=== PATIENT | male | born 1935 | race Caucasian/White ===

== ENCOUNTER 2017-09-14 10:52 | Day surgery (SDC) | payer MEDICARE, OTHER ==
[~2017-09-14] VITALS: Ht 182.9 cm; Wt 93.7 kg
[~2017-09-14 10:52] MED LIST: ADULT LOW DOSE81 MG PO; AMLODIPINE BESYL5 MG PO; FLAX OIL1000 MG PO; GLUCOSAMINE1000 MG PO; HYDROCHLOROTH12.5 MG PO; IBUPROFEN200 M1 PO; LISINOPRIL20 MG PO; LORATADINE10 M2 PO; MULTIVITAMINS1 EAC7 PO; SPIRONOLACTONE25 MG PO; TERAZOSIN HCL5 MG PO; ULTRAM50 MG PO
--- NOTE | 2017-09-14 12:21 | NUR ---
09/14/17 1221 Cassie Issa 1215-PATIENT ARRIVED TO PACU ON RA. O2 SAT 100% PATIENT AWAKE DENIES PAIN OR NAUSEA. LAYING ON STOMACH BANDAID CDI. 1218-PATIENT REPOSITIONED SELF TO RIGHT SIDE.
[2017-09-28] MEDS ORDERED: ACETAMINOPHEN650 M1 PO (12:35)
[2017-09-28] MEDS ORDERED: STOOL SOFTENER240 MG PO (12:36)
[2017-11-02] MEDS ORDERED: NEURONTIN100 MG PO (12:57)
[2018-01-13] MEDS ORDERED: DEMADEX20 MG PO (13:43)
== END 2017-09-14 13:00 | disposition home or self-care (01) ==
LOC: OPS 10:52 → DS 10:52 → OPS 12:00
PROVIDERS: Specialist
PROC: 07DR3ZX Extraction of Iliac Bone Marrow, Percutaneous Approach, Diagnostic (ICD-10-PCS; principal; 2017-09-14 12:00)
DX: C91.10 Chronic lymphocytic leukemia of B-cell type not having achieved remission (principal); N18.9 Chronic kidney disease, unspecified; G47.33 Obstructive sleep apnea (adult) (pediatric); I34.1 Nonrheumatic mitral (valve) prolapse; M19.90 Unspecified osteoarthritis, unspecified site; G25.81 Restless legs syndrome; Z79.899 Other long term (current) drug therapy
CPT/HCPCS: 85025; 99152; J2250; J3010; J7120

== ENCOUNTER 2018-01-22 15:03 | Emergency (ER) | payer MEDICARE ==
[~2018-01-22] VITALS: Ht 182.9 cm; Wt 95.2 kg
[~2018-01-22 15:03] MED LIST changes: +ACETAMINOPHEN650 M1 PO; +DEMADEX20 MG PO; +NEURONTIN100 MG PO; +STOOL SOFTENER240 MG PO
[2018-01-22] MEDS ORDERED: ACYCLOVIR800 MG PO (16:51)
== END 2018-01-22 17:06 | disposition home or self-care (01) ==
LOC: ED 15:03
DX: B02.9 Zoster without complications (principal); Z79.899 Other long term (current) drug therapy; Z79.891 Long term (current) use of opiate analgesic; Z79.82 Long term (current) use of aspirin; I12.9 Hypertensive chronic kidney disease with stage 1 through stage 4 chronic kidney disease, or unspecified chronic kidney disease; N18.4 Chronic kidney disease, stage 4 (severe)
CPT/HCPCS: 70450; 80053; 81001; 85025; 96374; 99284; J3010; J7120

== ENCOUNTER 2018-01-30 09:08 | Inpatient (IN) | payer MEDICARE ==
[~2018-01-30] VITALS: Ht 182.9 cm; Wt 93.2 kg
[~2018-01-30 09:08] MED LIST changes: +ACYCLOVIR800 MG PO
[2018-01-30] MEDS ORDERED: IRON325 M1 (09:27)
[2018-01-30] MEDS ORDERED: IRON325 M1 PO (09:27)
--- NOTE | 2018-01-30 14:24 | NUR ---
VITAL DONE PT IS JUST ARRIVING
--- NOTE | 2018-01-30 15:00 | NUR ---
RECIEVED REPORT FROM MARITA WILKINS. PT IS ALERT AND AWAKE AT THIS TIME, SLIGHTLY CONFUSED AND LOOKS TO SPOUSE TO ANSWER QUESTIONS. PT DOES ANSWER QUESTIONS APROPRIATELY. PT REPORTS NO PAIN, NO NAUSEA, NO VOMITING. NO BM SINCE TUESDAY, WHICH IS FAIRLY NORMAL FOR HIM. REPORTS PT HAS BEEN DEPRESSED. PT HAS SHINGLES, NO OPEN LESIONS AND NO NEW BLISTERS IN 4 DAYS. HAS BEEN ON ACYCLOVIR FOR MORE THAN A WEEK. CONTACT PRECAUTIONS ORDERED. PT VOIDED WELL, URINE SENT TO LAB, AWAITING RESULTS.
--- NOTE | 2018-01-30 15:52 | NUR ---
NURSE CYNTHIA WAS GETTING ORTHO VITALS ON PT. WE GOT PT UP TO BR AND THIS STEAM SHOVEL OPERATING ENGINEER SENT IN A URIAN SAMPLE.
--- NOTE | 2018-01-30 19:05 | NUR ---
IN ROOM FOR REPORT, HELPED PT MOVE TO HIS CHAIR. HE DENIES FURTHER NEEDS AT THIS TIME.
--- NOTE | 2018-01-30 21:09 | NUR ---
PATIENT CALLED WANTING TO GO TO BED FROM CHAIR. LINDSEY FLOAT SARAH AND I HELPED TAKE ORTHOSTATIC V/S PER MARITA MONTILLA'S REQUEST. PUT WATER ON CPAP. PATIENT IS IN BED. CALL LIGHT WITHIN REACH.
--- NOTE | 2018-01-30 21:11 | EKG ---
[facility] [address] [facility] [place] [address] Signed Sinus bradycardia Left axis deviation Abnormal ECG No previous ECGs available Confirmed by MOUNA MONTANO MD ([id number]) on 01/30/2018 9:10:58 PM Electronically Signed By: MOUNA MONTANO MD 01/30/182110 PATIENT NAME: JINNY MIRANDA Electrocardiogram DATE OF : 33 PHYSICIAN: MOUNA MONTANO MD REPORT #: [id number] REPORT IS CONFIDENTIAL AND NOT TO BE RELEASED WITHOUT AUTHORIZATION
--- NOTE | 2018-01-30 22:14 | NUR ---
IN ROOM TO ADMINISTER TYLENOL FOR PAIN 05/08. PT STATES IT DIDN'T HELP EARLIER. HE SAYS SHE TAKE 2 650MG TYLENOL EVERY 12 HR AND TRAMADOL AT BED TIME AND MORNING. HE IS REQUESTING THAT OR SOMETHING ELSE FOR PAIN. WILL GIVE THE DR A CALL.
--- NOTE | 2018-01-30 22:33 | NUR ---
SPOKE WITH DR MONTANO, NEW ORDERS RECEIVED FOR TRAMADOL.
--- NOTE | 2018-01-31 00:14 | NUR ---
PT IS RESTING WITH EYES CLOSED, RESPIRATIONS ARE EVEN AND NONLABORED.
--- NOTE | 2018-01-31 01:10 | NUR ---
ENTERED PT'S ROOM TO FIX IV, PT DENIES NEEDS AT THIS TIME. CALL LIGHT IS WITHIN REACH.
--- NOTE | 2018-01-31 03:09 | NUR ---
PT IS RESTING WITH EYES CLOSED, RESPIRATIONS ARE EVEN AND NONLABORED WITH CPAP ON. CALL LIGHT IS WITHIN REACH.
--- NOTE | 2018-01-31 05:15 | NUR ---
PT STATES HE HAD DIFFICULTY SLEEPING THROUGH THE NIGHT D/T PAIN. AT THIS TIME HE REPORTS PAIN AT 9/10. TYLENOL WAS GIVEN. ADVISED PT WE WILL HAVE TO TALK TO THE DR ABOUT CHANGES TO PAIN MEDS. PT DENIES FURTHER NEEDS AT THIS TIME.
--- NOTE | 2018-01-31 09:42 | NUR ---
PT SITTING UP AT EDGE OF BED. REPORTED THAT THE PAIN TO HIS SIDE AND BACK AT SHINGLES SITES IS 2/10, STATED THAT THIS IS THE BEST HE HAS FELT IN A LONG TIME. PT'S AT SIDE. PERSONAL SUPPLIES AND CALL LIGHT IN REACH.
--- NOTE | 2018-01-31 10:49 | NUR ---
GAVE PT BISACODYL SUPPOSITORY. PT HAS PERSONAL SUPPLIES AND CALL LIGHT IN REACH. DENIED NEEDS.
--- NOTE | 2018-01-31 12:10 | NUR ---
PT ATTEMPTED TO HAVE A BM, JUST VERY SMALL AMOUNT OF LOOSE STOOL, MOSTLY REMAINS OF SUPPOSITORY. PT BACK TO BED, SITTING UP ON EDGE OF BED. DENIED PAIN AT THIS TIME. PT'S AT BEDSIDE. PT DENIES NEEDS.
[2018-01-31] MEDS ORDERED: LIDODERM1 EACH TOP (12:40)
[2018-01-31] MEDS ORDERED: NORVASC5 MG PO (12:42)
[2018-01-31] MEDS ORDERED: TYLENOL EXTRA500 MG PO (13:33)
[2018-01-31] MEDS ORDERED: DULCOLAX5 MG PO (13:38)
[2018-01-31] MEDS ORDERED: ZOFRAN8 MG PO (13:40)
[2018-01-31] MEDS ORDERED: VELCADE3.5 MG SUB-Q (13:40)
[2018-01-31] MEDS ORDERED: DECADRON4 MG PO (13:41)
[2018-01-31] MEDS ORDERED: TERAZOSIN HCL5 MG PO (14:32)
--- NOTE | 2018-01-31 14:54 | NUR ---
MED REC COMPLETE
== END 2018-01-31 15:45 | disposition home or self-care (01) | DRG 683 ==
LOC: ED 09:08 → MS 13:48
PROVIDERS: ADMIT Internal Medicine
DX: N17.9 Acute kidney failure, unspecified (principal); Q61.3 Polycystic kidney, unspecified; C90.00 Multiple myeloma not having achieved remission; N18.3 Chronic kidney disease, stage 3 (moderate); E86.0 Dehydration; D69.59 Other secondary thrombocytopenia; I95.1 Orthostatic hypotension; D63.0 Anemia in neoplastic disease; I10 Essential (primary) hypertension; G89.4 Chronic pain syndrome; T50.1X5A Adverse effect of loop [high-ceiling] diuretics, initial encounter; B02.9 Zoster without complications; Z66 Do not resuscitate; Z79.82 Long term (current) use of aspirin; Z79.891 Long term (current) use of opiate analgesic; Z79.52 Long term (current) use of systemic steroids; Z79.899 Other long term (current) drug therapy
CPT/HCPCS: 71045; 80053; 80069; 81001; 82570; 84300; 84484; 84540; 85025; 85610; 86900; 86901; 93005; 93010; J7030; J7120

== ENCOUNTER 2018-05-15 08:50 | Observation (INO) | payer MEDICARE ==
[~2018-05-15] VITALS: Ht 182.9 cm; Wt 91.2 kg
--- OUTSIDE RECORDS SUMMARY | ~2018-05-15 | XMS | Encounter Summary ---
Demographics + + + | Address | [address] | | | [place] [address] | + + + | Home Phone | | + + + | Preferred Language | Unknown | + + + | Marital Status | | + + + | Worship Affiliation | Unknown | + + + | Race | Unknown | + + + | Ethnic Group | Unknown | + + + Author + + + | Author | [email or web address] | + + + | Organization | [email or web address] | + + + | Address | Unknown | + + + | Phone | Unavailable | + + + Support + + + + + | Name | Relationship | Address | Phone | + + + + + | Halima Alexander | ECON | [address] | | | | | [place] | | | | | [address] | | + + + + + Care Team Providers + +------+ + | Care Fender Mechanic Name | Role | Phone | + +------+ + | Garima Martin | PCP | | + +------+ + Encounter Details +--------+---------+ + + + | Date | Type | Department | Care Team | Description | +--------+---------+ + + + | 04/24/ | Office | [facility] | Eduardo Felder MD | CKD (chronic kidney | | 2018 | Visit | [place] [address] | [address] | disease) stage 3, | | | | [address] [place], [place] | GFR 30-59 ml/min | | | | [address] [place] | [phone] | (Primary Dx); | | | | [address] | | Bilateral leg edema; | | | | | | Electrolyte | | | | | | imbalance risk; | | | | | | Essential | | | | | | hypertension, | | | | | | benign; | | | | | | Hyperuricemia | +--------+---------+ + + + Social History + +-------+ [...] on file | | + + + as of this encounter Last Filed Vital Signs + + + + | Vital Sign | Reading | Time Taken | + + + + | Blood Pressure | 94/50 | 04/24/2018 11:58 AM PDT | + + + + | Pulse | 76 | 04/24/2018 11:58 AM PDT | + + + + | Temperature | 37.1 C (98.8 F) | 04/24/2018 11:58 AM PDT | + + + + | Respiratory Rate | - | - | + + + + | Oxygen Saturation | 99% | 04/24/2018 11:58 AM PDT | + + + + | Inhaled Oxygen | - | - | | Concentration | | | + + + + | Weight | 91.3 kg (201 lb 3.2 | 04/24/2018 11:58 AM PDT | | | oz) | | + + + + | Height | 182.9 cm (6') | 04/24/2018 11:58 AM PDT | + + + + | Body Mass Index | 27.29 | 04/24/2018 11:58 AM PDT | + + + + in this encounter Instructions Patient Instructions - Eduardo Felder MD - 04/24/2018 11:50 AM PDTDiscussions/Recommendatio ns: I discussed today with Mr. Glen Wise the meaning of his severe CKD and the interaction of that with his hypertension. I stressed the importance of keeping his BP controlled and avoiding getting dehydrated i f we are to have a chance at helping preserve his renal function. He showed good understand ing. I gave him instructions on how to chart his blood pressure in the appropriate manner at home. He is to call us if they fall outside of the optimal provided range. He will bring his sphygmomanometer for validation once a year. He will strictly abide by a low salt, low potassium, low purine diet and will avoid all kinds of NSAIDs for analgesia. Also: I will not change any of his vasoactive meds today. I asked him to keep Torsemide 20 mg handy to use for wt gain (3 or more lbs gain in 3 or less days) He will report back to me his home daily weights & BP readings if they fall outside of t he optimal provided range. At that time, I will decide whether any change to his vasoactive regimen is warranted. I asked him to F/U with the Urology team for his LUTS & high post-void residual. He will continue to F/U with your office & the Oncology team regularly. He will have a RFP, CBC, uric acid, iPTH, urinalysis, Urine total nicrejc-it-dbdrvduiqp ratio before he comes back in 4 months.in this encounter Progress Notes Eduardo Felder MD - 04/24/2018 11:50 AM PDTFormatting of this note may be different from e original. Patient Active Problem List Diagnosis CKD (chronic kidney disease), stage IV (HCC) Essential hypertension, benign Bilateral leg edema Hyperkalemia Anemia in neoplastic disease 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) Hyperuricemia Electrolyte imbalance risk HAVEN (acute kidney injury) ([facility]) Dear Garima: I saw your patient Mr. Glen Wise in the office on an urgent basis in hospital today. As you are familiar with his case, I will not state his past history in detail. Briefly, he is a 82 y.o. male patient with past history as delineated above; he is here to F/U on his early 01/2018 HAVEN + his CKD & its associated complications. He tells me he had stage III CKD since before 2006. In early 01/2018 he was hospitalized with HAVEN from volume depletion (low oral intake + use of a diuretic). The patient has history of hypertension since the ; his BP control has been okay. he denies any history of prolonged exposure to NSAIDs or recent exposure to known nephrotox ins. he denies any recurrent nephrolithiasis or pyelonephritis. he tells me that he's had no history of urinary retention, gross hematuria or dysuria. he has no incontinence symptoms. No symptoms of UTI. No history of frequency, nocturia, weak urinary stream, hesitancy, inter mittence, incomplete emptying or urgency; he has 2 times nightly nocturia. No history of p assing kidney stones. he has no foamy urine either. his baseline Creatinine is TBD. There is no family history of renal genetic diseases such as PKD. he says that he feels 'good ' today. he denies any blurred vision tinnitus, headache, feve r, chills, or cough. No nausea, vomiting, abdominal pain, diarrhea, melena, or hematochezia . He has postural dizziness at times; he F/U's on that with your office. No chest pain, pa lpitation, loss of consciousness, orthopnea, paroxysmal nocturnal dyspnea; he has had progre ssive RAND since late 2017 + worse leg edema; however, the edema has been improving with the use of the Loop bhavin. The following portions of the patient's history were reviewed and updated as appropriate: a llergies, current medications, past medical history, past social history, past surgical hist ory, family history and problem list. I also reviewed with him the records from his most re cent hospitalization, including the discharge summary. * U/S from 01/13/18: evidence of significant renal anatomic abnormalities: polycystic kidne y disease + high post void residual of 172 mL. As in History of Present Illness & in Assessment. All the pertinent systems were reviewed a nd were otherwise negative. Current Outpatient Prescriptions Medication Sig Dispense Refill acetaminophen (TYLENOL) 650 MG CR tablet Take 650 mg by mouth daily. aspirin 81 MG tablet Take 81 mg by mouth daily. bortezomib (VELCADE) 3.5 MG injection Inject 3.5 mg/m2 into the vein. Twice a week dexamethasone (DECADRON) 4 MG tablet Take 4 mg by mouth. Twice a week docusate calcium (SURFAK) 240 MG capsule Take 240 mg by mouth 2 (two) times daily. ferrous sulfate, 65 FE, 324 (65 Fe) MG EC tablet Take 65 mg of iron by mouth daily with breakfast. Flaxseed, Linseed, (FLAXSEED OIL) 1200 MG CAPS Take 1,200 mg by mouth daily. gabapentin (NEURONTIN) 100 MG capsule Take 100 mg by mouth nightly. Glucosamine HCl 1500 MG TABS Take 1,000 mg by mouth. Multiple Vitamins-Minerals (VITRUM 50+ SENIOR MULTI) TABS Take 1 tablet by mouth daily. ondansetron (ZOFRAN) 8 MG tablet Take 8 mg by mouth every 8 (eight) hours as needed for Nausea. tamsulosin (FLOMAX) 0.4 MG capsule Take 0.4 mg by mouth After dinner. torsemide (DEMADEX) 20 MG tablet Take 1 tablet by mouth daily. (Patient taking differen tly: Take 20 mg by mouth as needed.) 30 tablet 11 traMADol (ULTRAM) 50 MG tablet Take 100 mg by mouth daily. amLODIPine (NORVASC) 5 MG tablet Take 5 mg by mouth daily. hydrochlorothiazide (HYDRODIURIL) 12.5 MG tablet Take 1 tablet by mouth Two times daily . (Patient not taking: Reported on 02/17/2018) 60 tablet 11 lisinopril (ZESTRIL) 20 MG tablet Take 20 mg by mouth daily. loratadine (CLARITIN) 10 MG tablet Take 10 mg by mouth daily. No current facility-administered medications for this visit. Physical Exam: BP 94/50 (BP Location: Left upper arm, Patient Position: Sitting) | Pulse 76 | Temp 98.8 F (37.1 C) (Temporal) | Ht 1.829 m (6') | Wt 91.3 kg (201 lb 3.2 oz) | SpO2 99% | BM I 27.29 kg/m General appearance: Pleasant, not in acute distress. Neck: Supple without tracheal deviation or jugular venous distension. Head and ENT: Head is atraumatic. The oropharynx is without erythema or thrush. Eyes: Anicteric. The extraocular muscle movements are normal. Lungs: Clear to auscultation bilaterally. There are no wheezes. Heart: Regular rate and rhythm without any rub, gallop. No murmur. Abdominal exam: Soft and nontender with normal bowel sounds. Musculoskeletal: No costovertebral angle tenderness bilaterally. Extremities: Warm to touch with 1+ left, trace right leg edema. There is no cyanosis. Skin: There are no rashes, petechiae, or ecchymosis. Neurological: Awake, alert, and oriented to time, place, and person. Normal gross motor po wer. There is no asterixis. Psychiatric: The patient s behavior is normal. Judgment and thought content are normal. Lab Results Component Value Date BUN 36 (A) 04/17/2018 CREATININE 1.9 (A) 04/17/2018 EGFR 34 (A) 04/17/2018 NA 139 04/17/2018 K 4.7 04/17/2018 CL 103 04/17/2018 CO2 23 04/17/2018 CA 8.8 04/17/2018 PHOS 3.5 04/17/2018 MG 2.2 02/16/2018 ALB 3.6 04/17/2018 HGB 9.3 (A) 01/30/2018 URICACID 8.2 (A) 04/17/2018 WBC 6.4 01/30/2018 HCT 27.6 (A) 01/30/2018 LABPROT 98.6 04/17/2018 *Additional Labs: 01/02/18: K 5.5. sCr 2.41; eGFR 26; Hb 9.6; uric acid 8.9.* Assessment: Mr. Glen Wise is a 82 y.o. male patient with stage IV (severe) CKD on a background of longst anding hypertension. The most likely pathology here is that of hypertensive nephrosclerosis/ arteriolosclerosis. In early 01/2018 he was hospitalized with HAVEN from volume depletion (low oral intake + use of a diuretic). RENAL FUNCTION: Severely low GFR; improving vs early 01/2018; stability is to be monitore d BLOOD PRESSURE: Relatively controlled BLOOD SUGAR: Reports it normal ELECTROLYTES: Hyperkalemia is better ANEMIA: Moderate; of neoplastic disease (MM) VITAMIN D: To be checked thru your office PARATHYROID HORMONE: Mildly up URIC ACID: Up PROTEINURIA: minimal URINALYSIS: No UTI or hematuria VOLUME STATUS: Euvolumic. Discussions/Recommendations: I discussed today with Mr. Glen Wise the meaning of his severe CKD and the interaction of that with his hypertension. I stressed the importance of keeping his BP controlled and avoiding getting dehydrated i f we are to have a chance at helping preserve his renal function. He showed good understand ing. I gave him instructions on how to chart his blood pressure in the appropriate manner at home. He is to call us if they fall outside of the optimal provided range. He will bring his sphygmomanometer for validation once a year. He will strictly abide by a low salt, low potassium, low purine diet and will avoid all kinds of NSAIDs for analgesia. Also: I will not change any of his vasoactive meds today. I kept him off of his spironolactone, HCTZ, Lisinopril, Terazosin for now. I asked him to keep Torsemide 20 mg handy to use for wt gain (3 or more lbs gain in 3 or less days) He will report back to me his home daily weights & BP readings if they fall outside of t he optimal provided range. At that time, I will decide whether any change to his vasoactive regimen is warranted. I asked him to F/U with the Urology team for his LUTS & high post-void residual. He will continue to F/U with your office & the Oncology team regularly. He will have a RFP, CBC, uric acid, iPTH, urinalysis, Urine total hzyhcro-el-cvcyvynvob ratio before he comes back in 4 months. I spent 15 minutes of this 25-minute visit in education, counseling and answering all of his questions to his satisfaction. Thank you Garima for the opportunity to see this patient in F/U today. Please do not hesi mckeon to call me at any time with questions or concerns. Truly yours, Eduardo Felder MD [facility] in this encounter Plan of Treatment +--------+---------+ + + + | Date | Type | Specialty | Care Team | Description | +--------+---------+ + + + | 08/14/ | Office | Nephrology | Eduardo Felder MD | | | 2017 | Visit | | [address] | | | | | | [address] [place], [place] | | | | | | [address] | | | | | | | | +--------+---------+ + + + as of this encounter Visit Diagnoses + + | Diagnosis | + + | CKD (chronic kidney disease) stage 3, GFR 30-59 ml/min - Primary | + + | Chronic kidney disease, Stage III (moderate) | + + | Bilateral leg edema | + + | Edema | + + | Electrolyte imbalance risk | + + | Other specified conditions influencing health status | + + | Essential hypertension, benign | + + | Hyperuricemia | + + | Other abnormal blood chemistry | + +"
--- OUTSIDE RECORDS SUMMARY | ~2018-05-15 | XMS | Encounter Summary ---
Demographics + + + | Address | [address] | | | [place] [address] | + + + | Home Phone | | + + + | Preferred Language | Unknown | + + + | Marital Status | | + + + | Jew Affiliation | Unknown | + + + | Race | Unknown | + + + | Ethnic Group | Unknown | + + + Author + + + | Author | [facility] | + + + | Organization | [facility] | + + + | Address | Unknown | + + + | Phone | Unavailable | + + + Support + + + + + | Name | Relationship | Address | Phone | + + + + + | Halima Alexander | ECON | [address] | | | | | [place] | | | | | [address] | | + + + + + Care Team Providers + +------+ + | Care Hi Teacher Name | Role | Phone | + +------+ + | Garima Martin | PCP | | + +------+ + Reason for Visit + + + | Reason | Comments | + + + | Labs Only | [facility] dated 02/16/2018 | + + + Encounter Details +--------+ + + + + | Date | Type | Department | Care Team | Description | +--------+ + + + + | 02/17/ | Documentati | [facility] | Bernadine Cotton CMA | Labs Only ([facility] | | 2018 | on Only | [place] [address] | | Labs dated | | | | [address] | | 02/16/2018) | | | | [place] [address] | | | | | | [phone] | | | +--------+ + + + [...] + + + as of this encounter Plan of Treatment +--------+---------+ + + + | Date | Type | Specialty | Care Team | Description | +--------+---------+ + + + | 08/14/ | Office | Nephrology | Eduardo Felder MD | | | 2017 | Visit | | [address] | | | | | | [address] [place], [place] | | | | | | [address] | | | | | | | | +--------+---------+ + + + as of this encounter Visit Diagnoses Not on filein this encounter"
--- OUTSIDE RECORDS SUMMARY | ~2018-05-15 | XMS | Encounter Summary ---
Demographics + + + | Address | [address] | | | [place] [address] | + + + | Home Phone | | + + + | Preferred Language | Unknown | + + + | Marital Status | | + + + | Baptism Affiliation | Unknown | + + + | Race | Unknown | + + + | Ethnic Group | Unknown | + + + Author + + + | Author | [facility] | + + + | Organization | [facility] | + + + | Address | Unknown | + + + | Phone | Unavailable | + + + Support + + + + + | Name | Relationship | Address | Phone | + + + + + | Halima Alexander | ECON | [address] | | | | | [place] | | | | | [address] | | + + + + + Care Team Providers + +------+ + | Care Javascript Software Engineer Name | Role | Phone | + +------+ + | Garima Martin | PCP | | + +------+ + Encounter Details +--------+ + + + + | Date | Type | Department | Care Team | Description | +--------+ + + + + | 04/24/ | Telephone | [facility] | Bernadine Cotton CMA | | | 2017 | | [address] | | | | | | [place] | | | | | | [address] [place] | | | | | | [address] | | | +--------+ + + + [...] | Eduardo Felder MD | | | 2018 | Visit | | [address] | | | | | | [address] [place], [place] | | | | | | [address] | | | | | | | | +--------+---------+ + + + + +--------+ + + | Name | Priori | Associated Diagnoses | Order Schedule | | | ty | | | + +--------+ + + | Renal function panel | Routin | CKD (chronic | Expected: | | | e | kidney disease) | 08/07/2018, Expires: | | | | stage 3, GFR 30-59 | 04/24/2019 | | | | ml/min Essential | | | | | hypertension, benign | | | | | Hyperuricemia | | | | | Electrolyte | | | | | imbalance risk | | + +--------+ + + | CBC W/Auto Diff (Reflex to | Routin | CKD (chronic | Expected: | | Manual) | e | kidney disease) | 08/07/2018, Expires: | | | | stage 3, GFR 30-59 | 04/24/2019 | | | | ml/min Essential | | | | | hypertension, benign | | | | | Hyperuricemia | | | | | Electrolyte | | | | | imbalance risk | | + +--------+ + + | Uric acid | Routin | CKD (chronic | Expected: | | | e | kidney disease) | 08/07/2018, Expires: | | | | stage 3, GFR 30-59 | 04/24/2019 | | | | ml/min Essential | | | | | hypertension, benign | | | | | Hyperuricemia | | | | | Electrolyte | | | | | imbalance risk | | + +--------+ + + | PTH intact no calcium | Routin | CKD (chronic | Expected: | | | e | kidney disease) | 08/07/2018, Expires: | | | | stage 3, GFR 30-59 | 04/24/2019 | | | | ml/min Essential | | | | | hypertension, benign | | | | | Hyperuricemia | | | | | Electrolyte | | | | | imbalance risk | | + +--------+ + + | Urinalysis (reflex to micro) | Routin | CKD (chronic | Expected: | | | e | kidney disease) | 08/07/2018, Expires: | | | | stage 3, GFR 30-59 | 04/24/2019 | | | | ml/min Essential | | | | | hypertension, benign | | | | | Hyperuricemia | | | | | Electrolyte | | | | | imbalance risk | | + +--------+ + + | Protein / creatinine ratio, urine | Routin | CKD (chronic | Expected: | | | e | kidney disease) | 08/07/2018, Expires: | | | | stage 3, GFR 30-59 | 04/24/2019 | | | | ml/min Essential | | | | | hypertension, benign | | | | | Hyperuricemia | | | | | Electrolyte | | | | | imbalance risk | | + +--------+ + + as of this encounter Visit Diagnoses + + | Diagnosis | + + | CKD (chronic kidney disease) stage 3, GFR 30-59 ml/min - Primary | + + | Chronic kidney disease, Stage III (moderate) | + + | Essential hypertension, benign | + + | Hyperuricemia | + + | Other abnormal blood chemistry | + + | Electrolyte imbalance risk | + + | Other specified conditions influencing health status | + +"
--- OUTSIDE RECORDS SUMMARY | ~2018-05-15 | XMS | Encounter Summary ---
Demographics + + + | Address | [address] | | | [place] [address] | + + + | Home Phone | | + + + | Preferred Language | Unknown | + + + | Marital Status | | + + + | Episcopal Affiliation | Unknown | + + + | Race | Unknown | + + + | Ethnic Group | Unknown | + + + Author + + + | Author | [facility] | + + + | Organization | [facility] | + + + | Address | Unknown | + + + | Phone | Unavailable | + + + Support + + + + + | Name | Relationship | Address | Phone | + + + + + | Halima Alexander | ECON | [address] | | | | | [place] | | | | | [address] | | + + + + + Care Team Providers + +------+ + | Care General Lot Attendant Name | Role | Phone | + +------+ + | Garima Martin | PCP | | + +------+ + Reason for Visit +--------+ + | Reason | Comments | +--------+ + | Other | Operative Report from [facility] dated | | | 04/25/2018 | +--------+ + Encounter Details +--------+ + + + + | Date | Type | Department | Care Team | Description | +--------+ + + + + | 04/25/ | Documentati | [facility] | Bernadine Cotton CMA | Other (Operative | | 2017 | on Only | [place] [address] | | Report from | | | | [address] | | 's; [place] | | | | [place] [address] | | [place] office dated | | | | [phone] | | 04/25/2018) | +--------+ + + + + Social [...] | | | | | | [address] [place] | | | | | | [address] | | | | | | | | +--------+---------+ + + + as of this encounter Visit Diagnoses Not on filein this encounter"
--- OUTSIDE RECORDS SUMMARY | ~2018-05-15 | XMS | Encounter Summary ---
Demographics + + + | Address | [address] | | | [place] [address] | + + + | Home Phone | | + + + | Preferred Language | Unknown | + + + | Marital Status | | + + + | Pentecostal Affiliation | Unknown | + + + | Race | Unknown | + + + | Ethnic Group | Unknown | + + + Author + + + | Author | [facility] | + + + | Organization | [facility] | + + + | Address | Unknown | + + + | Phone | Unavailable | + + + Support + + + + + | Name | Relationship | Address | Phone | + + + + + | Halima Alexander | ECON | [address] | | | | | [place] | | | | | [address] | | + + + + + Care Team Providers + +------+ + | Care Soyfreeze Operator Name | Role | Phone | + +------+ + | Garima Martin | PCP | | + +------+ + Reason for Visit + + + | Reason | Comments | + + + | Labs Only | [facility] dated 03/13/2018 | + + + Encounter Details +--------+ + + + + | Date | Type | Department | Care Team | Description | +--------+ + + + + | 03/14/ | Documentati | [facility] | Bernadine Cotton CMA | Labs Only ([facility] | | 2018 | on Only | [place] [address] | | Labs dated | | | | [address] | | 03/13/2018) | | | | [place] [address] | | | | | | [phone] | | | +--------+ + + + [...] | | | | | | [address] [place], [place] | | | | | | [address] | | | | | | | | +--------+---------+ + + + as of this encounter Procedures + +--------+ + + + | Procedure Name | Priori | Date/Time | Associated Diagnosis | Comments | | | ty | | | | + +--------+ + + + | CBC W/AUTO DIFF | Routin | 03/13/2018 | | | | (REFLEX TO MANUAL) | e | 1:03 PM | | | | | | PDT | | | + +--------+ + + + | PTH INTACT NO | Routin | 03/13/2018 | | Results for this | | CALCIUM | e | 10:10 AM | | procedure are in the | | | | PDT | | results section. | + +--------+ + + + | RENAL FUNCTION PANEL | Routin | 03/13/2018 | | Results for this | | | e | 10:10 AM | | procedure are in the | | | | PDT | | results section. | + +--------+ + + + in this encounter Results CBC W/Auto Diff (Reflex to Manual) (03/13/2018 1:03 PM) + +-------+ + + | Component | Value | Ref Range | Performed At | + +-------+ + + | WBC | | | [facility] | | | | | LABORAT[facility] | + +-------+ + + | RBC | | 10^6/ L | [facility] | | | | | LAB[facility]AT[facility] | + +-------+ + + | HGB | | g/dL | [facility] | | | | | LAB[facility]ATORY | + +-------+ + + | HCT | | % | [facility] | | | | | LAB[facility]AT[facility] | + +-------+ + + | MCV | | fL | [facility] | | | | | LAB[facility]AT[facility] | + +-------+ + + | MCH | | pg | [facility] | | | | | LAB[facility]AT[facility] | + +-------+ + + | MCHC | | g/dL | [facility] | | | | | LAB[facility]AT[facility] | + +-------+ + + | PLT | | K/ L | [facility] | | | | | LAB[facility]AT[facility] | + +-------+ + + | RDW SD | | % | [facility] | | | | | LAB[facility]AT[facility] | + +-------+ + + | MPV | | fL | [facility] | | | | | LAB[facility]AT[facility] | + +-------+ + + | DIFF TYPE | | | [facility] | | | | | LAB[facility] | + +-------+ + + | NEUTROPHILS | | % | [facility] | | | | | LAB[facility] | + +-------+ + + | LYMPHOCYTES | | % | [facility] | | | | | [facility] | + +-------+ + + | MONOCYTES | | % | [facility] | | | | | LAB[facility] | + +-------+ + + | EOSINOPHILS | | % | [facility] | | | | | [facility] | + +-------+ + + | BASOPHILS | | % | [facility] | | | | | LAB[facility] | + +-------+ + + | NEUTROPHILS ABS | | / L | [facility] | | | | | LAB[facility] | + +-------+ + + | LYMPHOCYTES ABS | | / L | [facility] | | | | | LAB[facility]AT[facility] | + +-------+ + + | MONOCYTES ABS | | / L | [facility] | | | | | LAB[facility] | + +-------+ + + | EOSINOPHILS ABS | | / L | [facility] | | | | | LAB[facility]AT[facility] | + +-------+ + + | BASOPHILS ABS | | / L | [facility] | | | | | LAB[facility]ATORY | + +-------+ + + + + | Specimen | + + | Blood | + + + + + + + | Performing | Address | City/State/Zipcode | Phone Number | | Organization | | | | + + + + + | [facility] | [address] | [place] [address] | | | LABORATORY | 13 | | | + + + + + Renal function panel (03/13/2018 10:10 AM) + + + + + | Component | Value | Ref Range | Performed At | + + + + + | GLUCOSE | 107 (A) | 70 - 100 mg/dL | [facility] | | | | | LAB[facility]AT[facility] | + + + + + | BUN | 50 (A) | 6 - 23 mg/dL | [facility] | | | | | LAB[facility]AT[facility] | + + + + + | CREATININE | 2.33 (A) | 0.7 - 1.11 mg/dL | [facility] | | | | | LAB[facility]ATORY | + + + + + | PHOSPHORUS | 4.2 | 2.5 - 5.0 mg/dL | [facility] | | | | | LAB[facility]AT[facility] | + + + + + | Albumin | 3.9 | 3.5 - 5.0 | [facility] | | | | | LAB[facility]AT[facility] | + + + + + | SODIUM | 141 | 132 - 143 mmol/L | [facility] | | | | | [facility] | + + + + + | POTASSIUM | 4.7 | 3.6 - 5.1 mmol/L | [facility] | | | | | LAB[facility] | + + + + + | CHLORIDE | 108 | 95 - 112 mmol/L | [facility] | | | | | LAB[facility] | + + + + + | CO2 | 22 | 19 - 31 mmol/L | [facility] | | | | | LAB[facility]AT[facility] | + + + + + | ANION GAP AGAP | 15.7 | 7 - 21 mmol/L | [facility] | | | | | LAB[facility]AT[facility] | + + + + + | GFR MDRD Non Af Amer | | | [facility] | | | | | LAB[facility] | + + + + + | Phosphorus,Inorganic | | | [facility] | | | | | LAB[facility]AT[facility] | + + + + + | BUN/CREAT | 21.5 | 6.0 - 28.6 | [facility] | | | | | LAB[facility]AT[facility] | + + + + + | CALCIUM | 8.9 | 8.4 - 10.2 mg/dL | [facility] | | | | | LABORATORY | + + + + + | EGFR | 27 (A) | 60 mg/dL | [facility] | | | | | LABORATORY | + + + + + + + | Specimen | + + | Blood | + + + + + + + | Performing | Address | City/State/Zipcode | Phone Number | | Organization | | | | + + + + + | [facility] | [address] | [place] [address] | | | LABORATORY | 13 | | | + + + + + PTH intact no calcium (03/13/2018 10:10 AM) + +-------+ + + | Component | Value | Ref Range | Performed At | + +-------+ + + | PTH INTACT NO | 63.66 | 15 - 65 pg/mL | [facility] | | CALCIUM | | | LABORATORY | + +-------+ + + + + | Specimen | + + | Blood | + + + + + + + | Performing | Address | City/State/Zipcode | Phone Number | | Organization | | | | + + + + + | [facility] | [address] | [place] [address] | | | LABORATORY | 13 | | | + + + + + in this encounter Visit Diagnoses Not on filein this encounter"
--- OUTSIDE RECORDS SUMMARY | ~2018-05-15 | XMS | Encounter Summary ---
Demographics + + + | Address | [address] | | | [place] [address] | + + + | Home Phone | | + + + | Preferred Language | Unknown | + + + | Marital Status | | + + + | Sikhism Affiliation | Unknown | + + + | Race | Unknown | + + + | Ethnic Group | Unknown | + + + Author + + + | Author | [facility] | + + + | Organization | [facility] | + + + | Address | Unknown | + + + | Phone | Unavailable | + + + Support + + + + + | Name | Relationship | Address | Phone | + + + + + | Halima Alexander | ECON | [address] | | | | | [place] | | | | | [address] | | + + + + + Care Team Providers + +------+ + | Care Truck Crane Operator Name | Role | Phone | + +------+ + | Garima Martin | PCP | | + +------+ + Encounter Details +--------+ + + + + | Date | Type | Department | Care Team | Description | +--------+ + + + + | 03/14/ | Orders Only | [facility] | Bernadine Cotton CMA | CKD (chronic kidney | | 2018 | | [place] [address] | | disease), stage IV | | | | [address] | | (HCC); Essential | | | | [place] [address] | | hypertension, | | | | [phone] | | benign; Anemia in | | | | | | neoplastic disease; | | | | | | Hyperuricemia; HAVEN | | | | | | (acute kidney | | | | | | injury) (HCC) | +--------+ + + + + Social [...] | | | | | | [address] [place], [place] | | | | | | [address] | | | | | | | | +--------+---------+ + + + as of this encounter Procedures + +--------+ + + + | Procedure Name | Priori | Date/Time | Associated Diagnosis | Comments | | | ty | | | | + +--------+ + + + | PROTEIN / CREATININE | Routin | 03/13/2018 | CKD (chronic | Results for this | | RATIO, URINE | e | 1:03 PM | kidney disease), | procedure are in the | | | | PDT | stage IV ([facility]) | results section. | | | | | Essential | | | | | | hypertension, benign | | | | | | Anemia in | | | | | | neoplastic disease | | | | | | Hyperuricemia HAVEN | | | | | | (acute kidney | | | | | | injury) ([facility]) | | + +--------+ + + + | URINALYSIS (REFLEX | Routin | 03/13/2018 | CKD (chronic | Results for this | | TO MICRO) | e | 1:03 PM | kidney disease), | procedure are in the | | | | PDT | stage IV ([facility]) | results section. | | | | | Essential | | | | | | hypertension, benign | | | | | | Anemia in | | | | | | neoplastic disease | | | | | | Hyperuricemia HAVEN | | | | | | (acute kidney | | | | | | injury) ([facility]) | | + +--------+ + + + | URIC ACID | Routin | 03/13/2018 | CKD (chronic | Results for this | | | e | 1:03 PM | kidney disease), | procedure are in the | | | | PDT | stage IV ([facility]) | results section. | | | | | Essential | | | | | | hypertension, benign | | | | | | Anemia in | | | | | | neoplastic disease | | | | | | Hyperuricemia HAVEN | | | | | | (acute kidney | | | | | | injury) (HCC) | | + +--------+ + + + | BASIC METABOLIC | Routin | 03/13/2018 | CKD (chronic | | | PANEL | e | 1:03 PM | kidney disease), | | | | | PDT | stage IV ([facility]) | | | | | | Essential | | | | | | hypertension, benign | | | | | | Anemia in | | | | | | neoplastic disease | | | | | | Hyperuricemia HAVEN | | | | | | (acute kidney | | | | | | injury) ([facility]) | | + +--------+ + + + in this encounter Results Uric acid (03/13/2018 1:03 PM) + +---------+ + + | Component | Value | Ref Range | Performed At | + +---------+ + + | URIC ACID | 8.9 (A) | 4.4 - 7.6 | [facility] | | | | | LABORATORY | + +---------+ + + + + | Specimen | + + | Blood | + + + + + + + | Performing | Address | City/State/Zipcode | Phone Number | | Organization | | | | + + + + + | [facility] | [address] | [place] [address] | | | LABORATORY | 13 | | | + + + + + Protein / creatinine ratio, urine (03/13/2018 1:03 PM) + +-------+ + + | Component | Value | Ref Range | Performed At | + +-------+ + + | UR | 141.4 | 0 - 150 | [facility] | | PROTEIN/CREATININE | | | LABORATORY | + +-------+ + + + + | Specimen | + + | Urine - Urine, | | Unspecified Source | + + + + + + + | Performing | Address | City/State/Zipcode | Phone Number | | Organization | | | | + + + + + | [facility] | [address] | [place] [address] | | | LABORATORY | 13 | | | + + + + + Basic metabolic panel (03/13/2018 1:03 PM) + +-------+ + + | Component | Value | Ref Range | Performed At | + +-------+ + + | GLUCOSE | | mg/dL | [facility] | | | | | LABORATORY | + +-------+ + + | BUN | | mg/dL | [facility] | | | | | LABORATORY | + +-------+ + + | CREATININE | | mg/dL | [facility] | | | | | LABORATORY | + +-------+ + + | BUN/CREAT | | | [facility] | | | | | LAB[facility]ATORY | + +-------+ + + | CALCIUM | | mg/dL | [facility] | | | | | LABORATORY | + +-------+ + + | SODIUM | | mmol/L | [facility] | | | | | LABORATORY | + +-------+ + + | POTASSIUM | | mmol/L | [facility] | | | | | LABORATORY | + +-------+ + + | CHLORIDE | | mmol/L | [facility] | | | | | LABORATORY | + +-------+ + + | CO2 | | mmol/L | [facility] | | | | | LABORATORY | + +-------+ + + | ANION GAP AGAP | | mmol/L | [facility] | | | | | LABORATORY | + +-------+ + + | EGFR | | mg/dL | [facility] | | | | | LABORATORY | + +-------+ + + + + | Specimen | + + | Blood | + + + + + + + | Performing | Address | City/State/Zipcode | Phone Number | | Organization | | | | + + + + + | [facility] | [address] | [place] [address] | | | LABORATORY | 13 | | | + + + + + Urinalysis (reflex to micro) (03/13/2018 1:03 PM) + + + + + | Component | Value | Ref Range | Performed At | + + + + + | COLOR UA | Yellow | | [facility] | | | | | LABORATORY | + + + + + | CLARITY | Clear | | [facility] | | | | | LABORATORY | + + + + + | SPECIFIC | 1.012 | 1.005 - 1.030 | [facility] | | GRAVITY,URINE | | | LABORATORY | + + + + + | LEUKOCYTE ESTERASE | Negative | | [facility] | | | | | LABORATORY | + + + + + | NITRITE | Negative | | [facility] | | | | | LABORATORY | + + + + + | UROBILINOGEN | Normal | | [facility] | | | | | LABORATORY | + + + + + | PROTEIN | Negative | | [facility] | | | | | LABORATORY | + + + + + | PH,URINE | 5 | 5 - 9 | [facility] | | | | | LABORATORY | + + + + + | BLOOD | Negative | | [facility] | | | | | LABORATORY | + + + + + | KETONES | Negative | | [facility] | | | | | LABORATORY | + + + + + | BILIRUBIN | Negative | | [facility] | | | | | LABORATORY | + + + + + | GLUCOSE | Negative | | [facility] | | | | | LABORATORY | + + + + + + + | Specimen | + + | Urine | + + + + + + + | Performing | Address | City/State/Zipcode | Phone Number | | Organization | | | | + + + + + | [facility] | [address] | [place] [address] | | | LABORATORY | 13 | | | + + + + + in this encounter Visit Diagnoses + + | Diagnosis | + + | CKD (chronic kidney disease), stage IV (HCC) | + + | Chronic kidney disease, Stage IV (severe) | + + | Essential hypertension, benign | + + | Anemia in neoplastic disease | + + | Hyperuricemia | + + | Other abnormal blood chemistry | + + | HAVEN (acute kidney injury) (HCC) | + + | Acute kidney failure, unspecified | + +"
--- OUTSIDE RECORDS SUMMARY | ~2018-05-15 | XMS | Encounter Summary ---
Demographics + + + | Address | [address] | | | [place] [address] | + + + | Home Phone | | + + + | Preferred Language | Unknown | + + + | Marital Status | | + + + | Jain Affiliation | Unknown | + + + | Race | Unknown | + + + | Ethnic Group | Unknown | + + + Author + + + | Author | [facility] | + + + | Organization | [facility] | + + + | Address | Unknown | + + + | Phone | Unavailable | + + + Support + + + + + | Name | Relationship | Address | Phone | + + + + + | Halima Alexander | ECON | [address] | | | | | [place] | | | | | [address] | | + + + + + Care Team Providers + +------+ + | Care Creative Resource Manager Name | Role | Phone | + +------+ + | Garima Martin | PCP | | + +------+ + Encounter Details +--------+ + + + + | Date | Type | Department | Care Team | Description | +--------+ + + + + | 04/18/ | Orders Only | [facility] | Bernadine Cotton CMA | CKD (chronic kidney | | 2018 | | [place] [address] | | disease), stage IV | | | | [address] | | (HCC); Essential | | | | [place] [address] | | hypertension, | | | | [phone] | | benign; Bilateral | | | | | | leg edema; | | | | | | Hyperkalemia; Anemia | | | | | | in neoplastic | | | | | | disease; Multiple | | | | | | myeloma not having | | | | | | achieved remission | | | | | | ([facility]); | | | | | | Hyperuricemia; | | | | | | Electrolyte | | | | | | imbalance risk; HAVEN | | | | | | (acute kidney | | | | | | injury) ([facility]) | +--------+ + + + + Social [...] | | | | | | [address] | | | | | | [id number] | | | | | | | | +--------+---------+ + + + as of this encounter Procedures + +--------+ + + + | Procedure Name | Priori | Date/Time | Associated Diagnosis | Comments | | | ty | | | | + +--------+ + + + | PROTEIN / CREATININE | Routin | 04/17/2018 | CKD (chronic | Results for this | | RATIO, URINE | e | 9:10 AM | kidney disease), | procedure are in the | | | | PDT | stage IV (HCC) | results section. | | | | | Essential | | | | | | hypertension, benign | | | | | | Bilateral leg | | | | | | edema Hyperkalemia | | | | | | Anemia in | | | | | | neoplastic disease | | | | | | Multiple myeloma not | | | | | | having achieved | | | | | | remission ([facility]) | | | | | | Hyperuricemia | | | | | | Electrolyte | | | | | | imbalance risk HAVEN | | | | | | (acute kidney | | | | | | injury) ([facility]) | | + +--------+ + + + | URINALYSIS (REFLEX | Routin | 04/17/2018 | CKD (chronic | Results for this | | TO MICRO) | e | 9:10 AM | kidney disease), | procedure are in the | | | | PDT | stage IV (HCC) | results section. | | | | | Essential | | | | | | hypertension, benign | | | | | | Bilateral leg | | | | | | edema Hyperkalemia | | | | | | Anemia in | | | | | | neoplastic disease | | | | | | Multiple myeloma not | | | | | | having achieved | | | | | | remission ([facility]) | | | | | | Hyperuricemia | | | | | | Electrolyte | | | | | | imbalance risk HAVEN | | | | | | (acute kidney | | | | | | injury) (HCC) | | + +--------+ + + + | URIC ACID | Routin | 04/17/2018 | CKD (chronic | Results for this | | | e | 9:10 AM | kidney disease), | procedure are in the | | | | PDT | stage IV (HCC) | results section. | | | | | Essential | | | | | | hypertension, benign | | | | | | Bilateral leg | | | | | | edema Hyperkalemia | | | | | | Anemia in | | | | | | neoplastic disease | | | | | | Multiple myeloma not | | | | | | having achieved | | | | | | remission (HCC) | | | | | | Hyperuricemia | | | | | | Electrolyte | | | | | | imbalance risk HAVEN | | | | | | (acute kidney | | | | | | injury) (HCC) | | + +--------+ + + + | RENAL FUNCTION PANEL | Routin | 04/17/2018 | CKD (chronic | Results for this | | | e | 9:10 AM | kidney disease), | procedure are in the | | | | PDT | stage IV (HCC) | results section. | | | | | Essential | | | | | | hypertension, benign | | | | | | Bilateral leg | | | | | | edema Hyperkalemia | | | | | | Anemia in | | | | | | neoplastic disease | | | | | | Multiple myeloma not | | | | | | having achieved | | | | | | remission (HCC) | | | | | | Hyperuricemia | | | | | | Electrolyte | | | | | | imbalance risk HAVEN | | | | | | (acute kidney | | | | | | injury) (HCC) | | + +--------+ + + + in this encounter Results Uric acid (04/17/2018 9:10 AM) + +---------+ + + | Component | Value | Ref Range | Performed At | + +---------+ + + | URIC ACID | 8.2 (A) | 4.4 - 7.6 | [facility] | | | | | LABORATORY | + +---------+ + + + + | Specimen | + + | Blood | + + + + + + + | Performing | Address | City/State/Zipcode | Phone Number | | Organization | | | | + + + + + | [facility] | [address] | [place] [address] | | | LABORATORY | 13 | | | + + + + + Protein / creatinine ratio, urine (04/17/2018 9:10 AM) + +-------+ + + | Component | Value | Ref Range | Performed At | + +-------+ + + | UR | 98.6 | 0 - 150 | [facility] | [...] | [address] | [place] [address] | | | LABORATORY | 13 | | | + + + + + Renal function panel (04/17/2018 9:10 AM) + +---------+ + + | Component | Value | Ref Range | Performed At | + +---------+ + + | GLUCOSE | 93 | 70 - 100 mg/dL | [facility] | | | | | LABORATORY | + +---------+ + + | BUN | 36 (A) | 6 - 23 mg/dL | [facility] | | | | | LABORATORY | + +---------+ + + | CREATININE | 1.9 (A) | 0.7 - 1.11 mg/dL | [facility] | | | | | LABORATORY | + +---------+ + + | PHOSPHORUS | 3.5 | 2.5 - 5.0 mg/dL | [facility] | | | | | LABORATORY | + +---------+ + + | Albumin | 3.6 | 3.5 - 5.0 | [facility] | | | | | LABORATORY | + +---------+ + + | SODIUM | 139 | 132 - 143 mmol/L | [facility] | | | | | LABORATORY | + +---------+ + + | POTASSIUM | 4.7 | 3.6 - 5.1 mmol/L | [facility] | | | | | LABORATORY | + +---------+ + + | CHLORIDE | 103 | 95 - 112 mmol/L | [facility] | | | | | LABORATORY | + +---------+ + + | CO2 | 23 | 19 - 31 mmol/L | [facility] | | | | | LABORATORY | + +---------+ + + | ANION GAP AGAP | 17.7 | 7 - 21 mmol/L | [facility] | | | | | LABORATORY | + +---------+ + + | GFR MDRD Non Af Amer | | | [facility] | | | | | LABORATORY | + +---------+ + + | Phosphorus,Inorganic | | | [facility] | | | | | LABORATORY | + +---------+ + + | BUN/CREAT | 18.9 | 6.0 - 28.6 | [facility] | | | | | LABORATORY | + +---------+ + + | CALCIUM | 8.8 | 8.5 - 10.3 mg/dL | [facility] | | | | | LABORATORY | + +---------+ + + | EGFR | 34 (A) | 60 mg/dL | [facility] | [...] | [address] | [place] [address] | | | LABORATORY | 13 | | | + + + + + Urinalysis (reflex to micro) (04/17/2018 9:10 AM) + + + + + | [...] + + + + | SPECIFIC | 1.011 | 1.005 - 1.030 | [facility] | [...] | [facility] | [address] | [place] [address] | | | LABORATORY | 13 | | | + + + + + in this encounter Visit Diagnoses + + | Diagnosis | + + | CKD (chronic kidney disease), stage IV (HCC) | + + | Chronic kidney disease, Stage IV (severe) | + + | Essential hypertension, benign | + + | Bilateral leg edema | + + | Edema | + + | Hyperkalemia | + + | Hyperpotassemia | + + | Anemia in neoplastic disease | + + | 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) | + + | Multiple myeloma, without mention of having achieved remission | + + | Hyperuricemia | + + | Other abnormal blood chemistry | + + | Electrolyte imbalance risk | + + | Other specified conditions influencing health status | + + | HAVEN (acute kidney injury) (HCC) | + + | Acute kidney failure, unspecified | + +"
--- OUTSIDE RECORDS SUMMARY | ~2018-05-15 | XMS | Encounter Summary ---
Demographics + + + | Address | [address] | | | [place] [address] | + + + | Home Phone | | + + + | Preferred Language | Unknown | + + + | Marital Status | | + + + | Muslim Affiliation | Unknown | + + + | Race | Unknown | + + + | Ethnic Group | Unknown | + + + Author + + + | Author | [facility] | + + + | Organization | [facility] | + + + | Address | Unknown | + + + | Phone | Unavailable | + + + Support + + + + + | Name | Relationship | Address | Phone | + + + + + | Halima Alexander | ECON | [address] | | | | | [place] | | | | | [address] | | + + + + + Care Team Providers + +------+ + | Care Living Supervisor Name | Role | Phone | + +------+ + | Garima Martin | PCP | | + +------+ + Reason for Visit + + + | Reason | Comments | + + + | Labs Only | [facility] labs dated 04/17/2018 | + + + Encounter Details +--------+ + + + + | Date | Type | Department | Care Team | Description | +--------+ + + + + | 04/18/ | Documentati | [facility] | Bernadine Cotton CMA | Labs Only ([facility] | | 2018 | on Only | [place] [address] | | labs dated | | | | [address] | | 04/17/2018) | | | | [place] [address] | | | | | | [phone] | | | +--------+ + + + [...] | | | | | | [address] [place], [place] | | | | | | [address] | | | | | | | | +--------+---------+ + + + as of this encounter Visit Diagnoses Not on filein this encounter"
--- OUTSIDE RECORDS SUMMARY | ~2018-05-15 | XMS | Encounter Summary ---
Demographics + + + | Address | [address] | | | [place] [address] | + + + | Home Phone | | + + + | Preferred Language | Unknown | + + + | Marital Status | | + + + | Alevism Affiliation | Unknown | + + + | Race | Unknown | + + + | Ethnic Group | Unknown | + + + Author + + + | Author | [facility] | + + + | Organization | [facility] | + + + | Address | Unknown | + + + | Phone | Unavailable | + + + Support + + + + + | Name | Relationship | Address | Phone | + + + + + | Halima Alexander | ECON | [address] | | | | | [place] | | | | | [address] | | + + + + + Care Team Providers + +------+ + | Care Rehabilitation Inspector Name | Role | Phone | + +------+ + | Garima Martin | PCP | | + +------+ + Reason for Visit +--------+ + | Reason | Comments | +--------+ + | Other | Blood Pressure Log dated 01/03/2018-02/17/2018 | +--------+ + Encounter Details +--------+ + + + + | Date | Type | Department | Care Team | Description | +--------+ + + + + | 02/17/ | Documentati | [facility] | Bernadine Cotton CMA | Other (Blood | | 2018 | on Only | [place] [address] | | Pressure Log dated | | | | [address] | | 01/03/2018-02/17/2018) | | | | [place] [address] | | | | | | [phone] | | | +--------+ + + + [...] | | | | | | [address] [place] | | | | | | [address] | | | | | | | | +--------+---------+ + + + as of this encounter Visit Diagnoses Not on filein this encounter"
--- OUTSIDE RECORDS SUMMARY | ~2018-05-15 | XMS | Encounter Summary ---
Demographics + + + | Address | [address] | | | [place] [address] | + + + | Home Phone | | + + + | Preferred Language | Unknown | + + + | Marital Status | | + + + | Moravian Affiliation | Unknown | + + + | Race | Unknown | + + + | Ethnic Group | Unknown | + + + Author + + + | Author | [facility] | + + + | Organization | [facility] | + + + | Address | Unknown | + + + | Phone | Unavailable | + + + Support + + + + + | Name | Relationship | Address | Phone | + + + + + | Halima Alexander | ECON | [address] | | | | | [place] | | | | | [address] | | + + + + + Care Team Providers + +------+ + | Care Pastry Cook Helper Name | Role | Phone | + +------+ + | Garima Martin | PCP | | + +------+ + Encounter Details +--------+---------+ + + + | Date | Type | Department | Care Team | Description | +--------+---------+ + + + | 02/17/ | Office | [facility] | Eduardo Felder MD | Essential | | 2018 | Visit | [place] [address] | [address] | hypertension, benign | | | | [address] | [address] [place], [place] | (Primary Dx); [place] | | | | [place] [address] | [address] | (acute kidney | | | | [phone] | | injury) (HCC); | | | | | | Electrolyte | | | | | | imbalance risk; CKD | | | | | | (chronic kidney | | | | | | disease), stage IV | | | | | | ([facility]); Bilateral leg | | | | | | edema; | | | | | | Hyperuricemia; | | | | | | Hyperkalemia | +--------+---------+ + + + Social History [...] + + + | Blood Pressure | 114/64 | 02/17/2018 10:19 AM PDT | + + + + | Pulse | 61 | 02/17/2018 10:19 AM PDT | + + + + | Temperature | 37 C (98.6 F) | 02/17/2018 10:19 AM PDT | + + + + | Respiratory Rate | - | - | + + + + | Oxygen Saturation | 99% | 02/17/2018 10:19 AM PDT | + + + + | Inhaled Oxygen | - | - | | Concentration | | | + + + + | Weight | 90.9 kg (200 lb 6.4 | 02/17/2018 10:19 AM PDT | | | oz) | | + + + + | Height | 182.9 cm (6') | 02/17/2018 10:19 AM PDT | + + + + | Body Mass Index | 27.18 | 02/17/2018 10:19 AM PDT | + + + + in this encounter Instructions Patient Instructions - Eduardo Felder MD - 02/17/2018 10:40 AM PDTDiscussions/Recommendatio ns: I discussed today with [...] kinds of NSAIDs for analgesia. Also: I sent him for a repeat BMP in 17 days. I kept him off of his spironolactone, HCTZ, Lisinopril, Terazosin for now. I asked him to keep Torsemide 20 mg handy to use for wt gain (3 or more lbs gain in 3 or less days) He will report back to me his home daily weights & BP readings in 17 days. At that time, I will decide whether any change to his vasoactive regimen is warranted. I asked him to see the Urology team for his LUTS & high post-void residual. He will continue to F/U with your office & the Oncology team regularly. He will have a RFP, uric acid, urinalysis, Urine total tvxmnat-vm-jfeontgejf ratio befor e he comes back in 2 months.in this encounter Progress Notes Eduardo Felder MD - 02/17/2018 10:40 AM PDTFormatting of this note may be different from e original. Patient Active Problem List Diagnosis CKD (chronic kidney disease), stage IV (HCC) Essential hypertension, benign Bilateral leg edema Hyperkalemia Anemia in neoplastic disease 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) Hyperuricemia Electrolyte imbalance risk Dear Garima: I saw your patient Mr. [...] patient has history of hypertension since the s; his BP control has been okay. he [...] mittence, incomplete emptying or urgency; he has 3 times nightly nocturia. No history of p [...] re cent hospitalization, including the discharge summary. I also reviewed with him the report of his U/S from 01/13/18, showing evidence of significa nt renal anatomic abnormalities: polycystic kidney disease + high post void residual of 172 mL. As in History of Present Illness & in Assessment. All the pertinent systems were reviewed a nd were otherwise negative. Current Outpatient Prescriptions Medication Sig Dispense Refill acetaminophen (TYLENOL) 650 MG CR tablet Take 650 mg by mouth daily. amLODIPine (NORVASC) 5 MG tablet Take 5 mg by mouth daily. aspirin 81 MG tablet Take 81 mg by mouth daily. Flaxseed, Linseed, (FLAXSEED OIL) 1200 MG CAPS Take 1,200 mg by mouth daily. Glucosamine HCl 1500 MG TABS Take 1,000 mg by mouth. loratadine (CLARITIN) 10 MG tablet Take 10 mg by mouth daily. Multiple Vitamins-Minerals (VITRUM 50+ SENIOR MULTI) TABS Take 1 tablet by mouth daily. traMADol (ULTRAM) 50 MG tablet Take 100 mg by mouth daily. hydrochlorothiazide (HYDRODIURIL) 12.5 MG tablet Take 1 tablet by mouth Two times daily . (Patient not taking: Reported on 02/17/2018) 60 tablet 11 lisinopril (ZESTRIL) 20 MG tablet Take 20 mg by mouth daily. torsemide (DEMADEX) 20 MG tablet Take 1 tablet by mouth daily. (Patient not taking: Rep orted on 02/17/2018) 30 tablet 11 No current facility-administered medications for this visit. Physical Exam: BP 114/64 (BP Location: Right upper arm, Patient Position: Sitting) | Pulse 61 | Temp 98. 6 F (37 C) (Temporal) | Ht 1.829 m (6') | Wt 90.9 kg (200 lb 6.4 oz) | SpO2 99% | BM I 27.18 kg/m General appearance: Pleasant, not in acute [...] normal. Lab Results Component Value Date BUN 62 (A) 02/16/2018 CREATININE 2.74 (A) 02/16/2018 EGFR 22 (A) 02/16/2018 NA 135 02/16/2018 K 4.9 02/16/2018 CL 102 02/16/2018 CO2 23 02/16/2018 CA 8.8 02/16/2018 PHOS 3.6 02/16/2018 MG 2.2 02/16/2018 ALB 3.6 02/16/2018 HGB 9.3 (A) 01/30/2018 URICACID 8.6 (A) 02/16/2018 WBC 6.4 01/30/2018 HCT 27.6 (A) 01/30/2018 LABPROT 84.7 02/16/2018 *Additional Labs: 01/02/18: K 5.5. sCr 2.41; [...] kinds of NSAIDs for analgesia. Also: I sent him for a repeat BMP in 17 days. I kept him off of his spironolactone, HCTZ, Lisinopril, Terazosin for now. I asked him to keep Torsemide 20 mg handy to use for wt gain (3 or more lbs gain in 3 or less days) He will report back to me his home daily weights & BP readings in 17 days. At that time, I will decide whether any change to his vasoactive regimen is warranted. I asked him to see the Urology team for his LUTS & high post-void residual. He will continue to F/U with your office & the Oncology team regularly. He will have a RFP, uric acid, urinalysis, Urine total gomilcg-xn-hbcbzxrooc ratio befor e he comes back in 2 months. Thank you Garima for the opportunity to see this patient in hospital F/U on an urgent bas is (HAVEN, hyperkalemia & severe CKD) today. Please do not hesitate to call me at any time wit h questions or concerns. Truly yours, MD GILLIAN Rodriguez in this encounter Plan of Treatment +--------+---------+ + + + | Date | Type | Specialty | Care Team | Description | +--------+---------+ + + + | 08/14/ | Office | Nephrology | Eduardo Felder MD | | | 2018 | Visit | | [address] | | | | | | [address] [place], [place] | | | | | | [address] | | | | | | | | +--------+---------+ + + + as of this encounter Visit Diagnoses + + | Diagnosis | + + | Essential hypertension, benign - Primary | + + | HAVEN (acute kidney injury) (HCC) | + + | Acute kidney failure, unspecified | + + | Electrolyte imbalance risk | + + | Other specified conditions influencing health status | + + | CKD (chronic kidney disease), stage IV (HCC) | + + | Chronic kidney disease, Stage IV (severe) | + + | Bilateral leg edema | + + | Edema | + + | Hyperuricemia | + + | Other abnormal blood chemistry | + + | Hyperkalemia | + + | Hyperpotassemia | + +"
--- OUTSIDE RECORDS SUMMARY | ~2018-05-15 | XMS | Encounter Summary ---
Demographics + + + | Address | [address] | | | [place] [address] | + + + | Home Phone | | + + + | Preferred Language | Unknown | + + + | Marital Status | | + + + | Orthodox Affiliation | Unknown | + + + | Race | Unknown | + + + | Ethnic Group | Unknown | + + + Author + + + | Author | [facility] | + + + | Organization | [facility] | + + + | Address | Unknown | + + + | Phone | Unavailable | + + + Support + + + + + | Name | Relationship | Address | Phone | + + + + + | Halima Alexander | ECON | [address] | | | | | [place] | | | | | [address] | | + + + + + Care Team Providers + +------+ + | Care Cloud Automation Tester Name | Role | Phone | + +------+ + | Garima Martin | PCP | | + +------+ + Reason for Visit + + + | Reason | Comments | + + + | Labs Only | Mayank Hayes dated 04/24/2018; Dr. Gutierrez | + + + Encounter Details +--------+ + + + + | Date | Type | Department | Care Team | Description | +--------+ + + + + | 04/27/ | Documentati | [facility] | Bernadine Cotton CMA | Labs Only ([facility] | | 2018 | on Only | [place] [address] | | Labs dated | | | | [address] | | 04/24/2018; | | | | [place] [address] | | [place]) | | | | [phone] | | | +--------+ + + + [...] | | | | | | [address] [place], [place] | | | | | | [address] | | | | | | | | +--------+---------+ + + + as of this encounter Procedures + +--------+ + + + | Procedure Name | Priori | Date/Time | Associated Diagnosis | Comments | | | ty | | | | + +--------+ + + + | THAD/GUILLAUME FR LT CH RAT | Routin | 04/24/2018 | | Results for this | | | e | 9:30 AM | | procedure are in the | | | | PDT | | results section. | + +--------+ + + + | CBC W/AUTO DIFF | Routin | 04/24/2018 | | Results for this | | (REFLEX TO MANUAL) | e | 9:30 AM | | [...] + + + in this encounter Results Comprehensive metabolic panel (04/24/2018 9:30 AM) + + + + + | Component | Value | Ref Range | Performed At | + + + + + | GLUCOSE | 103 (A) | 70 - 100 mg/dL | [facility] | | | | | LABORATORY | + + + + + | BUN | 45 (A) | 6 - 23 mg/dL | [facility] | | | | | LABORATORY | + + + + + | CREATININE | 2.13 (A) | 0.7 - 1.11 mg/dL | [facility] | | | | | LABORATORY | + + + + + | BUN/CREAT | 21.1 | 6.0 - 28.6 | [facility] | | | | | LABORATORY | + + + + + | CALCIUM | 8.8 | 8.5 - 10.3 mg/dL | [facility] | | | | | LABORATORY | + + + + + | TOTAL PROTEIN | 5.8 (A) | 6.0 - 8.3 g/dL | [facility] | | | | | LABORATORY | + + + + + | Albumin | 3.6 | 3.5 - 5.0 | [facility] | | | | | LABORATORY | + + + + + | GLOBULIN | 2.2 | 1.8 - 3.5 | [facility] | | | | | LABORATORY | + + + + + | A/G | 1.6 | 1.1 - 2.4 | [facility] | | | | | LABORATORY | + + + + + | TBIL | 0.4 | 0.0 - 1.2 mg/dL | [facility] | | | | | LABORATORY | + + + + + | ALK PHOS | 44 | 31 - 120 | [facility] | | | | | LABORATORY | + + + + + | ALT | 11 | 7 - 52 U/L | [facility] | | | | | LABORATORY | + + + + + | AST | 15 | 13 - 39 U/L | [facility] | | | | | LABORATORY | + + + + + | SODIUM | 140 | 132 - 143 mmol/L | [facility] | | | | | LABORATORY | + + + + + | POTASSIUM | 4.6 | 3.6 - 5.1 mmol/L | [facility] | | | | | LABORATORY | + + + + + | CHLORIDE | 105 | 95 - 112 mmol/L | [facility] | | | | | LABORATORY | + + + + + | CO2 | 26 | 19 - 31 mmol/L | [facility] | | | | | LABORATORY | + + + + + | ANION GAP AGAP | 13.6 | 7 - 21 mmol/L | [facility] | | | | | LABORATORY | + + + + + | EGFR | 30 (A) | 60 mg/dL | [facility] | | | | | LABORATORY | + + + + + + + | Specimen | + + | Blood | + + + + + + + | Performing | Address | City/State/Zipcode | Phone Number | | Organization | | | | + + + + + | [facility] | [address] | [place] [address] | | | LABORATORY | 13 | | | + + + + + CBC W/Auto Diff (Reflex to Manual) (04/24/2018 9:30 AM) + + + + + | Component | Value | Ref Range | Performed At | + + + + + | WBC | 4.8 | 4.5 - 11.0 10^3/mL | [facility] | | | | | LABORATORY | + + + + + | RBC | 3.05 (A) | 4.3 - 5.7 10^6/ L | [facility] | | | | | LABORATORY | + + + + + | HGB | 10.2 (A) | 13.5 - 18.0 g/dL | [facility] | | | | | LABORATORY | + + + + + | HCT | 31.1 (A) | 41 - 50 % | [facility] | | | | | LABORATORY | + + + + + | MCV | 102 (A) | 81 - 99 fL | [facility] | | | | | LABORATORY | + + + + + | MCH | 33 | 27 - 33 pg | [facility] | | | | | LABORATORY | + + + + + | MCHC | 33 | 30 - 36 g/dL | [facility] | | | | | LABORATORY | + + + + + | PLT | 34 (A) | 140 - 440 K/ L | [facility] | | | | | LABORATORY | + + + + + | RDW SD | 14.3 | 10.5 - 15.0 % | [facility] | | | | | LABORATORY | + + + + + | MPV | | fL | [facility] | | | | | LABORATORY | + + + + + | DIFF TYPE | | | [facility] | | | | | LABORATORY | + + + + + | NEUTROPHILS | | % | [facility] | | | | | LABORATORY | + + + + + | LYMPHOCYTES | | % | [facility] | | | | | LABORATORY | + + + + + | MONOCYTES | | % | [facility] | | | | | LABORATORY | + + + + + | EOSINOPHILS | | % | [facility] | | | | | LABORATORY | + + + + + | BASOPHILS | | % | [facility] | | | | | LABORATORY | + + + + + | NEUTROPHILS ABS | | / L | [facility] | | | | | LABORATORY | + + + + + | LYMPHOCYTES ABS | | / L | [facility] | | | | | LABORATORY | + + + + + | MONOCYTES ABS | | / L | [facility] | | | | | LABORATORY | + + + + + | EOSINOPHILS ABS | | / L | [facility] | | | | | LABORATORY | + + + + + | BASOPHILS ABS | | [...] | [address] | [place] [address] | | | LABORATORY | 13 | | | + + + + + THAD/ GUILLAUME VELAZQUEZ LT BLANCA IGNACIO (04/24/2018 9:30 AM) + + + + + | Component | Value | Ref Range | Performed At | + + + + + | [facility] | 11.10 (A) | 0.33 - 1.94 | [facility] | | | | | LABORATORY | + + + + + | [facility] | 1.53 | 0.57 - 2.63 | [facility] | | | | | LABORATORY | + + + + + | [facility] | 7.25 (A) | 0.26 - 1.65 | [facility] | | RATIO | | | LABORATORY | + + + + + + + + + + | Performing | Address | City/State/Zipcode | Phone Number | | Organization | | | | + + + + + | [facility] | [address] | [place] [address] | | | LABORATORY | 13 | | | + + + + + in this encounter Visit Diagnoses Not on filein this encounter"
--- OUTSIDE RECORDS SUMMARY | ~2018-05-15 | XMS | Encounter Summary ---
Demographics + + + | Address | [address] | | | [place] [address] | + + + | Home Phone | | + + + | Preferred Language | Unknown | + + + | Marital Status | | + + + | Yarsanism Affiliation | Unknown | + + + | Race | Unknown | + + + | Ethnic Group | Unknown | + + + Author + + + | Author | [facility] | + + + | Organization | [facility] | + + + | Address | Unknown | + + + | Phone | Unavailable | + + + Support + + + + + | Name | Relationship | Address | Phone | + + + + + | Halima Alexander | ECON | [address] | | | | | [place] | | | | | [address] | | + + + + + Care Team Providers + +------+ + | Care Button Tufter Name | Role | Phone | + +------+ + | Garima Martin | PCP | | + +------+ + Encounter Details +--------+ + + + + | Date | Type | Department | Care Team | Description | +--------+ + + + + | 02/17/ | Orders Only | [facility] | Bernadine Cotton CMA | CKD (chronic kidney | | 2018 | | [address] | | disease), stage IV | | | | [address] | | (HCC) (Primary Dx); | | | | [place] [address] | | Essential | | | | [phone] | | hypertension, | | | | | | benign; Anemia in | | [...] | | | | | | [address] | | | | | | [address] | | | | | | | | +--------+---------+ + + + + +--------+ + + | Name | Priori | Associated Diagnoses | Order Schedule | | | ty | | | + +--------+ + + | Renal function panel | Routin | CKD (chronic | Expected: | | | e | kidney disease), | 04/17/2018, Expires: | | | | stage IV (HCC) | 02/17/2019 | | | | Essential | | | | | hypertension, benign | | | | | Anemia in | | | | | neoplastic disease | | | | | Hyperuricemia HAVEN | | | | | (acute kidney | | | | | injury) ([facility]) | | + +--------+ + + as of this encounter Procedures + +--------+ + + + | Procedure Name | Priori | Date/Time | Associated Diagnosis | Comments | | | ty | | | | + +--------+ + + + | PROTEIN / CREATININE | Routin | 02/16/2018 | CKD (chronic | Results for this | | RATIO, URINE | e | 8:50 AM | kidney disease), | procedure are in the | | | | PDT | stage IV ([facility]) | results section. | | | | | Essential | | | | | | hypertension, benign | | | | | | Anemia in | | | | | | neoplastic disease | | | | | | Hyperuricemia | | + +--------+ + + + | URINALYSIS (REFLEX | Routin | 02/16/2018 | CKD (chronic | Results for this | | TO MICRO) | e | 8:50 AM | kidney disease), | procedure are in the | | | | PDT | stage IV (HCC) | results section. | | | | | Essential | | | | | | hypertension, benign | | | | | | Anemia in | | | | | | neoplastic disease | | | | | | Hyperuricemia | | + +--------+ + + + | URIC ACID | Routin | 02/16/2018 | CKD (chronic | Results for this | | | e | 8:50 AM | kidney disease), | procedure are in the | | | | PDT | stage IV (HCC) | results section. | | | | | Essential | | | | | | hypertension, benign | | | | | | Anemia in | | | | | | neoplastic disease | | | | | | Hyperuricemia | | + +--------+ + + + | PTH INTACT NO | Routin | 02/16/2018 | CKD (chronic | Results for this | | CALCIUM | e | 8:50 AM | kidney disease), | procedure are in the | | | | PDT | stage IV (HCC) | results section. | | | | | Essential | | | | | | hypertension, benign | | | | | | Anemia in | | | | | | neoplastic disease | | | | | | Hyperuricemia | | + +--------+ + + + | MAGNESIUM | Routin | 02/16/2018 | CKD (chronic | Results for this | | | e | 8:50 AM | kidney disease), | procedure are in the | | | | PDT | stage IV (HCC) | results section. | | | | | Essential | | | | | | hypertension, benign | | | | | | Anemia in | | | | | | neoplastic disease | | | | | | Hyperuricemia | | + +--------+ + + + | RENAL FUNCTION PANEL | Routin | 02/16/2018 | CKD (chronic | Results for this | | | e | 8:50 AM | kidney disease), | procedure are in the | | | | PDT | stage IV (HCC) | results section. | | | | | Essential | | | | | | hypertension, benign | | | | | | Anemia in | | | | | | neoplastic disease | | | | | | Hyperuricemia | | + +--------+ + + + in this encounter Results Protein / creatinine ratio, urine (03/13/2018 1:03 [...] | [address] | [place] [address] | | | LABORATORY | 13 | [...] | [address] | [place] [address] | | | LABORATORY | 13 | | | + + + + + Uric acid (03/13/2018 1:03 PM) + +---------+ [...] | [address] | [place] [address] | | | LABORATORY | 13 | [...] | [address] | [place] [address] | | | LABORATORY | 13 | | | + + + + + Uric acid (02/16/2018 8:50 AM) + +---------+ + + | Component | Value | Ref Range | Performed At | + +---------+ + + | URIC ACID | 8.6 (A) | 4.4 - 7.6 | [facility] [...] | [address] | [place] [address] | | | LABORATORY | 13 | | | + + + + + Protein / creatinine ratio, urine (02/16/2018 8:50 AM) + +-------+ + + | Component | Value | Ref Range | Performed At | + +-------+ + + | UR | 84.7 | 0 - 150 | [facility] | [...] | [address] | [place] [address] | | | LABORATORY | 13 | | | + + + + + Renal function panel (02/16/2018 8:50 AM) + + + + + | [...] + + + + | CREATININE | 2.74 (A) | 0.7 - 1.11 mg/dL | [facility] | | | | | LABORATORY | + + + + + | PHOSPHORUS | 3.6 | 2.5 - 5.0 mg/dL | [facility] | | | | | LABORATORY | + + + + + | Albumin | 3.6 | 3.5 - 5.0 | [facility] | | | | | LABORATORY | + + + + + | SODIUM | 135 | 132 - 143 mmol/L | [facility] | | | | | LABORATORY | + + + + + | POTASSIUM | 4.9 | 3.6 - 5.1 mmol/L | [facility] | | | | | LABORATORY | + + + + + | CHLORIDE | 102 | 95 - 112 mmol/L | [facility] | | | | | LABORATORY | + + + + + | CO2 | 23 | 19 - 31 mmol/L | [facility] | | | | | LABORATORY | + + + + + | ANION GAP AGAP | 14.9 | 7 - 21 mmol/L | [facility] | | | | | LABORATORY | + + + + + | GFR MDRD Non Af Amer | | | [facility] | | | | | LABORATORY | + + + + + | Phosphorus,Inorganic | | | [facility] | | | | | LABORATORY | + + + + + | BUN/CREAT | 22.6 | 6.0 - 28.6 | [facility] | | | | | LABORATORY | + + + + + | CALCIUM | 8.8 | 8.4 - 10.2 mg/dL | [facility] | | | | | LABORATORY | + + + + + | EGFR | 22 (A) | 60 mg/dL | [facility] | [...] | [address] | [place] [address] | | | LABORATORY | 13 | | | + + + + + Magnesium (02/16/2018 8:50 AM) + +-------+ + + | Component | Value | Ref Range | Performed At | + +-------+ + + | MAGNESIUM | 2.2 | 1.7 - 2.5 mg/dL | [facility] | | | | | LABORATORY | + +-------+ + + + + | Specimen | + + | Blood | + + + + + + + | Performing | Address | City/State/Zipcode | Phone Number | | Organization | | | | + + + + + | [facility] | [address] | [place] [address] | | | LABORATORY | 13 | | | + + + + + Urinalysis (reflex to micro) (02/16/2018 8:50 AM) + + + + + | [...] + + + + | SPECIFIC | 1.008 | 1.005 - 1.030 | [facility] | [...] | [address] | [place] [address] | | | LABORATORY | 13 | | | + + + + + PTH intact no calcium (02/16/2018 8:50 AM) + + + + + | Component | Value | Ref Range | Performed At | + + + + + | PTH INTACT NO | 70.92 (A) | 15 - 65 pg/mL | [facility] | | CALCIUM | | | LABORATORY | + + + + + + + | Specimen | + + | Blood | + + + + + + + | Performing | Address | City/State/Zipcode | Phone Number | | Organization | | | | + + + + + | [facility] | [address] | [place] [address] | | | LABORATORY | 13 | | | + + + + + in this encounter Visit Diagnoses + + | Diagnosis | + + | CKD (chronic kidney disease), stage IV (HCC) - Primary | + + | Chronic kidney disease, Stage IV (severe) | + + | Essential hypertension, benign | + + | Anemia in neoplastic disease | + + | Hyperuricemia | + + | Other abnormal blood chemistry | + + | HAVEN (acute kidney injury) ([facility]) | + + | Acute kidney failure, unspecified | + +"
--- OUTSIDE RECORDS SUMMARY | ~2018-05-15 | XMS | Clinical Summary ---
Demographics + + + | Address | [address] | | | [place] [address] | + + + | Home Phone | | + + + | Preferred Language | Unknown | + + + | Marital Status | | + + + | Judaism Affiliation | Unknown | + + + | Race | Unknown | + + + | Ethnic Group | Unknown | + + + Author + + + | Author | [facility] | + + + | Organization | [facility] | + + + | Address | Unknown | + + + | Phone | Unavailable | + + + Support + + + + + | Name | Relationship | Address | Phone | + + + + + | Halima Alexander | ECON | [address] | | | | | [place] | | | | | [address] | | + + + + + Care Team Providers + +------+ + | Care Marketing Program Manager Name | Role | Phone | + +------+ + | Garima Martin | PP | | + +------+ + Allergies + + + + + + | Active Allergy | Reactions | Severity | Noted | Comments | | | | | Date | | + + + + + + | Doxycycline | Hives, Rash | High | 01/02/20 | | | | | | 15 | | + + + + + + Current Medications + + +--------+---------+------+------+-------+ | Prescription | Sig. | Disp. | Refills | Star | End | Statu | | | | | | t | Date | s | | | | | | Date | | | + + +--------+---------+------+------+-------+ | traMADol (ULTRAM) | Take 100 mg by mouth | | | | | Activ | | 50 MG tablet | daily. | | | | | e | + + +--------+---------+------+------+-------+ | amLODIPine | Take 5 mg by mouth | | | | | Activ | | (NORVASC) 5 MG | daily. | | | | | e | | tablet | | | | | | | + + +--------+---------+------+------+-------+ | lisinopril | Take 20 mg by mouth | | | | | Activ | | (ZESTRIL) 20 MG | daily. | | | | | e | | tablet | | | | | | | + + +--------+---------+------+------+-------+ | aspirin 81 MG | Take 81 mg by mouth | | | 04/29 | | Activ | | tablet | daily. | | | 12/16 | | e | | | | | | 12 | | | + + +--------+---------+------+------+-------+ | acetaminophen | Take 650 mg by mouth | | | | | Activ | | (TYLENOL) 650 MG CR | daily. | | | | | e | | tablet | | | | | | | + + +--------+---------+------+------+-------+ | Glucosamine HCl | Take 1,000 mg by | | | | | Activ | | 1500 MG TABS | mouth. | | | | | e | + + +--------+---------+------+------+-------+ | loratadine | Take 10 mg by mouth | | | | | Activ | | (CLARITIN) 10 MG | daily. | | | | | e | | tablet | | | | | | | + + +--------+---------+------+------+-------+ | Multiple | Take 1 tablet by | | | | | Activ | | Vitamins-Minerals | mouth daily. | | | | | e | | (VITRUM 50+ SENIOR | | | | | | | | MULTI) TABS | | | | | | | + + +--------+---------+------+------+-------+ | Flaxseed, Linseed, | Take 1,200 mg by | | | | | Activ | | (FLAXSEED OIL) 1200 | mouth daily. | | | | | e | | MG CAPS | | | | | | | + + +--------+---------+------+------+-------+ | | Take 1 tablet by | 60 | 11 | 05/0 | | Activ | | hydrochlorothiazide | mouth Two times | tablet | | 7/20 | | e | | (HYDRODIURIL) 12.5 | daily. | | | 18 | | | | MG tablet | | | | | | | + + +--------+---------+------+------+-------+ | torsemide | Take 1 tablet by | 30 | 11 | 05/0 | 05/0 | Activ | | (DEMADEX) 20 MG | mouth daily. | tablet | | / | 03/17 | e | | tablet | | | | 18 | 19 | | + + +--------+---------+------+------+-------+ | bortezomib | Inject 3.5 mg/m2 | | | | | Activ | | (VELCADE) 3.5 MG | into the vein. Twice | | | | | e | | injection | a week | | | | | | + + +--------+---------+------+------+-------+ | dexamethasone | Take 4 mg by mouth. | | | | | Activ | | (DECADRON) 4 MG | Twice a week | | | | | e | | tablet | | | | | | | + + +--------+---------+------+------+-------+ | ondansetron | Take 8 mg by mouth | | | | | Activ | | (ZOFRAN) 8 MG tablet | every 8 (eight) | | | | | e | | | hours as needed for | | | | | | | | Nausea. | | | | | | + + +--------+---------+------+------+-------+ | tamsulosin | Take 0.4 mg by mouth | | | | | Activ | | (FLOMAX) 0.4 MG | After dinner. | | | | | e | | capsule | | | | | | | + + +--------+---------+------+------+-------+ | ferrous sulfate, | Take 65 mg of iron | | | | | Activ | | 65 FE, 324 (65 Fe) | by mouth daily with | | | | | e | | MG EC tablet | breakfast. | | | | | | + + +--------+---------+------+------+-------+ | docusate calcium | Take 240 mg by mouth | | | | | Activ | | (SURFAK) 240 MG | 2 (two) times | | | | | e | | capsule | daily. | | | | | | + + +--------+---------+------+------+-------+ | gabapentin | Take 100 mg by mouth | | | | | Activ | | (NEURONTIN) 100 MG | nightly. | | | | | e | | capsule | | | | | | | + + +--------+---------+------+------+-------+ Active Problems + + + | Problem | Noted Date | + + + | HAVEN (acute kidney injury) (HCC) | 02/17/2018 | + + + | CKD (chronic kidney disease) stage 3, GFR 30-59 ml/min | 01/02/2018 | + + + | Essential hypertension, benign | 01/02/2018 | + + + | Bilateral leg edema | 01/02/2018 | + + + | Hyperkalemia | 01/02/2018 | + + + | Anemia in neoplastic disease | 01/02/2018 | + + + | 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) | 01/02/2018 | + + + | Hyperuricemia | 01/02/2018 | + + + | Electrolyte imbalance risk | 01/02/2018 | + + + Encounters +--------+ + + + + | Date | Type | Specialty | Care Team | Description | +--------+ + + + + | 04/27/ | Documentati | | Bernadine Cotton CMA | Labs Only ([facility] | | 2017 | on Only | | | Labs dated | | | | | | 04/24/2018; | | | | | | Brenda) | +--------+ + + + + | 04/25/ | Documentati | | Bernadine Cotton CMA | Other (Operative | | 2017 | on Only | | | Report from | | | | | | 's; [facility] | | | | | | [facility] office dated | | | | | | 04/25/2018) | +--------+ + + + + | 04/24/ | Office | | Eduardo Felder MD | CKD (chronic kidney | | 2018 | Visit | | | disease) stage 3, | | | | | | GFR 30-59 ml/min | | | | | | (Primary Dx); | | | | | | Bilateral leg edema; | | | | | | Electrolyte | | | | | | imbalance risk; | | | | | | Essential | | | | | | hypertension, | | | | | | benign; | | | | | | Hyperuricemia | +--------+ + + + + | 04/24/ | Telephone | | Bernadine Cotton CMA | | | 2017 | | | | | +--------+ + + + + | 04/18/ | Documentati | | Bernadine Cotton CMA | Labs Only ([facility] | | 2018 | on Only | | | labs dated | | | | | | 04/17/2018) | +--------+ + + + + | 04/18/ | Orders Only | | Bernadine Cotton CMA | CKD (chronic kidney | | 2018 | | | | disease), stage IV | | | | | | ([facility]); Essential | | | | | | hypertension, | | | | | | benign; Bilateral | | | | | | leg edema; | | | | | | Hyperkalemia; Anemia | | | | | | in neoplastic | | | | | | disease; Multiple | | | | | | myeloma not having | | | | | | achieved remission | | | | | | ([facility]); | | | | | | Hyperuricemia; | | | | | | Electrolyte | | | | | | imbalance risk; HAVEN | | | | | | (acute kidney | | | | | | injury) ([facility]) | +--------+ + + + + | 04/13/ | Telephone | | Wily, | | | 2017 | | | [address] | | +--------+ + + + + | 03/14/ | Documentati | | Bernadine Cotton CMA | Labs Only ([facility] | | 2018 | on Only | | | Labs dated | | | | | | 03/13/2018) | +--------+ + + + + | 03/14/ | Orders Only | | Bernadine Cotton CMA | CKD (chronic kidney | | 2018 | | | | disease), stage IV | | | | | | ([facility]); Essential | | | | | | hypertension, | | | | | | benign; Anemia in | | | | | | neoplastic disease; | | | | | | Hyperuricemia; HAVEN | | | | | | (acute kidney | | | | | | injury) ([facility]) | +--------+ + + + + | 02/17/ | Office | | Eduardo Felder MD | Essential | | 2018 | Visit | | | hypertension, benign | | | | | | (Primary Dx); HAVEN | | | | | | (acute kidney | | | | | | injury) ([facility]); | | | | | | Electrolyte | | | | | | imbalance risk; CKD | | | | | | (chronic kidney | | | | | | disease), stage IV | | | | | | ([facility]); Bilateral leg | | | | | | edema; | | | | | | Hyperuricemia; | | | | | | Hyperkalemia | +--------+ + + + + | 02/17/ | Documentati | | Bernadine Cotton CMA | Other (Blood | | 2018 | on Only | | | Pressure Log dated | | | | | | 01/03/2018-02/17/2018) | +--------+ + + + + | 02/17/ | Documentati | | Bernadine Cotton CMA | Labs Only ([facility] | | 2018 | on Only | | | Labs dated | | | | | | 02/16/2018) | +--------+ + + + + | 02/17/ | Orders Only | | Bernadine Cotton CMA | CKD (chronic kidney | | 2017 | | | | disease), stage IV | | | | | | (HCC) (Primary Dx); | | | | | | Essential | | | | | | hypertension, | | | | | | benign; Anemia in | | | | | | neoplastic disease; | | | | | | Hyperuricemia; HAVEN | | | | | | (acute kidney | | | | | | injury) ([facility]) | +--------+ + + + + from Last 3 Months Social History + +-------+ +--------+------+ | Tobacco [...] AM PDT | + + + + Plan of Treatment +--------+---------+ + + + | Date | Type | Specialty | Care Team | Description | +--------+---------+ + + + | 08/14/ | Office | | Eduardo Felder MD | | | 2018 | Visit | | [address] | | | | | | [address] [place], [place] | | | | | | [phone] | | | | | | | | +--------+---------+ + + + + + + + + | Health Maintenance | Due Date | Last Done | Comments | + + + + + | Vaccine: | | | | | Dtap/Tdap/Td (1 - | 3 | | | | Tdap) | | | | + + + + + | Vaccine: Zoster (1 | | | | | of 2) | 4 | | | + + + + + | Vaccine: | | | | | Pneumococcal 65+ | 9 | | | | High/Highest Risk (1 | | | | | of 2 - PCV13) | | | | + + + + + | Vaccine: Influenza | | | | | (#1) | 8 | | | + + + + [...] | | | | | | injury) ([facility]) | | + +--------+ + + [...] | | | | | | injury) ([facility]) | | + +--------+ + + [...] | | | | | | injury) ([facility]) | | + +--------+ + + [...] | | | | | | injury) ([facility]) | | + +--------+ + + [...] | | | PDT | stage IV ([facility]) | results section. | | | | | Essential | | | | | | hypertension, benign | | | | | | Anemia in | | | | | | neoplastic disease | | | | | | Hyperuricemia HAVEN | | | | | | (acute kidney | | | | | | injury) ([facility]) | | + +--------+ + + [...] | | | | | | injury) ([facility]) | | + +--------+ + + + | BASIC METABOLIC | Routin | 03/13/2018 | CKD (chronic | | | PANEL | e | 1:03 PM | kidney disease), | | | | | PDT | stage IV ([facility]) | | | | | | Essential | | | | | | hypertension, benign | | | | | | Anemia in | | | | | | neoplastic disease | | | | | | Hyperuricemia HAVEN | | | | | | (acute kidney | | | | | | injury) ([facility]) | | + +--------+ + + + | URINALYSIS (REFLEX | Routin | 03/13/2018 | CKD (chronic | Results for this | | TO MICRO) | e | 1:03 PM | kidney disease), | procedure are in the | | | | PDT | stage IV ([facility]) | results section. | | | | | Essential | | | | | | hypertension, benign | | | | | | Anemia in | | | | | | neoplastic disease | | | | | | Hyperuricemia HAVEN | | | | | | (acute kidney | | | | | | injury) ([facility]) | | + +--------+ + + [...] | | | PDT | stage IV ([facility]) | results section. | | | [...] | | | PDT | stage IV ([facility]) | results section. | | | [...] | | | PDT | stage IV ([facility]) | results section. | | | [...] | | + +--------+ + + + from Last 3 Months Results THAD/ GUILLAUME VELAZQUEZ LT CH RAT (04/24/2018 9:30 AM) + + + + [...] | [address] | [place] [address] | | | LABORATORY | 13 | | | + + + + + CBC W/Auto Diff (Reflex to Manual) (04/24/2018 9:30 AM)Only the most recent of 2 results w ithin the time period is included. + + + + + | Component [...] | [address] | [place] [address] | | | LABORATORY | 13 | | | + + + + + Comprehensive metabolic panel (04/24/2018 9:30 AM) + [...] | [address] | [place] [address] | | | LABORATORY | 13 | | | + + + + + Protein / creatinine ratio, urine (04/17/2018 9:10 AM)Only the most recent of 3 results wi thin the time period is included. + +-------+ + + | Component | [...] | [address] | [place] [address] | | | LABORATORY | 13 | | | + + + + + Urinalysis (reflex to micro) (04/17/2018 9:10 AM)Only the most recent of 3 results within the time period is included. + + + + + | Component [...] + + + | [facility] | [address] | [place] [address] | | | LABORATORY | 13 | | | + + + + + Uric acid (04/17/2018 9:10 AM)Only the most recent of 3 results within the time period is included. + +---------+ + + | Component | [...] + + + | [facility] | [address] | [place] [address] | | | LABORATORY | 13 | | | + + + + + Renal function panel (04/17/2018 9:10 AM)Only the most recent of 3 results within the time period is included. + +---------+ + + | Component | [...] + + + | [facility] | [address] | [place] [address] | | | LABORATORY | 13 | [...] | [address] | [place] [address] | | | LABORATORY | 13 | | | + + + + + PTH intact no calcium (03/13/2018 10:10 AM)Only the most recent of 2 results within the period is included. + +-------+ + + | Component | [...] | [address] | [place] [address] | | | LABORATORY | 13 | [...] | [address] | [place] [address] | | | LABORATORY | 13 | | | + + + + + from Last 3 Months Insurance + +--------+ +--------+-------+---------+ | Payer | Benefi | Subscriber | Type | Phone | Address | | | t Plan | ID | | | | | | / | | | | | | | Group | | | | | + +--------+ +--------+-------+---------+ | [place] | [place] - | [id number] | Medica | | | | | MODA | | re | | | | | | | | | | | | | | | | | | | | | | | | | | | | | | | | | | | | | | | | [place] - | | | | | | | [place] | | | | | + +--------+ +--------+-------+---------+ + +--------+ +--------+ + + | Guarantor Name | Accoun | Relation to | Date | Phone | Billing Address | | | t Type | Patient | of | | | | | | | | | | + +--------+ +--------+ + + | JINNY MIRANDA | Person | Self [birth year] | Home: | [address] | | | al/[place] | | [phone] | [phone] [place] | | | [place] | | | [phone] | [phone] | + +--------+ +--------+ + +"
--- OUTSIDE RECORDS SUMMARY | ~2018-05-15 | XMS | Encounter Summary ---
Demographics + + + | Address | [address] | | | [place] [address] | + + + | Home Phone | | + + + | Preferred Language | Unknown | + + + | Marital Status | | + + + | Bahai Affiliation | Unknown | + + + | Race | Unknown | + + + | Ethnic Group | Unknown | + + + Author + + + | Author | [facility] | + + + | Organization | [facility] | + + + | Address | Unknown | + + + | Phone | Unavailable | + + + Support + + + + + | Name | Relationship | Address | Phone | + + + + + | Halima Alexander | ECON | [address] | | | | | [place] | | | | | [address] | | + + + + + Care Team Providers + +------+ + | Care Lan/Wan Engineer Name | Role | Phone | + +------+ + | Garima Martin | PCP | | + +------+ + Encounter Details +--------+ + + + + | Date | Type | Department | Care Team | Description | +--------+ + + + + | 04/13/ | Telephone | [facility] | Wily, | | | 2017 | | [address] | [place] | | | | | [address] | | | | | | [place] [address] | | | | | | [phone] | | | +--------+ + + + [...] | | | | | | [address] [place], [place] | | | | | | [address] | | | | | | | | +--------+---------+ + + + as of this encounter Results Protein / creatinine ratio, urine (04/17/2018 9:10 [...] | [address] | [place] [address] | | | LABORATORY | 13 | [...] | [address] | [place] [address] | | | LABORATORY | 13 | | | + + + + + Uric acid (04/17/2018 9:10 AM) + +---------+ [...] | [address] | [place] [address] | | | LABORATORY | 13 | [...] | [address] | [place] [address] | | | LABORATORY | 13 | [...]
--- OUTSIDE RECORDS SUMMARY | ~2018-05-15 | XMS | Encounter Summary ---
Demographics + + + | Address | [id number] [place] [address] | | | [place] [address] | + + + | Home Phone [...] and Services [place] | | | and [place] | + + + | Organization | [facility] | | | and [place] | + + + | Address | Unknown | + + + | Phone | Unavailable | + + + Support + + +---------+ + | Name | Relationship | Address | Phone | + + +---------+ + | Halima Alexander | ECON | Unknown | | + + +---------+ + Care Team Providers + +------+ + | Care Crab Catcher Name | Role | Phone | + [...] + + | 04/21/ | Office | [facility] | Ilan Roberts PA | JOVANI on CPAP (Primary | | 2018 | Visit | SLEEP DISORDER [address] | [address] | Dx) | | | | [address] | [place] | | | | | [place] [address] | [address] | | | | | [phone] | | | +--------+---------+ + + + [...] + +---------+ + | Alcohol Use | Drinks/We | oz/Week | Comments | | | ek | | | + + +---------+ + | Yes [...] | Blood Pressure | 120/60 | 04/21/2018 1003 PDT | + + + + | Pulse | 67 | 04/21/20181002 PDT | + + + + | Temperature | - | - | + + + + | Respiratory Rate | 16 | 04/21/20181002 PDT | + + + + | Oxygen Saturation | 98% | 04/21/20181002 PDT | + + + + | Inhaled Oxygen | - | - | | Concentration | | | + + + + | Weight | 90.2 kg (198 lb 11.9 | 04/21/20181002 PDT | | | oz) | | + + + + | Height | - | - | + + + + | Body Mass Index | 26.95 | 04/21/2018 1003 PDT | + + + + in this encounter Progress Notes Ilan Roberts PA - 04/21/2018 1000 PDTFormatting of this note may be different from the or iginal. Subjective: Patient ID: Tommie Alexander is a 82 y.o. male. HPI last office visit: 04/04/2017 date of polysomnography: 07/17/2001 AHI: 28.7 O2%: 84.9% Machine type: ResMed AirSense 10. Mask type: full face mask DME: [facility] [place] pressure: 9-15 cm Median: 9.8 cm 95%: [...] Exam Assessment: Problem #1: OBSTRUCTIVE SLEEP APNEA ([id number]) This is controlled with CPAP. His CPAP compliance is going well. Plan: 1. He is to continue with CPAP indefinitely. 2. Touch base with medical supplier twice per year to ensure that all equipment is satisfa ctory. I will follow up again in 1 year, sooner prn. Fifteen minutes were spent [id number], wit h the majority of time spent in counseling. Ilan Roberts PA-C cc: AMANDA Dennison in this encounter Plan of Treatment +--------+---------+ + + + | Date | Type | Specialty | Care Team | Description | +--------+---------+ + + + | 04/24/ | Office | Sleep Medicine | Ilan Roberts PA | | | 2018 | Visit | | [address] | | | | | | [place] | | | | | | [address] | | | | | | | | +--------+---------+ + + + as of this encounter Visit Diagnoses + + | Diagnosis | + + | JOVANI on CPAP - Primary | + + | Obstructive sleep apnea (adult) (pediatric) | + +
--- OUTSIDE RECORDS SUMMARY | ~2018-05-15 | XMS | Clinical Summary ---
Demographics + + + | Address | [address] [place] [address] | | | [place] [address] | + + + | Home Phone | | + + + | Preferred Language | Unknown | + + + | Marital Status | | + + + | Christian Affiliation | Unknown | + + + | Race | Unknown | + + + | Ethnic Group | Unknown | + + + Author + + + | Author | [facility] [place] | | | and [place] | + + + | Organization | [facility] [place] | | | and [place] | + + + | Address | Unknown | + + + | Phone | Unavailable | + + + Support + + +---------+ + | Name | Relationship | Address | Phone | + + +---------+ + | Halima Spence | ECON | Unknown | | + + +---------+ + Care Team Providers + +------+ + | Care Clinical Nursing Instructor Name | Role | Phone | + +------+ + | Garima Martin | PP | | | PA | | | [...] + + + Current Medications + + +---------+---------+------+------+-------+ | Prescription | Sig. | Disp. | Refills | Star | End | Statu | | | | | | t | Date | s | | | | | | Date | | | + + +---------+---------+------+------+-------+ | aspirin 81 MG | Take 81 mg by mouth | | | 04/29 | | Activ | | tablet | Daily. | | | 4/20 | | e | | | | | | 12 | | | + + +---------+---------+------+------+-------+ | ascorbic acid | Take 500 mg by mouth | | | | | Activ | | (VITAMIN C) 500 mg | Daily. | | | | | e | | tablet | | | | | | | + + +---------+---------+------+------+-------+ | Flaxseed, Linseed, | Take 1 capsule by | | | | | Activ | | (FLAXSEED OIL) 1200 | mouth Daily. | | | | | e | | MG CAPS | | | | | | | + + +---------+---------+------+------+-------+ | traMADol (ULTRAM) | Take 50 mg by mouth | | | | | Activ | | 50 mg tablet | every 6 hours as | | | | | e | | | needed for Pain. | | | | | | + + +---------+---------+------+------+-------+ | Glucosamine HCl | Take 1,000 mg by | | | | | Activ | | (GLUCOSAMINE PO) | mouth Daily. | | | | | e | + + +---------+---------+------+------+-------+ | acetaminophen | Take 650 mg by mouth | | | | | Activ | | (TYLENOL) 650 MG CR | every 8 hours as | | | | | e | | tablet | needed for Pain. | | | | | | + + +---------+---------+------+------+-------+ | Multiple | Take 1 tablet by | | | | | Activ | | Vitamins-Minerals | mouth Daily. | | | | | e | | (VITRUM 50+ SENIOR | | | | | | | | MULTI) TABS | | | | | | | + + +---------+---------+------+------+-------+ | docusate sodium | Take 100 mg by mouth | | | | | Activ | | (COLACE) 100 mg | 2 times daily. | | | | | e | | capsule | | | | | | | + + +---------+---------+------+------+-------+ | gabapentin | Take 1 capsule by | 30 | 2 | 03/0 | | Activ | | (NEURONTIN) 100 mg | mouth nightly. | capsule | | 6/20 | | e | | capsule | | | | 18 | | | + + +---------+---------+------+------+-------+ | torsemide | Take 20 mg by mouth | | | | | Activ | | (DEMADEX) 20 mg | Daily. | | | | | e | | tablet | | | | | | | + + +---------+---------+------+------+-------+ | BISACODYL CO | by Combination route | | | | | Activ | | | as needed. | | | | | e | + + +---------+---------+------+------+-------+ | Bortezomib | Inject as directed. | | | | | Activ | | (VELCADE IJ) | | | | | | e | + + +---------+---------+------+------+-------+ | loratadine | Take 10 mg by mouth | | | | 08/2 | Disco | | (CLARITIN) 10 mg | Daily. | | | | 4/20 | ntinu | | tablet | | | | | 18 | ed | + + +---------+---------+------+------+-------+ | lisinopril | Take 20 mg by mouth | | | | 08/2 | Disco | | (PRINIVIL, ZESTRIL) | Daily. | | | | 4/20 | ntinu | | 20 mg tablet | | | | | 18 | ed | + + +---------+---------+------+------+-------+ | tamsulosin | Take 0.4 mg by mouth | | | | 08/2 | Disco | | (FLOMAX) 0.4 mg CAPS | daily (after | | | | 4/20 | ntinu | | | breakfast). | | | | 18 | ed | + + +---------+---------+------+------+-------+ | | Take 25 mg by mouth | | | | 08/2 | Disco | | hydroCHLOROthiazide | Daily. | | | | 4/20 | ntinu | | 25 mg tablet | | | | | 18 | ed | + + +---------+---------+------+------+-------+ | albuterol 90 | Inhale 2 puffs into | | | | 08/2 | Disco | | mcg/puff inhaler | the lungs every 6 | | | | 4/20 | ntinu | | | hours as needed for | | | | 18 | ed | | | Wheezing. | | | | | | + + +---------+---------+------+------+-------+ | terazosin (HYTRIN) | Take 5 mg by mouth | | | | 08/2 | Disco | | 5 mg capsule | Daily. | | | | 4/20 | ntinu | | | | | | | 18 | ed | + + +---------+---------+------+------+-------+ | amLODIPine | Take 5 mg by mouth | | | | 08/2 | Disco | | (NORVASC) 5 mg | Daily. | | | | 4/20 | ntinu | | tablet | | | | | 18 | ed | + + +---------+---------+------+------+-------+ | spironolactone | Take 25 mg by mouth | | | | 08/2 | Disco | | (ALDACTONE) 25 mg | Daily. | | | | 4/20 | ntinu | | tablet | | | | | 18 | ed | + + +---------+---------+------+------+-------+ Active Problems + + + | Problem | Noted Date | + + + | HAVEN (acute kidney injury) (HCC) | 02/17/2018 | + + + | Anemia in neoplastic disease | 01/02/2018 | + + + | Bilateral leg edema | 01/02/2018 | + + + | CKD (chronic kidney disease), stage IV ([facility]) | 01/02/2018 | + + + | [...] APNEA | 12/02/2010 | + + + Encounters +--------+---------+ + + + | Date | Type | Specialty | Care Team | Description | +--------+---------+ + + + | 04/21/ | Office | | Ilan Roberts PA | JOVANI on CPAP (Primary | | 2017 | Visit | | | Dx) | +--------+---------+ + + + from Last 3 Months Family History + + +------+ + | Medical History | Relation | Name | Comments | + + +------+ + | Colon cancer | Brother | | | + + +------+ + | Heart attack | Father | | | + + +------+ + | No Known Problems | Maternal | | | | | Grandfath | | | | | er | | | + + +------+ + | No Known Problems | Maternal | | | | | Grandmoth | | | | | er | | | + + +------+ + | Kidney cancer | Mother | | | + + +------+ + | No Known Problems | Paternal | | | | | Grandfath | | | | | er | | | + + +------+ + | No Known Problems | Paternal | | | | | [...] + | Blood Pressure | 120/60 | 04/21/20181002 PDT | + + + [...] Height | 182.9 cm (6') | 11/01/2017 1007 PST | + + + + | Body Mass Index | 26.95 | 04/21/20181002 PDT | + + + + Plan of Treatment +--------+---------+ + + + | Date | Type | Specialty | Care Team | Description | +--------+---------+ + + + | 04/24/ | Office | | Ilan Roberts PA | | | 2019 | Visit | | [address] | | | | | | [place] | | | | | | [phone] | | | | | | | [...] | | + + + + + Results Not on filefrom Last 3 Months Insurance + +--------+ +--------+-------+---------+ | Payer | Benefi | Subscriber | Type | Phone | Address | | | t Plan | ID | | | | | | / | | | | | | | Group | | | | | + +--------+ +--------+-------+---------+ | [employer] | [employer] | [id number] | Medica | | | | | HEALTH | | re | | | | | MDCR | | | | | + +--------+ +--------+-------+---------+ + +--------+ +--------+ + + | Guarantor Name | Accoun | Relation to | Date | Phone | Billing Address | | | t Type | Patient | of | | | | | | | | | | + +--------+ +--------+ + + | JINNY SPENCE | Person | Self [birth year] Home: | [address] | | | al/Fam | | 1935 | [phone] [place] [address] | | | kilo | | | [phone] | | + +--------+ +--------+ + +"
[~2018-05-15 08:50] MED LIST changes: +DECADRON4 MG PO; +DULCOLAX5 MG PO; +FLOMAX0.4 MG PO; +IRON325 M1; +IRON325 M1 PO; +KEFLEX500 MG PO; +LIDODERM1 EACH TOP; +NORVASC5 MG PO; +TORSEMIDE20 MG PO; +TYLENOL EXTRA500 MG PO; +VELCADE3.5 MG SUB-Q; +ZOFRAN8 MG PO
--- NOTE | 2018-05-15 12:27 | NUR ---
05/15/18 1227 Niki Paredes 1209 PT ARRIVED IN PACU SLEEPY WITH ORAL AIRWAY IN PLACE. 1215 ORAL AIRWAY REMOVED. PT AWAKE TALKING TO STAFF. 1225 OXYGEN REMOVED. SATS 100% ON RA. COY CATHETER HAS CBI RUNNING WITH URINE LIGHT PINK IN COLOR.
--- NOTE | 2018-05-15 12:55 | NUR ---
PT ARRIVED FROM PACU. REPORT TAKEN FROM MARITA QUINONEZ. PT TRANSFERES SELF TO HOSPITAL BED. CBI RUNNING (CLEAR, YELLOW URINE). PT REPROTS PAIN OF 4/10 (SEE MAR FOR MEDICATION GIVEN. RT CALLED TO CHECK PTS CPAP. IV FLUIDS STARTED. DIET UPGRADED TO RENAL DIET PER PT PREFERENCE AND HOME DIET. PT TOLERATING PUDDING. COY CATHETER SECURED. ASSESSMENT DONE. PT HAS CURRENT CASE OF SHINGLES. CHARGE NURSE CONSULTED, LESIONS NOT OPEN AT THIS TIME SO NO CONTACT PERCAUTIONS NECESSARY. AT BEDSIDE, CALL LIGHT WITHIN REACH.
--- NOTE | 2018-05-15 14:39 | NUR ---
PATIENT REQUESTED SODA WHICH WAS PROVIDED. VITALS TAKEN. PATIENT HAS NO FURTHER REQUESTS AT THIS TIME.
--- NOTE | 2018-05-15 15:16 | NUR ---
REASSESSED PATIENT'S PAIN. PATIENT IS TOLERATING SODA, PUDDING AND WATER. PATIENT'S REPORTED DINNER HAS BEEN ORDERED. PATIENT STATES PAIN IS 2/10. BED RAILS UP. CALL LIGHT WITH IN REACH. PATIENT'S AT BEDSIDE. NO FURTHER REQUESTS AT THIS TIME.
--- NOTE | 2018-05-15 15:22 | NUR ---
MED REC COMPLETE
--- NOTE | 2018-05-15 15:23 | NUR ---
MED REC COMPLETE
--- NOTE | 2018-05-15 15:30 | NUR ---
ASSESSMENT DUE. PATIENT IN BED WITH AT BEDSIDE. PATIENT REPORTS 2/10 "BURNING" WHERE THE CATHETER IS. PATIENT DENIES NAUSEA. PATIENT IS TOLERATING SODA AND PUDDING. CBI CLAMPED THE PATIENT'S URINE IS YELLOW. WILL MONITOR URINE COLOR. BEDSIDE RAILS UP. AT BEDSIDE. CALL LIGHT WITHIN REACH. NO FURTHER REQUESTS AT THIS TIME.
--- NOTE | 2018-05-15 16:00 | NUR ---
ENTERED ROOM TO ASSESS IV ALARM. NOTED THAT URINE IN COY TUBE AND BAG WAS DARK RED. CBI CLAMP OPENED TO A SLOW RATE TO CLEAR URINE. URINE CURRENTLY RUNNING VERY LIGHT CLEAR PINK. NOTIFIED PRIMARY NURSE JORJE.
--- NOTE | 2018-05-15 17:34 | NUR ---
PATIENT IS POST-OP DAY 0 FROM TURP. LOW PLATELET COUNT, RECEIVING CANCER TREATMENT, NO PRECAUTIONS IN PLACE. HOME CPAP AT BEDSIDE. PATIENT HAS SHINGLES WITH NO OPEN SORES. PATIENT HAS A HISTORY OF POLYCYSTIC KIDNEY AND ONLY ONE KIDNEY. HAS BEEN AT BEDSIDE, PATIENT USES CALL LIGHT APPROPRIATELY.
--- NOTE | 2018-05-15 18:39 | NUR ---
NS BAG FOR CBI NEEDED TO BE CHANGED. NEW BAG HUNG. INCREASED CBI RATE DUE TO COY OUTPUT LOOKING DARKER PINK. PATIENT REQUESTED ASSISTANCE GETTING READY FOR BED AND GETTING CPAP READY FOR USE. COY EMPTIED. MD IN FOR ROUNDING. PATIENT USED IS INSTRUCTED. CALL LIGHT WITHIN REACH. SIDE RAILS UP. NO FURTHER REQUESTS AT THIS TIME.
--- NOTE | 2018-05-15 19:22 | NUR ---
IN ROOM FOR REPORT, CBI IS DRAINING PINK. PT IS TRYING TO SLEEP. CPAP AND CONT PULSEOX IS ON AND CALL LIGHT IS WITHIN REACH.
--- NOTE | 2018-05-15 20:35 | NUR ---
EOUNDED CHARGE. RN IN ROOM. PATIENT DENIES ANY COMMENTS, QUESTIONS, OR CONCERNS. NO NEEDS NOTED. CALL LIGHT IN REACH.
--- NOTE | 2018-05-15 20:43 | NUR ---
IN ROOM TO ASSESS PT AND ADMINISTER MEDICATIONS. PT RATES PAIN AT 5/10 TYLENOL AND ULTRAM WERE GIVEN. COY IS DRAINING PINK URINE, NO CLOTS NOTED. PT DENIES NEEDS AT THIS TIME. CALL LIGHT IS WITHIN REACH.
--- NOTE | 2018-05-15 23:00 | NUR ---
PT IS RESTING WITH EYES CLOSED, CPAP AND CONT PULSEOX IN PLACE. RESPIRATIONS ARE EVEN AND NONLABORED.
--- NOTE | 2018-05-16 00:22 | NUR ---
PT REPORTS PAIN AT 5/10 IN BACK, ADMINISTERED 500MG TYLENOL. FRESH WATER AT BEDSIDE AND COY EMPTIED OF PINK URINE. CBI INFUSING, PT DENIES NEEDS.
--- NOTE | 2018-05-16 01:52 | NUR ---
PT IS RESTING WITH EYES CLOSED, RESPIRATIONS ARE EVEN AND NONLABORED. COY IS DRAINING LIGHT PINK.
--- NOTE | 2018-05-16 02:30 | NUR ---
PT REPORTED UPSET STOMACH, GAVE HIM SOME CRACKERS TO TRY. HE DENIES FURTHER NEEDS.
--- NOTE | 2018-05-16 03:33 | NUR ---
PT STATES HE IS HAVING TROUBLE SLEEPING. HELPED HIM REPOSITION WITH SOME PILLOWS. DECREASED HIS CBI SOME AND HIS URINE BECAME DARKER PINK WITH A SMALL CLOT NOTED IN THE TUBING. INCREASED CBI FLUID SLIGHTLY. PT DENIES FURTHER NEEDS AT THIS TIME.
--- NOTE | 2018-05-16 04:44 | NUR ---
ADMINISTERED NORCO AND SENNA. PT REPORTS THAT HE HAS NOT SLEPT ALL NIGHT, EXCEPT FOR 1 HOUR. CRACKERS GIVEN ALONG WITH PILLS AND FRESH WATER IS AT BEDSIDE.
--- NOTE | 2018-05-16 05:55 | NUR ---
EMPTIED PT'S COY, HE DENIES NEEDS AT THIS TIME. HE REPORTS PAIN IS NOW A 3/10 AND TOLERABLE. CALL LIGHT IS WITHIN REACH.
--- NOTE | 2018-05-16 08:40 | NUR ---
KARLAEN SITING UP IN BED. GOWN CHANGED. ICE WATER GIVEN. CALL LIGHT WITHIN REACH. NO MORE NEEDS AT THIS TIME.
--- NOTE | 2018-05-16 09:29 | NUR ---
MORNING ASSESSMENT AND MEDICATIONS DUE. THIS RN TO BEDSIDE. PT NOTES BLEEDING ON HIS LEG "DOWN TO MY KNEE." BLOOD NOTED RUNNING ABOUT 6INCHES DOWN LEG, SMALL AMOUNT. CATHETER CARE AND KENNEDI CARE DONE. PT NOTES THAT HE WAS "SITTING ON THE EDGE OF MY BED FOR BREAKFAST." CBI WAS CLAMPED AT HAND OFF AT 0710. URINE CLEAR AND PINK. MD NOTIFIED NEW DRAINAGE. ASSESSMENT DONE. MEDICATIONS GIVEN (SEE MAR). PT VISITING WITH . FLUIDS ENCOURAGED. PT REMINDED TO REST WITH MINIMAL ACTIVITY. BED RAILS UP. CALL LIGHT WITHIN REACH.
--- NOTE | 2018-05-16 09:40 | NUR ---
MD STATES TO CONTINUE TO MONITOR DRAIANGE AT THIS TIME. NO ADDITIONAL ORDERS. PROCEED WITH DISCHARGE IF URINE REMAINS CLEAR AND PINK-YELLOW. FAMILY UPDATED. PT RESTING IN BED. BED RAILSUP. CALL LIGHT WITHIN REACH.
[2018-05-16] MEDS ORDERED: AUGMENTIN 875-1 EACH PO (10:05)
[2018-05-16] MEDS ORDERED: ULTRAM50 MG PO (10:05)
[2018-05-16] MEDS ORDERED: SENOKOT-S TABL1 EACH PO (10:06)
--- NOTE | 2018-05-16 10:07 | NUR ---
THIS RN CALLED DR. JUNG TO CONFIRM DISCHARGE MEDICATIONS. MEDICATIONS CONFIRMED ONE-BY-ONE WITH . STATES LIST IS CORRECT.
--- NOTE | 2018-05-16 10:50 | NUR ---
THIS RN TO ROOM TO CHECK ON PT. URINE REMAINS CLEAR AND LIGHT PINK. DISCHARGE INSTRUCTIONS REVIEWED WITH PT. PT AND VERBALIZE UNDERSTANDING OF INSTURCTIONS AND STATE THEIR QUESTIONS HAVE BEEN ANSWERED. PIV DC'D PER PROTOCOL. GAUZE AND COBAN APPLIED. PT ADVISED THAT HE CAN LOOSEN COBAN IF IT FEELS TOO TIGHT. LEG BAG ATTACHED TO CATHETER. PT DEMONSTRATES UNDERSTANDING OF HOW O EMPTY LEG BAG. VITALS TAKEN. PT DRESSING WITH ASSISTANCE FROM .
--- NOTE | 2018-05-16 11:20 | NUR ---
SCHOOL CLEANER'S TO BEDSIDE TO ASSISTE PT WITH DRESSING AND DISCHARGE. PT WHEELED FROM MED/SURG. NO REQUESTS OR COMPLAINTS.
--- NOTE | 2018-05-16 18:38 | OR ---
[facility] [address], [place] [address] Signed DATE OF OPERATION: 05/15/2018 SURGEON: Yunior Jung MD PREOPERATIVE DIAGNOSES: 1. Long-standing history of benign prostatic hyperplasia with lower urinary tract symptoms. 2. Incomplete bladder emptying, secondary to #1. POSTOPERATIVE DIAGNOSES: 1. Long-standing history of benign prostatic hyperplasia with lower urinary tract symptoms. 2. Incomplete bladder emptying, secondary to #1. NAMES OF PROCEDURES: 1. Diagnostic cystoscopy. 2. Transurethral resection of prostate. ANESTHESIA: General. ESTIMATED BLOOD LOSS: 10 mL. COMPLICATIONS: None. SPECIMENS: Prostate chips sent to pathology for evaluation. DRAINS: A 22-Turkish 3 way Cruz catheter, connected to continuous bladder irrigation. INDICATIONS FOR PROCEDURE: Mr. Glen Wise is a very pleasant 82-year-old gentleman with a long-standing history of BPH, lower urinary tract symptoms. Approximately 20 years ago, he underwent transurethral vaporization of the prostate for definitive management of his severe BPH symptoms. He reports that he had been doing well until the last recent 2 years or so where he began to notice a significant decline in his force of stream. Upon seeing me in clinic, he was found to have an elevated PVR of around 457 mL. He underwent Electronically Signed By: YUNIOR JUNG MD 05/16/18 1838 PATIENT NAME: JINNY MIRANDA OPERATIVE REPORT DATE OF : 33 REPORT #: [id number] PHYSICIAN: YUNIOR JUNG MD PCP: ROHAN REYNOLDS PAC REPORT IS CONFIDENTIAL AND NOT TO BE RELEASED WITHOUT AUTHORIZATION [facility] [address] [place] [address] Signed cystoscopy, which did reveal partial regrowth of his prostatic adenoma, and I explained to the patient and his that for him to have the best possible chance of emptying his bladder on his own, he would require a transurethral resection of the regrowth of his prostatic adenoma. After discussions of the risks and benefits of the surgery, including the risk of urinary incontinence and failure to improve the patient's force of stream (due to intrinsic bladder dysfunction), the patient has elected to undergo transurethral resection of the prostate. FINDINGS: 1. On cystoscopy, there was no evidence of any suspicious masses, lesions, or stones within the bladder. Bilateral ureteral orifices are in their normal anatomic location, however, they are closer to the bladder neck than average. There is diffuse grade 2-3 bladder wall trabeculation noted. Ureteroscopy reveals an elevated bladder neck as well as regrowth of the lateral lobes of the prostate. I am unable to appreciate the verumontanum as it must have been resected 20 years ago. 2. I resected a small amount of the median lobe and the elevated bladder neck. I did not resect as much as I usually do due to fears of resecting the bilateral ureteral orifices, which were quite close to the bladder neck. I focused most of my attention on the right and lateral lobe of the prostate. I resected down to the level of just proximal to where the verumontanum used to be present. On the whole, only about 30 g of prostate tissue was resected. 3. At the end of procedure, a 22-Turkish 3 way Cruz catheter was inserted in the patient's bladder, and connected to gravity drainage. During attempted placement of the catheter, a 6 o'clock false passage was created, however, it was discovered immediately intraoperatively. The catheter was ultimately placed over wire into the patient's bladder and placement of the catheter was confirmed via irrigation. Once proper placement was performed. The catheter was then connected to continuous bladder irrigation. DESCRIPTION OF PROCEDURE: After informed consent obtained, the patient was taken back to the operating room. He was transferred from the [facility] to the operating room table, where LMA general anesthesia was induced. He was placed in dorsal lithotomy position and genitalia were prepped and draped in a sterile fashion. Using a 30-degree lens on a 22-Turkish introducer, a diagnostic cystoscopy was performed. Please see the findings. I then removed the cystoscope and performed a urethral dilation using [place] sounds, from 16-Turkish to 26-Turkish without difficulty. I then inserted the resectoscope under direct visualization, using a 26-Turkish sheath. I made note of the location of the bilateral ureteral orifices and did note that they were quite close to the bladder neck. I began my resection of the median lobe very gently and did keep some bladder neck there just to avoid damage to the ureteral orifice. I then performed a resection of the left lobe of the prostate, which there was still relatively significant amount of Electronically Signed By: YUNIOR JUNG MD 05/16/18 7258 PATIENT NAME: JINNY MIRANDA OPERATIVE REPORT DATE OF : 33 REPORT #: [id number] PHYSICIAN: YUNIOR JUNG MD PCP: ROHAN REYNOLDS PAC REPORT IS CONFIDENTIAL AND NOT TO BE RELEASED WITHOUT AUTHORIZATION [address] [address] Signed adenoma located on that side. I then finished up resection on the right lobe of the prostate as well as the anterior bladder neck. Initially, the 24-Turkish loop was used, but then I did convert to the bipolar button towards the end of the procedure. I used the bipolar button to clean up any residual amounts of tissue into established hemostasis. All the prostate chips were evacuated from the patient's bladder via irrigation. I was able to re-evaluate the ureters towards the end of procedure and I was able to appreciate that there were both there unharmed from cautery. However, I did not appreciate either them effluxing. Of note, the patient does have stage IV chronic kidney disease, so I was unable to administer any fluorescein to confirm the ureteral patency. Once I was satisfied that hemostasis had been achieved, I inserted a Sensor wire into the patient's bladder and removed the cystoscope. The scope was then removed from the patient's bladder. I attempted placement of the 22-Turkish 3 way Cruz catheter into the patient's bladder at the end of the procedure, however, I did meet with resistance. I repeated diagnostic cystoscopy and was able to appreciate that I have created a false passage at the 6 o'clock position at the bulbar urethra. I then inserted a Sensor wire into the patient's bladder and over the Sensor wire, I was able to successfully pass a 22-Turkish 3 way Cruz catheter into the patient's bladder, which was then connected to continuous bladder irrigation. The procedure was then terminated. The patient tolerated the procedure well without any complication. He will now be transferred to the postanesthesia care unit in stable condition. DISPOSITION: The patient will remain with us on observation status overnight. His diet will be advanced as tolerated and he will be given IV fluids and pain control as needed. We will initiate continuous bladder irrigation and will wean the CBI to off, keeping his urine clear to light pink in color. He will be eligible for discharge home if his urine remains clear to light pink in color at least for 1 hour after being off the CBI. The plan is for the patient to be discharged to home tomorrow morning and will return in 3 days to undergo a voiding trial. MD KATIA Vo/SHANTIL /[id number] Electronically Signed By: YUNIOR JUNG MD 05/16/18 1838 PATIENT NAME: IJNNY MIRANDA OPERATIVE REPORT DATE OF : 33 REPORT #: [id number] PHYSICIAN: YUNIOR JUNG MD PCP: ROHAN REYNOLDS PAC REPORT IS CONFIDENTIAL AND NOT TO BE RELEASED WITHOUT AUTHORIZATION [address] [place], [place] [address] Signed Copies: ~ Electronically Signed By: YUNIOR JUNG MD 05/16/18 1838 PATIENT NAME: JINNY MIRANDA OPERATIVE REPORT DATE OF : 33 REPORT #: [id number] PHYSICIAN: YUNIOR JUNG MD PCP: ROHAN REYNOLDS PAC REPORT IS CONFIDENTIAL AND NOT TO BE RELEASED WITHOUT AUTHORIZATION
== END 2018-05-16 11:20 | disposition home or self-care (01) ==
LOC: DS 08:50 → OPS 08:50 → DS 12:00 → OPS 12:00 → MS 12:45 → OPS 12:46 → MS 12:47
PROVIDERS: ADMIT Urology
PROC: 0VB08ZZ Excision of Prostate, Via Natural or Artificial Opening Endoscopic (ICD-10-PCS; principal; 2018-05-15 10:00)
DX: N40.1 Benign prostatic hyperplasia with lower urinary tract symptoms (principal); R39.14 Feeling of incomplete bladder emptying; N32.89 Other specified disorders of bladder; C90.00 Multiple myeloma not having achieved remission; I12.9 Hypertensive chronic kidney disease with stage 1 through stage 4 chronic kidney disease, or unspecified chronic kidney disease; N18.4 Chronic kidney disease, stage 4 (severe); N13.9 Obstructive and reflux uropathy, unspecified; M47.9 Spondylosis, unspecified; Q61.3 Polycystic kidney, unspecified; Z79.82 Long term (current) use of aspirin; Z79.891 Long term (current) use of opiate analgesic; Z79.899 Other long term (current) drug therapy
CPT/HCPCS: 36415; 80048; 80053; 83615; 83883; 84155; 84165; 85025; 86850; 86900; 86901; 86920; 94762; G0378; J0696; J1100; J2250; J2270; J2405; J3010; J7030; J7120

== ENCOUNTER 2020-01-18 10:46 | Day surgery (SDC) | payer MEDICARE ==
[~2020-01-18] VITALS: Ht 182.9 cm; Wt 93.4 kg
[~2020-01-18 10:46] MED LIST changes: +ACETAMINOPHEN-1 EACH PO; +ALLOPURINOL100 MG PO; +AUGMENTIN 875-1 EACH PO; +FISH OIL 1,0001 EAC6 PO; -NEURONTIN100 MG PO; +NEURONTIN600 MG PO; +SENOKOT-S TABL1 EACH PO; +TORSEMIDE5 MG PO; +VITAMIN C500 M4 PO
--- NOTE | 2020-01-18 13:01 | NUR ---
01/18/20 1301 [address],Amie 1245 PT ARRIVED TO PACU ON 3L VIA NC, PT WAKES EASILY AND DENIES NAUSEA AND PAIN. VSS. 1249 PT ROLLED TO BACK AND O2 REMOVED. HOB INCREASED. PT SIPPING JUICE PER REQUEST. PT TALKING TO RN.
--- NOTE | 2020-01-24 16:37 | PATH ---
[facility] [address] [place], [place] [address] Signed THIS IS AN ADDENDUM REPORT SPECIMEN(S): A BONE MARROW - CORE SPECIMEN(S): B BONE MARROW - ASPIRATION SPECIMEN(S): C COMPREHENSIVE FLOW CYTOMETRY IN BM EDTA CLINICAL HISTORY: Patient was previously diagnosed with IgG kappa plasma cell myeloma and has received treatment between October 2017 and May 2019. Previous FISH analysis showed trisomy 15 and gain of FGFR3, but no evidence of t(4;14). Evaluate for relapse +/- clonal progression. C90.00 (multiple myeloma not having achieved remission). DIAGNOSIS SUMMARY: A. Peripheral blood - Mild pancytopenia. B. Bone marrow, left side, aspirate smear, aspirate cell block, and trephine biopsy: - Plasma cell myeloma (15% kappa monotypic plasma cells) involving a normocellular marrow. - Active trilineage hematopoiesis is present. - Negative for morphologic features of myelodysplasia. - See Diagnostic Comment. DIAGNOSTIC COMMENT: The patient's history of plasma cell myeloma is noted. In this follow-up bone marrow biopsy, there is persistent disease with approximately 15% kappa monotypic plasma cells in the bone marrow. Please correlate with clinical findings for full assessment of disease. Karyotype analysis and myeloma panel FISH analysis are being performed and the results will be reported by addendum. As part of [facility] Quality Improvement Program, this case was reviewed by another member of our pathology staff. TTP:LY:smn:slh:C1NR PERIPHERAL BLOOD: HEMOGRAM (01/18/2020): WBC 4.1 K/uL, RBC 3.19 M/uL, HGB 10.3 g/dL, HCT 31.2%, MCV 97.9 fL, RDW 20.9%, PLT 130 K/uL. DIFFERENTIAL (automated): 73.6% neutrophils, 17.9% lymphocytes, 6.7% monocytes, 0.9% eosinophils, and 0.9% basophils. The red cells are mildly decreased in number and are normochromic and PATIENT NAME: JINNY MIRANDA PATHOLOGY DATE OF : 33 REPORT #: [id number] PHYSICIAN: WAYLON CM PCP: ROHAN REYNOLDS PAC REPORT IS CONFIDENTIAL AND NOT TO BE RELEASED WITHOUT AUTHORIZATION [facility] [address], [place] [address] Signed normocytic. Anisocytosis and poikilocytosis are increased. Polychromasia is absent. Red blood cell rouleaux are not prominent. Leukocytes are mildly decreased in number and consist predominantly of mature neutrophils with normal morphology. Lymphocytes show normal morphology. Circulating plasma cells are not detected. Platelets are mildly decreased in number and show normal morphology. BONE MARROW: BONE MARROW ASPIRATE SMEARS: The bone marrow aspirate smears contain abundant cellular marrow particles. Normal proportions of myeloid and erythroid precursors are present, showing complete and training technician maturation without overtly dysplastic change. Blasts are not increased. An atypical lymphoid cell population is not detected. Plasma cells are mildly increased and are atypical with reduced cytoplasm and small cell size. They have mature chromatin without prominent nucleoli. Megakaryocytes are normal in number and show normal morphology. A 200-cell differential count yields: 7% myelocytes, 25% metamyelocytes, 25% neutrophils, 6% lymphocytes, 8% plasma cells, and 29% erythroid precursors. BONE MARROW CLOT (ASPIRATE CELL BLOCK) AND TREPHINE BIOPSY: A 1.6 cm decalcified trephine biopsy is available for review, showing a normocellular marrow for age (60% cellular). Granulopoietic and erythroid maturations are present with an M:E ratio of 2:1. No increase in blasts is noted. A large aggregate of plasma cells is not seen. An interstitial infiltrate of plasma cells is appreciated. Megakaryocytes are normal in number and show normal morphology with even distribution. Trabecular bone is normal. The clot section contains several cellular marrow particles with similar findings. SPECIAL STAINS: - Iron (aspirate smear and clot section): Increased stainable iron store. Negative for ringed sideroblasts. Appropriate positive control is reviewed. IMMUNOHISTOCHEMISTRY, BLOCKS A1 AND B1: - CD138: Plasma cells are positive, approximately 15%, including focal uniform aggregates. TTP:smn:slh FLOW CYTOMETRY: Bone marrow aspirate, flow cytometry: - [place] monotypic plasma cells are detected. See Comment. COMMENT: PATIENT NAME: JINNY MIRANDA PATHOLOGY DATE OF : 33 REPORT #: [id number] PHYSICIAN: WAYLON PATHOLOGY PCP: ROHAN REYNOLDS PAC REPORT IS CONFIDENTIAL AND NOT TO BE RELEASED WITHOUT AUTHORIZATION [facility] [address], [place] [address] Signed About 3.5% of total events are kappa monotypic plasma cells. Correlation with clinical and histologic findings is needed for further characterization of this patient's plasma cell dyscrasia. Flow cytometry analysis often underestimates the amount of plasma cells. FLOW CYTOMETRY ANALYSIS: FLOW DIFFERENTIAL (% Total CD45 vs. SSC gating): Myeloid 74%; Lymphoid 11%; Monocyte 2%; Dim CD45/Blast 1.4%; Plasma Cells 3.5%. Cell Count: 3.7 x 10*3/uL. POPULATION ANALYSIS: BLASTS: Analysis of the dim CD45 gate demonstrates 1.4% myeloblasts by CD34/CD117. LYMPHOID CELLS: The lymphocyte gate comprises 11% of total events and includes 63% T-cells with a CD4:CD8 ratio of 2.3:1 and normal pruett T-cell antigen expression. 17% of lymphocytes are B-cells with a kappa:lambda ratio of 2.3:1. The remainders in the lymphoid gate are NK cells. MYELOID CELLS: The myeloid population comprises 74% of the total events. No aberrant immunophenotypic expression is detected. MONOCYTES: The monocyte population comprises 2% of the total events. Monocytes are not increased. No aberrant immunophenotypic expression is detected. PLASMA CELLS: There is a noted clinical history of myeloma. For this reason, select additional antibodies are run to further characterize the plasma cells. 3.5% ckappa-restricted plasma cells are detected (n=1,725) expressing CD45 DIM-NEG, CD38 BR, CD138 MOD, CD56 MOD, cKAPPA MOD and CD117 DIM-NEG while negative for CD19 and CD20. ANTIBODIES USED: KAPPA, LAMBDA, CD20, CD10, CD19, CD23, CD38, FMC7, CD16, CD56, CD8, CD5, CD2, CD4, CD7, CD3,CD14, CD33, CD13, HLADR, CD34, CD117, CD15, cKAPPA, cLAMBDA, CD138, CD45: TOTAL ANTIBODIES USED: 27. DKW FINAL DIAGNOSIS PERFORMED BY: Yu Navarrete MD, Pathologist Jan 22 2020 3:41PM CYTOGENETICS: Pending, to be reported by addendum. FISH ANALYSIS: Pending, to be reported by addendum. GROSS DESCRIPTION: Two specimens are received in two containers, labeled "WT". A. The specimen, labeled "WT, core," is received in formalin and consists of two red-brown malaika core(s) up to 1.2 cm. The specimen is entirely submitted in PATIENT NAME: JINNY MIRANDA PATHOLOGY DATE OF : 33 REPORT #: [id number] PHYSICIAN: WAYLON CM PCP: ROHAN REYNOLDS PAC REPORT IS CONFIDENTIAL AND NOT TO BE RELEASED WITHOUT AUTHORIZATION [facility] [address], [place] [address] Signed block (A1) following decalcification in Immunocal. B. The specimen, labeled "WT, clot," is received in formalin and consists of a 1.8 x 1.4 x 0.2 cm aggregate of red-brown clotted material. The specimen is entirely submitted in block (B1). The specimen is processed by [facility]AL[facility] (under the direct supervision of a pathologist) ADDITIONAL NOTES: This test was developed and its performance characteristics determined by [facility]. It has not been cleared or approved by the US Food and Drug Administration. The FDA does not require this test to go through premarket FDA review. This test is used for clinical purposes. It should not be regarded as investigational or for research. This laboratory is certified under the Clinical Laboratory Improvement Amendments (CLIA) as qualified to perform high complexity clinical laboratory testing. Immunohistochemical and/or in situ hybridization studies were performed on this case with the appropriate positive controls that react as expected. This test was developed and its performance characteristics determined by [facility]. It has not been cleared or approved by the U.S. Food and Drug Administration. The FDA has determined that such clearance or approval is not necessary. This test is used for clinical purposes. It should not be regarded as investigational or for research. [facility] is certified under the Clinical Laboratory Improvement Amendments of 1988 (CLIA) as qualified to perform high complexity clinical laboratory testing. In this case, certain antibodies were performed by both immunohistochemistry and flow cytometry analysis because flow cytometry analysis did not fully explain all the light microscopic findings. Immunohistochemistry aided in the analysis. Both methods are deemed medically necessary in this case. PERFORMING LABORATORY: The technical and professional components were performed by [facility], [address] [place] [address] (Per Diem Clerk: Sagar Mack D.O.; CLIA#: [id number]). The technical component and professional interpretation were performed by [facility], [address] [place] [address] (Per Diem Clerk: Sagar Mack D.O.; CLIA#: PATIENT NAME: JINNY MIRANDA PATHOLOGY DATE OF : 33 REPORT #: [id number] PHYSICIAN: WAYLON CM PCP: ROHAN REYNOLDS PAC REPORT IS CONFIDENTIAL AND NOT TO BE RELEASED WITHOUT AUTHORIZATION [address] [address] Signed [id number]). IMAGES: [id number]: [id number]: [id number] REASON FOR ADDENDUM: To add results of additional testing. Bone marrow aspirate, FISH (fluorescence in situ hybridization) Result: Normal Plasma Cell Neoplasm panel Interpretation: - There is no evidence of an abnormal cell clone containing any of the aberrations associated with plasma cell neoplasia in the CD138 enriched cellular fraction of this specimen at the sensitivity level of the analysis. - Clinical and hematopathologic correlation is recommended. CD138+ plasma cells were isolated by magnetic-activated cell sorting using anti-CD138 immunobeads and a magnetic-activated cell sorter (Good Photo) separation system. Interphase FISH (fluorescence in situ hybridization) was performed to assess this specimen for the presence of cytogenetic aberrations in the non-dividing cell population. Hybridization was performed using the CDKN2C/CKS1B (1p32.3, 1q21), [id number] (13q14.2), and TP53/D17Z1 (17p13) gene probes to look for deletion/loss of these regions or chromosomes. The D3Z1 and D15Z4 centromere probes were used to determine gains of chromosomes 3 and 15. The 13q34 probe was run as the control for [id number] and to distinguish between deletion 13q and monosomy 13. FISH was also performed using the IGH/CCND1 and the IGH/FGFR3 probe sets, to look for t(11;14) and t(4;14) rearrangements, respectively, or alternate IGH gene rearrangements. A total of 200 CD138+ interphase cells were analyzed for each probe; the analyses fell within normal limits for this specimen type. 01/24/2020@1300-gv Please note that aberrations in different cell populations (including plasma cells lacking CD138) cannot be ruled out with this analysis. FISH Analysis Summary: Number of Cells Analyzed: 200 Cells Analyzed: Interphase Probes Utilized: CDKN2C,CKS1B, D3Z1+D15Z4, FGFR3/IGH, CCND1/IGH, J52V176,13q34, TP53-P PATIENT NAME: JINNY MIRANDA PATHOLOGY DATE OF : 33 REPORT #: [id number] PHYSICIAN: WAYLON PATHOLOGY PCP: ROHAN REYNOLDS PAC REPORT IS CONFIDENTIAL AND NOT TO BE RELEASED WITHOUT AUTHORIZATION [facility] [address] [facility] [address] [place] [address] Signed Source and Lot Number: [employer], [id number], [id number], [id number], [id number], [id number] Control Probe Utilized: database The technical and professional components of the FISH study were performed at [facility]. ([place], [place], case #[id number]). Detailed report is kept on file. Diagnostician: Yu Navarrete MD Pathologist Electronically Signed 01/24/2020 Copies: ~ PATIENT NAME: JINNY MIRANDA PATHOLOGY DATE OF : 33 REPORT #: [id number] PHYSICIAN: WAYLON PATHOLOGY PCP: ROHAN REYNOLDS PAC REPORT IS CONFIDENTIAL AND NOT TO BE RELEASED WITHOUT AUTHORIZATION
== END 2020-01-18 13:35 | disposition home or self-care (01) ==
LOC: OPS 10:46 → DS 10:46 → OPS 12:00 → DS 12:00 → OPS 13:35
PROVIDERS: Specialist
PROC: 079T3ZX Drainage of Bone Marrow, Percutaneous Approach, Diagnostic (ICD-10-PCS; 2020-01-18)
PROC: 07DR3ZX Extraction of Iliac Bone Marrow, Percutaneous Approach, Diagnostic (ICD-10-PCS; principal; 2020-01-18 12:00)
DX: C90.00 Multiple myeloma not having achieved remission (principal); D61.818 Other pancytopenia; G47.33 Obstructive sleep apnea (adult) (pediatric); I34.0 Nonrheumatic mitral (valve) insufficiency; M19.90 Unspecified osteoarthritis, unspecified site; N32.0 Bladder-neck obstruction; G25.81 Restless legs syndrome; Q61.3 Polycystic kidney, unspecified; R80.3 Bence Jones proteinuria; Z98.890 Other specified postprocedural states; Z79.899 Other long term (current) drug therapy
CPT/HCPCS: 85025; 99152; 99153; J2250; J3010; J7121

== ENCOUNTER 2020-02-24 07:39 | Emergency (ER) | payer MEDICARE ==
[~2020-02-24] VITALS: Ht 182.9 cm; Wt 94.0 kg
--- OUTSIDE RECORDS SUMMARY | ~2020-02-24 | XMS | Encounter Summary ---
Demographics + + + | Address | [address] | | | [place] [address] | + + + | Home Phone | | + + + | Preferred Language | Unknown | + + + | Marital Status | | + + + | Synagogue Affiliation | Unknown | + + + | Race | Unknown | + + + | Ethnic Group | Unknown | + + + Author + + + | Author | [facility] | | | and [place] | + + + | Organization | [facility] | | | and [...] + | Halima [place] | ECON | [address] | | | | | [place] | | | | | [address] | | + + + + + Care Team Providers + +------+ + | Care Warehouse And Receiving Supervisor Name | Role | Phone | + +------+ + | Garima Martin | PCP | | | PA | | | + +------+ + Reason for Visit + + + | Reason | Comments | + + + | Medication Refill | | + + + Encounter Details +--------+--------+ + + + | Date | Type | Department | Care Team | Description | +--------+--------+ + + + | 04/23/ | Refill | [facility] | Eduardo Felder MD | Medication Refill | | 2019 | | NEPRHOLOGY [place] | [address] | | | | | [address] | [address] [place], [place] | | | | | [address] [place], [place] | [address] | | | | | [address] | | | | | | [phone] | | | +--------+--------+ + + + Social History + +-------+ [...] + + documented as of this encounter Miscellaneous Notes Telephone Encounter - [employer]ing [employer] - 04/23/2019 10:09 AM PDTReceived fa x requesting refill from: hugo Medication:toresemide qty:30 refill: 11 Sig: take 1 tab by mouth daily Rx written: 01/02/2018 Last refill: 01/02/2018 Last office visit:12/25/2018 Next scheduled visit: 07/02/2019 document ed in this encounter Plan of Treatment +--------+---------+ + + + | Date | Type | Specialty | Care Team | Description | +--------+---------+ + + + | 04/28/ | Office | Sleep Medicine | Ilan Roberts PA | | | 2019 | Visit | | [address] | | | | | | [place] | | | | | | [phone] | | | | | | | | +--------+---------+ + + + | 07/07/ | Office | Nephrology | Eduardo Felder MD | | | 2019 | Visit | | [address] [place] | | | | | | [address] [place] | | | | | | [address] | | | | | | | | +--------+---------+ + + + documented as of this encounter Visit Diagnoses + + | Diagnosis | + + | CKD (chronic kidney disease) stage 3, GFR 30-59 ml/min ([facility]) - Primary Chronic kidney | | disease, Stage III (moderate) | + + | Essential hypertension, benign | + + documented in this encounter"
--- OUTSIDE RECORDS SUMMARY | ~2020-02-24 | XMS | Encounter Summary ---
Demographics + + + | Address | [address] | | | [place] [address] | + + + | Home Phone | | + + + | Preferred Language | Unknown | + + + | Marital Status | | + + + | Muslim Affiliation | Unknown | + + + | Race | Unknown | + + + | Ethnic Group | Unknown | + + + Author + + + | Author | [facility] | | | and [place] | + + + | Organization | [facility] | | | and [place] | + + + | Address | Unknown | + + + | Phone | Unavailable | + + + Support + + + + + | Name | Relationship | Address | Phone | + + + + + | Halima Alexander | ECON | Unknown | + | + + + + + | Halima Alexander | ECON | [address] | + | | | | [place] | | | | | [address] | | + + + + + Care Team Providers + +------+ + | Care Internet Network Specialist Name | Role | Phone | + +------+ + | Garima Martin | PCP | | | PA | | | + +------+ + Encounter Details +--------+ + + + + | Date | Type | Department | Care Team | Description | +--------+ + + + + | 04/13/ | Orders Only | [facility] | Eduardo Felder MD | Chronic kidney | | 2019 | | NEPRHOLOGY [place] | [address] | disease, stage III | | | | [address] | [address] [place], [place] | (moderate) (HCC); | | | | [address] [place], [place] | [address] | Essential (primary) | | | | [address] | | hypertension; | | | | [phone] | | Localized edema; | | | | | | Hyperkalemia; Other | | | | | | specified personal | | | | | | risk factors, not | | | | | | elsewhere | | | | | | classified; | | | | | | Hyperuricemia | | | | | | without signs of | | | | | | inflammatory | | | | | | arthritis and | | | | | | tophaceous disease | +--------+ + + + + [...] 2019 | Visit | | [address] | | | | | | [place] | | | | | | [address] | | | | | | | | +--------+---------+ + + + | 07/07/ | Office | Nephrology | Eduardo Felder MD | | | 2019 | Visit | | [address] [place] | | | | | | [address] [place] | | | | | | [address] | | | | | | | | +--------+---------+ + + + + +------+--------+ + + | Name | Type | Priori | Associated Diagnoses | Order Schedule | | | | ty | | | + +------+--------+ + + | Renal Function Panel | Lab | Routin | Chronic kidney | Expected: | | | | e | disease, stage III | 12/13/2018, Expires: | | | | | (moderate) (HCC) | 08/14/2019 | | | | | Essential (primary) | | | | | | hypertension | | | | | | Localized edema | | | | | | Hyperkalemia Other | | | | | | specified personal | | | | | | risk factors, not | | | | | | elsewhere classified | | | | | | Hyperuricemia | | | | | | without signs of | | | | | | inflammatory | | | | | | arthritis and | | | | | | tophaceous disease | | + +------+--------+ + + | Parathyroid Hormone, | Lab | Routin | Chronic kidney | Expected: | | Intact | | e | disease, stage III | 12/13/2018, Expires: | | | | | (moderate) (HCC) | 08/14/2019 | | | | | Essential (primary) | | | | | | hypertension | | | | | | Localized edema | | | | | | Hyperkalemia Other | | | | | | specified personal | | | | | | risk factors, not | | | | | | elsewhere classified | | | | | | Hyperuricemia | | | | | | without signs of | | | | | | inflammatory | | | | | | arthritis and | | | | | | tophaceous disease | | + +------+--------+ + + | Renal Function Panel | Lab | Routin | Chronic kidney | Expected: | | | | e | disease, stage III | 06/26/2019, Expires: | | | | | (moderate) (HCC) | 12/26/2019 | | | | | Essential (primary) | | | | | | hypertension | | + +------+--------+ + + | CBC with | Lab | Routin | Chronic kidney | Expected: | | Differential | | e | disease, stage III | 06/26/2019, Expires: | | | | | (moderate) (HCC) | 12/26/2019 | | | | | Essential (primary) | | | | | | hypertension | | + +------+--------+ + + | Uric Acid | Lab | Routin | Chronic kidney | Expected: | | | | e | disease, stage III | 06/26/2019, Expires: | | | | | (moderate) ([facility]) | 12/26/2019 | | | | | Essential (primary) | | | | | | hypertension | | + +------+--------+ + + | Parathyroid Hormone, | Lab | Routin | Chronic kidney | Expected: | | Intact | | e | disease, stage III | 06/26/2019, Expires: | | | | | (moderate) ([facility]) | 12/26/2019 | | | | | Essential (primary) | | | | | | hypertension | | + +------+--------+ + + | Urinalysis with | Lab | Routin | Chronic kidney | Expected: | | Microscopic if | | e | disease, stage III | 06/26/2019, Expires: | | Indicated | | | (moderate) ([facility]) | 12/26/2019 | | | | | Essential (primary) | | | | | | hypertension | | + +------+--------+ + + | Protein/Creatinine | Lab | Routin | Chronic kidney | Expected: | | Ratio, Urine | | e | disease, stage III | 06/26/2019, Expires: | | | | | (moderate) (HCC) | 12/26/2019 | | | | | Essential (primary) | | | | | | hypertension | | + +------+--------+ + + documented as of this encounter Visit Diagnoses + + | Diagnosis | + + | Chronic kidney disease, stage III (moderate) ([facility]) Chronic kidney disease, Stage III | | (moderate) | + + | Essential (primary) hypertension Unspecified essential hypertension | + + | Localized edema Edema | + + | Hyperkalemia Hyperpotassemia | + + | Other specified personal risk factors, not elsewhere classified | + + | Hyperuricemia without signs of inflammatory arthritis and tophaceous disease Other | | abnormal blood chemistry | + + documented in this encounter"
--- OUTSIDE RECORDS SUMMARY | ~2020-02-24 | XMS | Encounter Summary ---
Demographics + + + | Address | [address] | | | [place] [address] | + + + | Home Phone | | + + + | Preferred Language | Unknown | + + + | Marital Status | | + + + | Protestant Affiliation | Unknown | + + + [...] + | Halima Alexander | ECON | [address] | + | | | | [place] | | | | | [address] | | + + + + + Care Team Providers + +------+ + | Care Sole Inker Name | Role | Phone | + +------+ + | Garima Martin | PCP | | | PA | | | + +------+ + Reason for Referral Evaluate & Treat (Routine) +--------+ + + + + + | Status | Reason | Specialty | Diagnoses / | Referred By | Referred To | | | | | Procedures | Contact | Contact | +--------+ + + + + + | Closed | Specialty | Physical | Diagnoses | | | | | Services | Therapy | Chronic | Mya, | | | | Required | | bilateral | Cristy, | | | | | | low back | PA-C [address] | | | | | | pain with | [address], | | | | | | right-sided | [address] | | | | | | sciatica | [place] | | | | | | DDD | [address] | | | | | | (degenerativ | Phone: | | | | | | e disc | [phone] | | | | | | disease), | Fax: | | | | | | lumbar | [phone] | | | | | | Spinal | | | | | | | stenosis of | | | | | | | lumbar | | | | | | | region with | | | | | | | neurogenic | | | | | | | claudication | | | | | | | DDD | | | | | | | (degenerativ | | | | | | | e disc | | | | | | | disease), | | | | | | | cervical | | | | | | | Procedures | | | | | | | HIM 2/21 | | | +--------+ + + + + + Reason for Visit + + + | Reason | Comments | + + + | Back Pain | low back pain radiating into right leg | + + + | Neck Pain | numbness in fingers bilaterally | + + + Evaluate & Treat (Routine) +--------+--------+ + + + + | Status | Reason | Specialty | Diagnoses / | Referred By | Referred To | | | | | Procedures | Contact | Contact | +--------+--------+ + + + + | Closed | | Physical | Diagnoses | Veronica, | Mulu, | | | | Medicine and | | Garima | Poncho Bell MD | | | | Rehabilitatio | Radiculopath | AMANDA Ross | [address] | | | | n | y, lumbar | [address] [place] | | | | | region | [address] | [place], [place] | | | | | | [place], | [address] Phone: | | | | | | [place] | [phone] | | | | | | [address] | Fax: | | | | | | Phone: | [phone] | | | | | | [phone] | | | | | | | Fax: | | | | | | | [phone] | | +--------+--------+ + + + + Encounter Details +--------+---------+ + + + | Date | Type | Department | Care Team | Description | +--------+---------+ + + + | 09/19/ | Office | [facility] | Mya, | Chronic bilateral | | 2018 | Visit | PHYSIATRY [address] | MESFIN Muniz [address] | low back pain with | | | | [address] | [address] | right-sided | | | | [place], [place] | [place] [address] | sciatica; DDD | | | | [address] | [phone] | (degenerative disc | | | | [phone] | | disease), lumbar; | | | | | | Spinal stenosis of | | | | | | lumbar region with | | | | | | neurogenic | | | | | | claudication; DDD | | | | | | (degenerative disc | | | | | | disease), cervical | +--------+---------+ + + + Social History [...] + + + | Blood Pressure | 142/79 | 09/19/2017 10:03 AM | | | | | PST | | + + + + + | Pulse | 64 | 09/19/2017 10:03 AM | | | | | PST [...] + + + + | Weight | 90.7 kg (200 lb) | 09/19/2017 10:03 AM | | | | | PST | | + + + + + | Height | 182.9 cm (6') | 09/19/2017 10:03 AM | | | | | PST | | + + + + + | Body Mass Index | 27.12 | 09/19/2017 10:03 AM | | | | | PST | | + + + + + documented in this encounter Patient Instructions Patient Instructions Cristy Roque PA-C - 09/19/2017 10:00 AM PST1) Cervical pain wi physical therapy at [facility] in [place] 2) Epidural steroid injection with Dr. Mills Spinal Stenosis: Stenosis refers to the narrowing of the spinal cord. This most often occurs with age and generative changes of the spine. Narrowing of the spinal cord causes compression and inflam mation of nerves in the lower back and can cause numbness, pain, and weakness in the back, b uttocks and legs. You may notice you have more pain with standing and walking. It feels be tter to walk more bent over at the waist, while pushing a grocery cart or walker. You get r elief with sitting down. Treatment includes pain medicine, gabapentin, transforaminal epidu ral steroid injections to help reduce swelling, physical therapy and surgery. Steroids are a very strong anti-inflammatory, this helps reduce pain by reducing swelling. Complications of steroids are bleeding, infection, and an increase of blood sugars if you are diabetic. senior living risk can lead to osteoporosis which is why we limited the number of injections to 3 times per year. Epidural injections target the spinal stenosis by putting the steroid around the nerves that come out of the spine with hopes the steroid gets into t he region of the stenosis. The procedure is about 20 minutes long. You will lie on your juvenal k while x-rays are taken. Once the region is marked, it is numbed and then injected with st eroids. Follow-up at the hospital thirty minutes before your scheduled procedure to allow for time to check in. You may eat and drink as usual on the day of the procedure. If you are scheduled for an epidural injection do not take any blood thinning medications f or at least 5-7 days prior to your procedure unless you have been instructed by another phys ician not to discontinue blood thinning medications. If you are having a procedure other than an epidural injection (i.e. facet injection, media l branch block, SI joint injection or other joint injection) it is not absolutely necessary to discontinue blood thinning medications but doing so will decrease the risk of bruising or bleeding. If you have had a prior stroke, DVT or PE or if you are taking blood thinning medication be cause you have atrial fibrillation, a prosthetic cardiac valve replacement or heart stenting do not stop taking your blood thinning medications unless you have permission from your car diologist or primary care provider. All other medications should be taken as usual on the day of the procedure. Common blood thinning medications include: Aspirin (a baby aspirin is o.k.) Ibuprofen (Advil or Motrin) Naproxen (Aleve) Nabumetone (Relafen) Clopidogrel (Plavix) Dipyridamole/ASA (Aggrenox) Warfarin (Coumadin) Dabigatran (Pradaxa) Rivaroxaban (Xarelto) There are many others. If you have questions about your medications and whether or not you should stop any medications please contact our office. If you are having an epidural injection or if you take any medication for relaxation/sedati on on the day of the procedure you must provide a feeder driver to take you home. For all procedur es it is recommended that someone else drive you home. documented in this encounter Progress Notes Cristy Roque PA-C - 09/19/2017 10:00 AM PSTFormatting of this note might be differe nt from the original. Cristy Roque PA-C [address] [facility], [address] [place] [address] FAX: PHYSICAL MEDICINE AND REHABILITATION H&P CHIEF COMPLAINT: Chief Complaint Patient presents with Back Pain low back pain radiating into right leg Neck Pain numbness in fingers bilaterally HISTORY OF PRESENT ILLNESS: The patient is a 82 y.o. male being seen today for complaints of low back pain with radiating symptoms into the right leg along with neck pain and decreas ed range of motion. The patient reports this has been a chronic issue further over the last 10 years and has gradually worsened. He is to the point he has difficulty walking long dis tances and has numbness into both hands. He describes his pain as aching and dull with tingling and numbness into the bilateral hand s. He is able to shake out his hands and this does improve. He rates his pain as a mild wi th sitting and moderate to severe with walking. His symptoms worsen with standing, walking, kneeling, running. His symptoms improve with changing position, lying down and rest. The patient describes leg symptoms on the right side. He reports they run down the lateral aspect of the right leg into the anterior eaton. This is worse with walking. He does not d escribe numbness of the legs but has numbness of the bilateral hands as mentioned above. He does report weakness of the right leg and has difficulty with driving his truck and moving the right leg from the brake to the gas pedal. He does not have bowel and bladder dysfunction. He does not have saddle anesthesia. Treatments for these complaints have included physical therapy for the low back which he cu [facility] [place], use of tramadol, use of NSAIDs. He has not had a ny physical therapy for the neck. Patient's medications, allergies, past medical, surgical, social and family histories were reviewed and updated as appropriate. PAST MEDICAL HISTORY: Past Medical History: Diagnosis Date Allergic rhinitis Back pain Backache Cervical radiculopathy Cervical spinal stenosis Cervicalgia Chronic bilateral low back pain with right-sided sciatica 09/19/2017 Chronic kidney disease, stage 3 Circadian rhythm disorder Constipation DDD (degenerative disc disease), cervical 09/19/2017 DDD (degenerative disc disease), lumbar 09/19/2017 Degeneration, intervertebral disc, cervical Enlarged prostate with lower urinary tract symptoms (LUTS) Foot drop Hypertension Left knee pain Lumbago with sciatica Lumbar radiculopathy Mitral valve prolapse Neck pain Neoplasm of uncertain behavior of bone Osteoarthritis Osteoarthritis of both knees Osteoarthritis of right hip Other intervertebral disc degeneration, lumbar region Pancytopenia (HCC) Persistent insomnia Restless leg syndrome Restless legs syndrome Right knee pain Sinoatrial node dysfunction (HCC) Sleep apnea Spinal stenosis of lumbar region with neurogenic claudication 09/19/2017 Spinal stenosis, lumbar Urticaria PAST SURGICAL HISTORY: Past Surgical History: Procedure Laterality Date HERNIA REPAIR Bilateral 1990 ; [place] PROSTATE SURGERY 1997 ; [facility]; [place] ROTATOR CUFF REPAIR Right 1998 Dr. Tovar; [facility] [place] CURRENT MEDICATIONS: Current Outpatient Prescriptions Medication Sig Dispense Refill acetaminophen (TYLENOL) 650 MG CR tablet Take 650 mg by mouth every 8 hours as needed f or Pain. albuterol 90 mcg/puff inhaler Inhale 2 puffs into the lungs every 6 hours as needed for Wheezing. amLODIPine (NORVASC) 5 mg tablet Take 5 mg by mouth Daily. ascorbic acid (VITAMIN C) 500 mg tablet Take 500 mg by mouth Daily. aspirin 81 MG tablet Take 81 mg by mouth Daily. docusate sodium (COLACE) 100 mg capsule Take 100 mg by mouth 2 times daily. Flaxseed, Linseed, (FLAXSEED OIL) 1200 MG CAPS Take 1 capsule by mouth Daily. Glucosamine HCl (GLUCOSAMINE PO) Take 1,000 mg by mouth Daily. hydroCHLOROthiazide 25 mg tablet Take 25 mg by mouth Daily. lisinopril (PRINIVIL, ZESTRIL) 20 mg tablet Take 20 mg by mouth Daily. loratadine (CLARITIN) 10 mg tablet Take 10 mg by mouth Daily. Multiple Vitamins-Minerals (VITRUM 50+ SENIOR MULTI) TABS Take 1 tablet by mouth Daily. spironolactone (ALDACTONE) 25 mg tablet Take 25 mg by mouth Daily. tamsulosin (FLOMAX) 0.4 mg CAPS Take 0.4 mg by mouth daily (after breakfast). terazosin (HYTRIN) 5 mg capsule Take 5 mg by mouth Daily. traMADol (ULTRAM) 50 mg tablet Take 50 mg by mouth every 6 hours as needed for Pain. No current facility-administered medications for this visit. ALLERGIES: Allergies Allergen Reactions Doxycycline Hives and Rash SOCIAL HISTORY: The patient reports that he has never smoked. He has never used smokeless tobacco. He repo rts that he drinks alcohol. He reports that he does not use drugs. FAMILY HISTORY: Family History Problem Relation Age of Onset Kidney cancer Mother Heart attack Father Colon cancer Brother No Known Problems Maternal Grandmother No Known Problems Maternal Grandfather No Known Problems Paternal Grandmother No Known Problems Paternal Grandfather Prostate cancer Paternal Uncle REVIEW OF SYSTEMS: GENERALLY: No fever, chills, no night sweats, no weight gain, no weight loss, no anemia, +fatigue. EYES: +eye problems, no impaired sight, +eye glasses/contacts, no eye injury, no double vi riley, no transient blindness. EARS, NOSE, THROAT and MOUTH: No change in sense taste/smell, +hearing difficulty, +ringin g in ears, no drainage from ears, no ear injury, no dizziness, no voice change, no difficult y swallowing, no snoring, +sleep apnea/CPAP, no sinus trouble, +dental work. NEUROMUSCULAR: +numbness/pain of arms, +numbness/pain of legs, +awake with numbness/pain, +weakness, no muscle aching, no coordination difficulty, +change in walk, no head injury, +n ro injury, no back injury, +pain in neck, +pain in back, no stroke, no fainting spells, no loss of consciousness, no tremor/shaking, no seizures, no headaches, no migraines, no memory loss, no speech difficulty, no confusion, no numbness of face. PSYCHIATRIC: No depression, +difficulty sleeping, no anxiety, no bipolar disorder. CARDIOVASCULAR/PULMONARY: No heart attack, no heart murmur, no fluttering heart, no shortn ess of breath, no cough, no Tuberculosis, no chest pain, +swelling ankles, no bloody coughin g, no asthma, no COPD/emphysema. GASTROINTESTINAL: No bowel disease, no nausea/vomiting, no rectal bleeding/hemorroids, +co nstipation, no fecal/stool incontinence, no liver/gallbladder disease, no abdominal pain. KIDNEY DISEASE: +frequent urination, no painful/difficult with urination, no urinary incont inence, no bladder problems, no impotence, no irregular period, no vaginal discharge. ENDOCRINE: No diabetes, no thyroid disease, no osteoporosis/osteopenia, no drainage from br easts. INTEGUMENTARY/SKIN: No lump in breasts, no skin disease or skin changes, no rash/itch. HEMATOLOGIC: No enlarged lymph nodes, no ease or unusual bleeding, no cancer. RHEUMATOLOGIC: No joint pain/arthritis, no Rheumatoid Arthritis PHYSICAL EXAMINATION: Vitals: 09/19/17 1003 BP: 142/79 Pulse: 64 PainSc: 2 PainLoc: Back Body mass index is 27.12 kg/m. GENERAL: The patient is well developed and well nourished. He does not appear uncomfortabl e when seated. HEENT: HEAD/FACE: EYES: EARS: NASOPHARNYX: OROPHARNYX: Normocephalic and atraumatic. There are no areas of recent trauma. Normal sclerae without icterus. No drainage or tenderness. Clear without drainage. Clear without erythema. SKIN Limited skin exam shows no significant rashes or lesions. There are not scars in the lumbar or cervical region. CHEST: The patient is in no acute respiratory distress with unlabored respirations. HEART: There is not lower extremity edema. ABDOMEN: The patient is not overweight. NEUROLOGIC: The patient is awake, alert, and oriented to time, place, person. He follows simple and complex commands. His speech is fluent. He comprehends speech well. He has no apparent deficits with short or intermediate card tender memory. He has appropriate fund of knowledge Cranial nerves 2-12 appear grossly intact. Sensory exam does not show diminished sensation to light touch in the lower extremities. REFLEX: RIGHT LEFT PATELLAR 1 1 ACHILLES muted muted MUSCULOSKELETAL There is no tenderness in the midline of the cervical or thoracic spine. T here is no major palpable deformity of the spine. Straight leg raise and slump-sit are negative except for tight hamstrings. Jatinder's maneu ricardo and impingement testing were negative for any groin pain. There was no tenderness to p alpation over the greater trochanters or sacral sulci. The patient localized the majority o f the pain to the right lumbar region. Lumbar facet loading was positive. Strength testing showed 5/5 strength throughout the lower extremities. The patient was able to heel and toe walk without difficulty. There was no redness, effusion, warmth or joint line tenderness i n the knees or ankles. RADIOGRAPHIC REVIEW: The patient's imaging was reviewed in detail with the patient today during the visit. Lumb ar MRI from 2017 shows lumbar DDD with moderate to severe spinal stenosis at L4/L5. ASSESSMENT: 1. Chronic bilateral low back pain with right-sided sciatica 2. DDD (degenerative disc disease), lumbar 3. Spinal stenosis of lumbar region with neurogenic claudication 4. DDD (degenerative disc disease), cervical PLAN: 1. The patient has had significant conservative care including medications (NSAIDS and lamont cotics), PT (multiple sessions over the years) and career placement services counselor. Unfortunately she cont inues to have significant discomfort. It appears to me that the pain is primarily coming fr om the spinal stenosis. I did feel that she would be a good candidate for interventional pr ocedures and I offered bilateral L5/S1 TFESI. 2. Start PT for the neck, might help increase ROM, steroid epidural injections do not help with numbness - would not offer this as a treatment right now. 3. Medications have been reviewed at today's visit with no changes made at this time. 4. Follow up 3 weeks after injection. ELECTRONICALLY SIGNED BY: Cristy Roque PA-C, 09/19/2016 CC: Garima Rose documented in t his encounter Plan of Treatment +--------+---------+ + + + | Date | Type | Specialty | Care Team | Description | +--------+---------+ + + + | 04/28/ | Office | Sleep Medicine | Ilan Roberts PA | | | 2019 | Visit | | [address] | | | | | | [place] | | | | | | [address] | | | | | | | | +--------+---------+ + + + | 07/07/ | Office | Nephrology | Eduardo Felder MD | | | 2019 | Visit | | [address] [place] | | | | | | [address] [place] | | | | | | [address] | | | | | | | | +--------+---------+ + + + + + +--------+ + + | Name | Type | Priori | Associated Diagnoses | Order Schedule | | | | ty | | | + + +--------+ + + | * [facility] | Outpatient | Routin | Chronic bilateral | Ordered: 09/19/2017 | | Therapy - AMB | Referral | e | low back pain with | | | Referral | | | right-sided sciatica | | | | | | DDD (degenerative [...] | | disease), cervical | | + + +--------+ + + documented as of this encounter Results [facility] SANG Lumbar Transforaminal [...] disc | + + documented in this encounter"
--- OUTSIDE RECORDS SUMMARY | ~2020-02-24 | XMS | Encounter Summary ---
Demographics + + + | Address | [address] | | | [place] [address] | + + + | Home Phone | | + + + | Preferred Language | Unknown | + + + | Marital Status | | + + + | Sikhism Affiliation | Unknown | + + + | Race | Unknown | + + + | Ethnic Group | Unknown | + + + Author + + + | Author | [facility] | | | and [place] | + + + | Organization | [facility] | | | [...] + | Halima Alexander | ECON | [address] | + | | | | [place] | | | | | [address] | | + + + + + Care Team Providers + +------+ + | Care Tuber Operator Name | Role | Phone | + +------+ + | Garima Martin | PCP | | | PA | | | + +------+ + Encounter Details +--------+ + + + + | Date | Type | Department | Care Team | Description | +--------+ + + + + | 03/13/ | Orders Only | [facility] | Conversion | | | 2018 | | NEPHROLOGY [place] | Transaction, | | | | | [address] | Provider Unknown | | | | | [address] [place] | | | | | | [address] | (Fax) | | | | | [phone] | | | +--------+ + + + [...] 2019 | Visit | | [address] | | | | | | [place] | | | | | | [address] | | | | | | | | +--------+---------+ + + + | 07/07/ | Office | Nephrology | Eduardo Felder MD | | | 2019 | Visit | | [address] [place] | | | | | | [address] [place] | | | | | | [address] | | | | | | | | +--------+---------+ + + + documented as of this encounter Procedures + +--------+ + + + | Procedure Name | Priori | Date/Time | Associated Diagnosis | Comments | | | ty | | | | + +--------+ + + + | EXTERNAL LAB: [facility] | Routin | 03/13/2018 | | | | | e | 1:03 PM | | | | | | PDT | | | + +--------+ + + + | PARATHYROID HORMONE, | Routin | 03/13/2018 | | Results for this | | INTACT | e | 10:10 AM | | [...] documented in this encounter Results External Lab: [facility] (03/13/2018 1:03 PM PDT) + +-------+ + + + | Component | Value | Ref Range | Performed | Pathologist | | | | | At | Signature | + +-------+ + + + | WBC | | | EXTERNAL | | | | | | LAB | | + +-------+ + + + | Red Blood | | 10 | EXTERNAL | | | Cells | | | LAB | | | Counted | | | | | + +-------+ + + + | Hemoglobin | | g/dL | EXTERNAL | | | | | | LAB | | + +-------+ + + + | Hematocrit, | | % | EXTERNAL | | | POC | | | LAB | | + +-------+ + + + | MCV | | fL | EXTERNAL | | | | | | LAB | | + +-------+ + + + | MCH | | pg | EXTERNAL | | | | | | LAB | | + +-------+ + + + | MCHC | | g/dL | EXTERNAL | | | | | | LAB | | + +-------+ + + + | Platelet | | K/ L | EXTERNAL | | | Count | | | LAB | | | Plasma | | | | | + +-------+ + + + | RDW-CV | | % | EXTERNAL | | | | | | LAB | | + +-------+ + + + | MPV | | fL | EXTERNAL | | | | | | LAB | | + +-------+ + + + | Differentia | | | EXTERNAL | | | l Type | | | LAB | | + +-------+ + + + | % Segmented | | % | EXTERNAL | | | | | | LAB | | | Neutrophils | | | | | + +-------+ + + + | % | | % | EXTERNAL | | | Lymphocytes | | | LAB | | + +-------+ + + + | % Monocytes | | % | EXTERNAL | | | | | | LAB | | + +-------+ + + + | % | | % | EXTERNAL | | | Eosinophils | | | LAB | | + +-------+ + + + | % Basophils | | % | EXTERNAL | | | | | | LAB | | + +-------+ + + + | Absolute | | / L | EXTERNAL | | | Segmented | | | LAB | | | Neutrophils | | | | | + +-------+ + + + | Absolute | | / L | EXTERNAL | | | Lymphocytes | | | LAB | | + +-------+ + + + | Absolute | | / L | EXTERNAL | | | Monocytes | | | LAB | | + +-------+ + + + | Absolute | | / L | EXTERNAL | | | Eosinophils | | | LAB | | + +-------+ + + + | Absolute | | / L | EXTERNAL | | | Basophils | | | LAB | | + +-------+ + + + + + | Specimen | + + | Blood specimen | | (specimen) | + + + +---------+ + + | Performing | Address | City/State/Zipcode | Phone Number | | Organization | | | | + +---------+ + + | EXTERNAL LAB | | | | + +---------+ + + Parathyroid Hormone, Intact (03/13/2018 10:10 AM PDT) + +-------+ + + + | Component | Value | Ref Range | Performed | Pathologist | | | | | At | Signature | + +-------+ + + + | PTH INTACT | 63.66 | 15 - 65 pg/mL | EXTERNAL | | | | | [...] + +---------+ + + Renal Function Panel (03/13/2018 10:10 AM PDT) + + + + + + | Component | Value | Ref Range | Performed | Pathologist | | | | | At | Signature | + + + + + + | Glucose, | 107 (A) | 70 - 100 mg/dL | EXTERNAL | | | Fasting | | | LAB | | + + + + + + | BUN | 50 (A) | 6 - 23 mg/dL | EXTERNAL | | | | | | LAB | | + + + + + + | Creatinine | 2.33 (A) | 0.7 - 1.11 | EXTERNAL | | | | | mg/dL | LAB | | + + + + + + | PHOSPHORUS | 4.2 | 2.5 - 5.0 mg/dL | EXTERNAL | | | | | | LAB | | + + + + + + | Albumin | 3.9 | 3.5 - 5.0 | EXTERNAL | | | | | | LAB | | + + + + + + | Na | 141 | 132 - 143 | EXTERNAL | | | | | mmol/L | LAB | | + + + + + + | K | 4.7 | 3.6 - 5.1 | EXTERNAL | | | | | mmol/L | LAB | | + + + + + + | Cl | 108 | 95 - 112 mmol/L | EXTERNAL | | | | | | LAB | | + + + + + + | CO2 | 22 | 19 - 31 mmol/L | EXTERNAL | | | | | | LAB | | + + + + + + | Anion Gap | 15.7 | 7 - 21 mmol/L | EXTERNAL | | | | | | LAB | | + + + + + + | eGFR if not | | | EXTERNAL | | | | | | LAB | | | LAO | | | | | + + + + + + | Phosphorus, | | | EXTERNAL | | | Inorganic | | | LAB | | + + + + + + | BUN/Creatin | 21.5 | 6.0 - 28.6 | EXTERNAL | | | ine Ratio | | | LAB | | + + + + + + | Calcium | 8.9 | 8.4 - 10.2 | EXTERNAL | | | | | mg/dL | LAB | | + + + + + + | Estimated | 27 (A) | 60 mg/dL | EXTERNAL | [...]
--- OUTSIDE RECORDS SUMMARY | ~2020-02-24 | XMS | Encounter Summary ---
Demographics + + + | Address | [address] | | | [place] [address] | + + + | Home Phone | | + + + | Preferred Language | Unknown | + + + | Marital Status | | + + + | Islam Affiliation | Unknown | + + + [...] + | Halima Alexander | ECON | [address] | + | | | | [place] | | | | | [address] | | + + + + + Care Team Providers + +------+ + | Care General Dentist/Owner Name | Role | Phone | + +------+ + | Garima Martin | PCP | | | PA | | | + +------+ + Reason for Visit Diagnostic/Screening (Routine) +--------+--------+ + + + + | Status | Reason | Specialty | Diagnoses / | Referred By | Referred To | | | | | Procedures | Contact | Contact | +--------+--------+ + + + + | Closed | | Radiology | Procedures | Provider, | | | | | | MRI | Historical, | | | | | | Cervical | [address] | | | | | | Spine wo | [address] | | | | | | Contrast | [place] | | | | | | | [address] | | +--------+--------+ + + + + Encounter Details +--------+ + + + + | Date | Type | Department | Care Team | Description | +--------+ + + + + | 09/05/ | Imaging | [facility] | Provider, | | | 2017 | Exam | [facility] | Historical, [address] | | | | | IMAGING [address] | [place] | | | | | [address] [place] | [place] [address] | | | | | [place] [address] | | | | | | [phone] | | | +--------+ + + + [...] 2019 | Visit | | [address] | | | | | | [place] | | | | | | [id number] | | | | | | | | +--------+---------+ + + + | 07/07/ | Office | Nephrology | Eduardo Felder MD | | | 2019 | Visit | | [address] [place] | | | | | | [facility] | | | | | | [address] | | | | | | | | +--------+---------+ + + + documented as of this encounter Procedures + +--------+ + + + | Procedure Name | Priori | Date/Time | Associated Diagnosis | Comments | | | ty | | | | + +--------+ + + + | MRI CERVICAL SPINE | Routin | 07/12/2017 | | Results for this | | WO CONTRAST | e | 12:45 PM | | procedure are in the | | | | PST | | results section. | + +--------+ + + + documented in this encounter Results MRI Cervical Spine wo Contrast (07/12/2017 12:45 PM PST) + + | Specimen | + + | | + + + + + | Narrative | Performed At | + + + | External films | [facility] | | for comparison only - no result from [place]. | | + + + + +---------+ + + | Performing | Address | City/State/Zipcode | Phone Number | | Organization | | | | + +---------+ + + | [facility] | | | | + +---------+ + + documented in this encounter Visit Diagnoses Not on filedocumented in this encounter"
--- OUTSIDE RECORDS SUMMARY | ~2020-02-24 | XMS | Encounter Summary ---
Demographics + + + | Address | [address] | | | [place] [address] | + + + | Home Phone | | + + + | Preferred Language | Unknown | + + + | Marital Status | | + + + | Confucianist Affiliation | Unknown | + + + | Race | Unknown | + + + | Ethnic Group | Unknown | + + + Author + + + | Author | [facility] | | | and [place] | + + + | Organization | [facility] | | | and [...] + | Halima Alexander | ECON | [address] | | | | | [place] | | | | | [address] | | + + + + + Care Team Providers + +------+ + | Care Study Hall Supervisor Name | Role | Phone | + +------+ + | Ryley Novak MD | PCP | | + +------+ + Reason for Visit +--------+ + | Reason | Comments | +--------+ + | Apnea | | +--------+ + Encounter Details +--------+---------+ + + + | Date | Type | Department | Care Team | Description | +--------+---------+ + + + | 07/15/ | Office | [facility] | Ilan Roberts PA | JOVANI on CPAP (Primary | | 2015 | Visit | SLEEP DISORDER [address] | [address] | Dx) | | | | [address] | [place] | | | | | [place] [address] | [id number] | | | | | [phone] | | | +--------+---------+ + + + Social History [...] + + + | Blood Pressure | 132/60 | 07/15/2015 11:07 AM | | | | | PST | | + + + + + | Pulse | 45 | 07/15/2015 11:07 AM | | | | | PST | | + + + + + | Temperature | - | - | | + + + + + | Respiratory Rate | 14 | 07/15/2015 11:07 AM | | | | | PST | | + + + + + | Oxygen Saturation | 99% | 07/15/2015 11:07 AM | | | | | PST | | + + + + + | Inhaled Oxygen | - | - | | | Concentration | | | | + + + + + | Weight | 95.3 kg (210 lb) | 07/15/2015 11:07 AM | | | | | PST | | + + + + + | Height | - | - | | + + + + + | Body Mass Index | 28.48 | 12/02/2010 12:00 AM | | | | | PDT | | + + + + + documented in this encounter Progress Notes Ilan Roberts PA - 07/15/2015 11:06 AM PST Subjective: Patient ID: Tommie Alexander is a 79 y.o. male. HPI last office visit was: 01/29/2015 date of polysomnography: 07/17/2001 AHI: 28.7 O2%: 84.9% Machine type: ResMed S9 with full face mask obtained from: [facility] in [place] pressure is: 9-15 cm Median: 10.0 cm 95%: 11.3 cm maxium: 12.4 cm Nights using CPAP: 344/365 144/167 % of nights >4 hours: 94% 100% 86% Average usage (all nights): 8:07 8:29 7:47 Average usage (nights used): 8:38 8:29 9:02 AHI: 2.3 "Ashwin" continues to do well with his CPAP compliance. He is wearing it on a nightly basis f or the duration of the night. He does not consider sleeping without his CPAP. He and his w hollie feel that he is doing well with his CPAP at night, sleeping for roughly 9 hours per nigh t. He is also napping during the day on most days. We have discussed sleep hygiene, which he has worked to improve. He does not have any problem staying awake during the day when he is active, but falls asleep in the afternoon when sitting in his chair watching television. I have discussed the download in detail. This shows that his sleep apnea is well controlle d, with an AHI of 2.3. The ResMed S9 Escape does not measure leaks. Review of Systems Objective: Physical Exam Assessment: Problem #1: OBSTRUCTIVE SLEEP APNEA (UTL30-Y69.33) This is controlled with CPAP. His CPAP compliance is going well. Plan: 1. He is to continue with CPAP indefinitely. I will follow up again in 1 year, sooner prn. Thirty minutes were spent vyqi-ls-mfqj, with the majority of time spent in counseling. Ilan Roberts PA-C cc: Ryley Novak MD documented in this enco unter Plan of Treatment +--------+---------+ + + + | Date | Type | Specialty | Care Team | Description | +--------+---------+ + + + | 04/28/ | Office | Sleep Medicine | Ilan Roberts PA | | | 2019 | Visit | | [address] | | | | | | [place] | | | | | | [address] | | | | | | | | +--------+---------+ + + + | 07/07/ | Office | Nephrology | Eduardo Feldre MD | | | 2020 | Visit | | [address] [facility] | | | | | | [place] | | | | | | [address] | | | | | | | | +--------+---------+ + + + documented as of this encounter Visit Diagnoses + + | Diagnosis | + + | JOVANI on CPAP - Primary Obstructive sleep apnea (adult) (pediatric) | + + documented in this encounter
--- OUTSIDE RECORDS SUMMARY | ~2020-02-24 | XMS | Encounter Summary ---
Demographics + + + | Address | [address] | | | [place] [address] | + + + | Home Phone | | + + + | Preferred Language | Unknown | + + + | Marital Status | | + + + | Synagogue Affiliation | Unknown | + + + | Race | Unknown | + + + | Ethnic Group | Unknown | + + + Author + + + | Author | [facility] | | | and [place] | + + + | Organization | [facility] | | | and [...] + | Halima Alexander | ECON | [address] | + | | | | [place] | | | | | [address] | | + + + + + Care Team Providers + +------+ + | Care Dry Lumber Grader Name | Role | Phone | + +------+ + | Garima Martin | PCP | | | PA | | | + +------+ + Encounter Details +--------+ + + + + | Date | Type | Department | Care Team | Description | +--------+ + + + + | 01/02/ | Orders Only | [facility] | Eduardo Felder MD | | | 2018 | | NEPHROLOGY [place] | [address] [place] | | | | | [address] [place] | [address] [place], [place] | | | | | [address] [place], [place] | [address] | | | | | [address] | | | | | | [phone] | | | +--------+ + + + [...] 2019 | Visit | | [address] | | | | | | [place] | | | | | | [address] | | | | | | | | +--------+---------+ + + + | 07/07/ | Office | Nephrology | Eduardo Felder MD | | | 2019 | Visit | | [address] [place] | | | | | | [address] [place] | | | | | | [address] | | | | | | | | +--------+---------+ + + + documented as of this encounter Procedures + +--------+ + + + | Procedure Name | Priori | Date/Time | Associated Diagnosis | Comments | | | ty | | | | + +--------+ + + + | EXTERNAL LAB: CBC | Routin | 01/02/2018 | | Results for this | | | e | 10:15 AM | | procedure are in the | | | | PDT | | results section. | + +--------+ + + + | URINALYSIS WITH | Routin | 01/02/2018 | | Results for this | | MICROSCOPIC IF | e | 10:15 AM | | procedure are in the | | INDICATED | | PDT | | results section. | + +--------+ + + + | PROTEIN/CREATININE | Routin | 01/02/2018 | | Results for this | | RATIO, URINE | e | 10:15 AM | | procedure are in the | | | | PDT | | results section. | + +--------+ + + + | URIC ACID | Routin | 01/02/2018 | | Results for this | | | e | 10:15 AM | | procedure are in the | | | | PDT | | results section. | + +--------+ + + + | BASIC METABOLIC | Routin | 01/02/2018 | | Results for this | | PANEL | e | 10:15 AM | | procedure are in the | | | | PDT | | results section. | + +--------+ + + + documented in this encounter Results Protein/Creatinine Ratio, Urine (01/02/2018 10:15 AM PDT) + +-------+ + + + | Component | Value | Ref Range | Performed | Pathologist | | | | | At | Signature | + +-------+ + + + | Protein/Cre | 107.7 | 0 - 150 | EXTERNAL | [...] + + Urinalysis with Microscopic if Indicated (01/02/2018 10:15 AM PDT) + + + + + + | Component | Value | Ref Range | Performed | Pathologist | | | | | At | Signature | + + + + + + | Color | Yellow | | EXTERNAL | | | | | | LAB | | + + + + + + | Clarity | Clear | | EXTERNAL | | | | | | LAB | | + + + + + + | Spec Grav, | 1.010 | 1.005 - 1.030 | EXTERNAL | [...] | | | + +---------+ + + External Lab: [facility] (01/02/2018 10:15 AM PDT) + + + + + + | Component | Value | Ref Range | Performed | Pathologist | | | | | At | Signature | + + + + + + | WBC | 4.3 (A) | 4.5 - 11.0 10 | EXTERNAL | | | | | | LAB | | + + + + + + | Red Blood | 2.97 (A) | 4.3 - 5.7 10 | EXTERNAL | | | Cells | | | LAB | | | Counted | | | | | + + + + + + | Hemoglobin | 9.6 (A) | 13.5 - 18.0 | EXTERNAL | | | | | g/dL | LAB | | + + + + + + | Hematocrit, | 29.1 (A) | 41 - 50 % | EXTERNAL | | | POC | | | LAB | | + + + + + + | MCV | 98 | 81 - 99 fL | EXTERNAL | | | | | | LAB | | + + + + + + | MCH | 32 | 27 - 33 pg | EXTERNAL | | | | | | LAB | | + + + + + + | MCHC | 33 | 30 - 36 g/dL | EXTERNAL | | | | | | LAB | | + + + + + + | Platelet | 106 (A) | 140 - 440 K/ L | EXTERNAL | | | Count | | | LAB | | | Plasma | | | | | + + + + + + | RDW-CV | 14.6 | 10.5 - 15.0 % | EXTERNAL | | | | | | LAB | | + + + + + + | MPV | | fL | EXTERNAL | | | | | | LAB | | + + + + + + | Differentia | | | EXTERNAL | | | l Type | | | LAB | | + + + + + + | % Segmented | | % | EXTERNAL | | | | | | LAB | | | Neutrophils | | | | | + + + + + + | % | | % | EXTERNAL | | | Lymphocytes | | | LAB | | + + + + + + | % Monocytes | | % | EXTERNAL | | | | | | LAB | | + + + + + + | % | | % | EXTERNAL | | | Eosinophils | | | LAB | | + + + + + + | % Basophils | | % | EXTERNAL | | | | | | LAB | | + + + + + + | Absolute | | / L | EXTERNAL | | | Segmented | | | LAB | | | Neutrophils | | | | | + + + + + + | Absolute | | / L | EXTERNAL | | | Lymphocytes | | | LAB | | + + + + + + | Absolute | | / L | EXTERNAL | | | Monocytes | | | LAB | | + + + + + + | Absolute | | / L | EXTERNAL | | | Eosinophils | | | LAB | | + + + + + + | Absolute | | [...] | + +---------+ + + Uric Acid (01/02/2018 10:15 AM PDT) + +---------+ + + + [...] + +---------+ + + Basic Metabolic Panel (01/02/2018 10:15 AM PDT) + + + + + + | Component | Value | Ref Range | Performed | Pathologist | | | | | At | Signature | + + + + + + | Glucose, | 93 | 70 - 100 mg/dL | EXTERNAL | | | Fasting | | | LAB | | + + + + + + | BUN | 54 (A) | 6 - 23 mg/dL | EXTERNAL | | | | | | LAB | | + + + + + + | Creatinine | 2.41 (A) | 0.7 - 1.11 | EXTERNAL | | | | | mg/dL | LAB | | + + + + + + | BUN/Creatin | 22.4 | 6.0 - 28.6 | EXTERNAL | | | ine Ratio | | | LAB | | + + + + + + | Calcium | 8.7 | 8.4 - 10.2 | EXTERNAL | | | | | mg/dL | LAB | | + + + + + + | Na | 138 | 132 - 143 | EXTERNAL | | | | | mmol/L | LAB | | + + + + + + | K | 5.5 (A) | 3.6 - 5.1 | EXTERNAL | | | | | mmol/L | LAB | | + + + + + + | Cl | 108 | 95 - 112 mmol/L | EXTERNAL | | | | | | LAB | | + + + + + + | CO2 | 20 | 19 - 31 mmol/L | EXTERNAL | | | | | | LAB | | + + + + + + | Anion Gap | 15.5 | 7 - 21 mmol/L | EXTERNAL | | | | | | LAB | | + + + + + + | Estimated | 26 (A) | 60 mg/dL | EXTERNAL | [...]
--- OUTSIDE RECORDS SUMMARY | ~2020-02-24 | XMS | Encounter Summary ---
Demographics + + + | Address | [address] | | | [place] [address] | + + + | Home Phone | | + + + | Preferred Language | Unknown | + + + | Marital Status | | + + + | Moravian Affiliation | Unknown | + + + | Race | Unknown | + + + | Ethnic Group | Unknown | + + + Author + + + | Author | [facility] | | | and [place] | + + + | Organization | [facility] | | | [...] + | Halima Alexander | ECON | [address] | + | | | | [place] | | | | | [address] | | + + + + + Care Team Providers + +------+ + | Care Spanish Teacher Name | Role | Phone | + +------+ + | Garima Martin | PCP | | | PA | | | + +------+ + Encounter Details +--------+ + + + + | Date | Type | Department | Care Team | Description | +--------+ + + + + | 12/30/ | Virtual | [facility] | Eduardo Felder MD | CKD (chronic kidney | | 2020 | Office | NEPHROLOGY [place] | [address] [facility] | disease) stage 3, | | | Visit | [address] | [address] [place], [place] | GFR 30-59 ml/min | | | | [address] | [address] | ([facility]) (Primary Dx); | | | | [place], [place] | | Essential | | | | [address] | | hypertension, | | | | [phone] | | benign; Persistent | | | [...] have a RFP, CBC, iPTH, Urine total uklkywv-wi-hmqlyfihaw ratio before he comes b ack in [...] have a RFP, CBC, iPTH, Urine total gjupzfb-ft-pounhtgdyb ratio before he comes b ack in 6 months. I spent 22 minutes visit in education, counseling and answering all of his & his 's que stions to their fully satisfaction. Clinical discussion length: 21-30 min ([id number]) Patient has not been seen in office [...] 2019 | Visit | | [address] | | | | | | [place] | | | | | | [address] | | | | | | | | +--------+---------+ + + + | 07/07/ | Office | Nephrology | Eduardo Felder MD | | | 2019 | Visit | | [address] [place] | | | | | | [address] [place] | | | | | | [address] | | | | | | | | +--------+---------+ + + + documented as of this encounter Visit Diagnoses + + | Diagnosis | + + | CKD (chronic kidney disease) stage 3, GFR 30-59 ml/min ([facility]) - Primary Chronic kidney | | disease, [...]
--- OUTSIDE RECORDS SUMMARY | ~2020-02-24 | XMS | Encounter Summary ---
Demographics + + + | Address | [address] | | | [place] [address] | + + + | Home Phone | | + + + | Preferred Language | Unknown | + + + | Marital Status | | + + + | Christian Affiliation | Unknown | + + + | Race | Unknown | + + + | Ethnic Group | Unknown | + + + Author + + + | Author | [facility] | | | and [place] | + + + | Organization | [facility] | | | [...] + | Halima Alexander | ECON | [address] | + | | | | [place] | | | | | [address] | | + + + + + Care Team Providers + +------+ + | Care Flower Grower Name | Role | Phone | + [...] | | | | having | MD [address] | [place], | | | | | achieved | [address] | [place] [address] | | | | | remission | [place], | Phone: | | | | | (HCC) | [place] [address] | [phone] | | | | | Procedures | Phone: | Fax: | | | | | [place] NORMAL | [phone] | [phone] | | | | | SALINE | Fax: | | | | | | SOLUTION | [phone] | | | | | | INFUS, 500 | | | | | | | [address] [place] | | | | | | | NORMAL | | | | | | | SALINE | | | | | | | SOLUTION | | | | | | | INFUS, 250 | | | | | | | ML [place] | | | | | | | STERILE | | | | | | | WATER/SALINE | | | | | | | , [address] [place] | | | | | | | CHEMOTHER, | | | | | | | IV PUSH,EA | | | | | | | ADD DRUG [place] | | | | | | | CHEMOTHER, | | | | | | | IV INFUSION, | | | | | | | 1 HR [place] | | | | | | | CHEMOTHER, | | | | | | | IV INFUSION, | | | | | | | EA HR [place] | | | | | | | CHEMOTHER,NO | | | | | | | N-HORMONE | | | | | | | ANTI-NEOPL, | | | | | | | SUB-Q/IM [place] | | | | | | | CHEMOTHER | | | | | | | HORMON | | | | | | | ANTINEOPL | | | | | | | SUB-Q/IM [place] | | | | | | | ONDANSETRON | | | | | | | 4 MG [place] | | | | | | | INJ., | | | | | | | VELCADE 0.1 | | | | | | | MG [place] | | | | | | | CYCLOPHOSPHA | | | | | | | MIDE ORAL 25 | | | | | | | MG | | | + +--------+ + + + + Encounter Details +--------+ + + + + | Date | Type | Department | Care Team | Description | +--------+ + + + + | 02/21/ | Hospital | [facility] | Rodríguez Mortensen | Multiple myeloma not | | 2020 | Encounter | MED CTR CHEMO | MD [place] [address] | having achieved | | | | INFUSION [address] | [place] | remission (HCC) | | | | [address] [place], | [address] | (Primary Dx) | | | | [place] [address] | | | | | | [phone] | | | +--------+ + + + [...] + + documented as of this encounter Medications at Time of Discharge [...] mg by mouth | | 0 | 12/17/20 | | | (ZYLOPRIM) 100 mg | | | | 18 | | | tablet | | | [...] + documented as of this encounter Progress Notes Mery Arreguin RN - 02/22/2020 11:16 AM PDTDc/d amb with self. Has return appts schedu led for reed. documented in this encounter Miscellaneous Notes Treatment Plan - Mery Arreguin RN - 02/22/2020 10:00 AM PDTViewed chart for weight, v ital signs and lab results. Also viewed chart for completion of medication and allergy revi ew prior to treatment.Mery Arreguin RNDATE/TIME: 02/22/2020 10:00 AM PDTElectronically s igned by Mery Arreguin RN at 02/22/2020 10:00 AM PDTdocumented in this encounter Plan of Treatment +--------+---------+ + + + | Date | Type | Specialty | Care Team | Description | +--------+---------+ + + + | 04/28/ | Office | Sleep Medicine | Ilan Roberts PA | | | 2019 | Visit | | [address] | | | | | | [place] | | | | | | [address] | | | | | | | | +--------+---------+ + + + | 07/07/ | Office | Nephrology | Eduardo Felder MD | | 2019 | Visit | | [address] [place] | | | | | | [address] [place] | | | | | | [address] | | | | | | | [...] | bortezomib (VELCADE) injection | Given | 06/26/20 | 2.2 mg | | Abdomen- | | 2.2 mg 2.2 mg (rounded from 2. | | 20 10:39 | | | LLQ | | mg = 1 mg/m2 | | AM PDT | | | | | 2.19 m2 Order-specific BSA), | | | | | | | Subcutaneous, ONCE, Tue02/22/20 | | | | | | | at 1015, For 1 dose, | | | | [...] cyclophosphamide (CYTOXAN) 660 | New Bag | 02/22/20 | 660 mg | 500 | | | mg in sodium chloride 0.9% 217 mL | | 20 10:39 | | mL/hr | | | infusion 660 mg (rounded from | | AM PDT | | | | | 657 mg = 300 mg/m2 | | | | | | | 2.19 m2 Order-specific BSA), | | | | | | | Intravenous, Administer over 30 | | | | | | | Minutes, ONCE, Tue02/22/20 at | | | | | | | 1030, For 1 dose, Chemotherapy: | | | [...] 8 mg, dexamethasone | New Bag | 02/22/20 | 8 mg | 217.5 | | | (DECADRON) 40 mg in sodium | | 20 10:18 | | mL/hr | | | chloride 0.9% 50 mL IVPB 8 mg, | | AM PDT | | | | | Intravenous, Administer over 16 | | | | | | | Minutes, ONCE, 02/22/20 at | | | | | | | 1015, For 1 dose | | | | | | + +---------+ +------+--------+---+ +---+---+ | | | +---+---+ documented in this encounter"
--- OUTSIDE RECORDS SUMMARY | ~2020-02-24 | XMS | Encounter Summary ---
Demographics + + + | Address | [address] | | | [place] [address] | + + + | Home Phone | | + + + | Preferred Language | Unknown | + + + | Marital Status | | + + + | Oriental Orthodox Affiliation | Unknown | + + + [...] + | Halima Alexander | ECON | [address] | + | | | | [place] | | | | | [address] | | + + + + + Care Team Providers + +------+ + | Care Scorekeeper Name | Role | Phone | + +------+ + | Garima Martin | PCP | | | PA | | | + +------+ + Encounter Details +--------+---------+ + + + | Date | Type | Department | Care Team | Description | +--------+---------+ + + + | 07/02/ | Office | [facility] | Eduardo Felder MD | CKD (chronic kidney | | 2019 | Visit | NEPHROLOGY [place] | [address] [facility] [address] [facility] | disease) stage 3, | | | | [address] | [address] [place], [place] | GFR 30-59 ml/min | | | | [address] | [address] | ([facility]) (Primary Dx); | | | | [place], [place] | | Essential | | | | [address] | | hypertension, | | | | [phone] | | benign; Bilateral | | | | | | leg edema; | | | | | | Electrolyte | | | | | | imbalance risk; | | | | | | Hyperuricemia [...] + + + | Blood Pressure | 118/48 | 07/02/2019 10:36 AM | | | | | PST | | + + + + + | Pulse | 64 | 07/02/2019 10:36 AM | | | | | PST [...] + + + + | Weight | 93 kg (205 lb 1.6 | 07/02/2019 10:36 AM | | | | oz) | PST | | + + + + + | Height | 182.9 cm (6') | 07/02/2019 10:36 AM | | | | | PST | | + + + + + | Body Mass Index | 27.82 | 07/02/2019 10:36 AM | | | | | PST | | + + + + + documented in this encounter Patient Instructions Patient Instructions Eduardo Felder MD - 07/02/2019 10:20 AM PSTDiscussions/Recommendations : I discussed today with Mr. Glen [...] have a RFP, CBC, uric acid, iPTH, Urine total ewxmdoc-hs-bicirlcmjy ratio before he comes back in 6 months. documented in this encounter Progress Notes Eduardo Felder MD - 07/02/2019 10:20 AM PST Patient Active Problem List Diagnosis Date Noted POA HAVEN (acute kidney injury) 02/17/2018 Unknown Anemia in neoplastic disease 01/02/2018 Unknown Bilateral leg edema 01/02/2018 Unknown CKD (chronic kidney disease), stage IV 01/02/2018 Unknown Electrolyte imbalance risk 01/02/2018 Unknown Essential hypertension, benign 01/02/2018 Unknown Hyperkalemia 01/02/2018 Unknown Hyperuricemia 01/02/2018 Unknown Multiple myeloma not having achieved remission 01/02/2018 Unknown CKD (chronic kidney disease) stage 3, GFR 30-59 ml/min 01/02/2018 Unknown Chronic bilateral low back pain with right-sided sciatica 09/19/2017 Unknown DDD (degenerative disc disease), lumbar 09/19/2017 Unknown Spinal stenosis of lumbar region with neurogenic claudication 09/19/2017 Unknown DDD (degenerative disc disease), cervical 09/19/2017 Unknown OBSTRUCTIVE SLEEP APNEA 12/02/2010 Unknown Dear Garima: I saw your patient Mr. Glen Wise in the office today. As you are familiar with his case, I will not state his past history in detail. Briefly, he is a 83 y.o. male patient with past history as delineated above; he is here to F/U on his CKD & its associated complications. He tells me he had stage III CKD since before 2006. In early 01/2018 he was hospitalized with HAVEN from volume depletion (low oral intake + use of a diuretic). The patient has history of hypertension since the ; his BP control has been okay; he denies any history of prolonged exposure to NSAIDs or recent exposure to known nephrotox ins; he denies any recurrent nephrolithiasis or pyelonephritis; he tells me that he's had no history of urinary retention, gross hematuria or dysuria; he has no incontinence symptoms. No symptoms of UTI. No history of frequency, nocturia, weak urinary stream, hesitancy, inter mittence, incomplete emptying or urgency; he has 2 times nightly nocturia. No history of p assing kidney stones. he has no foamy urine either; his baseline Creatinine is ~2 from 12/16 18. There is no family history of renal genetic diseases such as PKD. He says that he feels 'good ' today; he denies any blurred vision tinnitus, headache, feve r, chills, or cough. No nausea, vomiting, abdominal pain, diarrhea, melena, or hematochezia . He has postural dizziness at times; he F/U's on that with your office. No chest pain, pa lpitation, loss of consciousness, orthopnea, paroxysmal nocturnal dyspnea; he has had progre ssive RAND since late 2016 + worse leg edema; however, the edema improved a bit with the use of the loop bhavin. The following portions of the patient's history were reviewed and updated as appropriate: a llergies, current medications, past medical history, past social history, past surgical hist ory, family history and problem list. * U/S from 01/13/18: evidence of significant renal anatomic abnormalities: polycystic kidne y disease + high post void residual of 172 mL. As in History of Present Illness & in Assessment. All the pertinent systems were reviewed a nd were otherwise negative. Current Outpatient Medications: acetaminophen (TYLENOL) 650 MG CR tablet, Take 650 mg by mouth every 8 hours as needed for Pain., Disp: , Rfl: allopurinol (ZYLOPRIM) 100 mg tablet, Take 1 tablet by mouth daily., Disp: , Rfl: BISACODYL CO, by Combination route as needed., Disp: , Rfl: ferrous sulfate 324 (65 Fe) MG EC tablet, Take 65 mg of iron by mouth daily with break fast., Disp: , Rfl: fish oil 1,000 mg capsule, Take 1,000 mg by mouth 3 times daily., Disp: , Rfl: Flaxseed, Linseed, (FLAXSEED OIL) [...] as needed for Pain., Disp: , Rfl: Physical Exam: BP 118/48 | Pulse 64 | Ht 1.829 m (6') | Wt 93 kg (205 lb 1.6 oz) | BMI 27.82 kg/m General appearance: Pleasant, not in acute [...] tenderness bilaterally. Extremities: Warm to touch with 2+ left, 1+ right leg edema. There is no cyanosis. Skin: There are no rashes, petechiae, or ecchymosis. Neurological: Awake, alert, and oriented to time, place, and person. Normal gross motor po wer. There is no asterixis. Psychiatric: The patient s behavior is normal. Judgment and thought content are normal. Lab Results Component Value Date HGB 10.0 (A) 06/26/2019 HGB 10.0 (A) 12/21/2018 NA 139 06/26/2019 K 4.5 06/26/2019 CL 105 06/26/2019 CO2 24 06/26/2019 BUN 42 (A) 06/26/2019 CREA 1.84 (A) 06/26/2019 CALCIUM 8.6 06/26/2019 ALBUMIN 3.9 06/26/2019 EGFR 35.0 (A) 06/26/2019 PTH 98.46 (A) 12/21/2018 LABPROT 263.3 (A) 06/26/2019 old Labs: Lab Results Component Value Date BUN 36 (A) 12/21/2018 CREATININE 2.01 (A) 12/21/2018 EGFR 32 (A) 12/21/2018 NA 139 12/21/2018 K 4.6 12/21/2018 CL 104 12/21/2018 CO2 26 12/21/2018 CA 8.4 (A) 12/21/2018 PHOS 4.1 12/21/2018 MG 2.2 02/16/2018 ALB 3.9 12/21/2018 HGB 10.0 (A) 12/21/2018 URICACID 6.3 12/21/2018 WBC 3.9 (A) 12/21/2018 HCT 30.2 (A) 12/21/2018 LABPROT 188.7 (A) 12/21/2018 *Additional Labs: 01/02/18: K 5.5. sCr 2.41; eGFR 26; Hb 9.6; uric acid 8.9 Assessment: Mr. Glen Wise is a 83 y.o. male patient with stage III (moderate) CKD on a background of simeon gstanding hypertension. 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 In early 01/2018 he was hospitalized with HAVEN from volume depletion (low oral intake + use of a diuretic). RENAL FUNCTION: Had a severely low GFR; improved vs early 01/2018; stable now* BLOOD PRESSURE: Relatively controlled per his report BLOOD SUGAR: Reports it normal ELECTROLYTES: Hyperkalemia is better* ANEMIA: Moderate; of neoplastic disease (MM) VITAMIN D: To be checked thru your office PARATHYROID HORMONE: Mildly up URIC ACID: Hyperuricemia is better with treatment PROTEINURIA: Very mild URINALYSIS: No UTI or hematuria VOLUME [...] have a RFP, CBC, uric acid, iPTH, Urine total eybfdfy-df-bdvjyxabxx ratio before he comes back in 6 months. I spent 15 minutes of this 25-minute visit in education, counseling and answering all of his questions to his satisfaction. Thank you Garima for the opportunity to see this patient in F/U today. Please do not hesi mckeon to call me at any time with questions or concerns. Truly yours, Eduardo Felder MD [facility] documented in this enco unter Plan of [...] [place] | | | | | | [address] | | | | | | | | +--------+---------+ + + + | 07/07/ | Office | Nephrology | Eduardo Felder MD | | | 2019 | Visit | | [address] [place] | | | | | | [address] [place] | | | | | | [address] | | | | | | | | +--------+---------+ + + + documented as of this encounter Visit Diagnoses + + | Diagnosis | + + | CKD (chronic kidney disease) stage 3, GFR 30-59 ml/min ([facility]) - Primary Chronic kidney | | disease, Stage III (moderate) | + + | Essential hypertension, benign | + + | Bilateral leg edema Edema | + + | Electrolyte imbalance risk Other specified conditions influencing health status | + + | Hyperuricemia Other abnormal blood chemistry | + + documented in this encounter"
--- OUTSIDE RECORDS SUMMARY | ~2020-02-24 | XMS | Encounter Summary ---
Demographics + + + | Address | [address] | | | [place] [address] | + + + | Home Phone | | + + + | Preferred Language | Unknown | + + + | Marital Status | | + + + | Presybeterian Affiliation | Unknown | + + + | Race | Unknown | + + + | Ethnic Group | Unknown | + + + Author + + + | Author | [facility] | | | and [place] | + + + | Organization | [facility] | | | [...] + | Halima Alexander | ECON | [address] | | | | | [place] | | | | | [address] | | + + + + + Care Team Providers + +------+ + | Care Circular Sawyer Stone Name | Role | Phone | + +------+ + PCP | Unavailable | + +------+ + Encounter Details +--------+ + + + + | Date | Type | Department | Care Team | Description | +--------+ + + + + | 01/30/ | Hospital | [facility] | | | | 2008 | Encounter | [facility] | | | | | | [address] | | | | | | [place], [place] | | | | | | [address] | | | | | | [phone] | | | +--------+ + + + [...] 2019 | Visit | | [address] | | | | | | [place] | | | | | | [address] | | | | | | | | +--------+---------+ + + + | 07/07/ | Office | Nephrology | Eduardo Felder MD | | | 2019 | Visit | | [address] [place] | | | | | | [address] [place] | | | | | | [address] | | | | | | | | +--------+---------+ + + + documented as of this encounter Visit Diagnoses Not on filedocumented in this encounter"
--- OUTSIDE RECORDS SUMMARY | ~2020-02-24 | XMS | Encounter Summary ---
Demographics + + + | Address | [address] | | | [place] [address] | + + + | Home Phone | | + + + | Preferred Language | Unknown | + + + | Marital Status | | + + + | Yarsani Affiliation | Unknown | + + + | Race | Unknown | + + + | Ethnic Group | Unknown | + + + Author + + + | Author | [facility] | | | and [place] | + + + | Organization | [facility] | | | [...] + | Halima Alexander | ECON | [address] | + | | | | [place] | | | | | [address] | | + + + + + Care Team Providers + +------+ + | Care Supervisor Sleeping Bag Department Name | Role | Phone | + +------+ + | Garima Martin | PCP | | | PA | | | + +------+ + Encounter Details +--------+ + + + + | Date | Type | Department | Care Team | Description | +--------+ + + + + | 08/09/ | Orders Only | [facility] | Conversion | | | 2018 | | NEPHROLOGY [place] | Transaction, | | | | | [address] | Provider Unknown | | | | | [address] [place] | | | | | | [address] | (Fax) | | | | | [phone] | | | +--------+ + + + [...] 2019 | Visit | | [address] | | | | | | [place] | | | | | | [address] | | | | | | | | +--------+---------+ + + + | 07/07/ | Office | Nephrology | Eduardo Felder MD | | | 2019 | Visit | | [address] [place] | | | | | | [address] [place] | | | | | | [address] | | | | | | | | +--------+---------+ + + + documented as of this encounter Procedures + +--------+ + + + | Procedure Name | Priori | Date/Time | Associated Diagnosis | Comments | | | ty | | | | + +--------+ + + + | CULTURE, URINE | Routin | 08/09/2018 | | Results for this | | | e | 7:23 AM | | procedure are in the | | | | PST | | results section. | + +--------+ + + + documented in this encounter Results Culture, Urine (08/09/2018 7:23 AM PST) + + | Specimen | + + | Urine specimen | | (specimen) | + + + + + | Narrative | Performed At | + + + | Specimen Description urine CULTURE | EXTERNAL LAB | | No Growth at 18-24 hrs. REPORT | | | STATUS Final | | + + + + +---------+ + + | Performing | Address | City/State/Zipcode | Phone Number | | Organization | | | | + +---------+ + + | EXTERNAL LAB | | | | + +---------+ + + documented in this encounter Visit Diagnoses Not on filedocumented in this encounter"
--- OUTSIDE RECORDS SUMMARY | ~2020-02-24 | XMS | Encounter Summary ---
Demographics + + + | Address | [address] | | | [place] [address] | + + + | Home Phone | | + + + | Preferred Language | Unknown | + + + | Marital Status | | + + + | Adventist Affiliation | Unknown | + + + | Race | Unknown | + + + | Ethnic Group | Unknown | + + + Author + + + | Author | [facility] | | | and [place] | + + + | Organization | [facility] | | | [...] + | Halima Alexander | ECON | [address] | + | | | | [place] | | | | | [address] | | + + + + + Care Team Providers + +------+ + | Care Sagger Filler Name | Role | Phone | + [...] | | achieved | [address] | [place] [address] | | | | | remission | [place], | Phone: | | | | | (HCC) | [place] [address] | [phone] | | | | | Procedures | Phone: | Fax: | | | | | [place] NORMAL | [phone] | [phone] | | | | | SALINE | Fax: | | | | | | SOLUTION | [phone] | | | | | | INFUS, 500 | | | | | | | ML [place] | | | | | | | NORMAL | | | | | | | SALINE | | | | | | | SOLUTION | | | | | | | INFUS, 250 | | | | | | | ML [place] | | | | | | | STERILE | | | | | | | WATER/SALINE | | | | | | | , 10 ML [place] | | | | | | | CHEMOTHER, | | | | | | | IV PUSH,EA | | | | | | | ADD DRUG [place] | | | | | | | CHEMOTHER, | | | | | | | IV INFUSION, | | | | | | | 1 HR [place] | | | | | | | CHEMOTHER, | | | | | | | IV INFUSION, | | | | | | | EA HR [place] | | | | | | | CHEMOTHER,NO | | | | | | | N-HORMONE | | | | | | | ANTI-NEOPL, | | | | | | | SUB-Q/IM [place] | | | | | | | CHEMOTHER | | | | | | | HORMON | | | | | | | ANTINEOPL | | | | | | | SUB-Q/IM [place] | | | | | | | ONDANSETRON | | | | | | | 4 MG [place] | | | | | | | INJ., | | | | | | | VELCADE 0.1 | | | | | | | MG [place] | | | | | | | [...] + + | 02/14/ | Hospital | [facility] | Rodríguez Mortensen | Multiple myeloma not | | 2020 | Encounter | MED CTR CHEMO | MD Alannah [address] | having achieved | | | | INFUSION [address] | [place] | remission (HCC) | | | | [place], | [address] | (Primary Dx) | | | | [place] [address] | | | | | | [phone] | | | +--------+ + + + [...] mg by mouth | | 0 | // | | | (ZYLOPRIM) 100 mg | [...] [place] | | | | | | [id number] | | | | | | | | +--------+---------+ + + + | 07/07/ | Office | Nephrology | Eduardo Felder MD | | 2019 | Visit | | [address] [place] | | | | | | [address] [place] | | | | | | [address] | | | | | | | [...] | 2.2 mg 2.2 mg (rounded from 10.17 11:45 | | | RLQ | | [...]
--- OUTSIDE RECORDS SUMMARY | ~2020-02-24 | XMS | Encounter Summary ---
Demographics + + + | Address | [address] | | | [place] [address] | + + + | Home Phone | | + + + | Preferred Language | Unknown | + + + | Marital Status | | + + + | Hindu Affiliation | Unknown | + + + | Race | Unknown | + + + | Ethnic Group | Unknown | + + + Author + + + | Author | [facility] | | | and [place] | + + + | Organization | [facility] | | | [...] + | Halima Alexander | ECON | [address] | + | | | | [place] | | | | | [address] | | + + + + + Care Team Providers + +------+ + | Care Travel Rn Or Name | Role | Phone | + +------+ + | Garima Martin | PCP | | | [place] | | | + +------+ + Encounter Details +--------+ + + + + | Date | Type | Department | Care Team | Description | +--------+ + + + + | 03/22/ | Orders Only | [facility] | Provider, | | | 2019 | | SYSTEM GENERIC OP | MD [address] | | | | | CONVERSION [address] | [place] | | | | | [address] [place], [place] | [place] [address] | | | | | [address] | | | | | | [phone] | | | +--------+ + + + [...] 2019 | Visit | | [address] | | | | | | [place] | | | | | | [address] | | | | | | | | +--------+---------+ + + + | 07/07/ | Office | Nephrology | Eduardo Felder MD | | | 2019 | Visit | | [address] [place] | | | | | | [address] [place] | | | | | | [id number] | | | | | | | | +--------+---------+ + + + documented as of this encounter Visit Diagnoses Not on filedocumented in this encounter"
--- OUTSIDE RECORDS SUMMARY | ~2020-02-24 | XMS | Encounter Summary ---
Demographics + + + | Address | [address] | | | [place] [address] | + + + | Home Phone [...] + | Halima Alexander | ECON | [address] | | | | | [place] | | | | | [address] | | + + + + + Care Team Providers + +------+ + | Care Airport Ramp Supervisor Name | Role | Phone | + +------+ + | Ryley Novak MD | PCP | | + +------+ + Reason for Visit +--------+ + | Reason | Comments | +--------+ + | Apnea | | +--------+ + Encounter Details +--------+---------+ + + + | Date | Type | Department | Care Team | Description | +--------+---------+ + + + | 01/01/ | Office | [facility] | Ilan Roberts PA | JOVANI on CPAP (Primary | | 2015 | Visit | SLEEP DISORDER [address] | [address] | Dx); Organic | | | | [address] [place] | [place] | insomnia, | | | | [place] [address] | [address] | unspecified | | | | [phone] | | | +--------+---------+ + + + [...] + + + | Blood Pressure | 132/72 | 01/01/2015 9:18 AM | | | | | PDT | | + + + + + | Pulse | 57 | 01/01/2015 9:18 AM | | | | | PDT | | + + + + + | Temperature | - | - | | + + + + + | Respiratory Rate | 14 | 01/01/2015 9:18 AM | | | | | PDT | | + + + + + | Oxygen Saturation | 97% | 01/01/2015 9:18 AM | | | | | PDT | | + + + + + | Inhaled Oxygen | - | - | | | Concentration | | | | + + + + + | Weight | 99.2 kg (218 lb 11.2 | 01/01/2015 9:18 AM | | | | oz) | PDT | | + + + + + | Height | - | - | | + + + + + | Body Mass Index | 29.66 | 12/02/2010 12:00 AM | | | | | PDT | | + + + + + documented in this encounter Patient Instructions Patient Instructions Ilan Roberts PA - 01/01/2015 9:46 AM PDT1. No napping during the d ay or evening. 2. Go to bed 8 hours before desired wake time. No earlier. 3. Only sleep during the 8 hours during the night. If you wake during the night and canno t get back to sleep, go to a chair and sit in the dark doing nothing until you become sleepy enough to go back to bed. Always go back to bed while wearing CPAP. documented in this encounter Progress Notes Radha Menjivar, Master of Arts - 01/01/2015 9:14 AM PDTFormatting of this note might be di fferent from the original. 01/01/15 0900 Cohen Depression Inventory-II Depression Score 15 - Mild depression Insomnia Severity Index Insomnia Severity Index 24 [place] Sleepiness Scale Sitting and reading 3 Watching TV 3 Sitting, inactive in a public place (e.g. a theatre or a meeting) 2 As a passenger in a car for an hour without a break 0 Lying down to rest in the afternoon when circumstances permit 3 Sitting and talking to someone 2 Sitting quietly after a lunch without alcohol 3 In a car, while stopped for a few minutes in traffic 0 Total score 16 SF-36v2 Score PF 48.61 RP 47.06 BP 46.06 GH 48.17 VT 42.72 SF 40.49 RE 44.22 MH 38.74 PCS 50.13 MCS 38.85 oram, AMANDA Santos - 01/2015 8:54 AM PDT Subjective: Patient ID: Tommie Alexander is a 79 y.o. male. HPI last office visit was: 11/03/2011 date of polysomnography: 07/17/2001 AHI: 28.7 O2%: 84.9% Machine type: ResMed S9 with full face mask obtained from: [facility] in [place] pressure is: 9-15 cm Median: 10.2 cm 95%: 11.7 cm maxium: 13.0 cm CPAP download shows CPAP useage # nights: 344/365 % of nights >4 hours: 94% Average usage (all nights): 8:07 Average usage (nights used): 8:38 AHI: 2.7 "Aswhin" continues to do well with his CPAP compliance. He is wearing it on a nightly basis f or the duration of the night. He does not consider sleeping without his CPAP. He does not have any questions or concerns regarding his CPAP, but he has been very tired during the las t few months. He is napping in the afternoon on most days and frequently while watching tel evision in the evening in his recliner. He then has a difficult time getting to sleep at [facility], wakes often during the night and has a difficult time getting back to sleep. If he can not get back to sleep he has been getting up and drinking warm milk and eating toast. This often helps him fall asleep. He has also been sleeping without his CPAP for the last 1-2 ho urs of the morning. We discussed the fact that we sleep in ninety minute sleep cycles throu ghout the night. We briefly wake up after each of these cycles, but it is usually a subcons cious period. We discussed the fact that CPAP can disrupt these cycles and cause it to be a conscious wakeup. For others, this remains a subconscious wakeup and the take off their ma sk and go back to sleep without remembering it. As the CPAP becomes more familiar, it retur ns to being a subconscious wakeup. Getting out of bed between these cycles (eating and/or d rinking, taking off CPAP....) also contributes to a conscious wakeup and often develops a ro utine of waking at certain times for these "habits". I have discussed the download and results of the paperwork in detail. He has declined in ne favian all categories. The download shows that his sleep apnea is well controlled, with an AHI of 2.7. The ResMed S9 Escape does not measure leaks. Review of Systems Objective: Physical Exam Assessment: Problem # 1: OBSTRUCTIVE SLEEP APNEA (ICD-327.23) This is controlled with CPAP. His CPAP compliance is going well. 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 He is also napping often in the afternoon and evening. Plan: 1. He is to continue with CPAP indefinitely. 2. He is to work on the following: A) Work toward wearing his CPAP 100% of the time he is asleep. B) If he wakes during the night and cannot get back to sleep, he is to go to a chair and sit in the dark doing nothing until he becomes sleepy enough to go back to bed. Always go back to bed while wearing CPAP. C) Avoid napping. If he needs to nap, schedule it 8 hours after waking in the morning. Either nap for 10-20 minutes or 90 minutes. If he is feeling sleepy during the day or even ing, he is to be more active to avoid falling asleep in his recliner. I will follow up again in 1 month, sooner prn. Thirty minutes were spent gmar-aq-jihs, wit h the majority of time spent in counseling. [...] [place] | | | | | | [id number] | | | | | | | | +--------+---------+ + + + | 07/07/ | Office | Nephrology | Eduardo Felder MD | | | 2019 | Visit | | [address] [place] | | | | | | [address] [place] | | | | | | [address] | | | | | | | | +--------+---------+ + + + documented as of this encounter Visit Diagnoses + + | Diagnosis | + + | JOVANI on CPAP - Primary Obstructive sleep apnea (adult) (pediatric) | + + | Organic insomnia, unspecified | + + documented in this encounter
--- OUTSIDE RECORDS SUMMARY | ~2020-02-24 | XMS | Encounter Summary ---
Demographics + + + | Address | [address] | | | [place] [address] | + + + | Home Phone | | + + + | Preferred Language | Unknown | + + + | Marital Status | | + + + | Scientologist Affiliation | Unknown | + + + [...] + | Halima Alexander | ECON | [address] | + | | | | [place] | | | | | [address] | | + + + + + Care Team Providers + +------+ + | Care Environmental Construction Engineer Name | Role | Phone | + +------+ + | Garima Martin | PCP | | | PA | | | + +------+ + Encounter Details +--------+ + + + + | Date | Type | Department | Care Team | Description | +--------+ + + + + | 08/09/ | Orders Only | [facility] | Eduardo Felder MD | | | 2017 | | NEPHROLOGY [place] | [address] [place] | | | | | [address] [place] | [address] [place], [place] | | | | | [address] [place], [place] | [address] | | | | | [address] | | | | | | [phone] | | | +--------+ + + + [...] 2019 | Visit | | [address] | | | | | | [place] | | | | | | [address] | | | | | | | | +--------+---------+ + + + | 07/07/ | Office | Nephrology | Eduardo Felder MD | | | 2019 | Visit | | [address] [place] | | | | | | [address] [place] | | | | | | [address] | | | | | | | | +--------+---------+ + + + documented as of this encounter Procedures + +--------+ + + + | Procedure Name | Priori | Date/Time | Associated Diagnosis | Comments | | | ty | | | | + +--------+ + + + | EXTERNAL LAB: CBC | Routin | 08/09/2018 | | Results for this | | | e | 7:23 AM | | procedure are in the | | | | PST | | results section. | + +--------+ + + + | URINALYSIS WITH | Routin | 08/09/2018 | | Results for this | | MICROSCOPIC IF | e | 7:23 AM | | procedure are in the | | INDICATED | | PST | | results section. | + +--------+ + + + | PROTEIN/CREATININE | Routin | 08/09/2018 | | Results for this | | RATIO, URINE | e | 7:23 AM | | procedure are in the | | | | PST | | results section. | + +--------+ + + + | URIC ACID | Routin | 08/09/2018 | | Results for this | | | e | 7:23 AM | | procedure are in the | | | | PST | | results section. | + +--------+ + + + | PARATHYROID HORMONE, | Routin | 08/09/2018 | | Results for this | | INTACT | e | 7:23 AM | | procedure are in the | | | | PST | | results section. | + +--------+ + + + | RENAL FUNCTION PANEL | Routin | 08/09/2018 | | Results for this | | | e | 7:23 AM | | procedure are in the | | | | PST | | results section. | + +--------+ + + + documented in this encounter Results Protein/Creatinine Ratio, Urine (08/09/2018 7:23 AM PST) + + + + + + | Component | Value | Ref Range | Performed | Pathologist | | | | | At | Signature | + + + + + + | Protein/Cre | 274.5 (A) | 1 - 150 | EXTERNAL | | | [...] + + Urinalysis with Microscopic if Indicated (08/09/2018 7:23 AM PST) + + + + + + | [...] + + + + | Leukocyte | 1+Comment: Small | | EXTERNAL | | | Esterase, [...] + + + + | Total | negative | | EXTERNAL | | | Protein [...] + + + + | Ketones | negative | | EXTERNAL | | | | [...] + +---------+ + + External Lab: CBC (08/09/2018 7:23 AM PST) + + + + + + | Component | Value | Ref Range | Performed | Pathologist | | | | | At | Signature | + + + + + + | WBC | 4.0 (A) | 4.5 - 11.0 10 | EXTERNAL | | | | | | LAB | | + + + + + + | Red Blood | 3.30 (A) | 4.3 - 5.7 10 | EXTERNAL | | | Cells | | | LAB | | | Counted | | | | | + + + + + + | Hemoglobin | 10.8 (A) | 135 - 18.0 g/dL | EXTERNAL | | | | | | LAB | | + + + + + + | Hematocrit, | 32.7 (A) | 41 - 50 % | EXTERNAL | | | POC | | | LAB | | + + + + + + | MCV | 99.0 | 81 - 99 fL | EXTERNAL [...] + + + + | Platelet | 135 (A) | 140 - 440 K/ L | EXTERNAL | | | Count | | | LAB | | | Plasma | | | | | + + + + + + | RDW-CV | | [...] | + +---------+ + + Uric Acid (08/09/2018 7:23 AM PST) + +---------+ + + + | Component | Value | Ref Range | Performed | Pathologist | | | | | At | Signature | + +---------+ + + + | Uric Acid | 8.6 (A) | 4.4 - 7.6 | EXTERNAL [...] + +---------+ + + Parathyroid Hormone, Intact (08/09/2018 7:23 AM PST) + + + + + + | Component | Value | Ref Range | Performed | Pathologist | | | | | At | Signature | + + + + + + | PTH INTACT | 82.64 (A) | 15 - 65 pg/mL | EXTERNAL [...] + +---------+ + + Renal Function Panel (08/09/2018 7:23 AM PST) + + + + + + | Component | Value | Ref Range | Performed | Pathologist | | | | | At | Signature | + + + + + + | Glucose, | 101 (A) | 70 - 100 mg/dL | EXTERNAL | | | Fasting | | | LAB | | + + + + + + | BUN | 41 (A) | 6 - 23 mg/dL | EXTERNAL | | | | | | LAB | | + + + + + + | Creatinine | 2.06 (A) | 0.70 - 1.11 | EXTERNAL | | | | | mg/dL | LAB | | + + + + + + | PHOSPHORUS | | mg/dL | EXTERNAL | | | | | | LAB | | + + + + + + | Albumin | 4.0 | 3.5 - 5.0 | EXTERNAL | | | | | | LAB | | + + + + + + | Na | 139 | 132 - 143 | EXTERNAL | | | | | mmol/L | LAB | | + + + + + + | K | 4.5 | 3.6 - 5.1 | EXTERNAL | | | | | mmol/L | LAB | | + + + + + + | Cl | 103 | 95 - 112 mmol/L | EXTERNAL | | | | | | LAB | | + + + + + + | CO2 | 26 | 19 - 31 mmol/L | EXTERNAL | | | | | | LAB | | + + + + + + | Anion Gap | 14.5 | 7 - 21 mmol/L | EXTERNAL | | | | | | LAB | | + + + + + + | eGFR if not | | | EXTERNAL | | | | | | LAB | | | BELGIAN | | | | | + + + + + + | Phosphorus, | 3.8 | 2.5 - 5.0 | EXTERNAL | | | Inorganic | | | LAB | | + + + + + + | BUN/Creatin | 19.9 | 6.0 - 28.6 | EXTERNAL | | | ine Ratio | | | LAB | | + + + + + + | Calcium | 9.0 | 8.5 - 10.3 | EXTERNAL | | | | | mg/dL | LAB | | + + + + + + | Estimated | 31 (A) | 60 - 140 mg/dL | [...]
--- OUTSIDE RECORDS SUMMARY | ~2020-02-24 | XMS | Encounter Summary ---
Demographics + + + | Address | [address] | | | [place] [address] | + + + | Home Phone | | + + + | Preferred Language | Unknown | + + + | Marital Status | | + + + | Religion Affiliation | Unknown | + + + | Race | Unknown | + + + | Ethnic Group | Unknown | + + + Author + + + | Author | [facility] | | | and [place] | + + + | Organization | [facility] | | [...] + | Halima Alexander | ECON | [address] | + | | | | [place] | | | | | [address] | | + + + + + Care Team Providers + +------+ + | Care Fiscal Accounting Clerk Name | Role | Phone | + +------+ + | Garima Martin | PCP | | | PA | | | + +------+ + Encounter Details +--------+ + + + + | Date | Type | Department | Care Team | Description | +--------+ + + + + | 03/13/ | Orders Only | [facility] | Eduardo Felder MD | | | 2017 | | NEPHROLOGY [place] | [address] [place] | | | | | [address] [place] | [address] [place], [place] | | | | | [address] [place], [place] | [address] | | | | | [address] | | | | | | [phone] | | | +--------+ + + + [...] 2019 | Visit | | [address] | | | | | | [place] | | | | | | [address] | | | | | | | | +--------+---------+ + + + | 07/07/ | Office | Nephrology | Eduardo Felder MD | | | 2019 | Visit | | [address] [place] | | | | | | [address] [place] | | | | | | [address] | | | | | | | [...]
--- OUTSIDE RECORDS SUMMARY | ~2020-02-24 | XMS | Encounter Summary ---
Demographics + + + | Address | [address] | | | [place] [address] | + + + | Home Phone [...] + | Halima Alexander | ECON | [address] | | | | | [place] | | | | | [address] | | + + + + + Care Team Providers + +------+ + | Care Loss Prevention Specialist Name | Role | Phone | [...] | SR | | | | | [address] [facility] | | | | | | [place], [place] | | | | | | [address] | | | | | | [phone] | | | +--------+ + + + [...] [place] | | | | | | [address] | | | | | | | | +--------+---------+ + + + | 07/07/ | Office | Nephrology | Eduardo Felder MD | | | 2020 | Visit | | [address] [place] | | | | | | [address] [place] | | | | | | [address] | | | | | | | | +--------+---------+ + + + documented as of this encounter Visit Diagnoses Not on filedocumented in this encounter"
--- OUTSIDE RECORDS SUMMARY | ~2020-02-24 | XMS | Encounter Summary ---
Demographics + + + | Address | [address] | | | [place] [address] | + + + | Home Phone | | + + + | Preferred Language | Unknown | + + + | Marital Status | | + + + | Anabaptism Affiliation | Unknown | + + + | Race | Unknown | + + + | Ethnic Group | Unknown | + + + Author + + + | Author | [facility] | | | and [place] | + + + | Organization | [facility] | | | [...] + | Halima Alexander | ECON | [address] | | | | | [place] | | | | | [address] | | + + + + + Care Team Providers + +------+ + | Care Bobbin Sorter Name | Role | Phone | [...] Description | +--------+---------+ + + + | 01/13/ | Office | [facility] [place] | Ilan Roberts PA | JOVANI on CPAP (Primary | | 2016 | Visit | SLEEP DISORDER [address] | [address] | Dx) | | | | [address] [place] | [place] | | | | | [place] [address] | [address] | | | | | [phone] | | | +--------+---------+ + + + [...] + + + | Blood Pressure | 112/58 | 01/14/2016 10:50 AM | | | | | PDT | | + + + + + | Pulse | 56 | 01/14/2016 10:50 AM | | | | | PDT | | + + + + + | Temperature | - | - | | + + + + + | Respiratory Rate | 18 | 01/14/2016 10:50 AM | | | | | PDT | | + + + + + | Oxygen Saturation | 99% | 01/14/2016 10:50 AM | | | | | PDT | | + + + + + | Inhaled Oxygen | - | - | | | Concentration | | | | + + + + + | Weight | 96.5 kg (212 lb 12.8 | 01/14/2016 10:50 AM | | | | oz) | PDT | | + + + + + | Height | - | - | | + + + + + | Body Mass Index | 28.86 | 12/02/2010 12:00 AM | | | | | PDT | | + + + + + documented in this encounter Progress Notes Ilan Roberts PA - 01/14/2016 10:43 AM PDT Subjective: Patient ID: Tommie Alexander is a 80 y.o. male. HPI last office visit was: 07/15/2015 date of polysomnography: 07/17/2001 AHI: 28.7 O2%: 84.9% Machine type: ResMed S9 Escape with full face mask obtained from: [facility] in [place] pressure is: 9-15 cm Median: 10.1 cm 95%: 11.6 cm maxium: 13.0 cm Nights using CPAP: 341/365 % of nights >4 hours: 93% Average usage (all nights): 8:40 Average usage (nights used): 9:17 AHI: 2.5 "Ashwin" continues to do well with his [...] when sitting in his chair watching television. His says he falls asleep as soon as he starts watching the news. He is comfortable w ith this routine. He is changing his humidity and heated tube temperature with the seasons. This seems to work for him. He has switched masks from his nasal pillows to a full face m ask. I have discussed the download in detail. This shows that his sleep apnea is well controlle d, with an AHI of 2.5. The ResMed S9 Escape does not measure leaks. He uses his old CPAP w hen traveling, which accounts for any nights missed. BP 112/58 mmHg | Pulse 56 | Resp 18 | Wt 96.525 kg (212 lb 12.8 oz) | SpO2 99% Review of Systems Objective: Physical Exam Assessment: Problem #1: OBSTRUCTIVE SLEEP APNEA (TRE32-X83.33) This is controlled with CPAP. His CPAP compliance is going well. Plan: 1. He is to continue with CPAP indefinitely. I will follow up again in 1 year, sooner prn. Twenty-five minutes were spent [id number], with the majority of time spent in [...] 2019 | Visit | | [address] | | | | | | [place] | | | | | | [address] | | | | | | | | +--------+---------+ + + + | 07/07/ | Office | Nephrology | Eduardo Felder MD | | | 2019 | Visit | | [address] [place] | | | | | | [address] [place] | | | | | | [address] | | | | | | | | +--------+---------+ + + + documented as of this encounter Visit Diagnoses + + | Diagnosis | + + | JOVANI on CPAP - Primary Obstructive sleep apnea (adult) (pediatric) | + + documented in this encounter
--- OUTSIDE RECORDS SUMMARY | ~2020-02-24 | XMS | Encounter Summary ---
Demographics + + + | Address | [address] | | | [place] [address] | + + + | Home Phone | | + + + | Preferred Language | Unknown | + + + | Marital Status | | + + + | Temple Affiliation | Unknown | + + + | Race | Unknown | + + + | Ethnic Group | Unknown | + + + Author + + + | Author | [facility] | | | and [place] | + + + | Organization | [facility] | | [...] + | Halima Alexander | ECON | [address] | | | | | [place] | | | | | [address] | | + + + + + Care Team Providers + +------+ + | Care Special Technical Operations Officer Name | Role | Phone | [...] + + | 04/21/ | Office | [facility] | Ilan Roberts PA | JOVANI on CPAP (Primary | | 2017 | Visit | SLEEP DISORDER [address] | [address] | Dx) | | | | [address] [place] | [place] | | | | | [place] [address] | [address] | | | | | [phone] | | | +--------+---------+ + + + [...] face mask DME: [facility] in [place] pressure: 9-15 cm Median: 9.8 cm 95%: [...] Exam Assessment: Problem #1: OBSTRUCTIVE SLEEP APNEA ([id number]) This is controlled with CPAP. His CPAP compliance is going well. Plan: 1. He is to continue with CPAP indefinitely. 2. Touch base with medical supplier twice per year to ensure that all equipment is satisfa ctory. I will follow up again in 1 year, sooner prn. Fifteen minutes were spent [id number], wit h the majority of time spent [...] 2019 | Visit | | [address] | | | | | | [place] | | | | | | [address] | | | | | | | | +--------+---------+ + + + | 07/07/ | Office | Nephrology | Eduardo Felder MD | | | 2019 | Visit | | [address] [place] | | | | | | [address] | | | | | | [address] | | | | | | | | +--------+---------+ + + + documented as of this encounter Visit Diagnoses + + | Diagnosis | + + | JOVANI on CPAP - Primary Obstructive sleep apnea (adult) (pediatric) | + + documented in this encounter
--- OUTSIDE RECORDS SUMMARY | ~2020-02-24 | XMS | Encounter Summary ---
Demographics + + + | Address | [address] | | | [place] [address] | + + + | Home Phone [...] + | Halima Alexander | ECON | [address] | + | | | | [place] | | | | | [address] | | + + + + + Care Team Providers + +------+ + | Care Medical Field Representative Name | Role | Phone | + +------+ + | Garima Martin | PCP | | | PA | | | + +------+ + Encounter Details +--------+ + + + + | Date | Type | Department | Care Team | Description | +--------+ + + + + | 02/16/ | Orders Only | [facility] | Eduardo Felder MD | | | 2017 | | NEPHROLOGY [place] | [address] [place] | | | | | [address] [place] | [address] [place], [place] | | | | | [address] [place], [place] | [address] | | | | | [address] | | | | | | [phone] | | | +--------+ + + + [...] 2019 | Visit | | [address] | | | | | | [place] | | | | | | [address] | | | | | | | | +--------+---------+ + + + | 07/07/ | Office | Nephrology | Eduardo Felder MD | | | 2019 | Visit | | [address] [place] | | | | | | [address] [place] | | | | | | [address] | | | | | | | | +--------+---------+ + + + documented as of this encounter Procedures + +--------+ + + + | Procedure Name | Priori | Date/Time | Associated Diagnosis | Comments | | | ty | | | | + +--------+ + + + | URINALYSIS WITH | Routin | 02/16/2018 | | Results for this | | MICROSCOPIC IF | e | 8:50 AM | | procedure are in the | | INDICATED | | PDT | | results section. | + +--------+ + + + | PROTEIN/CREATININE | Routin | 02/16/2018 | | Results for this | | RATIO, URINE | e | 8:50 AM | | procedure are in the | | | | PDT | | results section. | + +--------+ + + + | URIC ACID | Routin | 02/16/2018 | | Results for this | | | e | 8:50 AM | | procedure are in the | | | | PDT | | results section. | + +--------+ + + + | PARATHYROID HORMONE, | Routin | 02/16/2018 | | Results for this | | INTACT | e | 8:50 AM | | procedure are in the | | | | PDT | | results section. | + +--------+ + + + | MAGNESIUM | Routin | 02/16/2018 | | Results for this | | | e | 8:50 AM | | procedure are in the | | | | PDT | | results section. | + +--------+ + + + | RENAL FUNCTION PANEL | Routin | 02/16/2018 | | Results for this | | | e | 8:50 AM | | procedure are in the | | | | PDT | | results section. | + +--------+ + + + documented in this encounter Results Protein/Creatinine Ratio, Urine (02/16/2018 8:50 AM PDT) + +-------+ + + + | Component | Value | Ref Range | Performed | Pathologist | | | | | At | Signature | + +-------+ + + + | Protein/Cre | 84.7 | 0 - 150 | EXTERNAL | [...] + + Urinalysis with Microscopic if Indicated (02/16/2018 8:50 AM PDT) + + + + + [...] | + +---------+ + + Uric Acid (02/16/2018 8:50 AM PDT) + +---------+ + + + [...] + +---------+ + + Parathyroid Hormone, Intact (02/16/2018 8:50 AM PDT) + + + + + + | Component | Value | Ref Range | Performed | Pathologist | | | | | At | Signature | + + + + + + | PTH INTACT | 70.92 (A) | 15 - 65 pg/mL | [...] | | | + +---------+ + + Magnesium (02/16/2018 8:50 AM PDT) + +-------+ + + + | Component | Value | Ref Range | Performed | Pathologist | | | | | At | Signature | + +-------+ + + + | Magnesium | 2.2 | 1.7 - 2.5 mg/dL | EXTERNAL | | | | [...] + +---------+ + + Renal Function Panel (02/16/2018 8:50 AM PDT) + + + + + [...] + + + + | BUN | 62 (A) | 6 - 23 mg/dL | EXTERNAL | | | | | | LAB | | + + + + + + | Creatinine | 2.74 (A) | 0.7 - 1.11 | EXTERNAL | | | | | mg/dL | LAB | | + + + + + + | PHOSPHORUS | 3.6 | 2.5 - 5.0 mg/dL | EXTERNAL | | | | | | LAB | | + + + + + + | Albumin | 3.6 | 3.5 - 5.0 | EXTERNAL | | | | | | LAB | | + + + + + + | Na | 135 | 132 - 143 | EXTERNAL | | | | | mmol/L | LAB | | + + + + + + | K | 4.9 | 3.6 - 5.1 | EXTERNAL | | | | | mmol/L | LAB | | + + + + + + | Cl | 102 | 95 - 112 mmol/L | EXTERNAL | | | | | | LAB | | + + + + + + | CO2 | 23 | 19 - 31 mmol/L | EXTERNAL | | | | | | LAB | | + + + + + + | Anion Gap | 14.9 | 7 - 21 mmol/L | EXTERNAL | | | | | | LAB | | + + + + + + | eGFR if not | | | EXTERNAL | | | | | | LAB | | | NEPALESE | | | | | + + + + + + | Phosphorus, | | | EXTERNAL | | | Inorganic | | | LAB | | + + + + + + | BUN/Creatin | 22.6 | 6.0 - 28.6 | EXTERNAL | | | ine Ratio | | | LAB | | + + + + + + | Calcium | 8.8 | 8.4 - 10.2 | EXTERNAL | | | | | mg/dL | LAB | | + + + + + + | Estimated | 22 (A) | 60 mg/dL | EXTERNAL | [...]
--- OUTSIDE RECORDS SUMMARY | ~2020-02-24 | XMS | Encounter Summary ---
Demographics + + + | Address | [address] | | | [place] [address] | + + + | Home Phone | | + + + | Preferred Language | Unknown | + + + | Marital Status | | + + + | Mandaen Affiliation | Unknown | + + + | Race | Unknown | + + + | Ethnic Group | Unknown | + + + Author + + + | Author | [facility] | | | and [place] | + + + | Organization | [facility] | | | and [...] + | Halima Alexander | ECON | [address] | + | | | | [place] | | | | | [address] | | + + + + + Care Team Providers + +------+ + | Care Electron Tube Assembler Name | Role | Phone | + +------+ + | Garima Martin | PCP | | | PA | | | + +------+ + Encounter Details +--------+ + + + + | Date | Type | Department | Care Team | Description | +--------+ + + + + | 04/17/ | Orders Only | [facility] | Eduardo Felder MD | | | 2017 | | NEPHROLOGY [place] | [address] [place] | | | | | [address] [place] | [address] [place], [place] | | | | | [address] [place], [place] | [address] | | | | | [address] | | | | | | [phone] | | | +--------+ + + + [...] 2019 | Visit | | [address] | | | | | | [place] | | | | | | [address] | | | | | | | | +--------+---------+ + + + | 07/07/ | Office | Nephrology | Eduardo Felder MD | | | 2019 | Visit | | [address] [place] | | | | | | [address] [place] | | | | | | [address] | | | | | | | [...] | + +---------+ + + + | eGFR if not | | | EXTERNAL | | | | | | LAB | | | TURKMEN | | | | | + +---------+ [...]
--- OUTSIDE RECORDS SUMMARY | ~2020-02-24 | XMS | Encounter Summary ---
Demographics + + + | Address | [address] | | | [place] [address] | + + + | Home Phone | | + + + | Preferred Language | Unknown | + + + | Marital Status | | + + + | Yazidi Affiliation | Unknown | + + + | Race | Unknown | + + + | Ethnic Group | Unknown | + + + Author + + + | Author | [facility] | | | and [place] | + + + | Organization | [facility] [...] + | Halima Alexander | ECON | [address] | | | | | [place] | | | | | [address] | | + + + + + Care Team Providers + +------+ + | Care Senior Genetic Counselor Name | Role | Phone | + +------+ + | Garima Martin | PCP | | | PA | | | + +------+ + Reason for Visit + + + | Reason | Comments | + + + | Back Pain | low back pain and bilateral knee pain | + + + Encounter Details +--------+---------+ + + + | Date | Type | Department | Care Team | Description | +--------+---------+ + + + | 11/01/ | Office | [facility] [place] | Mya, | Chronic bilateral | | 2018 | Visit | PHYSIATRY [address] | [address] | low back pain with | | | | [address] | [address] | right-sided sciatica | | | | [place], [place] | [place] [address] | (Primary Dx); | | | | [address] | [phone] | Spinal stenosis of | | | | [phone] | | lumbar region with | | | | | | neurogenic | | | | | | claudication; DDD | | | | | | (degenerative disc | | | | | | disease), lumbar; | | | | | | DDD (degenerative | | | | | | disc disease), | | | | | | cervical | +--------+---------+ + + + Social [...] + + + | Blood Pressure | 120/66 | 11/01/2017 10:07 AM | | | | | PST | | + + + + + | Pulse | 54 | 11/01/2017 10:07 AM | | | | | PST [...] Weight | 90.7 kg (200 lb) | 11/01/2017 10:07 AM | | | | | PST | | + + + + + | Height | 182.9 cm (6') | 11/01/2017 10:07 AM | | | | | PST | | + + + + + | Body Mass Index | 27.12 | 11/01/2017 10:07 AM | | | | | PST | | + + + + + documented in this encounter Patient Instructions Patient Instructions Cristy Roque PA-C - 11/01/2017 10:00 AM PST1) See you in December f or another injection 2) try taking low dose gabapentin at night to help with pain and with sleeping Follow-up at the hospital thirty minutes before [...] of the procedure you must provide a refuse driver to take you home. For all procedur es it is recommended that someone else drive you home. documented in this encounter Progress Notes Cristy Roque PA-C - 11/01/2017 10:00 AM PSTFormatting of this note might be differe nt from the original. Cristy Roque PA-C [address] [facility], [address] [place], [place] [address] FAX: PHYSICAL MEDICINE AND REHABILITATION H&P CHIEF COMPLAINT: Chief Complaint Patient presents with Back Pain low back pain and bilateral knee pain HISTORY OF PRESENT ILLNESS: The patient is a 82 y.o. male being seen today for complaints of low back pain with radiating symptoms into the right leg. He received a bilateral L5/S1 TFESI for lumbar spinal stenosis on 09/2016 and reports overall 75% improvement of his pain. He reports continued knee pain, however he does not want knee surgery at this time. He repo rts intermittent neck pain, but has been doing PT and this has improved his ROM. He continu es to do PT exercises at home for his neck and low back. He is doing squats and getting up from a chair to improve his quadrepts strength. He describes his pain as aching and [...] rrently is doing at the rack in [place], use of tramadol, use of NSAIDs. He has not had a ny physical therapy for the neck. Patient's medications, allergies, past medical, surgical, social and family histories were reviewed and updated as appropriate. CURRENT MEDICATIONS: Current Outpatient Prescriptions Medication Sig [...] CAPS Take 1 capsule by mouth Daily. gabapentin (NEURONTIN) 100 mg capsule Take 1 capsule by mouth nightly. 30 capsule 2 Glucosamine HCl (GLUCOSAMINE PO) Take 1,000 mg [...] Allergies Allergen Reactions Doxycycline Hives and Rash REVIEW OF SYSTEMS: A multisystem review of system checklist was reviewed with the patient and shows only the p ain and/or parasthesias and other complaints as in HPI. All remaining review of systems was negative. PHYSICAL EXAMINATION: Vitals: 11/01/17 1007 BP: 120/66 Pulse: 54 PainSc: 1 PainLoc: Back Body mass index is 27.12 [...] has no apparent deficits with short or group home memory. He has appropriate fund of knowledge [...] low back pain with right-sided sciatica 2. Spinal stenosis of lumbar region with neurogenic claudication 3. DDD (degenerative disc disease), lumbar 4. DDD (degenerative disc disease), cervical PLAN: 1. Follow up in 2 months, continue with home PT exercises, strengthening quads - we review ed proper way of doing mini-squats and getting up out of chair. 2. Try taking gabapentin 100mg nightly to help with pain, numbness and sleep. We received side effects. 3. See him in December to discuss another injection. ELECTRONICALLY SIGNED BY: Cristy Roque PA-C, 11/01/2017 CC: Garima MartinElectronkeely signed by Cristy Roque PA-C at 11/01/2017 10:4 9 AM PSTdocumented in this encounter Plan of Treatment +--------+---------+ + + + | Date | Type | Specialty | Care Team | Description | +--------+---------+ + + + | 04/28/ | Office | Sleep Medicine | Ilan Roberts PA | | | 2019 | Visit | | [address] | | | | | | [place] | | | | | | [phone] | | | | | | | | +--------+---------+ + + + | 07/07/ | Office | Nephrology | Eduardo Felder MD | | | 2019 | Visit | | [address] [facility] | | | | | | [address] [place], [place] | | | | | | [address] | | | | | | | | +--------+---------+ + + + documented as of this encounter Visit Diagnoses + + | Diagnosis | + + | Chronic bilateral low back pain with right-sided sciatica - Primary | + + | Spinal stenosis of lumbar region with neurogenic claudication Spinal stenosis, lumbar | | region, with neurogenic claudication | + + | DDD (degenerative disc disease), lumbar Degeneration of lumbar or lumbosacral | | intervertebral disc | + + | DDD (degenerative disc disease), cervical Degeneration of cervical intervertebral | | disc | + + documented in this encounter"
--- OUTSIDE RECORDS SUMMARY | ~2020-02-24 | XMS | Encounter Summary ---
Demographics + + + | Address | [address] | | | [place] [address] | + + + | Home Phone [...] + | Halima Alexander | ECON | [address] | + | | | | [place] | | | | | [address] | | + + + + + Care Team Providers + +------+ + | Care Office Support Associate Name | Role | Phone | + +------+ + | Garima Martin | PCP | | | PA | | | + +------+ + Encounter Details +--------+ + + + + | Date | Type | Department | Care Team | Description | +--------+ + + + + | 02/06/ | Orders Only | [facility] | Stacia Horne | | | 2019 | | [facility] | J, PharmD [address] | | | | | [facility] [address] | [address] | | | | | [address] [place] | [place] [address] | | | | | [place] [address] | [phone] | | | | | [phone] | | | +--------+ + + + [...] | Visit | | [address] | | | | | | [place] | | | | | | [address] | | | | | | | | +--------+---------+ + + + | 07/07/ | Office | Nephrology | Eduardo Felder MD | | | 2019 | Visit | | [address] [place] | | | | | | [address] [place] | | | | | | [address] | | | | | | | | +--------+---------+ + + + documented as of this encounter Visit Diagnoses Not on filedocumented in this encounter"
--- OUTSIDE RECORDS SUMMARY | ~2020-02-24 | XMS | Encounter Summary ---
Demographics + + + | Address | [address] | | | [place] [address] | + + + | Home Phone | | + + + | Preferred Language | Unknown | + + + | Marital Status | | + + + | Church Affiliation | Unknown | + + + | Race | Unknown | + + + | Ethnic Group | Unknown | + + + Author + + + | Author | [facility] | | | and [place] | + + + | Organization | [facility] | | | [...] + | Halima Alexander | ECON | [address] | | | | | [place] | | | | | [address] | | + + + + + Care Team Providers + +------+ + | Care Incident Response Coordinator Name | Role | Phone | + [...] + + | 04/24/ | Office | [facility] | Ilan Roberts PA | JOVANI on CPAP (Primary | | 2019 | Visit | SLEEP DISORDER [address] | [address] | Dx) | | | | [address] | [place] | | | | | [place] [address] | [address] | | | | | [phone] | | | +--------+---------+ + + + [...] encounter Progress Notes Ilan Roberts PA - 04/24/2019 10:00 AM PDT Subjective: Patient ID: Tommie Wise is a 83 y.o. male. HPI last office visit: 04/21/2018 date of polysomnography: 07/17/2001 AHI: 28.7 O2%: 84.9% Machine type: ResMed AirSense 10. Mask type: full face mask DME: [place] [facility] [place] pressure: 9-15 cm Median: 10.1 cm 95%: [...] ResMed AirSense 10. He especially likes the SmartDuneNetworksart feature. He does not have any questions [...] /m Assessment: Problem #1: OBSTRUCTIVE SLEEP APNEA (LMD84-H42.33) This is controlled with CPAP. His CPAP compliance is going well. Plan: 1. He is to continue with CPAP indefinitely. 2. Touch base with medical supplier twice per year to ensure that all equipment is satisfa ctory. I will follow up again in 1 year, sooner prn. Fifteen minutes were spent [id number], wit h the majority of time spent [...] 2019 | Visit | | [address] | | | | | | [place] | | | | | | [phone] | | | | | | | | +--------+---------+ + + + | 07/07/ | Office | Nephrology | Eduardo Felder MD | | | 2019 | Visit | | [address] [place] | | | | | | [address] [place] | | | | | | [address] | | | | | | | | +--------+---------+ + + + documented as of this encounter Visit Diagnoses + + | Diagnosis | + + | JOVANI on CPAP - Primary Obstructive sleep apnea (adult) (pediatric) | + + documented in this encounter
--- OUTSIDE RECORDS SUMMARY | ~2020-02-24 | XMS | Encounter Summary ---
Demographics + + + | Address | [address] | | | [place] [address] | + + + | Home Phone | | + + + | Preferred Language | Unknown | + + + | Marital Status | | + + + | Roman Catholic Affiliation | Unknown | + + + | Race | Unknown | + + + | Ethnic Group | Unknown | + + + Author + + + | Author | [facility] | | | and [place] | + + + | Organization | [facility] | | [...] + | Halima Alexander | ECON | [address] | + | | | | [place] | | | | | [address] | | + + + + + Care Team Providers + +------+ + | Care Clinical Academic Allergist Name | Role | Phone | + +------+ + | Garima Martin | PCP | | | PA | | | + +------+ + Encounter Details +--------+ + + + + | Date | Type | Department | Care Team | Description | +--------+ + + + + | 12/21/ | Orders Only | [facility] | Eduardo Felder MD | | | 2018 | | NEPHROLOGY [place] | [address] [place] | | | | | [address] [place] | [address] [place], [place] | | | | | [address] [place], [place] | [address] | | | | | [address] | | | | | | [phone] | | | +--------+ + + + [...] 2019 | Visit | | [address] | | | | | | [place] | | | | | | [address] | | | | | | | | +--------+---------+ + + + | 07/07/ | Office | Nephrology | Eduardo Felder MD | | | 2019 | Visit | | [address] [place] | | | | | | [address] [place] | | | | | | [address] | | | | | | | [...] + + + | Red Blood | 2.98 (A) | 4.3 - 11.0 10 | EXTERNAL | | | Cells [...] | | | LAB | | | [facility] | | | | | + + [...]
--- OUTSIDE RECORDS SUMMARY | ~2020-02-24 | XMS | Encounter Summary ---
Demographics + + + | Address | [address] | | | [place] [address] | + + + | Home Phone | | + + + | Preferred Language | Unknown | + + + | Marital Status | | + + + | Congregational Affiliation | Unknown | + + + | Race | Unknown | + + + | Ethnic Group | Unknown | + + + Author + + + | Author | [facility] | | | and [place] | + + + | Organization | [facility] | | | [...] + | Halima Alexander | ECON | [address] | | | | | [place] | | | | | [address] | | + + + + + Care Team Providers + +------+ + | Care Color Matcher Name | Role | Phone | + +------+ + PCP | Unavailable | + +------+ + Encounter Details +--------+ + + + + | Date | Type | Department | Care Team | Description | +--------+ + + + + | 03/13/ | Hospital | [facility] | [facility] | | | 2001 | Encounter | MED CTR SLEEP | MD [address] | | | | | [place] [address] | [address] [place] | | | | | [place], [place] | [place] [address] | | | | | [address] | [phone] | | | | | [phone] | | | +--------+ + + + [...] 2019 | Visit | | [address] | | | | | | [place] | | | | | | [phone] | | | | | | | | +--------+---------+ + + + | 07/07/ | Office | Nephrology | Eduardo Felder MD | | | 2019 | Visit | | [address] [place] | | | | | | [address] [place] | | | | | | [address] | | | | | | | | +--------+---------+ + + + documented as of this encounter Visit Diagnoses Not on filedocumented in this encounter"
--- OUTSIDE RECORDS SUMMARY | ~2020-02-24 | XMS | Encounter Summary ---
Demographics + + + | Address | [address] | | | [place] [address] | + + + | Home Phone | | + + + | Preferred Language | Unknown | + + + | Marital Status | | + + + | Holiness Affiliation | Unknown | + + + | Race | Unknown | + + + | Ethnic Group | Unknown | + + + Author + + + | Author | [facility] | | | and [place] | + + + | Organization | [facility] | | | [...] + | Halima Alexander | ECON | [address] | + | | | | [place] | | | | | [address] | | + + + + + Care Team Providers + +------+ + | Care Ceo Name | Role | Phone | + +------+ + | Garima Martin | PCP | | | PA | | | + +------+ + Encounter Details +--------+ + + + + | Date | Type | Department | Care Team | Description | +--------+ + + + + | 04/24/ | Orders Only | [facility] | Conversion | | | 2017 | | NEPHROLOGY [place] | Transaction, | | | | | [address] | Provider Unknown | | | | | [address] [place] | | | | | | [address] | (Fax) | | | | | [phone] | | | +--------+ + + + [...] 2019 | Visit | | [address] | | | | | | [place] | | | | | | [address] | | | | | | | | +--------+---------+ + + + | 07/07/ | Office | Nephrology | Eduardo Felder MD | | | 2019 | Visit | | [address] [place] | | | | | | [address] [place] | | | | | | [address] | | | | | | | [...] + + documented in this encounter Results [facility]/Lambda Light C (04/24/2018 9:30 AM PDT) + + + + + + | Component | Value | Ref Range | Performed | Pathologist | | | | | At | Signature | + + + + + + | Ig [facility] | 11.10 (A) | 0.33 - 1.94 | EXTERNAL | | | Free Light | | | LAB | | | Chain | | | | | + + + + + + | ka[facility]am[facility] | 1.53 | 0.57 - 2.63 | EXTERNAL | | | | | | LAB | | + + + + + + | [facility]/Lambd | 7.25 (A) | 0.26 - 1.65 [...] + + + | Red Blood | 3.05 (A) | 4.3 - 5.7 [...]
--- OUTSIDE RECORDS SUMMARY | ~2020-02-24 | XMS | Encounter Summary ---
Demographics + + + | Address | [address] | | | [place] [address] | + + + | Home Phone | | + + + | Preferred Language | Unknown | + + + | Marital Status | | + + + | Zoroastrianism Affiliation | Unknown | + + + [...] + | Halima Alexander | ECON | [address] | + | | | | [place] | | | | | [address] | | + + + + + Care Team Providers + +------+ + | Care Roto Rooter Operator Name | Role | Phone | + +------+ + | Garima Martin | PCP | | | PA | | | + +------+ + Encounter Details +--------+ + + + + | Date | Type | Department | Care Team | Description | +--------+ + + + + | 12/21/ | Orders Only | [facility] | Conversion | | | 2019 | | NEPHROLOGY [place] | Transaction, | | | | | [address] | Provider Unknown | | | | | [address] [place] | | | | | | [address] | (Fax) | | | | | [phone] | | | +--------+ + + + [...] 2019 | Visit | | [address] | | | | | | [place] | | | | | | [address] | | | | | | | | +--------+---------+ + + + | 07/07/ | Office | Nephrology | Eduardo Felder MD | | | 2019 | Visit | | [address] [place] | | | | | | [address] [place] | | | | | | [address] | | | | | | | | +--------+---------+ + + + documented as of this encounter Procedures + +--------+ + + + | Procedure Name | Priori | Date/Time | Associated Diagnosis | Comments | | | ty | | | | + +--------+ + + + | PARATHYROID HORMONE, | Routin | 12/21/2018 | | Results for this | | INTACT | e | 9:58 AM | | procedure are in the | | | | PDT | | results section. | + +--------+ + + + documented in this encounter Results Parathyroid Hormone, Intact (12/21/2018 9:58 AM PDT) + + + + + + | Component | Value | Ref Range | Performed | Pathologist | | | | | At | Signature | + + + + + + | PTH INTACT | 98.46 (A) | 15 - 65 pg/mL | [...]
--- OUTSIDE RECORDS SUMMARY | ~2020-02-24 | XMS | Encounter Summary ---
Demographics + + + | Address | [address] | | | [place] [address] | + + + | Home Phone | | + + + | Preferred Language | Unknown | + + + | Marital Status | | + + + | Evangelical Affiliation | Unknown | + + + | Race | Unknown | + + + | Ethnic Group | Unknown | + + + Author + + + | Author | [facility] | | | and [place] | + + + | Organization | [facility] | | | and [...] + | Halima Alexander | ECON | [address] | + | | | | [place] | | | | | [address] | | + + + + + Care Team Providers + +------+ + | Care Adolescent Coordinator Name | Role | Phone | [...] | | | | Spine wo | [address] | | | | | | Contrast | [place] | | | | | | | [place] | | | | | | | [address] | | +--------+--------+ + + + + Encounter Details +--------+ + + + + | Date | Type | Department | Care Team | Description | +--------+ + + + + | 09/05/ | Imaging | [facility] | Provider, | | | 2017 | Exam | MED [facility] EXTERNAL | MD [address] | | | | | IMAGING [address] | [place] | | | | | [address] [place] | [place] [address] | | | | | [place] [address] | | | | | | [phone] | | | +--------+ + + + [...] 2019 | Visit | | [address] | | | | | | [place] | | | | | | [address] | | | | | | | | +--------+---------+ + + + | 07/07/ | Office | Nephrology | Eduardo Felder MD | | | 2019 | Visit | | [address] [place] | | | | | | [address] [facility] | | | | | | [address] | | | | | | | [...] for comparison only - no result from [place]. | | + + + + +---------+ + + | Performing | Address | City/State/Zipcode | Phone Number | | Organization | | | | + +---------+ + + | [facility] | | | | + +---------+ + + documented in this encounter Visit Diagnoses Not on filedocumented in this encounter"
--- OUTSIDE RECORDS SUMMARY | ~2020-02-24 | XMS | Encounter Summary ---
Demographics + + + | Address | [address] | | | [place] [address] | + + + | Home Phone | | + + + | Preferred Language | Unknown | + + + | Marital Status | | + + + | Mormonism Affiliation | Unknown | + + + [...] + | Halima Alexander | ECON | [address] | | | | | [place] | | | | | [address] | | + + + + + Care Team Providers + +------+ + | Care Paring Machine Operator Name | Role | Phone | + +------+ + | Ryley Novak MD | PCP | | + +------+ + Reason for Visit +--------+ + | Reason | Comments | +--------+ + | Apnea | | +--------+ + Encounter Details +--------+---------+ + + + | Date | Type | Department | Care Team | Description | +--------+---------+ + + + | 01/29/ | Office | [facility] | Ilan Roberts PA | JOVANI on CPAP (Primary | | 2015 | Visit | SLEEP DISORDER [address] | [address] | Dx) | | | | [address] | [place] | | | | | [place] [address] | [id number] | | | | | [phone] | | | +--------+---------+ + + + [...] + + + | Blood Pressure | 136/76 | 01/29/2015 10:53 AM | | | | | PDT | | + + + + + | Pulse | 68 | 01/29/2015 10:53 AM | | | | | PDT | | + + + + + | Temperature | - | - | | + + + + + | Respiratory Rate | 16 | 01/29/2015 10:53 AM | | | | | PDT | | + + + + + | Oxygen Saturation | 98% | 01/29/2015 10:53 AM | | | | | PDT | | + + + + + | Inhaled Oxygen | - | - | | | Concentration | | | | + + + + + | Weight | 97.2 kg (214 lb 4.8 | 01/29/2015 10:53 AM | | | | oz) | PDT | | + + + + + | Height | - | - | | + + + + + | Body Mass Index | 29.06 | 12/02/2010 12:00 AM | | | | | PDT | | + + + + + documented in this encounter Progress Notes Ilan Roberts PA - 01/29/2015 10:55 AM PDT Subjective: Patient ID: Tommie Alexander is a 79 y.o. male. HPI last office visit was: 11/03/2011 date of polysomnography: 07/17/2001 AHI: 28.7 O2%: 84.9% Machine type: ResMed S9 with full face mask obtained from: [facility] [place] pressure is: 9-15 cm Median: 10.0 cm 95%: 11.8 cm maxium: 13.2 cm Nights using CPAP: 344/365 28/28 % of nights >4 hours: 94% 100% Average usage (all nights): 8:07 8:29 Average usage (nights used): 8:38 8:29 AHI: 3.0 "Ashwin" continues to do well with his CPAP compliance. He is wearing it on a nightly basis f or the duration of the night. He does not consider sleeping without his CPAP. He has worke d on improving his sleep hygiene during the last month. He is getting up less often during the night, but still struggles with getting to sleep on many nights. He has had a difficult time breaking the habit of getting up during the night to drink milk and eat toast. He has been doing this for nearly 70 years, but it has improved. His has noticed that he has been more alert and is not sleeping as much during the day. He still has a difficult time staying awake during the news, but he is more attentive and involved in their conversations. He did very well with this while they were camping in the [facility]. Being away from his home distractions was very helpful for him. I have discussed the download in detail. This shows that his sleep apnea is well controlle d, with an AHI of 3.0. The ResMed S9 Escape does not measure [...] napping often in the afternoon and evening. He has improve d his sleep hygiene during the last month, which has improved his insomnia, but continues to have problems at times. Plan: 1. He is to continue with CPAP indefinitely. 2. This has improved, but he is to continue to work on the following: A) Work [...] recliner. I will follow up again in 6 months, sooner prn. Thirty minutes were spent [id number], wi th the majority of time spent in counseling. Ilan Roberts PA-C cc: Ryley Novak MD documented in this enco unter Plan of Treatment +--------+---------+ + + + | Date | Type | Specialty | Care Team | Description | +--------+---------+ + + + | 04/28/ | Office | Sleep Medicine | Ilan Roberts PA | | | 2019 | Visit | | [address] | | | | | | [place] | | | | | | [address] | | | | | | | | +--------+---------+ + + + | 07/07/ | Office | Nephrology | Eduardo Felder MD | | 2019 | Visit | | [address] [place] | | | | | | [address] [place] | | | | | | [address] | | | | | | | | +--------+---------+ + + + documented as of this encounter Visit Diagnoses + + | Diagnosis | + + | JOVANI on CPAP - Primary Obstructive sleep apnea (adult) (pediatric) | + + documented in this encounter
--- OUTSIDE RECORDS SUMMARY | ~2020-02-24 | XMS | Encounter Summary ---
Demographics + + + | Address | [address] | | | [place] [address] | + + + | Home Phone | | + + + | Preferred Language | Unknown | + + + | Marital Status | | + + + | Sabianism Affiliation | Unknown | + + + [...] + | Halima Alexander | ECON | [address] | + | | | | [place] | | | | | [address] | | + + + + + Care Team Providers + +------+ + | Care Pcmh Specialist Name | Role | Phone | + +------+ + | Garima Martin | PCP | | | PA | | | + +------+ + Encounter Details +--------+ + + + + | Date | Type | Department | Care Team | Description | +--------+ + + + + | 03/30/ | Orders Only | [facility] | Provider, | | | 2019 | | SYSTEM GENERIC OP | MD [address] | | | | | CONVERSION [address] | [place] | | | | | [address] [place], [place] | [place] [address] | | | | | [address] | | | | | | [phone] | | | +--------+ + + + [...] 2019 | Visit | | [address] | | | | | | [place] | | | | | | [address] | | | | | | | | +--------+---------+ + + + | 07/07/ | Office | Nephrology | Eduardo Felder MD | | | 2019 | Visit | | [address] [place] | | | | | | [address] [place] | | | | | | [address] | | | | | | | | +--------+---------+ + + + documented as of this encounter Visit Diagnoses Not on filedocumented in this encounter"
--- OUTSIDE RECORDS SUMMARY | ~2020-02-24 | XMS | Encounter Summary ---
Demographics + + + | Address | [address] | | | [place] [address] | + + + | Home Phone | | + + + | Preferred Language | Unknown | + + + | Marital Status | | + + + | Protestant Affiliation | Unknown | + + + | Race | Unknown | + + + | Ethnic Group | Unknown | + + + Author + + + | Author | [facility] | | | and [place] | + + + | Organization | [facility] | | [...] + | Halima Alexander | ECON | [address] | + | | | | [place] | | | | | [address] | | + + + + + Care Team Providers + +------+ + | Care Human Resources Team Member Name | Role | Phone | + +------+ + | Garima Martin | PCP | | | PA | | | + +------+ + Encounter Details +--------+ + + + + | Date | Type | Department | Care Team | Description | +--------+ + + + + | 12/30/ | Orders Only | [facility] | Eduardo Felder MD | Essential | | 2020 | | NEPHROLOGY [place] | [address] [place] | hypertension, benign | | | | [address] [place] | [address] [place], [place] | (Primary Dx); CKD | | | | [address] [place], [place] | [address] | (chronic kidney | | | | [address] | | disease) stage 3, | | | | [phone] | | GFR 30-59 ml/min | | [...] 2019 | Visit | | [address] | | | | | | [place] | | | | | | [address] | | | | | | | | +--------+---------+ + + + | 07/07/ | Office | Nephrology | Eduardo Felder MD | | | 2019 | Visit | | [address] [place] | | | | | | [address] [place] | | | | | | [address] | | | | | | | [...] | | | | | | ml/min ([facility]) | | | | | | Persistent [...] | | | | | | ml/min ([facility]) | | | | | | Persistent [...]
--- OUTSIDE RECORDS SUMMARY | ~2020-02-24 | XMS | Encounter Summary ---
Demographics + + + | Address | [address] | | | [place] [address] | + + + | Home Phone | | + + + | Preferred Language | Unknown | + + + | Marital Status | | + + + | Amish Affiliation | Unknown | + + + [...] + | Halima Alexander | ECON | [address] | | | | | [place] | | | | | [address] | | + + + + + Care Team Providers + +------+ + | Care Radiology Technician Name | Role | Phone | [...] + + | 04/04/ | Office | [facility] [place] | Ilan Roberts PA | JOVANI on CPAP (Primary | | 2017 | Visit | SLEEP DISORDER [address] | [address] | Dx) | | | | [address] [place] | [place] | | | | | [place] [address] | [address] | | | | | [phone] | | | +--------+---------+ + + + [...] face mask DME: [facility] [place] pressure: 9-15 cm Median: 9.9 cm 95%: [...] Exam Assessment: Problem #1: OBSTRUCTIVE SLEEP APNEA (CHC95-G43.33) This is controlled with CPAP. His CPAP [...] year, sooner prn. Twenty-five minutes were spent nyrx-in-oojv, with the majority of time spent in counseling. Ilan Roberts PA-C cc: Ryley Novak MD Radha Sparks, Case Manager - 04/04/2017 11:30 AM PDTFormatting of this note might be different from the orig inal. 04/04/17 1100 Cohen Depression Inventory-II Depression Score 15 - Mild depression Insomnia Severity Index Insomnia Severity Index 17 [place] Sleepiness Scale Sitting and reading 2 Watching [...] [place] | | | | | | [address] | | | | | | | | +--------+---------+ + + + documented as of this encounter Visit Diagnoses + + | Diagnosis | + + | JOVANI on CPAP - Primary Obstructive sleep apnea (adult) (pediatric) | + + documented in this encounter
--- OUTSIDE RECORDS SUMMARY | ~2020-02-24 | XMS | Encounter Summary ---
Demographics + + + | Address | [address] | | | [place] [address] | + + + | Home Phone [...] + | Halima Alexander | ECON | [address] | | | | | [place] | | | | | [address] | | + + + + + Care Team Providers + +------+ + | Care Sawmilling Operator Name | Role | Phone | [...] + + | 12/27/ | Documentati | [facility] | Payam, | Results (12/26/19) | | 2020 | on | NEPHROLOGY ALE | [facility] | | | | | [address] | [employer] | | | | | [address] [place], [place] | | | | | | [address] | | | | | | [phone] | | | +--------+ + + + [...] 2019 | Visit | | [address] | | | | | | [place] | | | | | | [address] | | | | | | | | +--------+---------+ + + + | 07/07/ | Office | Nephrology | Eduardo Felder MD | | | 2019 | Visit | | [address] [place] | | | | | | [address] [place] | | | | | | [address] | | | | | | | [...] + + + + + + | RBC | 2.94 (A) | 4.30 - 5.70 | | | | | | M/uL | | | + [...] + + + + + + | BF % | 2 | 0 - 2 % | | | | Basophils | | | | | + + [...]
--- OUTSIDE RECORDS SUMMARY | ~2020-02-24 | XMS | Encounter Summary ---
Demographics + + + | Address | [address] | | | [place] [address] | + + + | Home Phone [...] + | Halima Alexander | ECON | [address] | + | | | | [place] | | | | | [address] | | + + + + + Care Team Providers + +------+ + | Care Stick Feeder Name | Role | Phone | + +------+ + | Garima Martin | PCP | | | PA | | | + +------+ + Encounter Details +--------+ + + + + | Date | Type | Department | Care Team | Description | +--------+ + + + + | 07/03/ | Orders Only | [facility] | Eduardo Felder MD | Essential | | 2019 | | NEPHROLOGY [place] | [address] [place] | hypertension, benign | | | | [address] | [address] [place], [place] | (Primary Dx); CKD | | | | [address] [place] [address] | [address] | (chronic kidney | | | | [place], [place] | | disease) stage 3, | | | | [address] | | GFR 30-59 ml/min | | | | [phone] | | (HCC) | +--------+ + + [...] 2019 | Visit | | [address] | | | | | | [place] | | | | | | [address] | | | | | | | | +--------+---------+ + + + | 07/07/ | Office | Nephrology | Eduardo Felder MD | | | 2019 | Visit | | [address] [place] | | | | | | [address] [place] | | | | | | [address] | | | | | | | [...]
--- OUTSIDE RECORDS SUMMARY | ~2020-02-24 | XMS | Encounter Summary ---
Demographics + + + | Address | [address] | | | [place] [address] | + + + | Home Phone | | + + + | Preferred Language | Unknown | + + + | Marital Status | | + + + | Moravian Affiliation | Unknown | + + + | Race | Unknown | + + + | Ethnic Group | Unknown | + + + Author + + + | Author | [facility] | | | and [place] | + + + | Organization | [facility] | | [...] + | Halima Alexander | ECON | [address] | + | | | | [place] | | | | | [address] | | + + + + + Care Team Providers + +------+ + | Care Counter Hop Name | Role | Phone | + [...] | Lumbar | Mulu, | [address] | | | | | radiculopath | Poncho Bell MD | [place], | | | | | y | [address] | [place] | | | | | Procedures | [place] | [address] | | | | | [place] INJECT | [place], [place] | Phone: | | | | | ANES/STEROID | [address] | [phone] | | | | | FORAMEN | Phone: | Fax: | | | | | LUMBAR/SACRA | [phone] | [phone] | | | | | L W IMG | Fax: | | | | | | GUIDE ,1 | [phone] | | | | | | [place]EVEL [place] | | | | | | | TRIAMCINOLON | | | | | | | E ACET INJ | | | | | | | NOS, 10 MG | | | | | | | Appt:10/05 | | | | | | | Bilat L5/S1 | | | | | | | TFESI | | | +--------+--------+ + + + + Encounter Details +--------+ + + + + | Date | Type | Department | Care Team | Description | +--------+ + + + + | 10/05/ | Hospital | [facility] | Mya, | Chronic bilateral | | 2018 | Encounter | MED CTR XRAY [address] | [address] | low back pain with | | | | [address] [place] | [facility] [address] [place] [address] | right-sided | | | | [place] [address] | [place] [address] | sciatica; DDD | | | | [phone] | [phone] | (degenerative disc | | | | | | disease), lumbar; | | | | | Catalog Library Assistant, [facility] | Spinal stenosis of | | [...] [place] | | | | | | [address] | | | | | | | | +--------+---------+ + + + | 07/07/ | Office | Nephrology | Eduardo Felder MD | | | 2019 | Visit | | [address] [facility] | | | | | | [address] [place], [place] | | | | | | [address] | | | | | | | [...]
--- OUTSIDE RECORDS SUMMARY | ~2020-02-24 | XMS | Encounter Summary ---
Demographics + + + | Address | [address] | | | [place] [address] | + + + | Home Phone | | + + + | Preferred Language | Unknown | + + + | Marital Status | | + + + | Uatsdin Affiliation | Unknown | + + + | Race | Unknown | + + + | Ethnic Group | Unknown | + + + Author + + + | Author | [facility] | | | and [place] | + + + | Organization | [facility] | | | [...] + | Halima Alexander | ECON | [address] | + | | | | [place] | | | | | [address] | | + + + + + Care Team Providers + +------+ + | Care Sound Effects Manager Name | Role | Phone | + +------+ + | Garima Martin | PCP | | | PA | | | + +------+ + Encounter Details +--------+ + + + + | Date | Type | Department | Care Team | Description | +--------+ + + + + | 01/30/ | Orders Only | [facility] | Conversion | | | 2018 | | NEPHROLOGY [place] | Transaction, | | | | | [address] | Provider Unknown | | | | | [address] [place] | | | | | | [address] | (Fax) | | | | | [phone] | | | +--------+ + + + [...] 2019 | Visit | | [address] | | | | | | [place] | | | | | | [address] | | | | | | | | +--------+---------+ + + + | 07/07/ | Office | Nephrology | Eduardo Felder MD | | | 2019 | Visit | | [address] [place] | | | | | | [address] [place] | | | | | | [address] | | | | | | | | +--------+---------+ + + + documented as of this encounter Procedures + +--------+ + + + | Procedure Name | Priori | Date/Time | Associated Diagnosis | Comments | | | ty | | | | + +--------+ + + + | EXTERNAL LAB: [facility] | Routin | 01/30/2018 | | Results for this | | | e | 7:15 AM | | procedure are in the | | | | PDT | | results section. | + +--------+ + + + | COMPREHENSIVE | Routin | 01/30/2018 | | Results for this | | METABOLIC PANEL | e | 7:15 AM | | procedure are in the | | | | PDT | | results section. | + +--------+ + + + documented in this encounter Results External Lab: [facility] (01/30/2018 7:15 AM PDT) + + + + + + | Component | Value | Ref Range | Performed | Pathologist | | | | | At | Signature | + + + + + + | WBC | 6.4 | 4.5 - 11.0 10 | EXTERNAL | | | | | | LAB | | + + + + + + | Red Blood | 2.88 (A) | 4.3 - 5.7 10 | EXTERNAL | | | Cells | | | LAB | | | Counted | | | | | + + + + + + | Hemoglobin | 9.3 (A) | 13.5 - 18.0 | EXTERNAL | | | | | g/dL | LAB | | + + + + + + | Hematocrit, | 27.6 (A) | 41 - 50 % | EXTERNAL | | | POC | | | LAB | | + + + + + + | MCV | 96.1 | 81 - 99 fL | EXTERNAL | | | | | | LAB | | + + + + + + | MCH | 32 | 27 - 33 pg | EXTERNAL | | | | | | LAB | | + + + + + + | MCHC | 34 | 30 - 36 g/dL | EXTERNAL | | | | | | LAB | | + + + + + + | Platelet | 93 (A) | 140 - 440 K/ L | EXTERNAL | | | Count | | | LAB | | | Plasma | | | | | + + + + + + | RDW-CV | 13.8 | 10.5 - 15.0 % | EXTERNAL [...] + +---------+ + + Comprehensive Metabolic Panel (01/30/2018 7:15 AM PDT) + + + + + + | Component | Value | Ref Range | Performed | Pathologist | | | | | At | Signature | + + + + + + | Glucose, | 102 (A) | 70 - 100 mg/dL | EXTERNAL | | | Fasting | | | LAB | | + + + + + + | BUN | 105 (A) | 6 - 23 mg/dL | EXTERNAL | | | | | | LAB | | + + + + + + | Creatinine | 3.34 (A) | 0.7 - 1.11 | EXTERNAL | | | | | mg/dL | LAB | | + + + + + + | BUN/Creatin | 31.4 (A) | 6.0 - 28.6 | EXTERNAL | | | ine Ratio | | | LAB | | + + + + + + | Calcium | 8.5 | 8.4 - 10.2 | EXTERNAL | | | | | mg/dL | LAB | | + + + + + + | Protein, | 6.1 | 6.0 - 8.3 g/dL | EXTERNAL | | | Total | | | LAB | | + + + + + + | Albumin | 3.6 | 3.5 - 5.0 | EXTERNAL | | | | | | LAB | | + + + + + + | Globulin | 2.5 | 1.8 - 3.5 | EXTERNAL | | | | | | LAB | | + + + + + + | A/G Ratio | 1.4 | 1.1 - 2.4 | EXTERNAL | | | | | | LAB | | + + + + + + | Bilirubin | 0.5 | 0.0 - 1.2 mg/dL | EXTERNAL | | | Total | | | LAB | | + + + + + + | ALP, | 45 | 31 - 120 | EXTERNAL | | | External | | | LAB | | + + + + + + | ALT | 12 | 7 - 52 U/L | EXTERNAL | | | | | | LAB | | + + + + + + | AST | 14 | 13 - 39 U/L | EXTERNAL | | | | | | LAB | | + + + + + + | Na | 132 | 132 - 143 | EXTERNAL | | | | | mmol/L | LAB | | + + + + + + | K | 4.2 | 3.6 - 5.1 | EXTERNAL | | | | | mmol/L | LAB | | + + + + + + | Cl | 91 (A) | 95 - 112 mmol/L | EXTERNAL | | | | | | LAB | | + + + + + + | CO2 | 23 | 19 - 31 mmol/L | EXTERNAL | | | | | | LAB | | + + + + + + | Anion Gap | 22.2 (A) | 7 - 21 mmol/L | EXTERNAL | | | | | | LAB | | + + + + + + | Estimated | 18 (A) | 60 mg/dL | EXTERNAL | [...]
--- OUTSIDE RECORDS SUMMARY | ~2020-02-24 | XMS | Encounter Summary ---
Demographics + + + | Address | [address] | | | [place] [address] | + + + | Home Phone | | + + + | Preferred Language | Unknown | + + + | Marital Status | | + + + | Oriental Orthodox Affiliation | Unknown | + + + | Race | Unknown | + + + | Ethnic Group | Unknown | + + + Author + + + | Author | [facility] | | | and [place] | + + + | Organization | [facility] | | | [...] + | Halima Alexander | ECON | [address] | + | | | | [place] | | | | | [address] | | + + + + + Care Team Providers + +------+ + | Care Sterile Process Tech Name | Role | Phone | + [...] | | | | | | | [address] | | +--------+--------+ + + + + [...] | [address] [place] | [place] [address] | | | | | [place] [id number] | | | | | | [phone] | | | +--------+ + + + [...] 2019 | Visit | | [address] | | | | | | [place] | | | | | | [address] | | | | | | | | +--------+---------+ + + + | 07/07/ | Office | Nephrology | Eduardo Felder MD | | | 2019 | Visit | | [address] [place] | | | | | | [address] [facility] | | | | | | [address] | | | | | | | [...] for comparison only - no result from [place]. | | + + + + +---------+ + + | Performing | Address | City/State/Zipcode | Phone Number | | Organization | | | | + +---------+ + + | [facility] | | | | + +---------+ + + documented in this encounter Visit Diagnoses Not on filedocumented in this encounter"
--- OUTSIDE RECORDS SUMMARY | ~2020-02-24 | XMS | Encounter Summary ---
Demographics + + + | Address | [address] | | | [place] [address] | + + + | Home Phone [...] + | Halima Alexander | ECON | [address] | + | | | | [place] | | | | | [address] | | + + + + + Care Team Providers + +------+ + | Care Nursing Home Physician Name | Role | Phone | + [...] | having | MD [address] | [place] | | | | | achieved | [place], | [place], | | | | | remission | [address] | [place] [address] | | | | | (HCC) | [place], | Phone: | | | | | Multiple | [place] [address] | [phone] | | | | | myeloma not | | Fax: | | | | | having | | [phone] | | | | | achieved | | | | | | | remission | | | | | | | ([facility]) | | | | | | | Procedures | | | | | | | [address] | | | + +--------+ + + + + Encounter Details +--------+ + + + + | Date | Type | Department | Care Team | Description | +--------+ + + + + | 02/21/ | Hospital | [facility] | Rodríguez Mortensen | Multiple myeloma not | | 2019 | Encounter | [facility] | MD [place] [address] [facility] | having achieved | | | | [facility] [address] | [place], [place] | remission (HCC) | | | | [facility] | [address] | (Primary Dx); Anemia | | | | [place] [address] | | in neoplastic | | | | [phone] | | disease | +--------+ + + [...] TABLET BY | 30 | 11 | // | | | (DEMADEX) 20 mg | [...] by Dr. Gutierrez 2. Subsequent therapy in [place] when the bansal is fixed. Ann Langford RN - 02/22/2020 9:19 AM PDTREVIEW OF [...] 2019 | Visit | | [address] | | | | | | [place] | | | | | | [address] | | | | | | | | +--------+---------+ + + + | 07/07/ | Office | Nephrology | Eduardo Felder MD | | | 2019 | Visit | | [address] [place] | | | | | | [address] [place] | | | | | | [address] | | | | | | | [...] + + + + | WBC | 4.4 | 4.0 - 11.0 K/uL | [facility] | | | | | | [facility] | | | | | | [facility] | | | | | [facility] - | | | | | | LABORATORY | | + + + + + + | RBC | 2.81 (L) | 4.30 - 5.70 | [facility] | | | | | M/uL | [facility] | [...] | Preliminary studies have | | [facility] | | | s | indicated the [...] | + + + + + | [facility] | [address] | [place], [place] | [phone] | | [facility] | | [address] | | | - LABORATORY | | [...] + + | eGFR if not | 32 (L)Comment: | >=60 | [facility] | | | | GLOMERULAR FILTRATION | mL/min/1.73m2 | [facility] | | | FILIPINO | RATE,ESTIMATED | | MEDICAL | | | | mL/min/1.90s0Syzd than | | CENTER - | | [...] + + + + + | [facility] | [address] | [place] | [phone] | | [facility] | | [address] | | | - LABORATORY | | [...]
--- OUTSIDE RECORDS SUMMARY | ~2020-02-24 | XMS | Encounter Summary ---
Demographics + + + | Address | [address] | | | [place] [address] | + + + | Home Phone | | + + + | Preferred Language | Unknown | + + + | Marital Status | | + + + | Episcopalian Affiliation | Unknown | + + + | Race | Unknown | + + + | Ethnic Group | Unknown | + + + Author + + + | Author | [facility] | | | and [place] | + + + | Organization | [facility] | | | [...] + | Halima Alexander | ECON | [address] | | | | | [place] | | | | | [address] | | + + + + + Care Team Providers + +------+ + | Care Senior Technical Specialist Name | Role | Phone | [...] + + | 08/15/ | Refill | [facility] | Eduardo Felder MD | Medication Refill | | 2019 | | NEPHROLOGY [place] | [address] [facility] | | | | | [address] [facility] | [address] [place], [place] | | | | | [facility] [address] | [id number] | | | | | [place], [place] | | | | | | [address] | | | | | | [phone] | | | +--------+--------+ + + + [...] Miscellaneous Notes Telephone Encounter - Ching Gonsales Associate Store Leader - 08/15/2019 2:02 PM PSTLast office visit 07/02/2019 Next office visit 12/31/2019 document ed in this encounter Plan of Treatment +--------+---------+ + + + | Date | Type | Specialty | Care Team | Description | +--------+---------+ + + + | 04/28/ | Office | Sleep Medicine | Ilan Roberts PA | | | 2019 | Visit | | [address] | | | | | | [place] | | | | | | [address] | | | | | | | | +--------+---------+ + + + | 07/07/ | Office | Nephrology | Eduardo Felder MD | | 2019 | Visit | | [address] [place] | | | | | | [address] [place] | | | | | | [address] | | | | | | | [...]
--- OUTSIDE RECORDS SUMMARY | ~2020-02-24 | XMS | Clinical Summary ---
Demographics + + + | Address | [address] | | | [place] [address] | + + + | Home Phone | | + + + | Preferred Language | Unknown | + + + | Marital Status | | + + + | Jain Affiliation | Unknown | + + + | Race | Unknown | + + + | Ethnic Group | Unknown | + + + Author + + + | Author | [facility] | | | and [place] | + + + | Organization | [facility] | | | and [place] | + [...] + | Halima Alexander | ECON | [address] | + | | | | [place] | | | | | [address] | | + + + + + Care Team Providers + +------+ + | Care Manager Business Development Hospice Name | Role | Phone | + [...] MOUTH ONCE DAILY | tablet | | /20 | | e | | tabletIndications: | [...] | gabapentin | | | 0 | 02/28 | | Activ | | (NEURONTIN) 600 MG | | | | 09/17 | | e | | tablet | | | | 19 | | | + + + +---------+------+------+-------+ | allopurinol | Take 100 mg by mouth | | 0 | 07/29 | | Activ | | (ZYLOPRIM) 100 mg | | | | 03/17 | | e | | tablet | | | | 18 | | | + + + +---------+------+------+-------+ | allopurinol | TAKE 1 TABLET BY | 30 | 11 | 07/29 | 01/27 | Disco | | (ZYLOPRIM) 100 mg | MOUTH ONCE DAILY | tablet | | 04/17 | 05/18 | ntinu | | tabletIndications: | | | | 19 | 20 | ed | | Essential | | | | | | (Ther | | hypertension, | | | | | | apy | | benign, CKD (chronic | | | | | | compl | | kidney disease) | | | | | | eted) | | stage 3, GFR 30-59 | | | | | | | | ml/min (HCC), | | | | | | | | Bilateral leg edema, | | | | | | | | Electrolyte | | | | | | | | imbalance risk, | | | | | | | | Hyperuricemia | | | | | | | + + + +---------+------+------+-------+ Active Problems [...] | Oncology | Stacia Horne | | 2019 | | | Xochilt [place] | | +--------+ + + + + | 12/30/ | Virtual | Nephrology | Eduardo Felder MD | CKD (chronic kidney | | 2019 | Office | | | disease) stage 3, | | | Visit | | | GFR 30-59 ml/min | | | | | | ([facility]) (Primary Dx); | | | | | | Essential | | | | | | hypertension, | | | | | | benign; Persistent | | | [...] + | 12/30/ | Orders Only | Nephrology | Eduardo Felder MD | Essential | | 2020 | | | | hypertension, benign | | | | | | (Primary Dx); CKD | | | | | | (chronic kidney | | | | | | disease) stage 3, | | | | | | GFR 30-59 ml/min | | | | | | ([facility]); Persistent | | | | | | proteinuria | +--------+ + + + + | 12/27/ | Documentati | Nephrology | Payam | Results (12/26/19) | | 2020 | on | | Chintan Prince | | | | | | Welder Shielded Metal Arc | | +--------+ + + + + [...] 2019 | Visit | | [address] | | | | | | [place] | | | | | | [address] | | | | | | | | +--------+---------+ + + + | 07/07/ | Office | Nephrology | Eduardo Felder MD | | | 2019 | Visit | | [address] [place] | | | | | | [address] [facility] | | | | | | [address] | | | | | | | [...] Influenza | | 05/26/20 | | | (Season Ended) | 0 | 18, | | | [...] | LABS - EXTERNAL SCAN | | 12/26/2019 | | Results for this | | | | 12:00 AM | | procedure are in the | | | | PDT | | results section. | + +--------+ + + + | EXTERNAL LAB: PTH, | Routin | 12/26/2019 | | Results [...] | | Immature | | K/uL | [facility] | | | Granulocyte | | [...] | | nRBC | | K/uL | [facility] | [...] | + + + + + | [facility] [facility] | [address] | [place] | [phone] | | [facility] | | [address] | | | - LABORATORY | | [...] | mL/min/1.73m2 | [facility] | | | [place] | RATE,ESTIMATED | | MEDICAL | | | | mL/min/1.35e7Pfeb than | | CENTER - | | [...] + + | [facility] | [address] | [place] | [phone] | | [facility] | | [address] | | | - LABORATORY | | | | + + + + + LABS - EXTERNAL SCAN (01/08/2020 12:00 AM PDT)Only the most recent of 3 results within the time period is included. + + + | Narrative | Performed At | + + + | Ordered by an | | | unspecified provider. | | + + + External Lab: PTH, Intact (12/26/2019) + + [...] + + | Blood | + + from Last 3 Months Insurance [...] | [employer] | [employer] | [id number] | 08/29/19 | | | Medica | | | HEALTH | | 17-Pre | | | re | | | MDCR | | sent | | | | + +--------+ +--------+-------+---------+--------+ | [employer] | [employer] | [id number] | 08/29/19 | | | Medica | [...] Person | Self | [birth year] | | [address] | | | al/Fam | | 1935 | [phone] | [place] | | | kilo | | | 6 (Home) | [address] | + +--------+ +--------+ + + | Tommie Farmer | Person | Self | [birth year] | | [address] | | | al/Fam | | 1935 | [phone] | [place] | | | kilo | | | 6 (Home) | [address] | + +--------+ +--------+ + + Advance Directives + + + + + | Type | Date Recorded | Patient | Explanation | | | | Social Media Specialist | | + + + + + | Power of | | | | | Pulp Operator | | | | + + + + + | Advance | | | | | Directive | | | | + + + + +"
--- OUTSIDE RECORDS SUMMARY | ~2020-02-24 | XMS | Encounter Summary ---
Demographics + + + | Address | [address] | | | [place] [address] | + + + | Home Phone [...] + | Halima Alexander | ECON | [address] | + | | | | [place] | | | | | [address] | | + + + + + Care Team Providers + +------+ + | Care Buttonhole Machine Operator Name | Role | Phone | + +------+ + | Garima Martin | PCP | | | PA | | | + +------+ + Encounter Details +--------+ + + + + | Date | Type | Department | Care Team | Description | +--------+ + + + + | 09/09/ | Abstract | [facility] | [place], | | | 2017 | | PHYSIATRY [address] | MESFIN Muniz [address] | | | | | [address] [place] [address] | [address] | | | | | [place], [place] | [place] [address] | | | | | [address] | [phone] | | | | | [phone] | | | +--------+ + + + [...] 2019 | Visit | | [address] | | | | | | [place] | | | | | | [address] | | | | | | | | +--------+---------+ + + + | 07/07/ | Office | Nephrology | Eduardo Felder MD | | | 2019 | Visit | | [address] [place] | | | | | | [address] [place] | | | | | | [address] | | | | | | | | +--------+---------+ + + + documented as of this encounter Visit Diagnoses Not on filedocumented in this encounter"
--- OUTSIDE RECORDS SUMMARY | ~2020-02-24 | XMS | Encounter Summary ---
Demographics + + + | Address | [address] | | | [place] [address] | + + + | Home Phone | | + + + | Preferred Language | Unknown | + + + | Marital Status | | + + + | Judaism Affiliation | Unknown | + + + | Race | Unknown | + + + | Ethnic Group | Unknown | + + + Author + + + | Author | [facility] | | | and [place] | + + + | Organization | [facility] | | | and [...] + | Halima Alexander | ECON | [address] | + | | | | [place] | | | | | [address] | | + + + + + Care Team Providers + +------+ + | Care Manager Of Sales Name | Role | Phone | + +------+ + | Garima Martin | PCP | | | PA | | | + +------+ + Encounter Details +--------+ + + + + | Date | Type | Department | Care Team | Description | +--------+ + + + + | 01/09/ | Orders Only | [facility] | Eduardo Felder MD | | | 2018 | | NEPRHOLOGY RACINE | [address] | | | | | [address] | [address] [place], [place] | | | | | [address] [place], [place] | [address] | | | | | [address] | | | | | | [phone] | | | +--------+ + + + [...] 2019 | Visit | | [address] | | | | | | [place] | | | | | | [address] | | | | | | | | +--------+---------+ + + + | 07/07/ | Office | Nephrology | Eduardo Felder MD | | | 2019 | Visit | | [address] [place] | | | | | | [address] [place] | | | | | | [address] | | | | | | | [...] | | | LAB | | | [facility] | | | | | + + [...]
--- OUTSIDE RECORDS SUMMARY | ~2020-02-24 | XMS | Encounter Summary ---
Demographics + + + | Address | [address] | | | [place] [address] | + + + | Home Phone | | + + + | Preferred Language | Unknown | + + + | Marital Status | | + + + | Mormon Affiliation | Unknown | + + + [...] + | Halima Alexander | ECON | [address] | | | | | [place] | | | | | [address] | | + + + + + Care Team Providers + +------+ + | Care Ip Paralegal Name | Role | Phone | + +------+ + PCP | Unavailable | + +------+ + Encounter Details +--------+ + + + + | Date | Type | Department | Care Team | Description | +--------+ + + + + | 07/17/ | Hospital | [facility] | [facility] | | | 2000 | Encounter | MED CTR SLEEP | MD Alba [address] | | | | | [place] [address] | [facility] | | | | | [place], [place] | [place] [address] | | | | | [address] | [phone] | | | | | [phone] | | | +--------+ + + + [...] 2019 | Visit | | [address] | | | | | | [place] | | | | | | [id number] | | | | | | | | +--------+---------+ + + + | 07/07/ | Office | Nephrology | Eduardo Felder MD | | | 2019 | Visit | | [address] [place] | | | | | | [address] [place] | | | | | | [address] | | | | | | | | +--------+---------+ + + + documented as of this encounter Visit Diagnoses Not on filedocumented in this encounter"
--- OUTSIDE RECORDS SUMMARY | ~2020-02-24 | XMS | Encounter Summary ---
Demographics + + + | Address | [address] | | | [place] [address] | + + + | Home Phone | | + + + | Preferred Language | Unknown | + + + | Marital Status | | + + + | Baptism Affiliation | Unknown | + + + | Race | Unknown | + + + | Ethnic Group | Unknown | + + + Author + + + | Author | [facility] | | | and [place] | + + + | Organization | [facility] | | | [...] + | Halima Alexander | ECON | [address] | | | | | [place] | | | | | [address] | | + + + + + Care Team Providers + +------+ + | Care Firer Diesel Locomotive Name | Role | Phone | + [...] + + | 11/02/ | Office | [facility] | Ilan Roberts PA | JOVANI on CPAP (Primary | | 2012 | Visit | SLEEP DISORDER [address] | [address] | Dx) | | | | [address] [place] | [place] | | | | | [place] [address] | [id number] | | | | | [phone] | | | +--------+---------+ + + + [...] Insomnia Severity Index Insomnia Severity Index 6 [place] Sleepiness Scale Sitting and reading 2 Watching [...] appr opiate paperwork. Thirty minutes were spent [id number], with the majority of time spent in [...] 2019 | Visit | | [address] | | | | | | [place] | | | | | | [address] | | | | | | | | +--------+---------+ + + + | 07/07/ | Office | Nephrology | Eduardo Felder MD | | 2019 | Visit | | [address] [place] | | | | | | [address] [place] | | | | | | [address] | | | | | | | | +--------+---------+ + + + documented as of this encounter Visit Diagnoses + + | Diagnosis | + + | JOVANI on CPAP - Primary Obstructive sleep apnea (adult) (pediatric) | + + documented in this encounter
--- OUTSIDE RECORDS SUMMARY | ~2020-02-24 | XMS | Encounter Summary ---
Demographics + + + | Address | [address] | | | [place] [address] | + + + | Home Phone [...] + | Halima Alexander | ECON | [address] | | | | | [place] | | | | | [address] | | + + + + + Care Team Providers + +------+ + | Care Crew Leader Name | Role | Phone | + [...] | | remission | [address] | [place] [address] | | | | | (HCC) | [place], | Phone: | | | | | Multiple | [place] [address] | [phone] | | | | | myeloma not | | Fax: | | | | | having | | [phone] | | | | | achieved | | | | | | | remission | | | | | | | (HCC) | | | | | | | Procedures | | | | | | | [address] | | | + +--------+ + + + + Encounter Details +--------+ + + + + | Date | Type | Department | Care Team | Description | +--------+ + + + + | 02/14/ | Hospital | [facility] | Rodríguez Mortensen | Multiple myeloma not | | 2020 | Encounter | MED CTR MEDICAL | MD Alannah [address] | having achieved | | | | ONCOLOGY CLINIC [address] | [place], [place] | remission (HCC) | | | | [address] | [address] | (Primary Dx) | | | | [place] [address] | | | | | | [phone] | | | +--------+ + + + [...] by Dr. Gutierrez 2. Subsequent therapy in [place]. Lynn Sommer RN - 02/15/2020 10:00 AM [...] 04/28/ | Office | Sleep Medicine | lIan Roberts PA | | 2019 | Visit | | [address] | | | | | | [place] | | | | | | [address] | | | | | | | | +--------+---------+ + + + | 07/07/ | Office | Nephrology | Eduardo Felder MD | | | 2019 | Visit | | [address] [facility] | | | | | | [address] [facility] | | | | | | [address] | | | | | | | [...] + + + + | WBC | 4.7 | 4.0 - 11.0 K/uL | [facility] | | [facility] | | | | | | [facility] | | | | | | C[facility] - | | | | | | LABORATORY | | + + + + + + | RBC | 2.94 (L) | 4.30 - 5.70 | [facility] | | | | | M/uL | [facility] | | | | | | [facility]ICAL | | | | | | CENTER - | | | | | | LABORATORY | | + + + + + + | Hemoglobin | 9.2 (L) | 13.5 - 18.0 | [facility] | | | | | g/dL | [facility] | | | | | | [...] | | | Granulocyte | | | [facility] | | | s | | | [...] + | [facility] | [address] | [place] | [phone] | | [facility] | | [address] | | | - LABORATORY | | [...] | | | | mmol/L | [facility] | | | | [...] + + | eGFR if not | 30 (L)Comment: | >=60 | [facility] | | | | GLOMERULAR FILTRATION | mL/min/1.73m2 | [facility] | | | [facility] | RATE,ESTIMATED | | MEDICAL | | | | mL/min/1.40q7Oxsz than | | CENTER - | | [...] | 8.9 | 8.7 - 10.4 | [facility] | | | | | mg/dL | [facility] | | | | | | MEDICAL | | | | | | CENTER - | | | | | | LABORATORY | | + + + + + + | Albumin | 4.0 | 3.2 - 4.8 g/dL | [facility] | | | | | | ST. [...] | ine Ratio | | | [facility] | | [...] | + + + + + | [facility] | [address] | [place] | [phone] | | [facility] | | [address] | | | - LABORATORY | | [...]
--- OUTSIDE RECORDS SUMMARY | ~2020-02-24 | XMS | Encounter Summary ---
Demographics + + + | Address | [address] | | | [place] [address] | + + + | Home Phone [...] + | Halima Alexander | ECON | [address] | + | | | | [place] | | | | | [address] | | + + + + + Care Team Providers + +------+ + | Care Powerhouse Electrician Name | Role | Phone | + +------+ + | Garima Martin | PCP | | | PA | | | + +------+ + Encounter Details +--------+ + + + + | Date | Type | Department | Care Team | Description | +--------+ + + + + | 02/14/ | Hospital | [facility] | Stacia Horne | Multiple myeloma not | | 2020 | Encounter | MED CTR MEDICAL | J, PharmD [address] | having achieved | | | | [facility]Y CLINIC [address] | [facility] | remission (HCC) | | | | W [facility] | [place] [address] | (Primary Dx) | | | | [place] [address] | [phone] | | | | | [phone] | | | +--------+ + + + [...] mg by mouth | | 0 | 08/14/ | | | (ZYLOPRIM) 100 mg | [...] Pharmacy Services Progress Note Chemotherapy Education Session [facility] Pt. Name/Age/: Tommie Wise 84 y.o. 1935 Med. Record Number: [id number] Identifying Statement: Tommie Wise is a 84 y.o. [place] [address] [place] [address] with The encounter diagnosis was Multiple myeloma [...] Laterality Date HERNIA REPAIR Bilateral 1990 ; [place] HERNIA REPAIR PROSTATE SURGERY 1997 ; Sid Cantu; [place] ROTATOR CUFF REPAIR Right 1998 Dr. Tovar; [place] ROTATOR CUFF REPAIR Social History Socioeconomic [...] file Gets together: Not on file Attends orthodox service: Not on file Active member of [...] [place] | | | | | | [address] | | | | | | | | +--------+---------+ + + + | 07/07/ | Office | Nephrology | Eduardo Felder MD | | 2019 | Visit | | [address] [place] | | | | | | [address] [place] | | | | | | [address] | | | | | | | | +--------+---------+ + + + documented as of this encounter Visit Diagnoses + + | Diagnosis | + + | 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) - Primary Multiple myeloma, | | without mention of having achieved remission | + + documented in this encounter"
== END 2020-02-24 12:45 | disposition home or self-care (01) ==
LOC: ED 07:39
DX: M53.3 Sacrococcygeal disorders, not elsewhere classified (principal); R33.9 Retention of urine, unspecified; D64.9 Anemia, unspecified; I12.9 Hypertensive chronic kidney disease with stage 1 through stage 4 chronic kidney disease, or unspecified chronic kidney disease; N18.4 Chronic kidney disease, stage 4 (severe); Z79.899 Other long term (current) drug therapy
CPT/HCPCS: 51702; 51798; 74176; 80053; 81001; 83690; 85025; 99284-25; J2270; J2405; J7040

== ENCOUNTER 2020-04-19 15:34 | Emergency (ER) | payer MEDICARE ==
[~2020-04-19] VITALS: Ht 182.9 cm; Wt 94.3 kg
--- OUTSIDE RECORDS SUMMARY | ~2020-04-19 | XMS | Encounter Summary ---
Demographics + + + | Address | [address] | | | [place] [address] | + + + | Home Phone | | + + + | Preferred Language | Unknown | + + + | Marital Status | | + + + | Faith Affiliation | Unknown | + + + | Race | White | + + + | Ethnic Group | Not or | + + + Author + + + | Author | [facility] | | | and [place] | + + + | Organization | [facility] | | | and [place] | + + + | Address | Unknown | + + + | Phone | Unavailable | + + + Support + + + + + | Name | Relationship | Address | Phone | + + + + + | Halima Alexander | ECON | Unknown | | + + + + + | Halima Alexander | ECON | [address] | | | | | [place] | | | | | [address] | | + + + + + Care Team Providers + +------+ + | Care Cavalry Officer Name | Role | Phone | + +------+ + PCP | Unavailable | + +------+ + Encounter Details +--------+ + + + + | Date | Type | Department | Care Team | Description | +--------+ + + + + | 07/17/ | Hospital | [facility] | [facility] | | | 2000 | Encounter | MED CTR SLEEP | MD Alba [address] | | | | | [place] [address] | [facility] | | | | | [place], [place] | [place] [address] | | | | | [address] | [phone] | | | | | [phone] | | | +--------+ + + + + Social History + +-------+ +--------+------+ | Tobacco Use | Types | Packs/Day | Years | Date | | | | | Used | | + +-------+ +--------+------+ | Never Assessed | | | | | + +-------+ +--------+------+ + + + | Sex Assigned at | Date Recorded | | | | + + + | Not on file | | + + + documented as of this encounter Plan of Treatment +--------+---------+ + + + | Date | Type | Specialty | Care Team | Description | +--------+---------+ + + + | 04/28/ | Office | Sleep Medicine | Ilan Roberts PA | | | 2019 | Visit | | [address] | | | | | | [place] | | | | | | [address] | | | | | | | | +--------+---------+ + + + | 07/07/ | Office | Nephrology | Eduardo Felder MD | | | 2019 | Visit | | [address] [place] | | | | | | [address] [facility] | | | | | | [address] | | | | | | | | +--------+---------+ + + + documented as of this encounter Visit Diagnoses Not on filedocumented in this encounter"
--- OUTSIDE RECORDS SUMMARY | ~2020-04-19 | XMS | Encounter Summary ---
Demographics + + + | Address | [address] | | | [place] [address] | + + + | Home Phone | | + + + | Preferred Language | Unknown | + + + | Marital Status | | + + + | Adventist Affiliation | Unknown | + + + | Race | White | + + + | Ethnic Group | Not or | + + + Author + + + | Author | [facility] | | | and [place] | + + + | Organization | [facility] | | | [...] + | Halima Alexander | ECON | [address] | | | | | [place] | | | | | [address] | | + + + + + Care Team Providers + +------+ + | Care Motorcycle Subassembly Repairer Name | Role | Phone | + +------+ + | Garima Martin | PCP | | | PA | | | + +------+ + Encounter Details +--------+ + + + + | Date | Type | Department | Care Team | Description | +--------+ + + + + | 03/22/ | Orders Only | [facility] | Provider, | | | 2018 | | SYSTEM GENERIC OP | MD [address] | | | | | [address] | [place] | | | | | [address] [place], [place] | [place] [address] | | | | | [address] | | | | | | [phone] | | | +--------+ + + + + Social History + +-------+ +--------+------+ | Tobacco Use | Types | Packs/Day | Years | Date | | | | | Used | | + +-------+ +--------+------+ | Never Smoker | | | | | + +-------+ +--------+------+ + +---+---+---+ | Smokeless Tobacco: | | | | | Never Used | | | | + +---+---+---+ + + +---------+ + | Alcohol Use | Drinks/Week | oz/Week | Comments | + + +---------+ + | Yes | | | Rare | + + +---------+ + + + + | Sex Assigned at [...] 2019 | Visit | | [address] | | | | | | [place] | | | | | | [address] | | | | | | | | +--------+---------+ + + + | 07/07/ | Office | Nephrology | Eduardo Felder MD | | | 2019 | Visit | | [address] [place] | | | | | | [address] [facility] | | | | | | [address] | | | | | | | | +--------+---------+ + + + documented as of this encounter Visit Diagnoses Not on filedocumented in this encounter"
--- OUTSIDE RECORDS SUMMARY | ~2020-04-19 | XMS | Encounter Summary ---
Demographics + + + | Address | [address] | | | [place] [address] | + + + | Home Phone | | + + + | Preferred Language | Unknown | + + + | Marital Status | | + + + | Zoroastrian Affiliation | Unknown | + + + | Race | White | + + + | Ethnic Group | Not or | + + + Author + + + | Author | [facility] | | | and [place] | + + + | Organization | [facility] | | | [...] + | Halima Alexander | ECON | [address] | | | | | [place] | | | | | [address] | | + + + + + Care Team Providers + +------+ + | Care Accident Report Clerk Name | Role | Phone | + +------+ + PCP | Unavailable | + +------+ + Encounter Details +--------+ + + + + | Date | Type | Department | Care Team | Description | +--------+ + + + + | 05/11/ | Abstract | [place] [facility] | DATA MIGRATION CHAR | | | 2011 | | Conversion Location | SR | | | | | [address] | | | | | | [place], [place] | | | | | | [address] | | | | | | [phone] | | | +--------+ + + + [...] + + documented as of this encounter Last Filed Vital Signs + + + + + | Vital Sign | Reading | Time Taken | Comments | + + + + + | Blood Pressure | 148/72 | 11/03/2011 12:00 AM | | | | | PST | | + + + + + | Pulse | - | - | | + + + + + | Temperature | - | - | | + + + + + | Respiratory Rate | - | - | | + + + + + | Oxygen Saturation | - | - | | + + + + + | Inhaled Oxygen | - | - | | | Concentration | | | | + + + + + | Weight | 100.7 kg (221 lb | 11/03/2011 12:00 AM | | | | 14.4 oz) | PST | | + + + + + | Height | 182.9 cm (6') | 12/02/2010 12:00 AM | | | | | PDT | | + + + + + | Body Mass Index | 30.1 | 12/02/2010 12:00 AM | | | | | PDT | | + + + + + documented in this encounter Plan of Treatment +--------+---------+ + + + | Date | Type | Specialty | Care Team | Description | +--------+---------+ + + + | 04/28/ | Office | Sleep Medicine | Ilan Roberts PA | | | 2019 | Visit | | [address] | | | | | | [place] | | | | | | [id number] | | | | | | | | +--------+---------+ + + + | 07/07/ | Office | Nephrology | Eduardo Felder MD | | | 2019 | Visit | | [address] [place] | | | | | | [address] [place] | | | | | | [address] | | | | | | | | +--------+---------+ + + + documented as of this encounter Visit Diagnoses Not on filedocumented in this encounter"
--- OUTSIDE RECORDS SUMMARY | ~2020-04-19 | XMS | Encounter Summary ---
Demographics + + + | Address | [address] | | | [place] [address] | + + + | Home Phone | | + + + | Preferred Language | Unknown | + + + | Marital Status | | + + + | Congregational Affiliation | Unknown | + + + | Race | White | + + + | Ethnic Group | Not or | + + + Author + + + | Author | [facility] | | | and [place] | + + + | Organization | [facility] | | | and [...] + | Halima Alexander | ECON | [address] | + | | | | [place] | | | | | [address] | | + + + + + Care Team Providers + +------+ + | Care Manager Plumbing Name | Role | Phone | + +------+ + | Garima Martin | PCP | + | | PA | | | + +------+ + Reason for Visit Service/Procedure (Routine) +--------+--------+ + + + + | Status | Reason | Specialty | Diagnoses / | Referred By | Referred To | | | | | Procedures | Contact | Contact | +--------+--------+ + + + + | Closed | | Radiology | Diagnoses | | [facility] | | | | | Lumbar | [place], | [address] | | | | | radiculopath | Poncho Bell MD | [place], | | | | | y | [address] | [place] | | | | | Procedures | [place] | [address] | | | | | [place] INJECT | [place], [place] | Phone: | | | | | ANES/STEROID | [address] | [phone] | | | | | FORAMEN | Phone: | Fax: | | | | | LUMBAR/SACRA | [phone] | [phone] | | | | | [address] IMG | Fax: | | | | | | GUIDE ,1 | [phone] | | | | | | LEVEL [place] | | | | | | | TRIAMCINOLON | | | | | | | E ACET INJ | | | | | | | NOS, 10 MG | | | | | | | Appt:2 | | | | | | | Bilat L5/S1 | | | | | | | TFESI | | | +--------+--------+ + + + + Encounter Details +--------+ + + + + | Date | Type | Department | Care Team | Description | +--------+ + + + + | 10/05/ | Hospital | [facility] | Mya, | Chronic bilateral | | 2018 | Encounter | MED CTR XRAY [address] | MESFIN Muniz [address] | low back pain with | | | | [place] | [facility] [address] | right-sided | | | | [place] [address] | [place] [address] | sciatica; DDD | | | | [phone] | [phone] | (degenerative disc | | | | | | disease), lumbar; | | | | | Pediatric [facility]ist, [facility] | Spinal stenosis of | | | | | [place] | lumbar region with | | | | | | neurogenic | | | | | | claudication; DDD | | | | | | (degenerative disc | | | | | | disease), cervical | +--------+ + + + + Social [...] this encounter Last Filed Vital Signs + +---------+ + + | Vital Sign | Reading | Time Taken | Comments | + +---------+ + + | Blood Pressure | 133/62 | 10/05/2017 3:30 PM | | | | | PST | | + +---------+ + + | Pulse | - | - | | + +---------+ + + | Temperature | - | - | | + +---------+ + + | Respiratory Rate | - | - | | + +---------+ + + | Oxygen Saturation | - | - | | + +---------+ + + | Inhaled Oxygen | - | - | | | Concentration | | | | + +---------+ + + | Weight | - | - | | + +---------+ + + | Height | - | - | | + +---------+ + + | Body Mass Index | - | - | | + +---------+ + + documented in this encounter Medications at Time of Discharge + + + +---------+ + + | Medication | Sig | Dispensed | Refills | Start | End Date | | | | | | Date | | + + + +---------+ + + | acetaminophen | Take 650 mg by mouth | | 0 | | | | (TYLENOL) 650 MG CR | every 8 hours as | | | | | | tablet | needed for Pain. | | | | | + + + +---------+ + + | Flaxseed, Linseed, | Take 1 capsule by | | 0 | | | | (FLAXSEED OIL) 1200 | mouth Daily. | | | | | | MG CAPS | | | | | | + + + +---------+ + + | Glucosamine HCl | Take 1,000 mg by | | 0 | | | | (GLUCOSAMINE PO) | mouth Daily. | | | | | + + + +---------+ + + | Multiple | Take 1 tablet by | | 0 | | | | Vitamins-Minerals | mouth Daily. | | | | | | (VITRUM 50+ SENIOR | | | | | | | MULTI) TABS | | | | | | + + + +---------+ + + | traMADol (ULTRAM) | Take 50 mg by mouth | | 0 | | | | 50 mg tablet | every 6 hours as | | | | | | | needed for Pain. | | | | | + + + +---------+ + + | albuterol 90 | Inhale 2 puffs into | | 0 | | | | mcg/puff inhaler | the lungs every 6 | | | | 8 | | | hours as needed for | | | | | | | Wheezing. | | | | | + + + +---------+ + + | amLODIPine | Take 5 mg by mouth | | 0 | | | | (NORVASC) 5 mg | Daily. | | | | 8 | | tablet | | | | | | + + + +---------+ + + | ascorbic acid | Take 500 mg by mouth | | 0 | | | | (VITAMIN C) 500 mg | Daily. | | | | 9 | | tablet | | | | | | + + + +---------+ + + | aspirin 81 MG | Take 81 mg by mouth | | 0 | 05/12/20 | | | tablet | Daily. | | | 12 | 9 | + + + +---------+ + + | docusate sodium | Take 100 mg by mouth | | 0 | | | | (COLACE) 100 mg | 2 times daily. | | | | 9 | | capsule | | | | | | + + + +---------+ + + | | Take 25 mg by mouth | | 0 | | | | hydroCHLOROthiazide | Daily. | | | | 8 | | 25 mg tablet | | | | | | + + + +---------+ + + | lisinopril | Take 20 mg by mouth | | 0 | | | | (PRINIVIL, ZESTRIL) | Daily. | | | | 8 | | 20 mg tablet | | | | | | + + + +---------+ + + | loratadine | Take 10 mg by mouth | | 0 | | | | (CLARITIN) 10 mg | Daily. | | | | 8 | | tablet | | | | | | + + + +---------+ + + | spironolactone | Take 25 mg by mouth | | 0 | | | | (ALDACTONE) 25 mg | Daily. | | | | 8 | | tablet | | | | | | + + + +---------+ + + | tamsulosin | Take 0.4 mg by mouth | | 0 | | | | (FLOMAX) 0.4 mg CAPS | daily (after | | | | 8 | | | breakfast). | | | | | + + + +---------+ + + | terazosin (HYTRIN) | Take 5 mg by mouth | | 0 | | | | 5 mg capsule | Daily. | | | | 8 | + + + +---------+ + + documented as of this encounter Plan of Treatment +--------+---------+ + + + | Date | Type | Specialty | Care Team | Description | +--------+---------+ + + + | 04/28/ | Office | Sleep Medicine | Ilan Roberts PA | | | 2020 | Visit | | [address] | | | | | | [place] | | | | | | [address] | | | | | | | | +--------+---------+ + + + | 07/07/ | Office | Nephrology | Eduardo Felder MD | | | 2019 | Visit | | [address] [facility] | | | | | | [address] [place], [place] | | | | | | [address] | | | | | | | | +--------+---------+ + + + documented as of this encounter Procedures + +--------+ + + + | Procedure Name | Priori | Date/Time | Associated Diagnosis | Comments | | | ty | | | | + +--------+ + + + | FL EPIDURAL STEROID | Routin | 10/05/2017 | Chronic bilateral | Results for this | | INJECTION LUMBAR | e | 3:05 PM | low back pain with | procedure are in the | | TRANSFORAMINAL | | PST | right-sided sciatica | results section. | | | | | DDD (degenerative | | | | | | disc disease), | | | | | | lumbar Spinal | | | | | | stenosis of lumbar | | | | | | region with | | | | | | neurogenic | | | | | | claudication DDD | | | | | | (degenerative disc | | | | | | disease), cervical | | + +--------+ + + + documented in this encounter Results FL SANG Lumbar Transforaminal (10/05/2017 3:05 PM PST) + + | Specimen | + + | | + + + + -+ | Narrative | Performed At | + + -+ | 10/05/2017 | [facility] | | Bilateral Transforaminal Epidural Steroid Injections Diagnosis: Lumbar | | | radiculopathy ICD-10 Code M54.16 Tommie Alexander presents to the | | | fluoroscopy suite for fluoroscopically-guided bilateral L5-S1 | | | transforaminal epidural steroid injections as part of conservative | | | management for chronic pain with lumbar radiculopathy and degenerative | | | disc disease. After informed consent was obtained, the patient lay in | | | the prone position on the fluoroscopy table. The areas were | | | identified under fluoroscopic guidance. The areas were prepped and | | | draped in sterile fashion. A 25-gauge, 1.5-inch needle was inserted | | | into each region and approximately 3 mL of buffered 1% lidocaine was | | | infused. Then, a 22-gauge spinal needle was inserted into the | | | posterior superior transforaminal space bilaterally and advanced into | | | the epidural space under fluoroscopic guidance. Confirmation into the | | | epidural space was obtained with infusion of approximately 1 mL of | | | Omnipaque contrast which showed epidural flow as well as nerve sheath | | | flow. Then, a combination of 2 mL of 1% lidocaine and 1.5 mL of 10 | | | mg/mL dexamethasone was infused, divided between the two sides. The | | | patient tolerated the procedure well without complications. Pre- and | | | post-procedure blood pressures were stable. The patient was given | | | verbal as well as written follow-up instructions. Prior to the start | | | of the procedure, the following were performed and/or verified, | | | including correct patient identity, correct site/side marked and | | | visible, agreement on the procedure to be done, correct patient | | | positioning and an accurate procedure consent form. Any safety | | | precautions based on clinical history and/or medication use have been | | | addressed. I personally performed the procedure above. Estimated blood | | | loss: MinimalComplications: NoneFindings: As expectedAnesthesia: | | | Local 1% Lidocaine | | |visible, agreement on the procedure to be done, correct patient | | |positioning and an accurate procedure consent form. Any safety precautions | | |based on clinical history and/or medication use have been addressed. I | | |personally performed the procedure above. | | | | | |Estimated blood loss: Minimal | | |Complications: None | | |Findings: As expected | | |Anesthesia: Local 1% Lidocaine | | | | | | | | + + -+ + +---------+ + + | Performing | Address | City/State/Zipcode | Phone Number | | Organization | | | | + +---------+ + + | [facility] | | | | + +---------+ + + documented in this encounter Visit Diagnoses + + | Diagnosis | + + | Chronic bilateral low back pain with right-sided sciatica | + + | DDD (degenerative disc disease), lumbar Degeneration of lumbar or lumbosacral | | intervertebral disc | + + | Spinal stenosis of lumbar region with neurogenic claudication Spinal stenosis, lumbar | | region, with neurogenic claudication | + + | DDD (degenerative disc disease), cervical Degeneration of cervical intervertebral | | disc | + + documented in this encounter Administered Medications + +--------+ +-------+------+------+ | Medication Order | MAR | Action | Dose | Rate | Site | | | Action | Date | | | | + +--------+ +-------+------+------+ | dexamethasone (PF) 10 mg/mL | Given | 10/05/19 | 15 mg | | | | injection 15 mg 15 mg, Other, | | 18 3:20 | | | | | ONCE, 10/05/17 at 1515, For 1 | | PM PST | | | | | dose | | | | | | + +--------+ +-------+------+------+ +---+---+ | | | +---+---+ + +-------+ +-------+---+---+ | iohexol (OMNIPAQUE 300) 300 | Given | 10/05/19 | 4 mLs | | | | mg/mL injection 4 mL 4 mL, | | 18 3:15 | | | | | Other, ONCE, 10/05/17 at 1515, | | PM PST | | | | | For 1 dose | | | | | | + +-------+ +-------+---+---+ +---+---+ | | | +---+---+ + +-------+ +-------+---+---+ | lidocaine (PF) 1% injection 2 | Given | 10/05/19 | 2 mLs | | | | mL 2 mL, Other, ONCE, 10/05/17 | | 18 3:20 | | | | | at 1515, For 1 dose | | PM PST | | | | + +-------+ +-------+---+---+ +---+---+ | | | +---+---+ + +-------+ +--------+---+ + | lidocaine buffered 1% injection | Given | 10/05/19 | 10 mLs | | Other | | 10 mL 10 mL, Intradermal, ONCE, | | 18 3:10 | | | (Comment | | 10/05/17 at 1515, For 1 dose | | PM PST | | | ) | + +-------+ +--------+---+ + +---+---+ | | | +---+---+ documented in this encounter"
--- OUTSIDE RECORDS SUMMARY | ~2020-04-19 | XMS | Encounter Summary ---
Demographics + + + | Address | [address] | | | [place] [address] | + + + | Home Phone | | + + + | Preferred Language | Unknown | + + + | Marital Status | | + + + | Evangelical Affiliation | Unknown | + + + | Race | White | + + + | Ethnic Group | Not or | + + + Author + + + | Author | [facility] | | | and [place] | + + + | Organization | [facility] | | | [...] + | Halima Alexander | ECON | [address] | | | | | [place] | | | | | [address] | | + + + + + Care Team Providers + +------+ + | Care Transition Teacher Name | Role | Phone | + +------+ + | Garima Martin | PCP | | | PA | | | + +------+ + Encounter Details +--------+ + + + + | Date | Type | Department | Care Team | Description | +--------+ + + + + | 03/13/ | Orders Only | [facility] | Eduardo Felder MD | | | 2018 | | NEPHROLOGY [place] | [address] [place] | | | | | [address] [place] | [address] [place], [place] | | | | | [address] [facility] [place] | [address] | | | | | [address] | | | | | | [phone] | | | +--------+ + + + [...] 2019 | Visit | | [address] | | | | | | [place] | | | | | | [address] | | | | | | | | +--------+---------+ + + + | 07/07/ | Office | Nephrology | Eduardo Felder MD | | | 2019 | Visit | | [address] [place] | | | | | | [address] [facility] | | | | | | [address] | | | | | | | | +--------+---------+ + + + documented as of this encounter Procedures + +--------+ + + + | Procedure Name | Priori | Date/Time | Associated Diagnosis | Comments | | | ty | | | | + +--------+ + + + | URINALYSIS WITH | Routin | 03/13/2018 | | Results for this | | MICROSCOPIC IF | e | 1:03 PM | | procedure are in the | | INDICATED | | PDT | | results section. | + +--------+ + + + | PROTEIN/CREATININE | Routin | 03/13/2018 | | Results for this | | RATIO, URINE | e | 1:03 PM | | procedure are in the | | | | PDT | | results section. | + +--------+ + + + | URIC ACID | Routin | 03/13/2018 | | Results for this | | | e | 1:03 PM | | procedure are in the | | | | PDT | | results section. | + +--------+ + + + | BASIC METABOLIC | Routin | 03/13/2018 | | | | PANEL | e | 1:03 PM | | | | | | PDT | | | + +--------+ + + + documented in this encounter Results Protein/Creatinine Ratio, Urine (03/13/2018 1:03 PM PDT) + +-------+ + + + | Component | Value | Ref Range | Performed | Pathologist | | | | | At | Signature | + +-------+ + + + | Protein/Cre | 141.4 | 0 - 150 | EXTERNAL | | | at Ratio | | | LAB | | + +-------+ + + + + + | Specimen | + + | Urine specimen | | (specimen) | + + + +---------+ + + | Performing | Address | City/State/Zipcode | Phone Number | | Organization | | | | + +---------+ + + | EXTERNAL LAB | | | | + +---------+ + + Urinalysis with Microscopic if Indicated (03/13/2018 1:03 PM PDT) + + + + + + | Component | Value | Ref Range | Performed | Pathologist | | | | | At | Signature | + + + + + + | Color | Yellow | | EXTERNAL | | | | | | LAB | | + + + + + + | Clarity, | Clear | | EXTERNAL | | | Urine | | | LAB | | + + + + + + | Spec Grav, | 1.012 | 1.005 - 1.030 | EXTERNAL | | | Fluid | | | LAB | | + + + + + + | Leukocyte | Negative | | EXTERNAL | | | Esterase, | | | LAB | | | Urine | | | | | + + + + + + | Nitrite, | Negative | | EXTERNAL | | | Urine | | | LAB | | + + + + + + | Urobilinoge | Normal | | EXTERNAL | | | n, Urine | | | LAB | | + + + + + + | Total | Negative | | EXTERNAL | | | Protein | | | LAB | | + + + + + + | pH, Urine | 5 | 5 - 9 | EXTERNAL | | | | | | LAB | | + + + + + + | Blood, | Negative | | EXTERNAL | | | Urine | | | LAB | | + + + + + + | Ketones | Negative | | EXTERNAL | | | | | | LAB | | + + + + + + | Bilirubin, | Negative | | EXTERNAL | | | Urine | | | LAB | | + + + + + + | Glucose, | Negative | | EXTERNAL | | | Urine | | | LAB | | + + + + + + + + | Specimen | + + | Urine specimen | | (specimen) | + + + +---------+ + + | Performing | Address | City/State/Zipcode | Phone Number | | Organization | | | | + +---------+ + + | EXTERNAL LAB | | | | + +---------+ + + Uric Acid (03/13/2018 1:03 PM PDT) + +---------+ + + + | Component | Value | Ref Range | Performed | Pathologist | | | | | At | Signature | + +---------+ + + + | Uric Acid | 8.9 (A) | 4.4 - 7.6 | EXTERNAL | | | | | | LAB | | + +---------+ + + + + + | Specimen | + + | Blood specimen | | (specimen) | + + + +---------+ + + | Performing | Address | City/State/Zipcode | Phone Number | | Organization | | | | + +---------+ + + | EXTERNAL LAB | | | | + +---------+ + + Basic Metabolic Panel (03/13/2018 1:03 PM PDT) + +-------+ + + + | Component | Value | Ref Range | Performed | Pathologist | | | | | At | Signature | + +-------+ + + + | Glucose, | | mg/dL | EXTERNAL | | | Fasting | | | LAB | | + +-------+ + + + | BUN | | mg/dL | EXTERNAL | | | | | | LAB | | + +-------+ + + + | Creatinine | | mg/dL | EXTERNAL | | | | | | LAB | | + +-------+ + + + | BUN/Creatin | | | EXTERNAL | | | ine Ratio | | | LAB | | + +-------+ + + + | Calcium | | mg/dL | EXTERNAL | | | | | | LAB | | + +-------+ + + + | Na | | mmol/L | EXTERNAL | | | | | | LAB | | + +-------+ + + + | K | | mmol/L | EXTERNAL | | | | | | LAB | | + +-------+ + + + | Cl | | mmol/L | EXTERNAL | | | | | | LAB | | + +-------+ + + + | CO2 | | mmol/L | EXTERNAL | | | | | | LAB | | + +-------+ + + + | Anion Gap | | mmol/L | EXTERNAL | | | | | | LAB | | + +-------+ + + + | Estimated | | mg/dL | EXTERNAL | | | GFR | | | LAB | | + +-------+ + + + + + | Specimen | + + | Blood specimen | | (specimen) | + + + +---------+ + + | Performing | Address | City/State/Zipcode | Phone Number | | Organization | | | | + +---------+ + + | EXTERNAL LAB | | | | + +---------+ + + documented in this encounter Visit Diagnoses Not on filedocumented in this encounter"
--- OUTSIDE RECORDS SUMMARY | ~2020-04-19 | XMS | Encounter Summary ---
Demographics + + + | Address | [address] | | | [place] [address] | + + + | Home Phone | | + + + | Preferred Language | Unknown | + + + | Marital Status | | + + + | Mu-Ism Affiliation | Unknown | + + + | Race | White | + + + | Ethnic Group | Not or | + + + Author + + + | Author | [facility] | | | and [place] | + + + | Organization | [facility] | | [...] + | Halima Alexander | ECON | [address] | | | | | [place] | | | | | [address] | | + + + + + Care Team Providers + +------+ + | Care Ticket Sorter Name | Role | Phone | + +------+ + | Garima Martin | PCP | | | PA | | | + +------+ + Encounter Details +--------+ + + + + | Date | Type | Department | Care Team | Description | +--------+ + + + + | 04/17/ | Orders Only | [facility] | Eduardo Felder MD | | | 2018 | | NEPHROLOGY [place] | [address] [place] | | | | | [address] [place] | [address] [place], [place] | | | | | [address] [facility] [place] | [address] | | | | | [address] | | | | | | [phone] | | | +--------+ + + + [...] 2019 | Visit | | [address] | | | | | | [place] | | | | | | [address] | | | | | | | | +--------+---------+ + + + | 07/07/ | Office | Nephrology | Eduardo Felder MD | | | 2019 | Visit | | [address] [place] | | | | | | [address] [facility] | | | | | | [address] | | | | | | | | +--------+---------+ + + + documented as of this encounter Procedures + +--------+ + + + | Procedure Name | Priori | Date/Time | Associated Diagnosis | Comments | | | ty | | | | + +--------+ + + + | URINALYSIS WITH | Routin | 04/17/2018 | | Results for this | | MICROSCOPIC IF | e | 9:10 AM | | procedure are in the | | INDICATED | | PDT | | results section. | + +--------+ + + + | PROTEIN/CREATININE | Routin | 04/17/2018 | | Results for this | | RATIO, URINE | e | 9:10 AM | | procedure are in the | | | | PDT | | results section. | + +--------+ + + + | URIC ACID | Routin | 04/17/2018 | | Results for this | | | e | 9:10 AM | | procedure are in the | | | | PDT | | results section. | + +--------+ + + + | RENAL FUNCTION PANEL | Routin | 04/17/2018 | | Results for this | | | e | 9:10 AM | | procedure are in the | | | | PDT | | results section. | + +--------+ + + + documented in this encounter Results Protein/Creatinine Ratio, Urine (04/17/2018 9:10 AM PDT) + +-------+ + + + | Component | Value | Ref Range | Performed | Pathologist | | | | | At | Signature | + +-------+ + + + | Protein/Cre | 98.6 | 0 - 150 | EXTERNAL | [...] + + Urinalysis with Microscopic if Indicated (04/17/2018 9:10 AM PDT) + + + + + + [...] + + + | Spec Grav, | 1.011 | 1.005 - 1.030 | EXTERNAL | [...] | + +---------+ + + Uric Acid (04/17/2018 9:10 AM PDT) + +---------+ + + + | Component | Value | Ref Range | Performed | Pathologist | | | | | At | Signature | + +---------+ + + + | Uric Acid | 8.2 (A) | 4.4 - 7.6 | EXTERNAL [...] | | | + +---------+ + + Renal Function Panel (04/17/2018 9:10 AM PDT) + +---------+ + + + | Component | Value | Ref Range | Performed | Pathologist | | | | | At | Signature | + +---------+ + + + | Glucose, | 93 | 70 - 100 mg/dL | EXTERNAL | | | Fasting | | | LAB | | + +---------+ + + + | BUN | 36 (A) | 6 - 23 mg/dL | EXTERNAL | | | | | | LAB | | + +---------+ + + + | Creatinine | 1.9 (A) | 0.7 - 1.11 | EXTERNAL | | | | | mg/dL | LAB | | + +---------+ + + + | PHOSPHORUS | 3.5 | 2.5 - 5.0 mg/dL | EXTERNAL | | | | | | LAB | | + +---------+ + + + | Albumin | 3.6 | 3.5 - 5.0 | EXTERNAL | | | | | | LAB | | + +---------+ + + + | Na | 139 | 132 - 143 | EXTERNAL | | | | | mmol/L | LAB | | + +---------+ + + + | K | 4.7 | 3.6 - 5.1 | EXTERNAL | | | | | mmol/L | LAB | | + +---------+ + + + | Cl | 103 | 95 - 112 mmol/L | EXTERNAL | | | | | | LAB | | + +---------+ + + + | CO2 | 23 | 19 - 31 mmol/L | EXTERNAL | | | | | | LAB | | + +---------+ + + + | Anion Gap | 17.7 | 7 - 21 mmol/L | EXTERNAL | | | | | | LAB | | + +---------+ + + + | eGFR, | | | EXTERNAL | | | non- | | | LAB | | | [place] | | | | | + +---------+ + + + | Phosphorus, | | | EXTERNAL | | | Inorganic | | | LAB | | + +---------+ + + + | BUN/Creatin | 18.9 | 6.0 - 28.6 | EXTERNAL | | | ine Ratio | | | LAB | | + +---------+ + + + | Calcium | 8.8 | 8.5 - 10.3 | EXTERNAL | | | | | mg/dL | LAB | | + +---------+ + + + | Estimated | 34 (A) | 60 mg/dL | EXTERNAL | | | GFR [...]
--- OUTSIDE RECORDS SUMMARY | ~2020-04-19 | XMS | Encounter Summary ---
Demographics + + + | Address | [address] | | | [place] [address] | + + + | Home Phone | | + + + | Preferred Language | Unknown | + + + | Marital Status | | + + + | Restorationism Affiliation | Unknown | + + + | Race | White | + + + | Ethnic Group | Not or | + + + Author + + + | Author | [facility] | | | and [place] | + + + | Organization | [facility] | | [...] + | Halima Alexander | ECON | [address] | | | | | [place] | | | | | [address] | | + + + + + Care Team Providers + +------+ + | Care Surgical Instrument Maker Name | Role | Phone | + +------+ + | Garima Martin | PCP | | | PA | | | + +------+ + Encounter Details +--------+ + + + + | Date | Type | Department | Care Team | Description | +--------+ + + + + | 12/30/ | Virtual | [facility] | Eduardo Felder MD | CKD (chronic kidney | | 2020 | Office | NEPHROLOGY [place] | [address] [facility] | disease) stage 3, | | | Visit | [address] | [address] [facility] [place] | GFR 30-59 ml/min | | | | [address] [address] | [id number] | ([facility]) (Primary Dx); | | | | [place], [place] | | Essential | | | | [address] | | hypertension, | | | | [phone] | | benign; Persistent | | | | | | proteinuria; | | | | | | Electrolyte | | | | | | imbalance risk; | | | | | | Hyperuricemia; | | | | | | Bilateral leg edema; | | | | | | Anemia in | | | | | | neoplastic disease | +--------+ + + + + Social [...] + + documented as of this encounter Patient Instructions Patient Instructions Eduardo Felder MD - 12/31/2019 10:20 AM PDTDiscussions/Recommendations : I discussed today with Mr. Glen Wise [...] for validation once a year. He will abide by a low salt, low potassium, low purine diet. He will avoid all kinds of NSAIDs for analgesia. Also: I will not change any of his vasoactive meds today. He will report back to me his home daily weights & BP readings if they fall outside of t he optimal provided range. At that time, I will decide whether any change to his vasoactive regimen is warranted. He will F/U with the Urology team for his LUTS & high post-void residual. He will F/U with your office & the Oncology team regularly. He will have a RFP, CBC, iPTH, Urine total jctsnli-vb-bneivplfia ratio before he comes b ack in 6 months. documented in this encounter Progress Notes Eduardo Felder MD - 12/31/2019 10:20 AM PDT Subjective: Patient ID: Tommie Wise is a 84 y.o. male. Participants: Patient Participant verbally confirmed the choice to initiate care by, and consents to receive care by Telephone. CC: None HPI: Denies any dizziness, cp, sob, abd pain, n/v, diarrhea. Current Outpatient Medications: acetaminophen (TYLENOL) 650 MG CR tablet, Take 650 mg by mouth every 8 hours as needed for Pain., Disp: , Rfl: allopurinol (ZYLOPRIM) 100 mg tablet, TAKE 1 TABLET BY MOUTH ONCE DAILY, Disp: 30 tabl et, Rfl: 11 BISACODYL CO, by Combination route as needed., Disp: , Rfl: ferrous sulfate 324 (65 Fe) MG EC tablet, Take 65 mg of iron by mouth daily with break fast., Disp: , Rfl: Flaxseed, Linseed, (FLAXSEED OIL) 1200 MG CAPS, Take 1 capsule by mouth Daily., Disp: , Rfl: gabapentin (NEURONTIN) 600 MG tablet, , Disp: , Rfl: Glucosamine HCl (GLUCOSAMINE PO), Take 1,000 mg by mouth Daily., Disp: , Rfl: Multiple Vitamins-Minerals (VITRUM 50+ SENIOR MULTI) TABS, Take 1 tablet by mouth Ivonne y., Disp: , Rfl: torsemide (DEMADEX) 20 mg tablet, TAKE 1 TABLET BY MOUTH ONCE DAILY, Disp: 30 tablet, Rfl: 11 traMADol (ULTRAM) 50 mg tablet, Take 50 mg by mouth every 6 hours as needed for Pain., Disp: , Rfl: Lab Results Component Value Date HGB 9.5 (A) 12/26/2019 HGB 10.0 (A) 12/21/2018 NA 138 12/26/2019 K 4.5 06/26/2019 CL 4 12/26/2019 CO2 26 12/26/2019 BUN 46 (A) 12/26/2019 CREA 2.03 (A) 12/26/2019 CALCIUM 8.4 (A) 12/26/2019 ALBUMIN 3.9 12/26/2019 EGFR 31.0 (A) 12/26/2019 PTH 98.46 (A) 12/21/2018 LABPROT 358.7 (A) 12/26/2019 Assessment & Plan Assessment: Mr. Glen Wise is a 84 y.o. male patient with stage IIIB (moderate) CKD on a background of lo ngstanding hypertension. 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 In early 01/2018 he was hospitalized with HAVEN from volume depletion (low oral intake + use of a diuretic). RENAL FUNCTION: Had a severely low GFR; improved vs early 01/2018; stable now * BLOOD PRESSURE: Relatively controlled per his report BLOOD SUGAR: Reports it normal ELECTROLYTES: Hyperkalemia is better* ANEMIA: mild; of neoplastic disease (MM) VITAMIN D: To be checked thru your office PARATHYROID HORMONE: Mildly up URIC ACID: Hyperuricemia is better with treatment PROTEINURIA: mild URINALYSIS: No UTI or hematuria VOLUME STATUS: Euvolumic. Discussions/Recommendations: I discussed today with MrGorge Wise the meaning of his severe CKD [...] for validation once a year. He will abide by a low salt, low potassium, low purine diet. He will avoid all kinds of NSAIDs for analgesia. Also: I will not change any of his vasoactive meds today. He will report back to me his home daily weights & BP readings if they fall outside of t he optimal provided range. At that time, I will decide whether any change to his vasoactive regimen is warranted. I kept him on Allopurinol at 100 mg daily. He will F/U with the Urology team for his LUTS & high post-void residual. He will F/U with your office & the Oncology team regularly. He will have a RFP, CBC, iPTH, Urine total nybozjz-cv-yfyhdyrzny ratio before he comes b k in 6 months. I spent 22 minutes visit in education, counseling and answering all of his & his 's que stions to their fully satisfaction. Clinical discussion length: 21-30 min ([id number]) Patient has not been seen in office within the past 7 days, and outcome of this call is not to recommend soonest available office visit. Eduardo Felder MD documented in this enco unter Plan of Treatment +--------+---------+ + + + | Date | Type | Specialty | Care Team | Description | +--------+---------+ + + + | 04/28/ | Office | Sleep Medicine | Ilan Roberts PA | | | 2019 | Visit | | [address] | | | | | | [place] | | | | | | [address] | | | | | | | | +--------+---------+ + + + | 07/07/ | Office | Nephrology | Eduardo Felder MD | | | 2019 | Visit | | [address] [place] | | | | | | [address] [place], [place] | | | | | | [address] | | | | | | | | +--------+---------+ + + + documented as of this encounter Visit Diagnoses + + | Diagnosis | + + | CKD (chronic kidney disease) stage 3, GFR 30-59 ml/min ([facility]) - Primary Chronic kidney | | disease, Stage III (moderate) | + + | Essential hypertension, benign | + + | Persistent proteinuria Proteinuria | + + | Electrolyte imbalance risk Other specified conditions influencing health status | + + | Hyperuricemia Other abnormal blood chemistry | + + | Bilateral leg edema Edema | + + | Anemia in neoplastic disease | + + documented in this encounter"
--- OUTSIDE RECORDS SUMMARY | ~2020-04-19 | XMS | Encounter Summary ---
Demographics + + + | Address | [address] | | | [place] [address] | + + + | Home Phone | | + + + | Preferred Language | Unknown | + + + | Marital Status | | + + + | Buddhist Affiliation | Unknown | + + + | Race | White | + + + | Ethnic Group | Not or | + + + Author + + + | Author | [facility] | | | and [place] | + + + | Organization | [facility] | | | [...] + | Halima Alexander | ECON | [address] | | | | | [place] | | | | | [address] | | + + + + + Care Team Providers + +------+ + | Care Member Certification Manager Name | Role | Phone | + +------+ + | Garima Martin | PCP | | | PA | | | + +------+ + Reason for Visit +---------+ + | Reason | Comments | +---------+ + | Results | 12/26/19 | +---------+ + Encounter Details +--------+ + + + + | Date | Type | Department | Care Team | Description | +--------+ + + + + | 12/27/ | Documentati | [facility] | Hare, | Results (12/26/19) | | 2020 | on | NEPHROLOGY ALE | [facility] | | | | | [address] | [employer] | | | | | [address] [facility] [place] | | | | | | [address] | | | | | | [phone] | | | +--------+ + + + [...] 2019 | Visit | | [address] | | | | | | [place] | | | | | | [address] | | | | | | | | +--------+---------+ + + + | 07/07/ | Office | Nephrology | Eduardo Felder MD | | | 2019 | Visit | | [address] [place] | | | | | | [address] [place] | | | | | | [address] | | | | | | | | +--------+---------+ + + + documented as of this encounter Procedures + +--------+ + + + | Procedure Name | Priori | Date/Time | Associated Diagnosis | Comments | | | ty | | | | + +--------+ + + + | EXTERNAL LAB: FLORA, | Routin | 12/26/2019 | | Results for this | | INTACT | e | | | procedure are in the | | | | | | results section. | + +--------+ + + + | CBC NO DIFFERENTIAL | Routin | 12/26/2019 | | Results for this | | | e | | | procedure are in the | | | | | | results section. | + +--------+ + + + | PROTEIN/CREATININE | Routin | 12/26/2019 | | Results for this | | RATIO, URINE | e | | | procedure are in the | | | | | | results section. | + +--------+ + + + | URIC ACID | Routin | 12/26/2019 | | Results for this | | | e | | | procedure are in the | | | | | | results section. | + +--------+ + + + | RENAL FUNCTION PANEL | Routin | 12/26/2019 | | Results for this | | | e | | | procedure are in the | | | | | | results section. | + +--------+ + + + documented in this encounter Results External Lab: PTH, Intact (12/26/2019) + + + + + + | Component | Value | Ref Range | Performed | Pathologist | | | | | At | Signature | + + + + + + | PTH Intact, | 92.55 (A) | 15 - 65 | | | | External | | | | | + + + + + + + + | Specimen | + + | | + + CBC with Manual Differential (12/26/2019) + + + + + + | Component | Value | Ref Range | Performed | Pathologist | | | | | At | Signature | + + + + + + | WBC | 3.9 (A) | 4.5 - 11.0 | | | + + + + + + | Red Blood | 2.94 (A) | 4.30 - 5.70 | | | | Cells | | M/uL | | | + + + + + + | Hemoglobin | 9.5 (A) | 13.5 - 18.0 | | | + + + + + + | Hematocrit, | 29.2 (A) | 41.0 - 50.0 % | | | | POC | | | | | + + + + + + | MCV | 99.4 (A) | 81.0 - 99.0 fL | | | + + + + + + | MCH | 32.0 | 27.0 - 33.0 pg | | | + + + + + + | MCHC | 33.0 | 30.0 - 36.0 | | | | | | g/dL | | | + + + + + + | Platelet | 117 (A) | 140 - 440 | | | | Count | | | | | | Plasma | | | | | + + + + + + | RDW | 20.5 (A) | 10.5 - 15.0 | | | + + + + + + | BAL | 70 | 39 - 80 % | | | | Neutrophils | | | | | | % | | | | | + + + + + + | % | 21.9 (A) | 24 - 44 | | | | Lymphocytes | | | | | + + + + + + | Monocyte % | 5.5 | 0 - 12 | | | + + + + + + | BAL | 2 | 0 - 6 % | | | | Eosinophils | | | | | | % | | | | | + + + + + + | % | 2 | 0 - 2 % | | | | Basophils, | | | | | | Body Fluid | | | | | + + + + + + + + | Specimen | + + | Blood | + + Renal Function Panel (12/26/2019) + + + + + + | Component | Value | Ref Range | Performed | Pathologist | | | | | At | Signature | + + + + + + | Na | 138 | 132 - 143 | | | | | | mmol/L | | | + + + + + + | Cl | 4 | 4 - 5 mmol/L | | | + + + + + + | CO2 | 26 | 19 - 31 mmol/L | | | + + + + + + | Anion Gap | 11 | 7 - 21 mmol/L | | | + + + + + + | Glucose | 134 (A) | 70 - 100 mg/dL | | | + + + + + + | BUN | 46 (A) | 6 - 23 mg/dL | | | + + + + + + | Creatinine | 2.03 (A) | 0.70 - 1.11 | | | | | | mg/dL | | | + + + + + + | BUN/Creatin | 22.7 | 6.0 - 28.6 | | | | ine Ratio | | | | | + + + + + + | Calcium | 8.4 (A) | 8.5 - 10.3 | | | + + + + + + | Estimated | 31.0 (A) | 60.0 - 140.0 | | | | GFR | | mL/min/1.73m2 | | | + + + + + + | Albumin | 3.9 | 3.5 - 5.0 g/dL | | | + + + + + + | PHOSPHORUS | 3.8 | 2.5 - 5.0 | | | + + + + + + + + | Specimen | + + | Blood | + + Protein/Creatinine Ratio, Urine (12/26/2019) + + + + + + | Component | Value | Ref Range | Performed | Pathologist | | | | | At | Signature | + + + + + + | Protein/Cre | 358.7 (A) | 0 - 150 | | | | at Ratio | | | | | + + + + + + + + | Specimen | + + | Urine | + + Uric Acid (12/26/2019) + +-------+ + + + | Component | Value | Ref Range | Performed | Pathologist | | | | | At | Signature | + +-------+ + + + | Uric Acid | 6.5 | 4.4 - 7.6 | | | + +-------+ + + + + + | Specimen | + + | Blood | + + documented in this encounter Visit Diagnoses Not on filedocumented in this encounter"
--- OUTSIDE RECORDS SUMMARY | ~2020-04-19 | XMS | Encounter Summary ---
Demographics + + + | Address | [address] | | | [place] [address] | + + + | Home Phone | | + + + | Preferred Language | Unknown | + + + | Marital Status | | + + + | Voodoo Affiliation | Unknown | + + + | Race | White | + + + | Ethnic Group | Not or | + + + Author + + + | Author | [facility] | | | and [place] | + + + | Organization | [facility] | | [...] + | Halima Alexander | ECON | [address] | + | | | | [place] | | | | | [address] | | + + + + + Care Team Providers + +------+ + | Care Checking Department Supervisor Name | Role | Phone | + +------+ + | Garima Martin | PCP | + | | PA | | | + +------+ + Reason for Visit Service/Procedure (Routine) + +--------+ + + + + | Status | Reason | Specialty | Diagnoses / | Referred By | Referred To | | | | | Procedures | Contact | Contact | + +--------+ + + + + | Authorized | | Infusion | Diagnoses | | [facility] | | | | Therapy | Multiple | Brenda, | Infusion [address] | | | | | myeloma not | Malcolm Parsons, | [address] | | | | | having | MD [address] | [place], | | | | | achieved | [address] | [place] [address] | | | | | remission | [address] [address] | Phone: | | | | | (HCC) | [place], | [phone] | | | | | Procedures | [place] [address] | Fax: | | | | | [place] NORMAL | Phone: | [phone] | | | | | SALINE | [phone] | | | | | | SOLUTION | Fax: | | | | | | INFUS, [address] | [phone] | | | | | | ML RI | | | | | | | NORMAL | | | | | | | SALINE | | | | | | | SOLUTION | | | | | | | INFUS, 250 | | | | | | | ML RI | | | | | | | STERILE | | | | | | | WATER/SALINE | | | | | | | , 10 ML RI | | | | | | | CHEMOTHER, | | | | | | | IV PUSH,EA | | | | | | | ADD DRUG RI | | | | | | | CHEMOTHER, | | | | | | | IV INFUSION, | | | | | | | 1 HR RI | | | | | | | CHEMOTHER, | | | | | | | IV INFUSION, | | | | | | | EA HR RI | | | | | | | CHEMOTHER,NO | | | | | | | N-HORMONE | | | | | | | ANTI-NEOPL, | | | | | | | SUB-Q/IM RI | | | | | | | CHEMOTHER | | | | | | | HORMON | | | | | | | ANTINEOPL | | | | | | | SUB-Q/IM RI | | | | | | | ONDANSETRON | | | | | | | 4 MG RI | | | | | | | INJ., | | | | | | | VELCADE 0.1 | | | | | | | MG RI | | | | | | | CYCLOPHOSPHA | | | | | | | MIDE ORAL 25 | | | | | | | MG | | | + +--------+ + + + + Encounter Details +--------+ + + + + | Date | Type | Department | Care Team | Description | +--------+ + + + + | 02/14/ | Hospital | [facility] | Rodríguez Mortensen | Multiple myeloma not | | 2020 | Encounter | MED [facility] CHE[facility] | E, [address] | having achieved | | | | INFUSION [address] [place] | remission (HCC) | | | | [place], | [address] | (Primary Dx) | | | | [place] [address] | | | | | | [phone] | | | +--------+ + + + [...] + + + | Blood Pressure | 146/67 | 02/15/2020 12:22 PM | | | | | PDT | | + + + + + | Pulse | 58 | 02/15/2020 12:22 PM | | | | | PDT | | + + + + + | Temperature | 36.7 C (98.1 F) | 02/15/2020 12:22 PM | | | | | PDT | | + + + + + | Respiratory Rate | 18 | 02/15/2020 12:22 PM | | | | | PDT | | + + + + + | Oxygen Saturation | 100% | 02/15/2020 12:22 PM | | | | | PDT | | + + + + + | Inhaled Oxygen | - | - | | | Concentration | | | | + + + + + | Weight | - | - | | + + + + + | Height | - | - | | + + + + + | Body Mass Index | - | - | | + + + + + documented in this encounter Medications [...] + + + +---------+ + + | BISACODYL CO | by Combination route | | 0 | | | | | as needed. | | | | | + + + +---------+ + + | ferrous sulfate | Take 65 mg of iron | | 0 | | | | 324 (65 Fe) MG EC | by mouth daily with | | | | | | tablet | breakfast. | | | | | + + + +---------+ + + | Flaxseed, Linseed, | Take 1 capsule by | | 0 | | | | (FLAXSEED OIL) 1200 | mouth Daily. | | | | | | MG CAPS | | | | | | + + + +---------+ + + | gabapentin | | | 0 | 03/28/20 | | | (NEURONTIN) 600 MG | | | | 19 | | | tablet | | | | [...] + + + +---------+ + + | torsemide | TAKE 1 TABLET BY | 30 | 11 | 04/23/20 | | | (DEMADEX) 20 mg | MOUTH ONCE DAILY | tablet | | 19 | | | tabletIndications: | | | | | | | CKD (chronic kidney | | | | | | | disease) stage 3, | | | | | | | GFR 30-59 ml/min | | | | | | | (HCC), Essential | | | | | | | hypertension, benign | | | | | | + + + +---------+ + + | traMADol (ULTRAM) | Take 50 mg by mouth | | 0 | | | | 50 mg tablet | every 6 hours as | | | | | | | needed for Pain. | | | | | + + + +---------+ + + | allopurinol | Take 100 mg by mouth | | 0 | 08/14/20 | | | (ZYLOPRIM) 100 mg | | | | 18 | 0 | | tablet | | | | | | + + + +---------+ + + documented as of this encounter Progress Niki Arellano RN - 02/15/2020 12:30 PM PDTPatient discharged in satisfactory condit ion. Discharged ambulatory. To home. Future appointments and After Visit Summary (AVS) provided. documented in this encounter Miscellaneous Notes Treatment Plan - Cassia Valentine RN - 02/15/2020 10:42 AM PDTViewed chart for weight, kashmir l signs and lab results. Also viewed chart for completion of medication and allergy review prior to treatment.Cassia Valentine RN DATE/TIME: 02/15/2020 10:42 AM PDT documented in this en counter Plan of Treatment +--------+---------+ + + + | Date | Type | Specialty | Care Team | Description | +--------+---------+ + + + | 04/28/ | Office | Sleep Medicine | Ilan Roberts PA | | 2019 | Visit | | [address] | | | | | | [place] | | | | | | [phone] | | | | | | | | +--------+---------+ + + + | 07/07/ | Office | Nephrology | Eduardo Felder MD | | 2019 | Visit | | [address] [place] | | | | | | [address] [place] | | | | | | [address] | | | | | | | | +--------+---------+ + + + documented as of this encounter Visit Diagnoses + + | Diagnosis | + + | 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) - Primary Multiple myeloma, | | without mention of having achieved remission | + + documented in this encounter Administered Medications + +--------+ +--------+------+ + | Medication Order | MAR | Action | Dose | Rate | Site | | | Action | Date | | | | + +--------+ +--------+------+ + | bortezomib (VELCADE) injection | Given | 02/15/20 | 2.2 mg | | Abdomen- | | 2.2 mg 2.2 mg (rounded from 2 | | 20 11:45 | | | RLQ | | mg = 1 mg/m2 | | AM PDT | | | | | 2.19 m2 Order-specific BSA), | | | | | | | Subcutaneous, ONCE, 02/15/20 | | | | | | | at 1100, For 1 dose, | | | | | | | Chemotherapy: Use appropriate | | | | | | | handling precautions. Protect | | | | | | | from light. For subcutaneous use | | | | | | | only. Fatal if given by other | | | | | | | routes. This drug may cause | | | | | | | reactions. Observe for dizziness, | | | | | | | blurred vision or hypotension., | | | | | | + +--------+ +--------+------+ + +---+---+ | | | +---+---+ + +---------+ +--------+-------+---+ | cyclophosphamide (CYTOXAN) 660 | New Bag | 02/15/20 | 660 mg | 500 | | | mg in sodium chloride 0.9% 217 mL | | 20 11:45 | | mL/hr | | | infusion 660 mg (rounded from | | AM PDT | | | | | 657 mg = 300 mg/m2 | | | | | | | 2.19 m2 Order-specific BSA), | | | | | | | Intravenous, Administer over 30 | | | | | | | Minutes, ONCE, Tue02/15/20 at | | | | | | | 1112, For 1 dose, Chemotherapy: | | | | | | | Use appropriate handling | | | | | | | precautions. If patient | | | | | | | experiences facial discomfort, | | | | | | | stop infusion and wait until | | | | | | | symptoms subside. Extend infusion | | | | | | | time(s) to greater than or equal | | | | | | | to 1 hour., | | | | | | + +---------+ +--------+-------+---+ +---+---+ | | | +---+---+ + +---------+ +------+--------+---+ | ondansetron 8 mg, dexamethasone | New Bag | 02/15/20 | 8 mg | 217.5 | | | (DECADRON) 40 mg in sodium | | 20 11:15 | | mL/hr | | | chloride 0.9% 50 mL IVPB 8 mg, | | AM PDT | | | | | Intravenous, Administer over 16 | | | | | | | Minutes, ONCE, Tue02/15/20 at | | | | | | | 1042, For 1 dose | | | | | | + +---------+ +------+--------+---+ +---+---+ | | | +---+---+ documented in this encounter"
--- OUTSIDE RECORDS SUMMARY | ~2020-04-19 | XMS | Encounter Summary ---
Demographics + + + | Address | [address] | | | [place] [address] | + + + | Home Phone | | + + + | Preferred Language | Unknown | + + + | Marital Status | | + + + | Presybeterian Affiliation | Unknown | + + + | Race | White | + + + | Ethnic Group | Not or | + + + Author + + + | Author | [facility] | | | and [place] | + + + | Organization | [facility] | | [...] + | Halima Alexander | ECON | [address] | | | | | [place] | | | | | [address] | | + + + + + Care Team Providers + +------+ + | Care Gas Leak Tester Name | Role | Phone | + +------+ + | Garima Martin | PCP | | | PA | | | + +------+ + Encounter Details +--------+ + + + + | Date | Type | Department | Care Team | Description | +--------+ + + + + | 04/17/ | Telephone | [facility] | Eduardo Felder MD | | | 2019 | | NEPHROLOGY [place] | [address] [place] | | | | | [address] [place] | [address] [facility] [place] | | | | | [address] [facility], [place] | [address] | | | | | [address] | | | | | | [phone] | | | +--------+ + + + [...] 2019 | Visit | | [address] | | | | | | [place] | | | | | | [address] | | | | | | | | +--------+---------+ + + + | 07/07/ | Office | Nephrology | Eduardo Felder MD | | | 2019 | Visit | | [address] [place] | | | | | | [address] [place] | | | | | | [address] | | | | | | | | +--------+---------+ + + + documented as of this encounter Visit Diagnoses Not on filedocumented in this encounter"
--- OUTSIDE RECORDS SUMMARY | ~2020-04-19 | XMS | Encounter Summary ---
Demographics + + + | Address | [address] | | | [place] [address] | + + + | Home Phone | | + + + | Preferred Language | Unknown | + + + | Marital Status | | + + + | Latter-Day Affiliation | Unknown | + + + | Race | White | + + + | Ethnic Group | Not or | + + + Author + + + | Author | [facility] | | | and [place] | + + + | Organization | [facility] | | | and [...] + | Halima Alexander | ECON | [address] | | | | | [place] | | | | | [address] | | + + + + + Care Team Providers + +------+ + | Care Energy Control Officer Name | Role | Phone | + +------+ + | Garima Martin | PCP | | | PA | | | + +------+ + Encounter Details +--------+ + + + + | Date | Type | Department | Care Team | Description | +--------+ + + + + | 12/21/ | Orders Only | [facility] | Eduardo Felder MD | | | 2019 | | NEPHROLOGY [place] | [address] [place] | | | | | [address] [place] | [address] [place], [place] | | | | | [address] [facility] [place] [facility] [address] | | | | | [address] | | | | | | [phone] | | | +--------+ + + + [...] 2019 | Visit | | [address] | | | | | | [place] | | | | | | [address] | | | | | | | | +--------+---------+ + + + | 07/07/ | Office | Nephrology | Eduardo Felder MD | | | 2019 | Visit | | [address] [place] | | | | | | [address] [facility] | | | | | | [address] | | | | | | | | +--------+---------+ + + + documented as of this encounter Procedures + +--------+ + + + | Procedure Name | Priori | Date/Time | Associated Diagnosis | Comments | | | ty | | | | + +--------+ + + + | EXTERNAL LAB: CBC | Routin | 12/21/2018 | | Results for this | | | e | 9:58 AM | | procedure are in the | | | | PDT | | results section. | + +--------+ + + + | URINALYSIS WITH | Routin | 12/21/2018 | | Results for this | | MICROSCOPIC IF | e | 9:58 AM | | procedure are in the | | INDICATED | | PDT | | results section. | + +--------+ + + + | PROTEIN/CREATININE | Routin | 12/21/2018 | | Results for this | | RATIO, URINE | e | 9:58 AM | | procedure are in the | | | | PDT | | results section. | + +--------+ + + + | URIC ACID | Routin | 12/21/2018 | | Results for this | | | e | 9:58 AM | | procedure are in the | | | | PDT | | results section. | + +--------+ + + + | RENAL FUNCTION PANEL | Routin | 12/21/2018 | | Results for this | | | e | 9:58 AM | | procedure are in the | | | | PDT | | results section. | + +--------+ + + + documented in this encounter Results Protein/Creatinine Ratio, Urine (12/21/2018 9:58 AM PDT) + + + + + + | Component | Value | Ref Range | Performed | Pathologist | | | | | At | Signature | + + + + + + | Protein/Cre | 188.7 (A) | 0 - 150 | EXTERNAL | [...] + + Urinalysis with Microscopic if Indicated (12/21/2018 9:58 AM PDT) + + + + + [...] + + + | Spec Grav, | 1.008 | 1.005 - 1.030 | EXTERNAL | [...] | | (specimen) | + + + + + | Narrative | Performed At | + + + | Cast's: Negative WBC's: 2 RBC's: 0 Epithelial: Negative | EXTERNAL LAB | | Crystals: Negative Bacteria: Negative | | + + + + +---------+ + + | Performing | Address | City/State/Zipcode | Phone Number | | Organization | | | | + +---------+ + + | EXTERNAL LAB | | | | + +---------+ + + External Lab: CBC (12/21/2018 9:58 AM PDT) + + + + + + | Component | Value | Ref Range | Performed | Pathologist | | | | | At | Signature | + + + + + + | WBC | 3.9 (A) | 4.5 - 11.0 10 | EXTERNAL | | | | | | LAB | | + + + + + + | Non- | 2.98 (A) | 4.3 - 11.0 10 | EXTERNAL | | | Red Blood | | | LAB | | | Cells | | | | | | Counted | | | | | + + + + + + | Hemoglobin | 10.0 (A) | 13.5 - 18.0 | EXTERNAL | | | | | g/dL | LAB | | + + + + + + | Hematocrit, | 30.2 (A) | 41 - 50 % | EXTERNAL | | | POC | | | LAB | | + + + + + + | MCV | 101.2 (A) | 81 - 99 fL | EXTERNAL | | | | | | LAB | | + + + + + + | MCH | 34 (A) | 27 - 33 pg | EXTERNAL | | | | | | LAB | | + + + + + + | MCHC | 33 | 30 - 36 g/dL | EXTERNAL | | | | | | LAB | | + + + + + + | Platelet | 129 (A) | 140 - 440 K/ L | EXTERNAL | | | Count | | | LAB | | | Plasma | | | | | + + + + + + | RDW-CV | 15.2 (A) | 10.5 - 15.0 % | EXTERNAL [...] + + + | % Segmented | 71.4 | 39 - 80 % | EXTERNAL | | | | | | LAB | | | Neutrophils | | | | | + + + + + + | % | 17.7 (A) | 24 - 44 % | EXTERNAL | | | Lymphocytes | | | LAB | | + + + + + + | % Monocytes | 8.9 | 0 - 12 % | EXTERNAL | | | | | | LAB | | + + + + + + | % | 0.5 | 0 - 2 % | EXTERNAL | | | Eosinophils [...] | + +---------+ + + Uric Acid (12/21/2018 9:58 AM PDT) + +-------+ + + + | Component | Value | Ref Range | Performed | Pathologist | | | | | At | Signature | + +-------+ + + + | Uric Acid | 6.3 | 4.4 - 7.6 | EXTERNAL | [...] + +---------+ + + Renal Function Panel (12/21/2018 9:58 AM PDT) + + + + + + | Component | Value | Ref Range | Performed | Pathologist | | | | | At | Signature | + + + + + + | Glucose, | 109 (A) | 70 - 100 mg/dL | EXTERNAL | | | Fasting | | | LAB | | + + + + + + | BUN | 36 (A) | 6 - 23 mg/dL | EXTERNAL | | | | | | LAB | | + + + + + + | Creatinine | 2.01 (A) | 0.70 - 1.11 | EXTERNAL | | | | | mg/dL | LAB | | + + + + + + | PHOSPHORUS | 4.1 | 2.5 - 5.0 mg/dL | EXTERNAL | | | | | | LAB | | + + + + + + | Albumin | 3.9 | 3.5 - 5.0 | EXTERNAL | | | | | | LAB | | + + + + + + | Na | 139 | 132 - 143 | EXTERNAL | | | | | mmol/L | LAB | | + + + + + + | K | 4.6 | 3.6 - 5.1 | EXTERNAL | | | | | mmol/L | LAB | | + + + + + + | Cl | 104 | 95 - 112 mmol/L | EXTERNAL | | | | | | LAB | | + + + + + + | CO2 | 26 | 19 - 31 mmol/L | EXTERNAL | | | | | | LAB | | + + + + + + | Anion Gap | 13.6 | 7 - 21 mmol/L | EXTERNAL | | | | | | LAB | | + + + + + + | eGFR, | | | EXTERNAL | | | non- | | | LAB | | | Salvadorean | | | | | + + + + + + | Phosphorus, | | | EXTERNAL | | | Inorganic | | | LAB | | + + + + + + | BUN/Creatin | 17.9 | 6.0 - 28.6 | EXTERNAL | | | ine Ratio | | | LAB | | + + + + + + | Calcium | 8.4 (A) | 8.5 - 10.3 | EXTERNAL | | | | | mg/dL | LAB | | + + + + + + | Estimated | 32 (A) | 60 - 140 mg/dL | EXTERNAL | | | GFR [...]
--- OUTSIDE RECORDS SUMMARY | ~2020-04-19 | XMS | Encounter Summary ---
Demographics + + + | Address | [address] | | | [place] [address] | + + + | Home Phone | | + + + | Preferred Language | Unknown | + + + | Marital Status | | + + + | Gnosticist Affiliation | Unknown | + + + | Race | White | + + + | Ethnic Group | Not or | + + + Author + + + | Author | [facility] | | | and [place] | + + + | Organization | [facility] | | | and [...] + | Halima Alexander | ECON | [address] | | | | | [place] | | | | | [address] | | + + + + + Care Team Providers + +------+ + | Care Front Desk Admin Name | Role | Phone | + +------+ + | Garima Martin | PCP | | | PA | | | + +------+ + Encounter Details +--------+ + + + + | Date | Type | Department | Care Team | Description | +--------+ + + + + | 09/09/ | Abstract | [facility] | [place], | | | 2017 | | PHYSIATRY [address] | [address]iz [address] | | | | | [address] [place] [address] | [address] [address] | | | | | [place], [place] | [place] [address] | | | | | [address] | [phone] | | | | | [phone] | | | +--------+ + + + [...] 2019 | Visit | | [address] | | | | | | [place] | | | | | | [address] | | | | | | | | +--------+---------+ + + + | 07/07/ | Office | Nephrology | Eduardo Felder MD | | | 2019 | Visit | | [address] [place] | | | | | | [address] [place] | | | | | | [address] | | | | | | | | +--------+---------+ + + + documented as of this encounter Visit Diagnoses Not on filedocumented in this encounter"
--- OUTSIDE RECORDS SUMMARY | ~2020-04-19 | XMS | Clinical Summary ---
Demographics + + + | Address | [address] [place] [address] RD | | | [place] [address] | + + + | Home Phone | | + + + | Preferred Language | Unknown | + + + | Marital Status | | + + + | Islam Affiliation | Unknown | + + + | Race | White | + + + | Ethnic Group | Not or | + + + Author + + + | Author | [facility] | | | and [place] | + + + | Organization | [facility] | | | [...] + | Halima Alexander | ECON | [address] | | | | | [place] | | | | | [address] | | + + + + + Care Team Providers + +------+ + | Care Combination Man Name | Role | Phone | + +------+ + | Garima Martin | PCP | | | PA | | | + +------+ + Allergies + + + + + + | Active Allergy | Reactions | Severity | Noted | Comments | | | | | Date | | + + + + + + | Doxycycline | Hives, Rash | Low | 01/02/20 | | | | | | 15 | | + + + + + + Medications + + + +---------+------+------+-------+ | Medication | Sig | Dispensed | Refills | Star | End | Statu | | | | | | t | Date | s | | | | | | Date | | | + + + +---------+------+------+-------+ | Flaxseed, Linseed, | Take 1 capsule by | | 0 | | | Activ | | (FLAXSEED OIL) 1200 | mouth Daily. | | | | | e | | MG CAPS | | | | | | | + + + +---------+------+------+-------+ | traMADol (ULTRAM) | Take 50 mg by mouth | | 0 | | | Activ | | 50 mg tablet | every 6 hours as | | | | | e | | | needed for Pain. | | | | | | + + + +---------+------+------+-------+ | Glucosamine HCl | Take 1,000 mg by | | 0 | | | Activ | | (GLUCOSAMINE PO) | mouth Daily. | | | | | e | + + + +---------+------+------+-------+ | acetaminophen | Take 650 mg by mouth | | 0 | | | Activ | | (TYLENOL) 650 MG CR | every 8 hours as | | | | | e | | tablet | needed for Pain. | | | | | | + + + +---------+------+------+-------+ | Multiple | Take 1 tablet by | | 0 | | | Activ | | Vitamins-Minerals | mouth Daily. | | | | | e | | (VITRUM 50+ SENIOR | | | | | | | | MULTI) TABS | | | | | | | + + + +---------+------+------+-------+ | BISACODYL CO | by Combination route | | 0 | | | Activ | | | as needed. | | | | | e | + + + +---------+------+------+-------+ | ferrous sulfate | Take 65 mg of iron | | 0 | | | Activ | | 324 (65 Fe) MG EC | by mouth daily with | | | | | e | | tablet | breakfast. | | | | | | + + + +---------+------+------+-------+ | torsemide | TAKE 1 TABLET BY | 30 | 11 | 08/2 | | Activ | | (DEMADEX) 20 mg | MOUTH ONCE DAILY | tablet | | 02/15 | | e | | tabletIndications: | | | | 19 | | | | CKD (chronic kidney | | | | | | | | disease) stage 3, | | | | | | | | GFR 30-59 ml/min | | | | | | | | (HCC), Essential | | | | | | | | hypertension, benign | | | | | | | + + + +---------+------+------+-------+ | gabapentin | | | 0 | 07/3 | | Activ | | (NEURONTIN) 600 MG | | | | 1/20 | | e | | tablet | | | | 19 | | | + + + +---------+------+------+-------+ | allopurinol | Take 1 tablet by | 90 | 3 | 02/27 | | Activ | | (ZYLOPRIM) 100 mg | mouth Daily. | tablet | | 8/20 | | e | | tablet | | | | 20 | | | + + + +---------+------+------+-------+ | allopurinol | Take 100 mg by mouth | | 0 | 07/29 | /2 | Disco | | (ZYLOPRIM) 100 mg | | | | 7/20 | 8/20 | ntinu | | tablet | | | | 18 | 20 | ed | | | | | | | | (Reor | | | | | | | | katie | | | | | | | | (no | | | | | | | | Cance | | | | | | | | l Rx | | | | | | | | msg)) | + + + +---------+------+------+-------+ Active Problems + + + | Problem | Noted Date | + + + | Polycystic kidney disease | 02/15/2020 | + + + | Persistent proteinuria | 12/31/2019 | + + + | Anemia in neoplastic disease | 01/02/2018 | + + + | Bilateral leg edema | 01/02/2018 | + + + | Electrolyte imbalance risk | 01/02/2018 | + + + | Essential hypertension, benign | 01/02/2018 | + + + | Hyperkalemia | 01/02/2018 | + + + | Hyperuricemia | 01/02/2018 | + + + | Multiple myeloma not having achieved remission | 01/02/2018 | + + + | CKD (chronic kidney disease) stage 3, GFR 30-59 ml/min | 01/02/2018 | + + + | Chronic bilateral low back pain with right-sided sciatica | 09/19/2017 | + + + | DDD (degenerative disc disease), lumbar | 09/19/2017 | + + + | Spinal stenosis of lumbar region with neurogenic claudication | 09/19/2017 | + + + | DDD (degenerative disc disease), cervical | 09/19/2017 | + + + | OBSTRUCTIVE SLEEP APNEA | 12/02/2010 | + + + Resolved Problems + + + + | Problem | Noted | Resolved | | | Date | Date | + + + + | CKD (chronic kidney disease), stage IV | 01/03/20 | | | | 18 | 9 | + + + + Encounters +--------+ + + + + | Date | Type | Specialty | Care Team | Description | +--------+ + + + + | 04/17/ | Telephone | Nephrology | Eduardo Felder MD | | | 2019 | | | | | +--------+ + + + + | 03/25/ | Refill | Nephrology | Eduardo Felder MD | Medication Refill | | 2019 | | | | | +--------+ + + + + | 02/21/ | Hospital | Oncology | Rodríguez Mortensen | Multiple myeloma not | | 2019 | Encounter | | [place] | having achieved | | | | | | remission (HCC) | | | | | | (Primary Dx); Anemia | | | | | | in neoplastic | | | | | | disease | +--------+ + + + + | 02/21/ | Hospital | Infusion Therapy | Rodríguez Mortensen | Multiple myeloma not | | 2019 | Encounter | | [place], | having achieved | | | | | | remission (HCC) | | | | | | (Primary Dx) | +--------+ + + + + | 02/14/ | Hospital | Infusion Therapy | Rodríguez Mortensen | Multiple myeloma not | | 2019 | Encounter | | EMD | having achieved | | | | | | remission (HCC) | | | | | | (Primary Dx) | +--------+ + + + + | 02/14/ | Hospital | Oncology | Stacia Horne | Multiple myeloma not | | 2019 | Encounter | | [place] | having achieved | | | | | | remission (HCC) | | | | | | (Primary Dx) | +--------+ + + + + | 02/14/ | Hospital | Oncology | Rodríguez Mortensen | Multiple myeloma not | | 2020 | Encounter | | E, | having achieved | | | | | | remission (HCC) | | | | | | (Primary Dx) | +--------+ + + + + | 02/06/ | Orders Only | Oncology | Stacia Horne | | | 2020 | | | [place] | | +--------+ + + + + from Last 3 Months Family History + + +------+ + | Medical History | Relation | Name | Comments | + + +------+ + | Colon cancer | Brother | | | + + +------+ + | Heart attack | Father | | | + + +------+ + | No known problems | Maternal | | | | | Grandfath | | | | | er | | | + + +------+ + | No known problems | Maternal | | | | | Grandmoth | | | | | er | | | + + +------+ + | Kidney cancer | Mother | | | + + +------+ + | No known problems | Paternal | | | | | Grandfath | | | | | er | | | + + +------+ + | No known problems | Paternal | | | | | Grandmoth | | | | | er | | | + + +------+ + | Prostate cancer | Paternal | | | | | Uncle | | | + + +------+ + + +------+ + + | Relation | Name | Status | Comments | + +------+ + + | Brother | | | | | | | (Age | | | | | 71) | | + +------+ + + | Father | | | | | | | (Age | | | | | 89) | | + +------+ + + | Maternal Grandfather | | | | + +------+ + + | Maternal Grandmother | | | | + +------+ + + | Mother | | | | | | | (Age | | | | | 91) | | + +------+ + + | Paternal Grandfather | | | | + +------+ + + | Paternal Grandmother | | | | + +------+ + + | Paternal Uncle | | | | + +------+ + + Social History + +-------+ +--------+------+ [...] on file | | + + + Last Filed Vital Signs + + + + + | Vital Sign | Reading | Time Taken | Comments | + + + + + | Blood Pressure | 117/61 | 02/22/2020 9:43 AM | | | | | PDT | | + + + + + | Pulse | 82 | 02/22/2020 9:43 AM | | | | | PDT | | + + + + + | Temperature | 36.7 C (98 F) | 02/22/2020 9:43 AM | | | | | PDT | | + + + + + | Respiratory Rate | 18 | 02/22/2020 9:43 AM | | | | | PDT | | + + + + + | Oxygen Saturation | 99% | 02/22/2020 9:43 AM | | | | | PDT | | + + + + + | Inhaled Oxygen | - | - | | | Concentration | | | | + + + + + | Weight | 93.3 kg (205 lb 11 | 02/22/2020 9:22 AM | | | | oz) | PDT | | + + + + + | Height | 182.9 cm (6') | 07/02/2019 10:36 AM | | | | | PST | | + + + + + | Body Mass Index | 27.9 | 07/02/2019 10:36 AM | | | | | PST | | + + + + + Plan of Treatment +--------+---------+ + + + | Date | Type | Specialty | Care Team | Description | +--------+---------+ + + + | 04/28/ | Office | Sleep Medicine | Ilan Roberts PA | | | 2019 | Visit | | [address] | | | | | | [place] | | | | | | [phone] | | | | | | | | +--------+---------+ + + + | 07/07/ | Office | Nephrology | Eduardo Felder MD | | | 2019 | Visit | | [address] [place] | | | | | | [address] [facility] | | | | | | [address] | | | | | | | | +--------+---------+ + + + + + + + + | Health Maintenance | Due Date | Last | Comments | | | | Done | | + + + + + | Vaccine: Zoster (1 | | | | | of 2) | 4 | | | + + + + + | Vaccine: | | | | | Pneumococcal 65+ (1 | 9 | | | | of 1 - PPSV23) | | | | + + + + + | Adult Annual | | | | | Wellness Visit | 5 | | | + + + + + | Vaccine: Influenza | | 05/26/20 | | | (#1) | 0 | 18, | | | | | 05/17/20 | | | | | 17, | | | | | 06/09/20 | | | | | 16, | | | | | Addition | | | | | al | | | | | history | | | | | exists | | + + + + + | Med Mgmt: Uric Acid | | 12/26/19 | | | | 1 | 20, | | | | | 06/26/20 | | | | | 19, | | | | | 12/22/19 | | | | | 19, | | | | | Addition | | | | | al | | | | | history | | | | | exists | | + + + + + | Med Mgmt: Cr | | 02/22/20 | | | | 1 | 20, | | | | | 02/15/20 | | | | | 20, | | | | | 12/26/19 | | | | | 20, | | | | | Addition | | | | | al | | | | | history | | | | | exists | | + + + + + | Med Mgmt: K | | 02/22/20 | | | | 1 | 20, | | | | | 02/15/20 | | | | | 20, | | | | | 06/26/20 | | | | | 19, | | | | | Addition | | | | | al | | | | | history | | | | | exists | | + + + + + | Med Mgmt: Na | | 02/22/20 | | | | 1 | 20, | | | | | 02/15/20 | | | | | 20, | | | | | 12/26/19 | | | | | 20, | | | | | Addition | | | | | al | | | | | history | | | | | exists | | + + + + + | Med Mgmt: eGFR | | 02/22/20 | | | | 1 | 20, | | | | | 02/15/20 | | | | | 20, | | | | | 12/26/19 | | | | | 20, | | | | | Addition | | | | | al | | | | | history | | | | | exists | | + + + + + | Medication | | 02/22/20 | | | Management | 1 | 20 | | + + + + + | Vaccine: | | 08/03/20 | | | Dtap/Tdap/Td (2 - | 6 | 16 | | | Td) | | | | + + + + + Procedures + +--------+ + + + | Procedure Name | Priori | Date/Time | Associated Diagnosis | Comments | | | ty | | | | + +--------+ + + + | CBC WITH | STAT | 02/22/2020 | Multiple myeloma | Results for this | | DIFFERENTIAL | | 8:55 AM | not having achieved | procedure are in the | | | | PDT | remission (HCC) | results section. | + +--------+ + + + | COMPREHENSIVE | STAT | 02/22/2020 | Multiple myeloma | Results for this | | METABOLIC PANEL | | 8:55 AM | not having achieved | procedure are in the | | | | PDT | remission (HCC) | results section. | + +--------+ + + + | CBC WITH | STAT | 02/15/2020 | Multiple myeloma | Results for this | | DIFFERENTIAL | | 9:12 AM | not having achieved | procedure are in the | | | | PDT | remission (HCC) | results section. | + +--------+ + + + | COMPREHENSIVE | STAT | 02/15/2020 | Multiple myeloma | Results for this | | METABOLIC PANEL | | 9:12 AM | not having achieved | procedure are in the | | | | PDT | remission (HCC) | results section. | + +--------+ + + + from Last 3 Months Results CBC with Differential (02/22/2020 8:55 AM PDT)Only the most recent of 2 results within the time period is included. + + + + + + | Component | Value | Ref Range | Performed | Pathologist | | | | | At | Signature | + + + + + + | White Blood | 4.4 | 4.0 - 11.0 K/uL | [facility] | | | Cells | | | [facility] | | | | | [facility] | | | | | | [facility] - | | | | | | LABORATORY | | + + + + + + | Red Blood | 2.81 (L) | 4.30 - 5.70 | [facility] | | | Cells | | M/uL | [facility] | | | | | | [facility] | | | | | | [facility] - | | | | | | LABORATORY | | + + + + + + | Hemoglobin | 8.9 (L) | 13.5 - 18.0 | [facility] | | | | | g/dL | [facility] | | | | | | [facility] | | | | | | [facility] - | | | | | | LABORATORY | | + + + + + + | Hematocrit | 26.7 (L) | 40.0 - 51.0 % | [facility] | | | | | | [facility] | | | | | | [facility] | | | | | | [facility] - | | | | | | LAB[facility]ATORY | | + + + + + + | MCV | 95.0 | 83.0 - 101.0 fL | [facility] | | | | | | [facility] | | | | | | [facility] | | | | | | [facility] - | | | | | | LAB[facility]ATORY | | + + + + + + | MCH | 31.7 | 28.0 - 35.0 pg | [facility] | | | | | | [facility] | | | | | | [facility] | | | | | | [facility] - | | | | | | LAB[facility]ATORY | | + + + + + + | MCHC | 33.3 | 32.0 - 36.0 | [facility] | | | | | g/dL | [facility] | | | | | | [facility] | | | | | | [facility] - | | | | | | LAB[facility]ATORY | | + + + + + + | RDW-CV | 21.0 (H) | <15.0 % | [facility] | | | | | | [facility] | | | | | | [facility] | | | | | | [facility] - | | | | | | LAB[facility]ATORY | | + + + + + + | RDW-SD | 71.5 (H) | 35.1 - 46.3 fL | [facility] | | | | | | [facility] | | | | | | [facility] | | | | | | [facility] - | | | | | | LAB[facility]ATORY | | + + + + + + | Platelet | 140 | 140 - 440 K/uL | [facility] | | | Count | | | [facility] | | | | | | [facility] | | | | | | [facility] - | | | | | | LAB[facility]ATORY | | + + + + + + | MPV | 11.6 | 6.5 - 12.4 fL | [facility] | | | | | | [facility] | | | | | | [facility] | | | | | | [facility] - | | | | | | LAB[facility]ATORY | | + + + + + + | Immature | 8.4Comment: Low PLT + | 0.9 - 11.2 % | [facility] | | | Platelet | Low IPF are consistent | | [facility] | | | Fraction | with a production | | MEDICAL | | | | disorder. Low PLT + High | | CENTER - | | | | IPF are consistent with | | LABORATORY | | | | increased platelet | | | | | | destruction. | | | | + + + + + + | % | 69.0 | 45.0 - 82.0 % | [facility] | | | Neutrophils | | | [facility] | | | | | | [facility] | | | | | | C[facility] - | | | | | | LABORATORY | | + + + + + + | % | 20.5 | 20.0 - 45.0 % | [facility] | | | Lymphocytes | | | [facility] | | | | | | [facility] | | | | | | [facility] - | | | | | | LABORATORY | | + + + + + + | % Monocytes | 7.7 | 4.0 - 12.0 % | [facility] | | | | | | [facility] | | | | | | [facility] | | | | | | [facility] - | | | | | | LAB[facility]ATORY | | + + + + + + | % | 1.4 | 0.0 - 5.0 % | [facility] | | | Eosinophils | | | [facility] | | | | | | [facility] | | | | | | CENTER - | | | | | | LABORATORY | | + + + + + + | % Basophils | 0.9 | 0.0 - 1.0 % | [facility] | | | | | | [facility] | | | | | | [facility] | | | | | | [facility] - | | | | | | LABORATORY | | + + + + + + | % Immature | 0.5 (H)Comment: | 0.0 - 0.4 % | [facility] | | | Granulocyte | Preliminary studies have | | [facility] | | | s | indicated the IG% | | MEDICAL | | | | and/or IG# show promise | | CENTER - | | | | as an early indicator | | LABORATORY | | | | for infection. | | | | + + + + + + | Absolute | 3.07 | 1.80 - 8.50 | [facility] | | | Neutrophils | | K/uL | [facility] | [facility] | | | [facility] | | | | | | [facility] - | | | | | | LAB[facility]ATORY | | + + + + + + | Absolute | 0.91 | 0.60 - 3.20 | [facility] | | | Lymphocytes | | K/uL | [facility] | | | | | | [facility] | | | | | | [facility] - | | | | | | LAB[facility]ATORY | | + + + + + + | Absolute | 0.34 | 0.00 - 1.00 | [facility] | | | Monocytes | | K/uL | [facility] | | | | | | [facility] | | | | | | [facility] - | | | | | | LABORATORY | | + + + + + + | Absolute | 0.06 | 0.00 - 0.40 | [facility] | | | Eosinophils | | K/uL | [facility] | | | | | | [facility] | | | | | | [facility] - | | | | | | LAB[facility]ATORY | | + + + + + + | Absolute | 0.04 | 0.00 - 0.10 | [facility] | | | Basophils | | K/uL | [facility] | | | | | | [facility] | | | | | | [facility] - | | | | | | LABORATORY | | + + + + + + | Absolute | 0.02 | 0.00 - 0.03 | [facility] | | | Immature | | K/uL | [facility] | | | Granulocyte | | | MEDICAL | | | s | | | CENTER - | | | | | | LABORATORY | | + + + + + + | % nRBC | 0 | 0 - 2 per 100 | [facility] | | | | | WBCs | [facility] | | | | | | [facility] | | | | | | [facility] - | | | | | | LABORATORY | | + + + + + + | Absolute | 0.00 | 0.00 - 0.01 | [facility] | | | nRBC | | K/uL | [facility] | | | | | | [facility] | | | | | | CENTER - | | | | | | LABORATORY | | + + + + + + + + | Specimen | + + | Blood | + + + + + + + | Performing | Address | City/State/Zipcode | Phone Number | | Organization | | | | + + + + + | [facility] | [address] | [place] | [phone] | | [facility] | | [address] | | | - LABORATORY | | | | + + + + + Comprehensive Metabolic Panel (02/22/2020 8:55 AM PDT)Only the most recent of 2 results wi thin the time period is included. + + + + + + | Component | Value | Ref Range | Performed | Pathologist | | | | | At | Signature | + + + + + + | Na | 139 | 136 - 145 | [facility] | | | | | mmol/L | [facility] | | | | | | [facility] | | | | | | [facility] - | | | | | | LABORATORY | | + + + + + + | K | 4.5 | 3.4 - 5.1 | [facility] | | | | | mmol/L | [facility] | | | | | | [facility] | | | | | | CENTER - | | | | | | LABORATORY | | + + + + + + | Cl | 108 (H) | 98 - 107 mmol/L | [facility] | | | | | | [facility] | | | | | | [facility] | | | | | | CENTER - | | | | | | LABORATORY | | + + + + + + | CO2 | 23 | 20 - 31 mmol/L | [facility] | | | | | | [facility] | | | | | | [facility] | | | | | | [facility] - | | | | | | LABORATORY | | + + + + + + | Anion Gap | 8 | 3 - 16 mmol/L | [facility] | | | | | | [facility] | | | | | | [facility] | | | | | | [facility] - | | | | | | LABORATORY | | + + + + + + | Glucose | 112 (H) | 60 - 106 mg/dL | [facility] | | | | | | [facility] | | | | | | [facility] | | | | | | C[facility] - | | | | | | LABORATORY | | + + + + + + | BUN | 55 (H) | 9 - 23 mg/dL | [facility] | | | | | | [facility] | | | | | | [facility] | | | | | | CENTER - | | | | | | LABORATORY | | + + + + + + | Creatinine | 2.02 (H) | 0.70 - 1.30 | [facility] | | | | | mg/dL | [facility] | | | | | | [facility] | | | | | | CENTER - | | | | | | LABORATORY | | + + + + + + | eGFR, | 32 (L)Comment: | >=60 | [facility] | | | non- | GLOMERULAR FILTRATION | mL/min/1.73m2 | [facility] | | | [place] | RATE,ESTIMATED | | MEDICAL | | | | mL/min/1.21s4Cfkq than | | CENTER - | | | | 60 Chronic kidney | | LABORATORY | | | | disease,if found over a | | | | | | 3-month period.Less than | | | | | | 15 Kidney failureFor | | | | | | | | | | | | Americans,multiply the | | | | | | calculated GFR by 1.21. | | | | | | | | | | + + + + + + | Calcium | 8.8 | 8.7 - 10.4 | [facility] | | | | | mg/dL | [facility] | | | | | | [facility] | | | | | | CENTER - | | | | | | LABORATORY | | + + + + + + | Albumin | 4.0 | 3.2 - 4.8 g/dL | [facility] | | | | | | [facility] | | | | | [facility] | | | | | | [facility] - | | | | | | LAB[facility]ATORY | | + + + + + + | Bilirubin | 0.6 | 0.3 - 1.2 mg/dL | [facility] | | | Total | | | [facility] | | | | | | MED[facility] | | | | | | CENTER - | | | | | | LABORATORY | | + + + + + + | Total | 6.7 | 5.7 - 8.2 g/dL | [facility] | | | Protein | | | [facility] | | | | | | MEDICAL | | | | | | CENTER - | | | | | | LABORATORY | | + + + + + + | AST | 16 | 0 - 34 U/L | [facility] | | | | | | [facility] | | | | | | [facility] | | | | | | CENTER - | | | | | | LABORATORY | | + + + + + + | ALT | 13 | 10 - 49 U/L | [facility] | | | | | | [facility] | | | | | | [facility] | | | | | | CENTER - | | | | | | LABORATORY | | + + + + + + | Alkaline | 67 | 46 - 116 U/L | [facility] | | | Phosphatase | | | [facility] | | | | | | MED[facility] | | | | | | CENTER - | | | | | | LABORATORY | | + + + + + + | Globulin | 2.7 | 2.1 - 3.8 g/dL | [facility] | | | | | | [facility] | | | | | | [facility] | | | | | | CENTER - | | | | | | LABORATORY | | + + + + + + | Albumin/Holley | 1.5 | 0.8 - 1.9 | [facility] | | | bulin Ratio | | | [facility] | | | | | | [facility] | | | | | | CENTER - | | | | | | LABORATORY | | + + + + + + | BUN/Creatin | 27.2 | | [facility] | | | ine Ratio | | | [facility] | | | | | | [facility] | | | | | | CENTER - | | | | | | LABORATORY | | + + + + + + + + | Specimen | + + | Blood | + + + + + + + | Performing | Address | City/State/Zipcode | Phone Number | | Organization | | | | + + + + + | [facility] | [address] | [place] | [phone] | | [facility] | | [address] | | | - LABORATORY | | | | + + + + + from Last 3 Months Insurance + +--------+ +--------+-------+---------+--------+ | Payer | Benefi | Subscriber | Effect | Phone | Address | Type | | | t Plan | ID | trent | | | | | | / | | Dates | | | | | | Group | | | | | | + +--------+ +--------+-------+---------+--------+ | [employer] | [employer] | [id number] | 08/29/19 | | | Medica | | | HEALTH | | 17-Pre | | | re | | | MDCR | | sent | | | | + +--------+ +--------+-------+---------+--------+ | [employer] | [employer] | [id number] | 08/29/19 | | | Medica | | | HEALTH | | 17-Pre | | | re | | | MDCR | | sent | | | | + +--------+ +--------+-------+---------+--------+ + +--------+ +--------+ + + | Guarantor Name | Accoun | Relation to | Date | Phone | Billing Address | | | t Type | Patient | of | | | | | | | | | | + +--------+ +--------+ + + | Tommie Farmer | Person | Self | [birth year] | [address] | | | al/Fam | | 1935 | [phone] | [place], [place] | | | kilo | | | [address] (Home) | [address] | + +--------+ +--------+ + + | Tommie Farmer | Person | Self | [birth year] | [address] | | | al/Fam | | 1935 | [phone] | [place], [place] | | | kilo | | | 6 (Home) | [address] | + +--------+ +--------+ + + Advance Directives + + + + + | Type | Date Recorded | Patient | Explanation | | | | 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
--- OUTSIDE RECORDS SUMMARY | ~2020-04-19 | XMS | Encounter Summary ---
Demographics + + + | Address | [address] | | | [place] [address] | + + + | Home Phone | | + + + | Preferred Language | Unknown | + + + | Marital Status | | + + + | Mandaeism Affiliation | Unknown | + + + | Race | White | + + + | Ethnic Group | Not or | + + + Author + + + | Author | [facility] | | | and [place] | + + + | Organization | [facility] | | [...] + | Halima Alexander | ECON | [address] | | | | | [place] | | | | | [address] | | + + + + + Care Team Providers + +------+ + | Care Packing Room Supervisor Name | Role | Phone | + +------+ + | Ryley Novak MD | PCP | | + +------+ + Reason for Visit + + + | Reason | Comments | + + + | CPAP Follow Up | | + + + Encounter Details +--------+---------+ + + + | Date | Type | Department | Care Team | Description | +--------+---------+ + + + | 04/04/ | Office | [facility] | Ilan Roberts PA | JOVANI on CPAP (Primary | | 2017 | Visit | SLEEP DISORDER [address] | [address] | Dx) | | | | [address] [place] | [place] | | | | | [place] [address] | [address] | | | | | [phone] | | | +--------+---------+ + + + [...] + | Blood Pressure | 132/60 | 04/04/2017 11:31 AM | | | | | PDT | | + + + + + | Pulse | 54 | 04/04/2017 11:31 AM | | | | | PDT | | + + + + + | Temperature | - | - | | + + + + + | Respiratory Rate | 16 | 04/04/2017 11:31 AM | | | | | PDT | | + + + + + | Oxygen Saturation | 98% | 04/04/2017 11:31 AM | | | | | PDT | | + + + + + | Inhaled Oxygen | - | - | | | Concentration | | | | + + + + + | Weight | 90.9 kg (200 lb 4.8 | 04/04/2017 11:31 AM | | | | oz) | PDT | | + + + + + | Height | - | - | | + + + + + | Body Mass Index | 27.17 | 12/02/2010 12:00 AM | | | | | PDT | | + + + + + documented in this encounter Progress Notes Ilan Roberts PA - 04/04/2017 11:30 AM PDT Subjective: Patient ID: Tommie Alexander is a 81 y.o. male. HPI last office visit: 01/14/2016 date of polysomnography: 07/17/2001 AHI: 28.7 O2%: 84.9% Machine type: ResMed S9 Escape Mask type: full face mask DME: [facility] [place] pressure: 9-15 cm Median: 9.9 cm 95%: 11.3 cm maxium: 12.3 cm Nights using CPAP: 351/365 % of nights >4 hours: 95% Average usage (all nights): 8:46 Average usage (nights used): 9:07 AHI: 1.7 "Ashwin" continues to do well with his CPAP compliance. He is wearing it on a nightly basis f or the duration of the night. He does not consider sleeping without his CPAP. He and his w hollie feel that he is doing well with his CPAP. He also has a history of napping during the d ay when he is inactive. He tries to be more active as much as possible. This has been more difficult during the last 9 months because he fell while hunting and has had a difficult ti me recovering from the fall. He says he didn't break anything, but he has continued to be s ore. He does not have any questions or concerns regarding his CPAP. His machine is six yea rs old and he is due for a replacement, but he says it is working fine. We discussed when adrian burrell is able to replace his equipment. We also discussed the recommended cleaning schedule for his equipment. He says he has not replaced his heated tube or humidifier in quite some beti burrell. I have discussed the download and paperwork in detail. This shows that his sleep apnea is controlled, with an AHI of 1.7. The ResMed S9 Escape does not measure leaks. He uses his o ld CPAP when traveling, which accounts for any nights missed. BP 132/60 | Pulse 54 | Resp 16 | Wt 90.9 kg (200 lb 4.8 oz) | SpO2 98% | BMI 27.17 kg/ m Review of Systems Objective: Physical Exam Assessment: Problem #1: OBSTRUCTIVE SLEEP APNEA ([id number]-N84.33) This is controlled with CPAP. His CPAP compliance is going well. Plan: 1. He is to continue with CPAP indefinitely. 2. I have recommended that he replace his heated tube and water chamber. 3. Touch base with medical supplier twice per year to ensure that all equipment is satisfa ctory. I will follow up again in 1 year, sooner prn. Twenty-five minutes were spent [id number], with the majority of time spent in counseling. Ilan Roberts PA-C cc: Ryley Novak MD Radha Sparks, French Teacher - 04/04/2017 11:30 AM PDTFormatting of this note might be different from the orig inal. 04/04/17 1100 Cohen Depression Inventory-II Depression Score 15 - Mild depression Insomnia Severity Index Insomnia Severity Index 17 Oakland Sleepiness Scale Sitting and reading 2 Watching TV 2 Sitting, inactive in a public place (e.g. a theatre or a meeting) 2 As a passenger in a car for an hour without a break 1 Lying down to rest in the afternoon when circumstances permit 3 Sitting and talking to someone 1 Sitting quietly after a lunch without alcohol 2 In a car, while stopped for a few minutes in traffic 0 Total score 13 SF-36v2 Score PF 34.58 RP 30.21 BP 38.21 GH 49.86 VT 40.72 SF 37.29 RE 35.28 MH 43.02 PCS 36.93 MCS 41.75 documented in this enco unter Plan of Treatment +--------+---------+ + + + | Date | Type | Specialty | Care Team | Description | +--------+---------+ + + + | 04/28/ | Office | Sleep Medicine | Ilan Roberts PA | | | 2019 | Visit | | [address] | | | | | | [place] | | | | | | [address] | | | | | | | | +--------+---------+ + + + | 07/07/ | Office | Nephrology | Eduardo Felder MD | | 2019 | Visit | | [address] [facility] | | | | | | [address] [place] | | | | | | [address] | | | | | | | | +--------+---------+ + + + documented as of this encounter Visit Diagnoses + + | Diagnosis | + + | JOVANI on CPAP - Primary Obstructive sleep apnea (adult) (pediatric) | + + documented in this encounter
--- OUTSIDE RECORDS SUMMARY | ~2020-04-19 | XMS | Encounter Summary ---
Demographics + + + | Address | [address] | | | [place] [address] | + + + | Home Phone | | + + + | Preferred Language | Unknown | + + + | Marital Status | | + + + | Tenriism Affiliation | Unknown | + + + | Race | White | + + + | Ethnic Group | Not or | + + + Author + + + | Author | [facility] | | | and [place] | + + + | Organization | [facility] | | | [...] + | Halima Alexander | ECON | [address] | | | | | [place] | | | | | [address] | | + + + + + Care Team Providers + +------+ + | Care Chipper Feeder Name | Role | Phone | + +------+ + | Garima Martin | PCP | | | PA | | | + +------+ + Encounter Details +--------+ + + + + | Date | Type | Department | Care Team | Description | +--------+ + + + + | 04/24/ | Orders Only | [facility] | Conversion | | | 2018 | | NEPHROLOGY [place] | Transaction, | | | | | [address] | Provider Unknown | | | | | [address] [facility] | | | | | | [address] | (Fax) | | | | | [phone] | | | +--------+ + + + [...] 2019 | Visit | | [address] | | | | | | [place] | | | | | | [address] | | | | | | | | +--------+---------+ + + + | 07/07/ | Office | Nephrology | Eduardo Felder MD | | | 2019 | Visit | | [address] [place] | | | | | | [address] [place] | | | | | | [address] | | | | | | | | +--------+---------+ + + + documented as of this encounter Procedures + +--------+ + + + | Procedure Name | Priori | Date/Time | Associated Diagnosis | Comments | | | ty | | | | + +--------+ + + + | EXTERNAL LAB: CBC | Routin | 04/24/2018 | | Results for this | | | e | 9:30 AM | | procedure are in the | | | | PDT | | results section. | + +--------+ + + + | KAPPA/LAMBDA LIGHT C | Routin | 04/24/2018 | | Results for this | | | e | 9:30 AM | | procedure are in the | | | | PDT | | results section. | + +--------+ + + + | COMPREHENSIVE | Routin | 04/24/2018 | | Results for this | | METABOLIC PANEL | e | 9:30 AM | | procedure are in the | | | | PDT | | results section. | + +--------+ + + + documented in this encounter Results Madrone/Lambda Light C (04/24/2018 9:30 AM PDT) + + + + + + | Component | Value | Ref Range | Performed | Pathologist | | | | | At | Signature | + + + + + + | Ig Madrone | 11.10 (A) | 0.33 - 1.94 | EXTERNAL | | | Free Light | | | LAB | | | Chain | | | | | + + + + + + | kaplamflc | 1.53 | 0.57 - 2.63 | EXTERNAL | | | | | | LAB | | + + + + + + | Madrone/Lambd | 7.25 (A) | 0.26 - 1.65 | EXTERNAL | | | a Free | | | LAB | | | Light Chain | | | | | | Ratio | | | | | + + + + + + + + | Specimen | + + | | + + + +---------+ + + | Performing | Address | City/State/Zipcode | Phone Number | | Organization | | | | + +---------+ + + | EXTERNAL LAB | | | | + +---------+ + + External Lab: CBC (04/24/2018 9:30 AM PDT) + + + + + + | Component | Value | Ref Range | Performed | Pathologist | | | | | At | Signature | + + + + + + | WBC | 4.8 | 4.5 - 11.0 10 | EXTERNAL | | | | | | LAB | | + + + + + + | Non- | 3.05 (A) | 4.3 - 5.7 10 | EXTERNAL | | | Red Blood | | | LAB | | | Cells | | | | | | Counted | | | | | + + + + + + | Hemoglobin | 10.2 (A) | 13.5 - 18.0 | EXTERNAL | | | | | g/dL | LAB | | + + + + + + | Hematocrit, | 31.1 (A) | 41 - 50 % | EXTERNAL | | | POC | | | LAB | | + + + + + + | MCV | 102 (A) | 81 - 99 fL | EXTERNAL | | | | | | LAB | | + + + + + + | MCH | 33 | 27 - 33 pg | EXTERNAL | | | | | | LAB | | + + + + + + | MCHC | 33 | 30 - 36 g/dL | EXTERNAL | | | | | | LAB | | + + + + + + | Platelet | 34 (A) | 140 - 440 K/ L | EXTERNAL | | | Count | | | LAB | | | Plasma | | | | | + + + + + + | RDW-CV | 14.3 | 10.5 - 15.0 % | EXTERNAL [...] | | | + +---------+ + + Comprehensive Metabolic Panel (04/24/2018 9:30 AM PDT) + + + + + + | Component | Value | Ref Range | Performed | Pathologist | | | | | At | Signature | + + + + + + | Glucose, | 103 (A) | 70 - 100 mg/dL | EXTERNAL | | | Fasting | | | LAB | | + + + + + + | BUN | 45 (A) | 6 - 23 mg/dL | EXTERNAL | | | | | | LAB | | + + + + + + | Creatinine | 2.13 (A) | 0.7 - 1.11 | EXTERNAL | | | | | mg/dL | LAB | | + + + + + + | BUN/Creatin | 21.1 | 6.0 - 28.6 | EXTERNAL | | | ine Ratio | | | LAB | | + + + + + + | Calcium | 8.8 | 8.5 - 10.3 | EXTERNAL | | | | | mg/dL | LAB | | + + + + + + | Protein, | 5.8 (A) | 6.0 - 8.3 g/dL | EXTERNAL | | | Total | | | LAB | | + + + + + + | Albumin | 3.6 | 3.5 - 5.0 | EXTERNAL | | | | | | LAB | | + + + + + + | Globulin | 2.2 | 1.8 - 3.5 | EXTERNAL | | | | | | LAB | | + + + + + + | A/G Ratio | 1.6 | 1.1 - 2.4 | EXTERNAL | | | | | | LAB | | + + + + + + | Bilirubin | 0.4 | 0.0 - 1.2 mg/dL | EXTERNAL | | | Total | | | LAB | | + + + + + + | ALP, | 44 | 31 - 120 | EXTERNAL | | | External | | | LAB | | + + + + + + | ALT | 11 | 7 - 52 U/L | EXTERNAL | | | | | | LAB | | + + + + + + | AST | 15 | 13 - 39 U/L | EXTERNAL | | | | | | LAB | | + + + + + + | Na | 140 | 132 - 143 | EXTERNAL | | | | | mmol/L | LAB | | + + + + + + | K | 4.6 | 3.6 - 5.1 | EXTERNAL | | | | | mmol/L | LAB | | + + + + + + | Cl | 105 | 95 - 112 mmol/L | EXTERNAL [...] + + + + | Estimated | 30 (A) | 60 mg/dL | EXTERNAL | [...]
--- OUTSIDE RECORDS SUMMARY | ~2020-04-19 | XMS | Encounter Summary ---
Demographics + + + | Address | [address] | | | [place] [address] | + + + | Home Phone | | + + + | Preferred Language | Unknown | + + + | Marital Status | | + + + | Synagogue Affiliation | Unknown | + + + | Race | White | + + + | Ethnic Group | Not or | + + + Author + + + | Author | [facility] | | | and [place] | + + + | Organization | [facility] | | [...] + | Halima Alexander | ECON | [address] | | | | | [place] | | | | | [address] | | + + + + + Care Team Providers + +------+ + | Care Synchro Assembler Name | Role | Phone | + [...] | | | | | Cervical | [address] | | | | | | Spine wo | [place] | | | | | | Contrast | [place] | | | | | | | [address] | | +--------+--------+ + + + + Encounter Details +--------+ + + + + | Date | Type | Department | Care Team | Description | +--------+ + + + + | 09/05/ | Imaging | [facility] | Provider, | | | 2017 | Exam | [facility] EXTER[facility] | Historical, [address] | | | | | IMAGING [address] | [place] | | | | | [address] [place] | [place] [address] | | | | | [place] [address] | | | | | | [phone] | | | +--------+ + + + [...] 2019 | Visit | | [address] | | | | | | [place] | | | | | | [address] | | | | | | | | +--------+---------+ + + + | 07/07/ | Office | Nephrology | Eduardo Felder MD | | | 2019 | Visit | | [address] [place] | | | | | | [address] [place] | | | | | | [address] | | | | | | | [...] for comparison only - no result from [place]. | | + + + + +---------+ + + | Performing | Address | City/State/Zipcode | Phone Number | | Organization | | | | + +---------+ + + | [facility] | | | | + +---------+ + + documented in this encounter Visit Diagnoses Not on filedocumented in this encounter"
--- OUTSIDE RECORDS SUMMARY | ~2020-04-19 | XMS | Encounter Summary ---
Demographics + + + | Address | [address] | | | [place] [address] | + + + | Home Phone | | + + + | Preferred Language | Unknown | + + + | Marital Status | | + + + | Sikh Affiliation | Unknown | + + + | Race | White | + + + | Ethnic Group | Not or | + + + Author + + + | Author | [facility] | | | and [place] | + + + | Organization | [facility] | | | [...] + | Halima Alexander | ECON | [address] | + | | | | [place] | | | | | [address] | | + + + + + Care Team Providers + +------+ + | Care Impregnation Operator Name | Role | Phone | + +------+ + | Garima Martin | PCP | + | | PA | | | + +------+ + Reason for Visit + +--------+ + | Reason | Onset | Comments | | | Date | | + +--------+ + | Medication Refill | 03/25/ | | | | 2019 | | + +--------+ + Encounter Details +--------+--------+ + + + | Date | Type | Department | Care Team | Description | +--------+--------+ + + + | 03/25/ | Refill | [facility] | Eduardo Felder MD | Medication Refill | | 2019 | | NEPHROLOGY JESSICA | [address] [facility] | | | | | [address] [facility] | [address] [place], [place] | | | | | [facility] [address] | [id number] | | | | | [place] | | | | | | [address] | | | | | | [phone] | | | +--------+--------+ + + + [...] this encounter Miscellaneous Notes Telephone Encounter - Jackie Dillard Field Agent - 03/25/2020 10:32 AM PDT----- Me arora from [facility] sent at 03/24/2020 8:24 AM PDT ----- Regarding: [facility]- Med refill Provider: [facility] patient called requesting a refill of: Medication name/dose/frequency: allopurinol (ZYLOPRIM) 100 mg tablet Sig - Route: Take 100 mg by mouth - Oral Pharmacy: [facility] [place] Have they contacted pharmacy: Yes Last OV: 12/31/2019 (must be within the past year or we cannot refill medication-options ar e to schedule follow up and we can refill until their next OV appt or they can get prescript ion from PCP if they do not choose to schedule). Next OV: 07/07/2020 He is aware that refill can take up to two business days to process request docum ented in this encounter Plan of Treatment +--------+---------+ + + + | Date | Type | Specialty | Care Team | Description | +--------+---------+ + + + | 04/28/ | Office | Sleep Medicine | Ilan Roberts PA | | 2019 | Visit | | [address] | | | | | | [place] | | | | | | [address] | | | | | | | | +--------+---------+ + + + | 07/07/ | Office | Nephrology | Eduardo Felder MD | | | 2019 | Visit | | [address] [place] | | | | | | [address] [place] | | | | | | [address] | | | | | | | | +--------+---------+ + + + documented as of this encounter Visit Diagnoses Not on filedocumented in this encounter"
--- OUTSIDE RECORDS SUMMARY | ~2020-04-19 | XMS | Encounter Summary ---
Demographics + + + | Address | [address] | | | [place] [address] | + + + | Home Phone [...] + + + | Author | [facility] | | | and [place] | + + + | Organization | [facility] | | [...] + | Halima Alexander | ECON | [address] | | | | | [place] | | | | | [address] | | + + + + + Care Team Providers + +------+ + | Care Senior Integration Developer Name | Role | Phone | + +------+ + PCP | Unavailable | + +------+ + Encounter Details +--------+ + + + + | Date | Type | Department | Care Team | Description | +--------+ + + + + | 01/30/ | Hospital | [facility] | | | | 2008 | Encounter | MED CTR LABORATORY | | | | | | [address] | | | | | | [place], [place] | | | | | | [address] | | | | | | [phone] | | | +--------+ + + + [...] 2019 | Visit | | [address] | | | | | | [place] | | | | | | [address] | | | | | | | | +--------+---------+ + + + | 07/07/ | Office | Nephrology | Eduardo Felder MD | | | 2019 | Visit | | [address] [place] | | | | | | [address] [place] | | | | | | [address] | | | | | | | | +--------+---------+ + + + documented as of this encounter Visit Diagnoses Not on filedocumented in this encounter"
--- OUTSIDE RECORDS SUMMARY | ~2020-04-19 | XMS | Encounter Summary ---
Demographics + + + | Address | [address] | | | [place] [address] | + + + | Home Phone | | + + + | Preferred Language | Unknown | + + + | Marital Status | | + + + | Restoration Affiliation | Unknown | + + + | Race | White | + + + | Ethnic Group | Not or | + + + Author + + + | Author | [facility] | | | and [place] | + + + | Organization | [facility] | | | [...] + | Halima Alexander | ECON | [address] | | | | | [place] | | | | | [address] | | + + + + + Care Team Providers + +------+ + | Care Outside Plant Field Engineer Name | Role | Phone | + +------+ + | Garima Martin | PCP | | | PA | | | + +------+ + Encounter Details +--------+ + + + + | Date | Type | Department | Care Team | Description | +--------+ + + + + | 12/30/ | Orders Only | [facility] | Eduardo Felder MD | Essential | | 2020 | | NEPHROLOGY [place] | [address] [place] | hypertension, benign | | | | [address] [place] | [address] [place], [place] | (Primary Dx); CKD | | | | [address] [place], [place] | [address] | (chronic kidney | | | | [address] | | disease) stage 3, | | | | [phone] | | GFR 30-59 ml/min | | | | | | (HCC); Persistent | | | | | | proteinuria | +--------+ + + + + Social [...] 2019 | Visit | | [address] | | | | | | [place] | | | | | | [address] | | | | | | | | +--------+---------+ + + + | 07/07/ | Office | Nephrology | Eduardo Felder MD | | | 2019 | Visit | | [address] [place] | | | | | | [address] [place] | | | | | | [address] | | | | | | | | +--------+---------+ + + + + +------+--------+ + + | Name | Type | Priori | Associated Diagnoses | Order Schedule | | | | ty | | | + +------+--------+ + + | Renal Function Panel | Lab | Routin | Essential | Expected: | | | | e | hypertension, benign | 05/02/2020, Expires: | | | | | CKD (chronic | 12/30/2020 | | | | | kidney disease) | | | | | | stage 3, GFR 30-59 | | | | | | ml/min (HCC) | | | | | | Persistent | | | | | | proteinuria | | + +------+--------+ + + | CBC with | Lab | Routin | Essential | Expected: | | Differential | | e | hypertension, benign | 05/02/2020, Expires: | | | | | CKD (chronic | 12/30/2020 | | | | | kidney disease) | | | | | | stage 3, GFR 30-59 | | | | | | ml/min (HCC) | | | | | | Persistent | | | | | | proteinuria | | + +------+--------+ + + | Parathyroid Hormone, | Lab | Routin | Essential | Expected: | | Intact | | e | hypertension, benign | 05/02/2020, Expires: | | | | | CKD (chronic | 12/30/2020 | | | | | kidney disease) | | | | | | stage 3, GFR 30-59 | | | | | | ml/min (HCC) | | | | | | Persistent | | | | | | proteinuria | | + +------+--------+ + + | Protein/Creatinine | Lab | Routin | Essential | Expected: | | Ratio, Urine | | e | hypertension, benign | 05/02/2020, Expires: | | | | | CKD (chronic | 12/30/2020 | | | | | kidney disease) | | | | | | stage 3, GFR 30-59 | | | | | | ml/min ([facility]) | | | | | | Persistent | | | | | | proteinuria | | + +------+--------+ + + documented as of this encounter Visit Diagnoses + + | Diagnosis | + + | Essential hypertension, benign - Primary | + + | CKD (chronic kidney disease) stage 3, GFR 30-59 ml/min (HCC) Chronic kidney disease, | | Stage III (moderate) | + + | Persistent proteinuria Proteinuria | + + documented in this encounter"
--- OUTSIDE RECORDS SUMMARY | ~2020-04-19 | XMS | Encounter Summary ---
Demographics + + + | Address | [address] | | | [place] [address] | + + + | Home Phone | | + + + | Preferred Language | Unknown | + + + | Marital Status | | + + + | Holiness Affiliation | Unknown | + + + | Race | White | + + + | Ethnic Group | Not or | + + + Author + + + | Author | [facility] | | | and [place] | + + + | Organization | [facility] | | | [...] + | Halima Alexander | ECON | [address] | | | | | [place] | | | | | [address] | | + + + + + Care Team Providers + +------+ + | Care Accounting Office Manager Name | Role | Phone | [...] | | | | | | MRI Lumbar | Historical, | | | | | | Spine wo | MD [address] | | | | | | Contrast | [place] [place] | | | | | | | [place] | | | | | | | [address] | | +--------+--------+ + + + + [...] | | | [address] [place] | [place] [address] | | | | | [place] [address] | | | | | | [phone] | | | +--------+ + + + [...] 2019 | Visit | | [address] | | | | | | [place] | | | | | | [address] | | | | | | | | +--------+---------+ + + + | 07/07/ | Office | Nephrology | Eduardo Felder MD | | | 2019 | Visit | | [address] [place] | | | | | | [address] [place] | | | | | | [address] | | | | | | | | +--------+---------+ + + + documented as of this encounter Procedures + +--------+ + + + | Procedure Name | Priori | Date/Time | Associated Diagnosis | Comments | | | ty | | | | + +--------+ + + + | MRI LUMBAR SPINE WO | Routin | 07/14/2017 | | Results for this | | CONTRAST | e | 10:00 AM | | procedure are in the | | | | PST | | results section. | + +--------+ + + + documented in this encounter Results MRI Lumbar Spine wo Contrast (07/14/2017 10:00 AM PST) + + | Specimen | + + | | + + + + + | Narrative | Performed At | + + + | External films | [facility] | | for comparison only - no result from [place]. | | + + + + +---------+ + + | Performing | Address | City/State/Zipcode | Phone Number | | Organization | | | | + +---------+ + + | [facility] | | | | + +---------+ + + documented in this encounter Visit Diagnoses Not on filedocumented in this encounter"
--- OUTSIDE RECORDS SUMMARY | ~2020-04-19 | XMS | Encounter Summary ---
Demographics + + + | Address | [address] | | | [place] [address] | + + + | Home Phone | | + + + | Preferred Language | Unknown | + + + | Marital Status | | + + + | Samaritan Affiliation | Unknown | + + + [...] + | Halima Alexander | ECON | [address] | | | | | [place] | | | | | [address] | | + + + + + Care Team Providers + +------+ + | Care Engineering Mgr Name | Role | Phone | + [...] Description | +--------+---------+ + + + | 04/21/ | Office | [facility] | Ilan Roberts PA | JOVANI on CPAP (Primary | | 2018 | Visit | SLEEP DISORDER [address] | [address] | Dx) | | | | [address] | [place] | | | | | [place] [address] | [id number] | | | | | [phone] | | | +--------+---------+ + + + [...] + + + | Blood Pressure | 120/60 | 04/21/2018 10:03 AM | | | | | PDT | | + + + + + | Pulse | 67 | 04/21/2018 10:03 AM | | | | | PDT | | + + + + + | Temperature | - | - | | + + + + + | Respiratory Rate | 16 | 04/21/2018 10:03 AM | | | | | PDT | | + + + + + | Oxygen Saturation | 98% | 04/21/2018 10:03 AM | | | | | PDT | | + + + + + | Inhaled Oxygen | - | - | | | Concentration | | | | + + + + + | Weight | 90.2 kg (198 lb 11.9 | 04/21/2018 10:03 AM | | | | oz) | PDT | | + + + + + | Height | - | - | | + + + + + | Body Mass Index | 26.95 | 02/17/2018 10:28 AM | | | | | PDT | | + + + + + documented in this encounter Progress Notes Ilan Roberts PA - 04/21/2018 10:00 AM PDT Subjective: Patient ID: Tommie Alexander is a 82 y.o. male. HPI last office visit: 04/04/2017 date of polysomnography: 07/17/2001 AHI: 28.7 O2%: 84.9% Machine type: ResMed AirSense 10. Mask type: full face mask DME: [facility] [place] pressure: 9-15 cm Median: 9.8 cm 95%: 12.0 cm maxium: 13.7 cm Nights using CPAP: 157/157 % of nights >4 hours: 100% Average usage (all nights): 8:29 Average usage (nights used): 8:29 AHI: 1.0 "Ashwin" comes in for CPAP compliance. He is wearing it on a regular basis for the duration of the night. He does not consider sleeping without his CPAP. He is now using a ResMed Air Sense 10. He feels it is working much better than his previous machine (ResMed S9 Escape). He especially likes the SmartStart feature. He does not have any questions or concerns reg arding his CPAP or equipment. I have discussed the download in detail. This shows that his sleep apnea is controlled, wi th an AHI of 1.0. It also shows that his leaks are controlled. He was recently diagnosed with multiple myeloma and is going through treatment. He says th e treatment is going well. BP 120/60 | Pulse 67 | Resp 16 | Wt 90.2 kg (198 lb 11.9 oz) | SpO2 98% | BMI 26.95 kg /m Review of Systems Objective: Physical Exam Assessment: Problem #1: OBSTRUCTIVE SLEEP APNEA (QWS78-G54.33) This is controlled with CPAP. His CPAP compliance is going well. Plan: 1. He is to continue with CPAP indefinitely. 2. Touch base with medical supplier twice per year to ensure that all equipment is satisfa ctory. I will follow up again in 1 year, sooner prn. Fifteen minutes were spent [id number], wit h the majority of time spent in counseling. Ilan Roberts PA-C cc: AMANDA Dennison documented in this enco unter Plan of Treatment +--------+---------+ + + + | Date | Type | Specialty | Care Team | Description | +--------+---------+ + + + | 04/28/ | Office | Sleep Medicine | Ilan Roberts PA | | | 2019 | Visit | | [address] | | | | | | [place] | | | | | | [address] | | | | | | | | +--------+---------+ + + + | 07/07/ | Office | Nephrology | Eduardo Felder MD | | | 2019 | Visit | | [address] [place] | | | | | | [address] [place] | | | | | | [address] | | | | | | | | +--------+---------+ + + + documented as of this encounter Visit Diagnoses + + | Diagnosis | + + | JOVANI on CPAP - Primary Obstructive sleep apnea (adult) (pediatric) | + + documented in this encounter
--- OUTSIDE RECORDS SUMMARY | ~2020-04-19 | XMS | Encounter Summary ---
Demographics + + + | Address | [address] | | | [place] [address] | + + + | Home Phone [...] + | Halima Alexander | ECON | [address] | | | | | [place] | | | | | [address] | | + + + + + Care Team Providers + +------+ + | Care Area Operations Manager Name | Role | Phone | [...] + + | 04/23/ | Refill | [facility] | Eduardo Felder MD | Medication Refill | | 2019 | | NEPRHOLOGY [place] | [address] | | | | | [address] | [address] [place], [place] | | | | | [address] [place], [place] | [address] | | | | | [address] | | | | | | [phone] | | | +--------+--------+ + + + [...] Miscellaneous Notes Telephone Encounter - Ching Gonsales Detective Narcotics And Vice - 04/23/2019 10:09 AM PDTReceived fa x [...] [place] | | | | | | [address] | | | | | | | | +--------+---------+ + + + documented as of this encounter Visit Diagnoses + + | Diagnosis | + + | CKD (chronic kidney disease) stage 3, GFR 30-59 ml/min ([facility]) - Primary Chronic kidney | | disease, Stage III (moderate) | + + | Essential hypertension, benign | + + documented in this encounter"
--- OUTSIDE RECORDS SUMMARY | ~2020-04-19 | XMS | Encounter Summary ---
Demographics + + + | Address | [address] | | | [place] [address] | + + + | Home Phone | | + + + | Preferred Language | Unknown | + + + | Marital Status | | + + + | Rastafarian Affiliation | Unknown | + + + | Race | White | + + + | Ethnic Group | Not or | + + + Author + + + | Author | [facility] | | | and [place] | + + + | Organization | [facility] | | | [...] + | Halima Alexander | ECON | [address] | | | | | [place] | | | | | [address] | | + + + + + Care Team Providers + +------+ + | Care Fence Repairman Name | Role | Phone | + +------+ + PCP | Unavailable | + +------+ + Encounter Details +--------+ + + + + | Date | Type | Department | Care Team | Description | +--------+ + + + + | 03/13/ | Hospital | [facility] | [facility] | | | 2001 | Encounter | MED CTR SLEEP | MD lAba [address] | | | | | YODER [address] | [address] [facility] | | | | | [place], [place] | [place] [address] | | | | | [address] | [phone] | | | | | [phone] | | | +--------+ + + + [...] [place] | | | | | | [id number] | | | | | | | | +--------+---------+ + + + | 07/07/ | Office | Nephrology | Eduardo Felder MD | | | 2019 | Visit | | [address] [place] | | | | | | [address] [facility] | | | | | | [address] | | | | | | | | +--------+---------+ + + + documented as of this encounter Visit Diagnoses Not on filedocumented in this encounter"
--- OUTSIDE RECORDS SUMMARY | ~2020-04-19 | XMS | Encounter Summary ---
Demographics + + + | Address | [address] | | | [place] [address] | + + + | Home Phone | | + + + | Preferred Language | Unknown | + + + | Marital Status | | + + + | Cheondoism Affiliation | Unknown | + + + | Race | White | + + + | Ethnic Group | Not or | + + + Author + + + | Author | [facility] | | | and [place] | + + + | Organization | [facility] | | | and [...] + | Halima Alexander | ECON | [address] | | | | | [place] | | | | | [address] | | + + + + + Care Team Providers + +------+ + | Care Embossing Press Operator Name | Role | Phone | + +------+ + | Garima Martin | PCP | | | PA | | | + +------+ + Encounter Details +--------+ + + + + | Date | Type | Department | Care Team | Description | +--------+ + + + + | 08/09/ | Orders Only | [facility] | Conversion | | | 2018 | | NEPHROLOGY [place] | Transaction, | | | | | [address] | Provider Unknown | | | | | [address] [facility] | | | | | | [address] | (Fax) | | | | | [phone] | | | +--------+ + + + [...] 2019 | Visit | | [address] | | | | | | [place] | | | | | | [address] | | | | | | | | +--------+---------+ + + + | 07/07/ | Office | Nephrology | Eduardo Felder MD | | | 2019 | Visit | | [address] [place] | | | | | | [address] [place] | | | | | | [address] | | | | | | | [...]
--- OUTSIDE RECORDS SUMMARY | ~2020-04-19 | XMS | Encounter Summary ---
Demographics + + + | Address | [address] | | | [place] [address] | + + + | Home Phone | | + + + | Preferred Language | Unknown | + + + | Marital Status | | + + + | Congregational Affiliation | Unknown | + + + | Race | White | + + + | Ethnic Group | Not or | + + + Author + + + | Author | [facility] | | | and [place] | + + + | Organization | [facility] | | | [...] + | Halima Alexander | ECON | [address] | | | | | [place] | | | | | [address] | | + + + + + Care Team Providers + +------+ + | Care Missile Tracking Technician Name | Role | Phone | + [...] Description | +--------+--------+ + + + | 08/15/ | Refill | [facility] | Eduardo Felder MD | Medication Refill | | 2019 | | NEPHROLOGY [place] | [address] [facility] | | | | | [address] [facility] | [address] [place], [place] | | | | | [facility] 115 | [id number] | | | | | [place], [place] | | | | | | [address] | | | | | | [phone] | | | +--------+--------+ + + + [...] Miscellaneous Notes Telephone Encounter - Ching Gonsales Certified Nurse Aide - 08/15/2019 2:02 PM PSTLast office visit 07/02/2019 Next office visit 12/31/2019 document ed in this encounter Plan of Treatment +--------+---------+ + + + | Date | Type | Specialty | Care Team | Description | +--------+---------+ + + + | 04/28/ | Office | Sleep Medicine | Ilan Roberts PA | | | 2019 | Visit | | [address] | | | | | | [place] | | | | | | [address] | | | | | | | | +--------+---------+ + + + | 07/07/ | Office | Nephrology | Eduardo Felder MD | | 2019 | Visit | | [address] [place] | | | | | | [address] [place] | | | | | | [address] | | | | | | | [...]
--- OUTSIDE RECORDS SUMMARY | ~2020-04-19 | XMS | Encounter Summary ---
Demographics + + + | Address | [address] | | | [place] [address] | + + + | Home Phone [...] + | Halima Alexander | ECON | [address] | | | | | [place] | | | | | [address] | | + + + + + Care Team Providers + +------+ + | Care Public Affairs Specialist Name | Role | Phone | [...] + + | 04/24/ | Office | [facility] | Ilan Roberts PA | JOVANI on CPAP (Primary | | 2019 | Visit | SLEEP DISORDER [address] | [address] | Dx) | | | | [address] | [place] | | | | | [place] [address] | [address] | | | | | [phone] | | | +--------+---------+ + + + [...] + + + | Blood Pressure | 130/50 | 04/24/2019 9:59 AM | | | | | PDT | | + + + + + | Pulse | 52 | 04/24/2019 9:59 AM | | | | | PDT | | + + + + + | Temperature | - | - | | + + + + + | Respiratory Rate | 16 | 04/24/2019 9:59 AM | | | | | PDT | | + + + + + | Oxygen Saturation | 99% | 04/24/2019 9:59 AM | | | | | PDT | | + + + + + | Inhaled Oxygen | - | - | | | Concentration | | | | + + + + + | Weight | 91.5 kg (201 lb 11.5 | 04/24/2019 9:59 AM | | | | oz) | PDT | | + + + + + | Height | - | - | | + + + + + | Body Mass Index | 27.36 | 12/25/2018 9:33 AM | | | | | PDT | | + + + + + documented in this encounter Progress Notes Ilan Roberts, AMANDA - 04/24/2019 10:00 AM PDT Subjective: Patient ID: Tommie Wise is a 83 y.o. male. HPI last office visit: 04/21/2018 date of polysomnography: 07/17/2001 AHI: 28.7 O2%: 84.9% Machine type: ResMed AirSense 10. Mask type: full face mask DME: [facility] [place] pressure: 9-15 cm Median: 10.1 cm 95%: 12.5 cm maxium: 14.3 cm Nights using CPAP: 351/365 % of nights >4 hours: 96% Average usage (all nights): 8:53 Average usage (nights used): 9:14 AHI: 1.4 "Ashwin" comes in for CPAP compliance. He is wearing it on a regular basis for the duration of the night. He does not consider sleeping without his CPAP. He continues to do well with his ResMed AirSense 10. He especially likes the SmartStart feature. He does not have any questions or concerns regarding his CPAP. I have discussed the download in detail. This shows that his sleep apnea is controlled, wi th an AHI of 1.4. It also shows that his leaks are controlled. He was recently diagnosed with multiple myeloma, but is doing well. He was taken off chemo therapy and is doing well. Review of Systems Objective: Physical Exam BP 130/50 | Pulse 52 | Resp 16 | Wt 91.5 kg (201 lb 11.5 oz) | SpO2 99% | BMI 27.36 kg /m Assessment: Problem #1: OBSTRUCTIVE SLEEP APNEA (NNF83-H80.33) This is controlled with CPAP. His CPAP compliance is going well. Plan: 1. He is to continue with CPAP indefinitely. 2. Touch base with medical supplier twice per year to ensure that all equipment is satisfa ctory. I will follow up again in 1 year, sooner prn. Fifteen minutes were spent [id number], wit h the majority of time spent [...] 2019 | Visit | | [address] | | | | | | [place] | | | | | | [id number] | | | | | | | | +--------+---------+ + + + | 07/07/ | Office | Nephrology | Eduardo Felder MD | | | 2019 | Visit | | [address] [place] | | | | | | [address] [place] | | | | | | [address] | | | | | | | | +--------+---------+ + + + documented as of this encounter Visit Diagnoses + + | Diagnosis | + + | JOVANI on CPAP - Primary Obstructive sleep apnea (adult) (pediatric) | + + documented in this encounter
--- OUTSIDE RECORDS SUMMARY | ~2020-04-19 | XMS | Encounter Summary ---
Demographics + + + | Address | [address] | | | [place] [address] | + + + | Home Phone | | + + + | Preferred Language | Unknown | + + + | Marital Status | | + + + | Confucianism Affiliation | Unknown | + + + | Race | White | + + + | Ethnic Group | Not or | + + + Author + + + | Author | [facility] | | | and [place] | + + + | Organization | [facility] | | | [...] + | Halima Alexander | ECON | [address] | | | | | [place] | | | | | [address] | | + + + + + Care Team Providers + +------+ + | Care Distance Education Director Name | Role | Phone | + +------+ + | Garima Martin | PCP | | | PA | | | + +------+ + Encounter Details +--------+ + + + + | Date | Type | Department | Care Team | Description | +--------+ + + + + | 03/13/ | Orders Only | [facility] | Conversion | | | 2018 | | NEPHROLOGY [place] | Transaction, | | | | | [address] | Provider Unknown | | | | | [address] [facility] | | | | | | [address] | (Fax) | | | | | [phone] | | | +--------+ + + + [...] 2019 | Visit | | [address] | | | | | | [place] | | | | | | [address] | | | | | | | | +--------+---------+ + + + | 07/07/ | Office | Nephrology | Eduardo Felder MD | | | 2019 | Visit | | [address] [place] | | | | | | [address] [place] | | | | | | [address] | | | | | | | [...] | + +-------+ + + + | Non- | | 10 | EXTERNAL | | | Red [...] | | | LAB | | | [place] | | | | | + + [...]
--- OUTSIDE RECORDS SUMMARY | ~2020-04-19 | XMS | Encounter Summary ---
Demographics + + + | Address | [address] | | | [place] [address] | + + + | Home Phone | | + + + | Preferred Language | Unknown | + + + | Marital Status | | + + + | Islam Affiliation | Unknown | + + + | Race | White | + + + | Ethnic Group | Not or | + + + Author + + + | Author | [facility] | | | and [place] | + + + | Organization | [facility] | | | and [...] + | Halima Alexander | ECON | [address] | | | | | [place] | | | | | [address] | | + + + + + Care Team Providers + +------+ + | Care Cook [employer] Name | Role | Phone | + [...] + + | 01/13/ | Office | [facility] [place] | Ilan Roberts PA | JOVANI on CPAP (Primary | | 2016 | Visit | SLEEP DISORDER [address] | [address] | Dx) | | | | [address] [place] | [place] | | | | | [place] [address] | [address] | | | | | [phone] | | | +--------+---------+ + + + [...] + documented in this encounter Progress Notes lIan Roberts PA - 01/14/2016 10:43 AM PDT Subjective: Patient ID: Tommie Alexander is a 80 y.o. male. HPI last office visit was: 07/15/2015 date of polysomnography: 07/17/2001 AHI: 28.7 O2%: 84.9% Machine type: ResMed S9 Escape with full face mask obtained from: [facility] [place] pressure is: 9-15 cm Median: 10.1 cm [...] Exam Assessment: Problem #1: OBSTRUCTIVE SLEEP APNEA (EUB69-J97.33) This is controlled with CPAP. His CPAP compliance is going well. Plan: 1. He is to continue with CPAP indefinitely. I will follow up again in 1 year, sooner prn. Twenty-five minutes were spent gayc-rl-[id number], with the majority of time spent in [...] 2019 | Visit | | [address] | | | | | | [place] | | | | | | [address] | | | | | | | | +--------+---------+ + + + | 07/07/ | Office | Nephrology | Eduardo Felder MD | | | 2019 | Visit | | [address] [place] | | | | | | [address] [facility] | | | | | | [address] | | | | | | | | +--------+---------+ + + + documented as of this encounter Visit Diagnoses + + | Diagnosis | + + | JOVANI on CPAP - Primary Obstructive sleep apnea (adult) (pediatric) | + + documented in this encounter
--- OUTSIDE RECORDS SUMMARY | ~2020-04-19 | XMS | Encounter Summary ---
Demographics + + + | Address | [address] | | | [place] [address] | + + + | Home Phone | | + + + | Preferred Language | Unknown | + + + | Marital Status | | + + + | Mandaen Affiliation | Unknown | + + + | Race | White | + + + | Ethnic Group | Not or | + + + Author + + + | Author | [facility] | | | and [place] | + + + | Organization | [facility] | | [...] + | Halima Alexander | ECON | [address] | | | | | [place] | | | | | [address] | | + + + + + Care Team Providers + +------+ + | Care Fitness Studies Teacher Name | Role | Phone | [...] + + | 07/15/ | Office | [facility] [place] [facility] | Ilan Roberts PA | JOVANI on CPAP (Primary | | 2014 | Visit | SLEEP DISORDER [address] | [address] | Dx) | | | | [address] | [place] | | | | | [place] [address] | [address] | | | | | [phone] | | | +--------+---------+ + + + [...] mask obtained from: [facility] [place] pressure is: 9-15 cm Median: 10.0 cm [...] Exam Assessment: Problem #1: OBSTRUCTIVE SLEEP APNEA (PZX30-B23.33) This is controlled with CPAP. His CPAP compliance is going well. Plan: 1. He is to continue with CPAP indefinitely. I will follow up again in 1 year, sooner prn. Thirty minutes were spent [id number], with the majority of time spent in [...] [place] | | | | | | [id number] | | | | | | | | +--------+---------+ + + + | 07/07/ | Office | Nephrology | Eduardo Felder MD | | | 2020 | Visit | | [address] [facility] | | | | | | [address] [place] | | | | | | [address] | | | | | | | | +--------+---------+ + + + documented as of this encounter Visit Diagnoses + + | Diagnosis | + + | JOVANI on CPAP - Primary Obstructive sleep apnea (adult) (pediatric) | + + documented in this encounter
--- OUTSIDE RECORDS SUMMARY | ~2020-04-19 | XMS | Encounter Summary ---
Demographics + + + | Address | [address] | | | [place] [address] | + + + | Home Phone | | + + + | Preferred Language | Unknown | + + + | Marital Status | | + + + | Shinto Affiliation | Unknown | + + + | Race | White | + + + | Ethnic Group | Not or | + + + Author + + + | Author | [facility] | | | and [place] | + + + | Organization | [facility] | | | and [...] + | Halima Alexander | ECON | [address] | | | | | [place] | | | | | [address] | | + + + + + Care Team Providers + +------+ + | Care Signing Teacher Name | Role | Phone | + +------+ + | Garima Martin | PCP | | | PA | | | + +------+ + Encounter Details +--------+ + + + + | Date | Type | Department | Care Team | Description | +--------+ + + + + | 01/02/ | Orders Only | [facility] | Eduardo Felder MD | | | 2018 | | NEPHROLOGY [place] | [address] [place] | | | | | [address] [place] | [address] [place], [place] | | | | | [address] [facility] [place] | [address] | | | | | [address] | | | | | | [phone] | | | +--------+ + + + [...] 2019 | Visit | | [address] | | | | | | [place] | | | | | | [address] | | | | | | | | +--------+---------+ + + + | 07/07/ | Office | Nephrology | Eduardo Felder MD | | | 2019 | Visit | | [address] [place] | | | | | | [address] [facility] | | | | | | [address] | | | | | | | [...] + +---------+ + + External Lab: CBC (01/02/2018 10:15 AM PDT) + + + [...] + + + + | Non- | 2.97 (A) | 4.3 - 5.7 [...]
--- OUTSIDE RECORDS SUMMARY | ~2020-04-19 | XMS | Encounter Summary ---
Demographics + + + | Address | [address] | | | [place] [address] | + + + | Home Phone | | + + + | Preferred Language | Unknown | + + + | Marital Status | | + + + | Mu-Ism Affiliation | Unknown | + + + | Race | White | + + + | Ethnic Group | Not or | + + + Author + + + | Author | [facility] | | | and [place] | + + + | Organization | [facility] | [...] + | Halima Alexander | ECON | [address] | | | | | [place] | | | | | [address] | | + + + + + Care Team Providers + +------+ + | Care Transfer Clerk Name | Role | Phone | + +------+ + | Garima Martin | PCP | | | PA | | | + +------+ + Encounter Details +--------+ + + + + | Date | Type | Department | Care Team | Description | +--------+ + + + + | 04/13/ | Orders Only | [facility] | Eduardo Felder MD | Chronic kidney | | 2019 | | NEPRHOLOGY [place] | [address] | disease, stage III | | | | [address] | [address] [place], [place] | (moderate) (HCC); | | | | [address] [place], [place] | [address] | Essential (primary) | | | | [address] | | hypertension; | | | | [phone] | | Localized edema; | | | [...] [place] | | | | | | [address] | | | | | | | | +--------+---------+ + + + | 07/07/ | Office | Nephrology | Eduardo Felder MD | | | 2019 | Visit | | [address] [place] | | | | | | [address] [place] | | | | | | [address] | | | | | | | [...] Expires: | | | | | (moderate) ([facility]) | 12/26/2019 | | | | | Essential (primary) | | | | | | hypertension | | + +------+--------+ + + | Parathyroid Hormone, | Lab | Routin | Chronic kidney | Expected: | | Intact | | e | disease, stage III | 06/26/2019, Expires: | | | | | (moderate) ([facility]) | 12/26/2019 | | | | | Essential (primary) | | | | | | hypertension | | + +------+--------+ + + | Urinalysis with | Lab | Routin | Chronic kidney | Expected: | | Microscopic if | | e | disease, stage III | 06/26/2019, Expires: | | Indicated | | | (moderate) ([facility]) | 12/26/2019 | | | | | [...] | Chronic kidney disease, stage III (moderate) ([facility]) Chronic kidney disease, Stage III | | [...]
--- OUTSIDE RECORDS SUMMARY | ~2020-04-19 | XMS | Encounter Summary ---
Demographics + + + | Address | [address] | | | [place] [address] | + + + | Home Phone [...] + + + | Author | [facility] | | | and [place] | + + + | Organization | [facility] | | | [...] + | Halima Alexander | ECON | [address] | + | | | | [place] | | | | | [address] | | + + + + + Care Team Providers + +------+ + | Care Dam Tender Name | Role | Phone | + [...] | achieved | [address] | [place] [address] | | | | | remission | [address] | Phone: | | | | | (HCC) | [place], | [phone] | | | | | Procedures | [place] [address] | Fax: | | | | | [place] NORMAL | Phone: | [phone] | | | | | SALINE | [phone] | | | | | | SOLUTION | Fax: | | | | | | INFUS, 500 | [phone] | | | | | | ML [place] | | | | | | | NORMAL | | | | | | | SALINE | | | | | | | SOLUTION | | | | | | | INFUS, 250 | | | | | | | ML [place] | | | | | | | STERILE | | | | | | | WATER/SALINE | | | | | | | , 10 ML [place] | | | | | | | CHEMOTHER, | | | | | | | IV PUSH,EA | | | | | | | ADD DRUG [place] | | | | | | | CHEMOTHER, | | | | | | | IV INFUSION, | | | | | | | 1 HR [place] | | | | | | | CHEMOTHER, | | | | | | | IV INFUSION, | | | | | | | EA HR [place] | | | | | | | CHEMOTHER,NO | | | | | | | N-HORMONE | | | | | | | ANTI-NEOPL, | | | | | | | SUB-Q/IM [place] | | | | | | | CHEMOTHER | | | | | | | HORMON | | | | | | | ANTINEOPL | | | | | | | SUB-Q/IM [place] | | | | | | | ONDANSETRON | | | | | | | 4 MG [place] | | | | | | | INJ., | | | | | | | VELCADE 0.1 | | | | | | | MG [place] | | | | | | | [...] + + | 02/21/ | Hospital | [facility] | Rodríguez Mortensen | Multiple myeloma not | | 2020 | Encounter | MED CTR CHEMO | E, [address] | having achieved | | | | INFUSION [address] [place] | remission (HCC) | | | | [place], | [address] | (Primary Dx) | | | | [place] [address] | | | | | | [phone] | | | +--------+ + + + [...] self. Has return appts schedu led for piero. documented in this encounter Miscellaneous Notes Treatment [...] 2019 | Visit | | [address] | | | | | | [place] | | | | | | [address] | | | | | | | | +--------+---------+ + + + | 07/07/ | Office | Nephrology | Eduardo Felder MD | | 2019 | Visit | | [address] [place] | | | | | | [address] [place] | | | | | | [address] | | | | | | | [...] | bortezomib (VELCADE) injection | Given | 02/22/20 | 2.2 mg | | Abdomen- | | 2.2 mg 2.2 mg (rounded from 2 | | 20 10:39 | | | LLQ | | mg = 1 mg/m2 | | AM PDT | | | | | 2.19 m2 Order-specific BSA), | | | | | | | Subcutaneous, ONCE, 02/22/20 | | | | | | | [...]
--- OUTSIDE RECORDS SUMMARY | ~2020-04-19 | XMS | Encounter Summary ---
Demographics + + + | Address | [address] | | | [place] [address] | + + + | Home Phone [...] + + + | Author | [facility] | | | and [place] | + + + | Organization | [facility] | | | [...] + | Halima Alexander | ECON | [address] | | | | | [place] | | | | | [address] | | + + + + + Care Team Providers + +------+ + | Care Seed Sorter Name | Role | Phone | + +------+ + | Garima Martin | PCP | | | PA | | | + +------+ + Encounter Details +--------+ + + + + | Date | Type | Department | Care Team | Description | +--------+ + + + + | 12/21/ | Orders Only | [facility] | Conversion | | | 2019 | | NEPHROLOGY [place] | Transaction, | | | | | [address] | Provider Unknown | | | | | [address] [facility] | | | | | | [address] | (Fax) | | | | | [phone] | | | +--------+ + + + [...] 2019 | Visit | | [address] | | | | | | [place] | | | | | | [address] | | | | | | | | +--------+---------+ + + + | 07/07/ | Office | Nephrology | Eduardo Felder MD | | | 2019 | Visit | | [address] [place] | | | | | | [address] [place] | | | | | | [address] | | | | | | | [...]
--- OUTSIDE RECORDS SUMMARY | ~2020-04-19 | XMS | Encounter Summary ---
Demographics + + + | Address | [address] | | | [place] [address] | + + + | Home Phone | | + + + | Preferred Language | Unknown | + + + | Marital Status | | + + + | Christianity Affiliation | Unknown | + + + [...] + | Halima Alexander | ECON | [address] | | | | | [place] | | | | | [address] | | + + + + + Care Team Providers + +------+ + | Care Clinical Informaticist Name | Role | Phone | + [...] + + | 11/01/ | Office | [facility] | Mya, | Chronic bilateral | | 2018 | Visit | PHYSIATRY [address] | [address] [address] | low back pain with | | | | [address] | [address] | right-sided sciatica | | | | [place], [place] | [place] [address] | (Primary Dx); | | | | [address] | [phone] | Spinal stenosis of | | | | [phone] | | lumbar region with | | [...] of the procedure you must provide a driver wheelchair to take you home. For all procedur es it is recommended that someone else drive you home. documented in this encounter Progress Notes Cristy Roque PA-C - 11/01/2017 10:00 AM PSTFormatting of this note might be differe nt from the original. Cristy Roque PA-C [address] [facility], [address] [place] [address] FAX: PHYSICAL MEDICINE AND REHABILITATION H&P CHIEF [...] rrently is doing at the rack in [place], use of tramadol, use of NSAIDs. He [...] has no apparent deficits with short or superintendent terminal memory. He has appropriate fund of knowledge [...] BY: Cristy Roque PA-C, 11/01/2017 CC: Garima Martin 10:4 9 AM PSTdocumented in this encounter [...] [place] | | | | | | [id number] | | | | | | | | +--------+---------+ + + + | 07/07/ | Office | Nephrology | Eduardo Felder MD | | | 2019 | Visit | | [address] [facility] | | | | | | [address] [place], [place] | | | | | | [address] | | | | | | | [...]
--- OUTSIDE RECORDS SUMMARY | ~2020-04-19 | XMS | Encounter Summary ---
Demographics + + + | Address | [address] | | | [place] [address] | + + + | Home Phone [...] + + + | Author | [facility] | | | and [place] | + + + | Organization | [facility] | | | [...] + | Halima Alexander | ECON | [address] | | | | | [place] | | | | | [address] | | + + + + + Care Team Providers + +------+ + | Care Pharmacy Retail Support Specialist Name | Role | Phone | + +------+ + | Garima Martin | PCP | + | | PA | | | + +------+ + Reason for Visit + + + | Reason | Comments | + + + | Follow-up | | + + + Evaluate & Treat (Routine) + +--------+ + + + + | Status | Reason | Specialty | Diagnoses / | Referred By | Referred To | | | | | Procedures | Contact | Contact | + +--------+ + + + + | Authorizatio | | Oncology | Diagnoses | | [facility] | | n not | | | Multiple | Brenda, | Oncology | | Required | | | myeloma not | Malcolm Parsons, | Clinic [address] | | | | | having | MD [address] | [place] | | | | | achieved | [place], | [place], | | | | | remission | [address] | [place] [address] | | | | | (HCC) | [place], | Phone: | | | | | Multiple | [place] [address] | [phone] | | | | | myeloma not | | Fax: | | | | | having | | [phone] | | | | | achieved | | | | | | | remission | | | | | | | (HCC) | | | | | | | Procedures | | | | | | | [address] | | | + +--------+ + + + + Encounter Details +--------+ + + + + | Date | Type | Department | Care Team | Description | +--------+ + + + + | 02/14/ | Hospital | [facility] | Rodríguez Mortensen | Multiple myeloma not | | 2020 | Encounter | MED CTR MEDICAL | MD [place] [address] | having achieved | | | | ONCOLOGY CLINIC [address] | [place], [place] | remission (HCC) | | | | [address] | [address] | (Primary Dx) | | | | [place] [address] | | | | | | [phone] | | | +--------+ + + + [...] + + + | Blood Pressure | 137/63 | 02/15/2020 10:09 AM | | | | | PDT | | + + + + + | Pulse | 55 | 02/15/2020 10:06 AM | | | | | PDT | | + + + + + | Temperature | 36.8 C (98.3 F) | 02/15/2020 10:06 AM | | | | | PDT | | + + + + + | Respiratory Rate | 18 | 02/15/2020 10:06 AM | | | | | PDT | | + + + + + | Oxygen Saturation | 99% | 02/15/2020 10:06 AM | | | | | PDT | | + + + + + | Inhaled Oxygen | - | - | | | Concentration | | | | + + + + + | Weight | 93.1 kg (205 lb 4 | 02/15/2020 10:06 AM | | | | oz) | PDT | | + + + + + | Height | - | - | | + + + + + | Body Mass Index | 27.84 | 07/02/2019 10:36 AM | | | [...] documented as of this encounter Progress Notes Rodríguez Mortensen MD - 02/15/2020 10:00 AM PDTMedical Oncology Follow-Up Note REASON FOR VISIT Current Diagnosis and Disease State: Recurrent smoldering myeloma Current Therapy: To start CyBorD on weekly schedule Specific reason for appointment: C1, D1 INTERVAL HISTORY AND SYSTEM REVIEW Current Performance Status: 3 Systematic Review of Systems Constitutional: Reports ongoing decreased energy levels, slight worsening. Denies high fev ers, shaking chills, anorexia, nausea, vomiting, weight loss, or night sweats. Appetite wit hout changes. Ear, Nose, Mouth, Throat: Reports ongoing tinnitus. Denies odynophagia, dysphagia. Cardiovascular: Reports ongoing dyspnea with exertion. Denies shortness of breath,chest pa in, palpitations or orthopnea. Respiratory: Denies cough, hemoptysis, or sputum production. Gastrointestinal: Denies abdominal pain, constipation, diarrhea, melena, or bright red bloo d per rectum. Genitourinary: Reports rare blood in urine, 3 weeks ago urine was clear. Denies dysuria. Musculoskeletal: Reports pain low back, right hip and down his right leg, reports knee join t pain, pain level varies, treats with tylenol and tramadol. Neurologic: Reports unstable walking, using a walker, cane has grab bars at home. Ongoing numbness in left fingers, wakes in the night with bilateral hand numbness. Denies headache, visual changes.. Endocrine: Reports ongoing lower extremity edema. Denies heat/cold intolerance. Hematologic: Reports ongoing easily bruised. Denies spontaneous bleeding. Integumentary: Denies rash, wounds or other skin concerns. Pain:Reports pain low back, right hip and down his right leg, reports knee joint pain, pain level varies, treats with tylenol and tramadol. CANCER HISTORY Mr. Glen Wise was found to have progressive anemia and had BMBx 09/14/17 with finding of IgG kappa myeloma. He had 10% Pcs, and trisomy 15. Baselines: Creat 2.1, B2M 7.3, CA 8.4, Hgb 10 .3, M-Jono 0.4, 265 mg/24 hr kappa in urine. It was decided to treat his smoldering myeloma at age 82 (likely because of excess light ch ains in context of pre-existing renal compromise from polycystic disease) and thus he rec'd Velcade and Dex from 11/15/17 to May 2018, by which time he had neuropathy and thrombocytopen ia. A BMBx on 01/18/20 showed 15% monotypic PCs. FISH was now normal. A course of CyBorD has now been identified as the preferred management. PHYSICAL EXAM Appearance: Elderly and frail. Very unsteady on his feet. Uses cane, but has significant ri sk of falls despite that. NOTABLE CURRENT LAB AND IMAGING RESULTS Creat: 2.1 Calcium: 8.9 Albumin: 4.0 Hgb: 9.2 ANC: 3290 PLT: 141 IMPRESSION 1. Smoldering myeloma (if one ascribes his anemia to chronic renal disease and his elevated creat to polycystic renal disease, then he does not have CRAB and does not meet criteria fo r full blown myeloma) in 84 yr old with polycystic kidney disease and significant pre-Rx ane lima. PLAN 1. C1, D1 CyBorD as previously planned by Dr. Gutierrez 2. Subsequent therapy in [place]. Lynn Sommer RN - 02/15/2020 10:00 AM PDTREVIEW OF SYSTEMS Constitutional: Reports ongoing decreased energy levels, slight worsening. Denies high fev ers, shaking chills, anorexia, nausea, vomiting, weight loss, or night sweats. Appetite wit hout changes. Ear, Nose, Mouth, Throat: Reports ongoing tinnitus. Denies odynophagia, dysphagia. Cardiovascular: Reports ongoing dyspnea with exertion. Denies shortness of breath,chest pa in, palpitations or orthopnea. Respiratory: Denies cough, hemoptysis, or sputum production. Gastrointestinal: Denies abdominal pain, constipation, diarrhea, melena, or bright red bloo d per rectum. Genitourinary: Reports rare blood in urine, 3 weeks ago urine was clear. Denies dysuria. Musculoskeletal: Reports pain low back, right hip and down his right leg, reports knee join t pain, pain level varies, treats with tylenol and tramadol. Neurologic: Reports unstable walking, using a walker, cane has grab bars at home. Ongoing numbness in left fingers, wakes in the night with bilateral hand numbness. Denies headache, visual changes.. Endocrine: Reports ongoing lower extremity edema. Denies heat/cold intolerance. Hematologic: Reports ongoing easily bruised. Denies spontaneous bleeding. Integumentary: Denies rash, wounds or other skin concerns. Pain:Reports pain low back, right hip and down his right leg, reports knee joint pain, pain level varies, treats with tylenol and tramadol. Note: Here for follow up, first treatment and labs. My chart: Pending documented in this encounter Plan of Treatment +--------+---------+ + + + | Date | Type | Specialty | Care Team | Description | +--------+---------+ + + + | 04/28/ | Office | Sleep Medicine | Ilan Roberts PA | | 2019 | Visit | | [address] | | | | | | [place] | | | | | | [address] | | | | | | | | +--------+---------+ + + + | 07/07/ | Office | Nephrology | Eduardo Felder MD | | | 2019 | Visit | | [address] [place] | | | | | | [address] [place] | | | | | | [address] | | | | | | | [...] | + +--------+ + + + | LABS - EXTERNAL SCAN | | 01/08/2020 | | Results for this | | | | 12:00 AM | | procedure are in the | | | | PDT | | results section. | + +--------+ + + + documented in this encounter Results CBC with Differential (02/15/2020 9:12 AM PDT) + + + + + + | Component | Value | Ref Range | Performed | Pathologist | | | | | At | Signature | + + + + + + | White Blood | 4.7 | 4.0 - 11.0 K/uL | [facility] | | | Cells | | | [facility] | | | | | | [facility] | | | | | | [facility] - | | | | | | LABORATORY | | + + + + + + | Red Blood | 2.94 (L) | 4.30 - 5.70 | [facility] | | | Cells | | M/uL | [facility] | | | | | | [facility] | | | | | | [facility] - | | | | | | LABORATORY | | + + + + + + | Hemoglobin | 9.2 (L) | 13.5 - 18.0 | [facility] | | | | | g/dL | [facility] | | | | | | [facility] | | | | | | [facility] - | | | | | | LABORATORY | | + + + + + + | Hematocrit | 28.0 (L) | 40.0 - 51.0 % | [facility] | | | | | | [facility] | | | | | | [facility] | | | | | | [facility] - | | | | | | LABORATORY | | + + + + + + | MCV | 95.2 | 83.0 - 101.0 fL | [facility] | | | | | | [facility] | | | | | | [facility] | | | | | | [facility] - | | | | | | LABORATORY | | + + + + + + | MCH | 31.3 | 28.0 - 35.0 pg | [facility] | | | | | | [facility] | | | | | | [facility] | | | | | | [facility] - | | | | | | LABORATORY | | + + + + + + | MCHC | 32.9 | 32.0 - 36.0 | [facility] | | | | | g/dL | [facility] | | | | | | [facility] | | | | | | [facility] - | | | | | | LABORATORY | | + + + + + + | RDW-CV | 20.8 (H) | <15.0 % | [facility] | | | | | | [facility] | | | | | | [facility] | | | | | | [facility] - | | | | | | LABORATORY | | + + + + + + | RDW-SD | 72.2 (H) | 35.1 - 46.3 fL | [facility] | | | | | | [facility] | | | | | | [facility] | | | | | | [facility] - | | | | | | LABORATORY | | + + + + + + | Platelet | 141 | 140 - 440 K/uL | [facility] | | | Count | | | [facility] | | | | | | [facility] | | | | | | [facility] - | | | | | | LABORATORY | | + + + + + + | MPV | 12.5 (H) | 6.5 - 12.4 fL | [facility] | | | | | | [facility] | | | | | | [facility] | | | | | | [facility] - | | | | | | LABORATORY | | + + + + + + | Immature | 10.3Comment: Low PLT + | 0.9 - 11.2 [...] + + + + | % | 70.7 | 45.0 - 82.0 % | [facility] | | | Neutrophils | | | [facility] | | | | | | [facility] | | | | | | [facility] - | | | | | | LABORATORY | | + + + + + + | % | 18.9 (L) | 20.0 - 45.0 % | [facility] | | | Lymphocytes | | | [facility] | | | | | | [facility] | | | | | | [facility] - | | | | | | LABORATORY | | + + + + + + | % Monocytes | 8.2 | 4.0 - 12.0 % | [facility] | | | | | | [facility] | | | | | | [facility] | | | | | | [facility] - | | | | | | LABORATORY | | + + + + + + | % | 0.9 | 0.0 - 5.0 % | [facility] [...] + + + | % Immature | 0.4 | 0.0 - 0.4 % | [facility] | | | Granulocyte | | | [facility] | | | s | | | MEDICAL | | | | | | CENTER - | | | | | | LABORATORY | | + + + + + + | Absolute | 3.29 | 1.80 - 8.50 | [facility] | | | Neutrophils | | K/uL | [facility] | | | | | | [facility]ICAL | | | | | | CENTER - | | | | | | LABORATORY | | + + + + + + | Absolute | 0.88 | 0.60 - 3.20 | [facility] | | | Lymphocytes | | K/uL | [facility] | | | | | | [facility] | | | | | | CENTER - | | | | | | LABORATORY | | + + + + + + | Absolute | 0.38 | 0.00 - 1.00 | [facility] | | | Monocytes | | K/uL | [facility] | | | | | | [facility] | | | | | | [facility] - | | | | | | LABORATORY | | + + + + + + | Absolute | 0.04 | 0.00 - 0.40 | [facility] | [...] | Immature | | K/uL | [facility] | | | Granulocyte | | | MEDICAL | | | s | | | CENTER - | | | | | | LABORATORY | | + + + + + + | % nRBC | 0 | 0 - 2 per 100 | [facility] | | | | | WBCs | [facility] | | | | [...] + | [facility] | [address] | [place] | [phone] | | [facility] | | [address] | | | - LABORATORY | | | | + + + + + Comprehensive Metabolic Panel (02/15/2020 9:12 AM PDT) + + + + + + | Component | Value | Ref Range | Performed | Pathologist | | | | | At | Signature | + + + + + + | Na | 137 | 136 - 145 | [facility] | | | | | mmol/L | [facility] | | | | | | [facility] | | | | | | [facility] - | | | | | | LABORATORY | | + + + + + + | K | 4.6 | 3.4 - 5.1 | [facility] | | | | | mmol/L | [facility] | | | | | | [facility] | | | | | | [facility]ENTER - | | | | | | LABORATORY | | + + + + + + | Cl | 107 | 98 - 107 mmol/L | [facility] | | | | | | [facility] | | | | | | [facility] | | | | | | [facility] - | | | | | | LABORATORY | | + + + + + + | CO2 | 25 | 20 - 31 mmol/L | [facility] | | | | | | [facility] | | | | | | [facility] | | | | | | [facility] - | | | | | | LABORATORY | | + + + + + + | Anion Gap | 5 | 3 - 16 mmol/L | [facility] | | | | | | [facility] | | | | | | [facility] | | | | | | [facility] - | | | | | | LABORATORY | | + + + + + + | Glucose | 97 | 60 - 106 mg/dL | [facility] | | | | | | [facility] | | | | | | [facility] | | | | | | [facility] - | | | | | | LABORATORY | | + + + + + + | BUN | 52 (H) | 9 - 23 mg/dL | [facility] | | | | | | [facility] | | | | | | [facility] | | | | | | [facility] - | | | | | | LABORATORY | | + + + + + + | Creatinine | 2.09 (H) | 0.70 - 1.30 | [facility] | | | | | mg/dL | [facility] | | | | | | [facility] | | | | | | CENTER - | | | | | | LABORATORY | | + + + + + + | eGFR, | 30 (L)Comment: | >=60 | [facility] | | | non- | GLOMERULAR FILTRATION | mL/min/1.73m2 | [facility] | | | Indonesian | RATE,ESTIMATED | | MEDICAL | | | | mL/min/1.38r2Vlqw than | | CENTER - | | [...] + + | Calcium | 8.9 | 8.7 - 10.4 | [facility] | | | | | mg/dL | [facility] | | | | | | MEDICAL | | | | | | CENTER - | | | | | | LABORATORY | | + + + + + + | Albumin | 4.0 | 3.2 - 4.8 g/dL | [facility] | | | | | | [facility] | | | | | | [facility] | | | | | | CENTER - | | | | | | LABORATORY | | + + + + + + | Bilirubin | 0.4 | 0.3 - 1.2 mg/dL | [facility] | | | Total | | | [facility] | | | | | | [facility] | | | | | | CENTER - | | | | | | LABORATORY | | + + + + + + | Total | 6.9 | 5.7 - 8.2 g/dL | [facility] [...] + + | ALT | 11 | 10 - 49 U/L | [facility] | | | | | | [facility] | | | | | | [facility]ICAL | | | | | | CENTER - | | | | | | LABORATORY | | + + + + + + | Alkaline | 66 | 46 - 116 U/L | [facility] | | | Phosphatase | | | [facility] | | | | | | MEDICAL | | | | | | CENTER - | | | | | | LABORATORY | | + + + + + + | Globulin | 2.9 | 2.1 - 3.8 g/dL | [facility] | | | | | | [facility] | | | | | | [facility]ICAL | | | | | | CENTER - | | | | | | LABORATORY | | + + + + + + | Albumin/Holley | 1.4 | 0.8 - 1.9 | [facility] | | | bulin Ratio | | | [facility] | | | | | | MEDICAL | | | | | | CENTER - | | | | | | LABORATORY | | + + + + + + | BUN/Creatin | 24.9 | | [facility] | | | ine Ratio | | | [facility] | [...] + + | [facility] | [address] | [place] | [phone] | | [facility] | | [address] | | | - LABORATORY | | | | + + + + + LABS - EXTERNAL SCAN (01/08/2020 12:00 AM PDT) + + + | Narrative | Performed At | + + + | Ordered by an | | | unspecified provider. | | + + + documented in this encounter Visit Diagnoses + + | Diagnosis | + + | 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) - Primary Multiple myeloma, | | without mention of having achieved remission | + + documented in this encounter"
--- OUTSIDE RECORDS SUMMARY | ~2020-04-19 | XMS | Encounter Summary ---
Demographics + + + | Address | [address] | | | [place] [address] | + + + | Home Phone | | + + + | Preferred Language | Unknown | + + + | Marital Status | | + + + | Spiritism Affiliation | Unknown | + + + | Race | White | + + + | Ethnic Group | Not or | + + + Author + + + | Author | [facility] | | | and [place] | + + + | Organization | [facility] | | | and [...] + | Halima Alexander | ECON | [address] | | | | | [place] | | | | | [address] | | + + + + + Care Team Providers + +------+ + | Care Accounts Receivable Accountant Name | Role | Phone | + +------+ + | Garima Martin | PCP | | | PA | | | + +------+ + Encounter Details +--------+ + + + + | Date | Type | Department | Care Team | Description | +--------+ + + + + | 03/30/ | Orders Only | [facility] | Provider, | | | 2019 | | SYSTEM GENERIC OP | MD [address] | | | | | [address] | [place] | | | | | [address] [place], [place] | [place] [address] | | | | | [address] | | | | | | [phone] | | | +--------+ + + + [...] 2019 | Visit | | [address] | | | | | | [place] | | | | | | [address] | | | | | | | | +--------+---------+ + + + | 07/07/ | Office | Nephrology | Eduardo Felder MD | | | 2019 | Visit | | [address] [place] | | | | | | [address] [facility] | | | | | | [address] | | | | | | | | +--------+---------+ + + + documented as of this encounter Visit Diagnoses Not on filedocumented in this encounter"
--- OUTSIDE RECORDS SUMMARY | ~2020-04-19 | XMS | Encounter Summary ---
Demographics + + + | Address | [address] | | | [place] [address] | + + + | Home Phone [...] + | Halima Alexander | ECON | [address] | | | | | [place] | | | | | [address] | | + + + + + Care Team Providers + +------+ + | Care Wheat Shipper Name | Role | Phone | + +------+ + | Garima Martin | PCP | | | PA | | | + +------+ + Encounter Details +--------+ + + + + | Date | Type | Department | Care Team | Description | +--------+ + + + + | 07/03/ | Orders Only | [facility] | Eduardo Felder MD | Essential | | 2019 | | NEPHROLOGY [place] | [address] [place] | hypertension, benign | | | | [address] | [address] [place], [place] | (Primary Dx); CKD | | | | [address] | [id number] | (chronic kidney | | | | [place], [place] | | disease) stage 3, | | | | [address] | | GFR 30-59 ml/min | | | | [phone] | | (HCC) | +--------+ + + + + [...] 2019 | Visit | | [address] | | | | | | [place] | | | | | | [address] | | | | | | | | +--------+---------+ + + + | 07/07/ | Office | Nephrology | Eduardo Felder MD | | | 2019 | Visit | | [address] [place] | | | | | | [address] [place] | | | | | | [address] | | | | | | | | +--------+---------+ + + + + +------+--------+ + + | Name | Type | Priori | Associated Diagnoses | Order Schedule | | | | ty | | | + +------+--------+ + + | Renal Function Panel | Lab | Routin | Essential | Expected: | | | | e | hypertension, benign | 01/01/2020, Expires: | | | | | CKD (chronic | 07/03/2020 | | | | | kidney disease) | | | | | | stage 3, GFR 30-59 | | | | | | ml/min (HCC) | | + +------+--------+ + + | CBC with | Lab | Routin | Essential | Expected: | | Differential | | e | hypertension, benign | 01/01/2020, Expires: | | | | | CKD (chronic | 07/03/2020 | | | | | kidney disease) | | | | | | stage 3, GFR 30-59 | | | | | | ml/min (HCC) | | + +------+--------+ + + | Uric Acid | Lab | Routin | Essential | Expected: | | | | e | hypertension, benign | 01/01/2020, Expires: | | | | | CKD (chronic | 07/03/2020 | | | | | kidney disease) | | | | | | stage 3, GFR 30-59 | | | | | | ml/min (HCC) | | + +------+--------+ + + | Parathyroid Hormone, | Lab | Routin | Essential | Expected: | | Intact | | e | hypertension, benign | 01/01/2020, Expires: | | | | | CKD (chronic | 07/03/2020 | | | | | kidney disease) | | | | | | stage 3, GFR 30-59 | | | | | | ml/min (HCC) | | + +------+--------+ + + | Protein/Creatinine | Lab | Routin | Essential | Expected: | | Ratio, Urine | | e | hypertension, benign | 01/01/2020, Expires: | | | | | CKD (chronic | 07/03/2020 | | | | | kidney disease) | | | | | | stage 3, GFR 30-59 | | | | | | ml/min (HCC) | | + +------+--------+ + + documented as of this encounter Visit Diagnoses + + | Diagnosis | + + | Essential hypertension, benign - Primary | + + | CKD (chronic kidney disease) stage 3, GFR 30-59 ml/min (HCC) Chronic kidney disease, | | Stage III (moderate) | + + documented in this encounter"
--- OUTSIDE RECORDS SUMMARY | ~2020-04-19 | XMS | Encounter Summary ---
Demographics + + + | Address | [address] | | | [place] [address] | + + + | Home Phone | | + + + | Preferred Language | Unknown | + + + | Marital Status | | + + + | Lutheran Affiliation | Unknown | + + + | Race | White | + + + | Ethnic Group | Not or | + + + Author + + + | Author | [facility] | | | and [place] | + + + | Organization | [facility] | | | and [...] + | Halima Alexander | ECON | [address] | | | | | [place] | | | | | [address] | | + + + + + Care Team Providers + +------+ + | Care Driver Wheelchair Name | Role | Phone | + [...] Provider, | | | | | | CT | Historical, | | | | | | Cervical | [address] | | | | | | Spine wo | [place] | | | | | | Contrast | [place] | | | | | | | [address] | | +--------+--------+ + + + + Encounter Details +--------+ + + + + | Date | Type | Department | Care Team | Description | +--------+ + + + + | 09/05/ | Imaging | [facility] | Provider, | | | 2017 | Exam | [facility] | Historical, [address] | | | | | IM[address] | [place] | | | | | [address] [place] | [place] [address] | | | | | [place] [address] | | | | | | [phone] | | | +--------+ + + + [...] | Visit | | [address] | | | | | | [place] | | | | | | [address] | | | | | | | | +--------+---------+ + + + | 07/07/ | Office | Nephrology | Eduardo Felder MD | | | 2019 | Visit | | [address] [place] | | | | | | [address] [place] | | | | | | [address] | | | | | | | | +--------+---------+ + + + documented as of this encounter Procedures + +--------+ + + + | Procedure Name | Priori | Date/Time | Associated Diagnosis | Comments | | | ty | | | | + +--------+ + + + | CT CERVICAL SPINE WO | Routin | 08/10/2017 | | Results for this | | CONTRAST | e | 10:55 AM | | procedure are in the | | | | PST | | results section. | + +--------+ + + + documented in this encounter Results CT Cervical Spine wo Contrast (08/10/2017 10:55 AM PST) + + | Specimen | + + | | + + + + + | Narrative | Performed At | + + + | External films | [facility] | | for comparison only - no result from [place]. | | + + + + +---------+ + + | Performing | Address | City/State/Zipcode | Phone Number | | Organization | | | | + +---------+ + + | [facility] | | | | + +---------+ + + documented in this encounter Visit Diagnoses Not on filedocumented in this encounter"
--- OUTSIDE RECORDS SUMMARY | ~2020-04-19 | XMS | Encounter Summary ---
Demographics + + + | Address | [address] | | | [place] [address] | + + + | Home Phone | | + + + | Preferred Language | Unknown | + + + | Marital Status | | + + + | Methodist Affiliation | Unknown | + + + | Race | White | + + + | Ethnic Group | Not or | + + + Author + + + | Author | [facility] | | | and [place] | + + + | Organization | [facility] | | | [...] + | Halima Alexander | ECON | [address] | | | | | [place] | | | | | [address] | | + + + + + Care Team Providers + +------+ + | Care Outreach Assistant Name | Role | Phone | + [...] | | | | | [place] | [address] | | | | | | (degenerativ | Phone: | | | | | | e disc | [phone] | | | | | | disease), | Fax: | | | | | | lumbar | [phone] | | | | | | Spinal [...] | | | | | [place], | [address] Phone: | | | | | | [place] | [phone] | | | | | | [address] | Fax: | | | | | | Phone: | [phone] | | | | | | [phone] | | | | | | | Fax: | | | | | | | [phone] | | +--------+--------+ + + + + [...] | right-sided | | | | [place], [place] | [place] [address] | sciatica; D[place] | | | | [address] | [phone] | (degenerative disc | | | | [phone] | | disease), lumbar; | | | [...] 09/19/2017 10:00 AM PST1) Cervical pain wi th physical therapy at the [facility] in [place] 2) Epidural steroid injection with Dr. Mills [...] of blood sugars if you are diabetic. jail risk can lead to osteoporosis which is [...] of the procedure you must provide a regional company flatbed truck driver to take you home. For all procedur es it is recommended that someone else drive you home. documented in this encounter Progress Notes Cristy Roque PA-C - 09/19/2017 10:00 AM PSTFormatting of this note might be differe nt from the original. Cristy Roque PA-C [address] [facility], [address] [place], [place] [id number] FAX: PHYSICAL MEDICINE AND REHABILITATION H&P CHIEF [...] rrently is doing at [facility] [place], use of tramadol, use of NSAIDs. He [...] Date HERNIA REPAIR Bilateral 1990 ; s [place]. PROSTATE SURGERY 1997 ; Sid Cantu; [place] ROTATOR CUFF REPAIR Right 1998 Dr. Tovar; [place] CURRENT MEDICATIONS: Current Outpatient Prescriptions Medication [...] has no apparent deficits with short or long term care social worker memory. 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 Unfortunately she cont inues to have significant [...] 2019 | Visit | | [address] | | | | | | [place] | | | | | | [address] | | | | | | | | +--------+---------+ + + + | 07/07/ | Office | Nephrology | Eduardo Felder MD | | | 2019 | Visit | | [address] [place] | | | | | | [address] [place] | | | | | | [address] | | | | | | | [...]
--- OUTSIDE RECORDS SUMMARY | ~2020-04-19 | XMS | Encounter Summary ---
Demographics + + + | Address | [address] | | | [place] [address] | + + + | Home Phone | | + + + | Preferred Language | Unknown | + + + | Marital Status | | + + + | Restoration Affiliation | Unknown | + + + | Race | White | + + + | Ethnic Group | Not or | + + + Author + + + | Author | [facility] | | | and [place] | + + + | Organization | [facility] | | | [...] + | Halima Alexander | ECON | [address] | | | | | [place] | | | | | [address] | | + + + + + Care Team Providers + +------+ + | Care Brim Buster Name | Role | Phone | + +------+ + | Ryley Novak MD | PCP | | + +------+ + Reason for Visit +--------+ + | Reason | Comments | +--------+ + | Apnea | | +--------+ + Encounter Details +--------+---------+ + + + | Date | Type | Department | Care Team | Description | +--------+---------+ + + + | 11/02/ | Office | [facility] | Ilan Roberts PA | JOVANI on CPAP (Primary | | 2012 | Visit | SLEEP DISORDER [address] | [address] | Dx) | | | | [address] [place] | [place] | | | | | [place] [address] | [address] | | | | | [phone] | | | +--------+---------+ + + + [...] + + + | Blood Pressure | 145/78 | 11/02/2012 1:36 PM | | | | | PST | | + + + + + | Pulse | 50 | 11/02/2012 1:36 PM | | | | | PST | | + + + + + | Temperature | - | - | | + + + + + | Respiratory Rate | 14 | 11/02/2012 1:36 PM | | | | | PST | | + + + + + | Oxygen Saturation | - | - | | + + + + + | Inhaled Oxygen | - | - | | | Concentration | | | | + + + + + | Weight | 100.6 kg (221 lb | 11/02/2012 1:36 PM | | | | 12.8 oz) | PST | | + + + + + | Height | - | - | | + + + + + | Body Mass Index | 30.08 | 12/02/2010 12:00 AM | | | | | PDT | | + + + + + documented in this encounter Progress Notes Radha Menjivar - 11/02/2012 1:33 PM PST 11/02/12 1300 Cohen Depression Inventory-II Depression Score 4 Insomnia Severity Index Insomnia Severity Index 6 [place]co Sleepiness Scale Sitting and reading 2 Watching TV 2 Sitting, inactive in a public place (e.g. a theatre or a meeting) 1 As a passenger in a car for an hour without a break 0 Lying down to rest in the afternoon when circumstances permit 3 Sitting and talking to someone 2 Sitting quietly after a lunch without alcohol 3 In a car, while stopped for a few minutes in traffic 0 Total score 13 SF-36v2 Score PF 46.51 RP 37.26 BP 51.13 GH 50.55 VT 48.97 SF 56.85 RE 48.1 MH 55.64 PCS 43.58 MCS 55.77 Ilan Loza PA - 1:06 PM PST Subjective: Patient ID: Tommie Alexander is a 77 y.o. male. HPI last office visit was: 11/03/2011 date of polysomnography: 07/17/2001 AHI: 28.7 O2%: 84.9% Machine type: ResMed S9 with full face mask obtained from: [facility] in [place] pressure is: 9-15 cm 95%: 12.3 cm maxium: 13.8 cm CPAP download shows CPAP useage # nights: 330/365 Average usage (all nights): 7:55 Average usage (nights used): 8:46 "Ashwin" continues to do well with his CPAP compliance. He is wearing it on a nightly basis for the duration of the night. He has had some problems with his machine not turning on unt il he unplugs it and plugs it back in. He has never had a time that he was not able to get it to start. He has also had some problems with a cough for about six weeks. The cough worsens when he lays down. He is able to use a cough drop to eliminate the cough. He had one night that his heard a strange noise coming from either him or his CPAP ( sleep in different rooms). She came into his room, but the noise disrupted him enough to cause him to move. This stopped the noise. As far as he knows the noise has not occurred again. We discussed when he is able to replace his equipment. I gave him a handout that shows whe n his insurance will accept him replacing each item. He has not replaced his heated hose or water chamber in nearly two years. He cleans them both regularly and says they are very cl genny and do not have any odor to them. I have discussed the download and results of the paperwork in detail. He has improved in n early all categories.. The download shows that his sleep apnea is well controlled, with an AHI of 4.4. Review of Systems Objective: Physical Exam Assessment: Problem # 1: OBSTRUCTIVE SLEEP APNEA (ICD-327.23) This is controlled with CPAP. His CPAP compliance is going well. Plan: He is to continue with CPAP indefinitely. I have recommended touching base with his home medical supply company twice per year to ensure that all medical supplies are satisfactory. I will follow up again in 2 years, sooner prn. At that time we will reassess with all appr opiate paperwork. Thirty minutes were spent [id number], with the majority of time spent in [...] 2019 | Visit | | [address] | | | | | | [place] | | | | | | [address] | | | | | | | | +--------+---------+ + + + | 07/07/ | Office | Nephrology | Eduardo Felder MD | | | 2019 | Visit | | [address] [place] | | | | | | [address] [place] | | | | | | [address] | | | | | | | | +--------+---------+ + + + documented as of this encounter Visit Diagnoses + + | Diagnosis | + + | JOVANI on CPAP - Primary Obstructive sleep apnea (adult) (pediatric) | + + documented in this encounter
--- OUTSIDE RECORDS SUMMARY | ~2020-04-19 | XMS | Encounter Summary ---
Demographics + + + | Address | [address] | | | [place] [address] | + + + | Home Phone | | + + + | Preferred Language | Unknown | + + + | Marital Status | | + + + | Episcopalian Affiliation | Unknown | + + + | Race | White | + + + | Ethnic Group | Not or | + + + Author + + + | Author | [facility] | | | and [place] | + + + | Organization | [facility] | | [...] + | Halima Alexander | ECON | [address] | | | | | [place] | | | | | [address] | | + + + + + Care Team Providers + +------+ + | Care Sharepoint Analyst Name | Role | Phone | + +------+ + | Garima Martin | PCP | | | PA | | | + +------+ + Encounter Details +--------+ + + + + | Date | Type | Department | Care Team | Description | +--------+ + + + + | 08/09/ | Orders Only | [facility] | Eduardo Felder MD | | | 2018 | | NEPHROLOGY [place] | [address] [place] | | | | | [address] [place] | [address] [facility] [place] | | | | | [address] [facility] [place] [place] | [address] | | | | | [address] | | | | | | [phone] | | | +--------+ + + + [...] 2019 | Visit | | [address] | | | | | | [place] | | | | | | [address] | | | | | | | | +--------+---------+ + + + | 07/07/ | Office | Nephrology | Eduardo Felder MD | | | 2019 | Visit | | [address] [place] | | | | | | [address] [facility] | | | | | | [address] | | | | | | | [...] + + + + | Non- | 3.30 (A) | 4.3 - 5.7 [...] | | | LAB | | | [place] | | | | | + + [...]
--- OUTSIDE RECORDS SUMMARY | ~2020-04-19 | XMS | Encounter Summary ---
Demographics + + + | Address | [address] | | | [place] [address] | + + + | Home Phone | | + + + | Preferred Language | Unknown | + + + | Marital Status | | + + + | Jew Affiliation | Unknown | + + + | Race | White | + + + | Ethnic Group | Not or | + + + Author + + + | Author | [facility] | | | and [place] | + + + | Organization | [facility] | | | [...] + | Halima Alexander | ECON | [address] | | | | | [place] | | | | | [address] | | + + + + + Care Team Providers + +------+ + | Care Upper Cutter Out Name | Role | Phone | + [...] + + | 01/29/ | Office | [facility] | Ilan Roberts PA | JOVANI on CPAP (Primary | | 2014 | Visit | SLEEP DISORDER [address] | [address] | Dx) | | | | [address] [place] | [place] | | | | | [place] [address] | [address] | | | | | [phone] | | | +--------+---------+ + + + [...] encounter Progress Notes Ilan Roberts, AMANDA - 01/29/2015 10:55 AM PDT Subjective: Patient ID: Tommie Alexander is a 79 y.o. male. HPI last office visit was: 11/03/2011 date of polysomnography: 07/17/2001 AHI: 28.7 O2%: 84.9% Machine type: ResMed S9 with full face mask obtained from: [facility] in [place] pressure is: 9-15 cm Median: 10.0 cm [...] this while they were camping in [place] [facility]. Being away from his home distractions was [...] months, sooner prn. Thirty minutes were spent [id number], wi th the majority of time spent [...] 2019 | Visit | | [address] | | | | | | [place] | | | | | | [address] | | | | | | | | +--------+---------+ + + + | 07/07/ | Office | Nephrology | Eduardo Felder MD | | | 2019 | Visit | | [address] [place] | | | | | | [address] [place] | | | | | | [address] | | | | | | | | +--------+---------+ + + + documented as of this encounter Visit Diagnoses + + | Diagnosis | + + | JOVANI on CPAP - Primary Obstructive sleep apnea (adult) (pediatric) | + + documented in this encounter
--- OUTSIDE RECORDS SUMMARY | ~2020-04-19 | XMS | Encounter Summary ---
Demographics + + + | Address | [address] | | | [place] [address] | + + + | Home Phone | | + + + | Preferred Language | Unknown | + + + | Marital Status | | + + + | Gnosticism Affiliation | Unknown | + + + | Race | White | + + + | Ethnic Group | Not or | + + + Author + + + | Author | [facility] | | | and [place] | + + + | Organization | [facility] | | [...] + | Halima Alexander | ECON | [address] | | | | | [place] | | | | | [address] | | + + + + + Care Team Providers + +------+ + | Care Wellness Director Name | Role | Phone | + +------+ + | Garima Martin | PCP | | | PA | | | + +------+ + Reason for Visit Evaluate & Treat (Routine) + +--------+ + [...] | having | MD [address] | [place] | | | | | achieved | [place], | [place], | | | | | remission | [address] | [place] [address] | | | | | (HCC) | [place], | Phone: | | | | | Multiple | [place] [address] | [phone] | | | | | myeloma not | | Fax: | | | | | having | | [phone] | | | | | achieved | | | | | | | remission | | | | | | | ([facility]) | | | | | | | Procedures | | | | | | | [address] | | | + +--------+ + + + + Encounter Details +--------+ + + + + | Date | Type | Department | Care Team | Description | +--------+ + + + + | 02/21/ | Hospital | [facility] | Rodríguez Mortensen | Multiple myeloma not | | 2019 | Encounter | [facility] | MD [place] [address] [facility] | having achieved | | | | ON[facility]OGY CLINIC [address] | [place], [place] | remission (HCC) | | | | [facility] | [address] | (Primary Dx); Anemia | | | | [place] [address] | | in neoplastic | | | | [phone] | | disease | +--------+ + + [...] encounter Progress Notes Rodríguez Mortensen MD - 02/22/2020 9:40 AM PDTMedical Oncology Follow-Up Note REASON FOR VISIT Current Diagnosis and Disease State: Recurrent smoldering myeloma Current Therapy: To start CyBorD on weekly schedule Specific reason for appointment: C1, D8 INTERVAL HISTORY AND SYSTEM REVIEW He relates no nausea from D1 a week ago. Interestingly, he thinks both the Left hand and hi s bilateral foot neuropathy is already just a bit worse. He had an episode of incontinence i n public last week that was upsetting. Remarkably, he washed his truck last Tuesday, but valdez d significant Left hip and leg pain after that for a day. Current Performance Status: 2-3 Systematic Review of Systems Constitutional: Reports ongoing [...] of IgG kappa myeloma. He had 10% PCs, and trisomy 15. Baselines: Creat 2.1, B2M 7.3, Ca 8.4, Hgb 10 .3, M-Jono 0.4, 265 [...] Creat: 2.1 Calcium: 8.9 Albumin: 4.0 Hgb: 8.9 ANC: 3070 PLT: 140 IMPRESSION 1. Smoldering myeloma (if one ascribes his anemia to chronic renal disease and his elevated creat to polycystic renal disease, then he does not have CRAB and does not meet criteria fo r full blown myeloma) in 84 yr old with polycystic kidney disease and significant pre-Rx ane lima. 2. Good general tolerance for restart of CyBorD, but neuropathy looks like it will limit th is therapy. PLAN 1. C1, D8 CyBorD as previously planned by Dr. Gutierrez 2. Subsequent therapy in [place] when the bansal is fixed. Ann Veras RN - 02/22/2020 9:19 AM PDTREVIEW OF SYSTEMS Constitutional: Reports energy level is 'trashed'. Denies high fevers, shaking chills, anor exia, nausea, vomiting, weight loss, or night sweats. Appetite without changes. Ear, Nose, Mouth, Throat: Denies odynophagia, dysphagia. Tinnitus continues, unchanged. Cardiovascular: Reports dyspnea with activity. Denies shortness of breath, chest pain, palp itations or orthopnea. Respiratory: Denies cough, hemoptysis, or sputum production. Gastrointestinal: Can have constipation at times related to tramadol. Laxatives helpful. St ates he had a little abdominal pain for about a day after being pretty active. Denies abdomi nal pain, diarrhea, melena, or bright red blood per rectum. Genitourinary: Reports he lost control of his bladder a few times this past Tuesday. States he hasn't had this happen before. Denies hematuria or dysuria. Musculoskeletal: Reports some pain in left hip and leg, normally has it in his right leg. T his was after being particularly active, and went away the next day. Also has pain in knees when walking. Neurologic: Denies headache. Reports when he watches TV he has double vision at times, has also noticed this in his house at times too. States he doesn't typically have this problem o utside or looking at a distance. Reports numbness/tingling in left hand, states this is ongo ing but was worse after last treatment. Reports neuropathy in his feet continues as well. St ates more sensitive since last treatment. Endocrine: Denies peripheral edema or heat/cold intolerance. Hematologic: Reports spontaneous bruising continues. Denies spontaneous bleeding. Integumentary: Denies rash, wounds or other skin concerns. Pain: Denies pain at this time. Note: Here for follow up labs and 2 hour treatment. My chart: Declined P DTdocumented in this encounter Miscellaneous Notes Addendum Note - Niki Miguel RN - 02/22/2020 4:48 PM PDT Encounter addended by: Jasmeet Miguel RN on: 02/22/2020 4:48 PM Actions taken: Flowsheet accepted Electronically signed by Niki Miguel RN at 4:48 PM PDTdocumented in this encounter Plan of Treatment +--------+---------+ + + + | Date | Type | Specialty | Care Team | Description | +--------+---------+ + + + | 04/28/ | Office | Sleep Medicine | Ilan Roberts PA | | | 2019 | Visit | | [address] | | | | | | [place] | | | | | | [id number] | | | | | | | | +--------+---------+ + + + | 07/07/ | Office | Nephrology | Eduardo Felder MD | | 2019 | Visit | | [address] [place] | | | | | | [address] [place] | | | | | | [address] | | | | | | | [...] in this encounter Results CBC with Differential (02/22/2020 8:55 AM PDT) + + + + + + | Component | Value | Ref Range | Performed | Pathologist | | | | | At | Signature | + + + + + + | White Blood | 4.4 | 4.0 - 11.0 K/uL | [facility] | | | Cells | | | [facility] | | [...] | | | Count | | | [facility] | | [...] | Low IPF are consistent | | [facility] | | | Fraction | with a [...] | Neutrophils | | K/uL | [facility] | | | | | | MEDICAL | | | | | | CENTER - | | | | | | LABORATORY | | + + + + + + | Absolute | 0.91 | 0.60 - 3.20 | [facility] | | | Lymphocytes | | K/uL | [facility] | | | | | | MEDICAL | | | | | | CENTER - | | | | | | LABORATORY | | + + + + + + | Absolute | 0.34 | 0.00 - 1.00 | [facility] | | | Monocytes | | K/uL | [facility] | | | | | | MEDICAL | | | | | | CENTER - | | | | | | LABORATORY | | + + + + + + | Absolute | 0.06 | 0.00 - 0.40 | [facility] | | | Eosinophils | | K/uL | [facility] | | | | | | MEDICAL | | | | | | CENTER - | | | | | | LABORATORY | | + + + + + + | Absolute | 0.04 | 0.00 - 0.10 | [facility] | | | Basophils | | K/uL | [facility] | | | | [...] | | | | WBCs | [facility] | | | | | | MEDICAL | | | | | | CENTER - | | | | | | LABORATORY | | + + + + + + | Absolute | 0.00 | 0.00 - 0.01 | [facility] | | | nRBC | | K/uL | [facility] | [...] | [address] | [place] | [phone] | | [facility] | | [address] | | | - LABORATORY | | | | + + + + + Comprehensive Metabolic Panel (02/22/2020 8:55 AM PDT) + + + + + [...] [facility] | | | | | | [facility] | | | | | | [facility] | | | | | | C[facility] - | | | | | | LABORATORY | | + + + + + + | Glucose | 112 (H) | 60 - 106 mg/dL | [facility] | | | | | | [facility] | | | | | | MEDICAL | | | | | | CENTER - | | | | | | LABORATORY | | + + + + + + | BUN | 55 (H) | 9 - 23 mg/dL | [facility] | | | | | | [facility] | | | | | | [facility] | | | | | | CENTER - | | | | | | LABORATORY | | + + + + + + | Creatinine | 2.02 (H) | 0.70 - 1.30 | [facility] | | | | | mg/dL | [facility] | | | | | | [facility] | | | | | | CENTER - | | | | | | LABORATORY | | + + + + + + | eGFR, | 32 (L)Comment: | >=60 | [facility] | | | non- | GLOMERULAR FILTRATION | mL/min/1.73m2 | [facility] | | | [place] | RATE,ESTIMATED | | MEDICAL | | | | mL/min/1.28m4Tvwu than | | CENTER - | | [...] | 8.8 | 8.7 - 10.4 | [facility] | | | | | mg/dL | [facility] | | | | | | MEDICAL [...] [address] | [place] | [phone] | | [facility] | | [address] | | | - LABORATORY | | | | + + + + + documented in this encounter Visit Diagnoses + + | Diagnosis | + + | 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) - Primary Multiple myeloma, | | without mention of having achieved remission | + + | Anemia in neoplastic disease | + + documented in this encounter"
--- OUTSIDE RECORDS SUMMARY | ~2020-04-19 | XMS | Encounter Summary ---
Demographics + + + | Address | [address] | | | [place] [address] | + + + | Home Phone [...] + | Halima Alexander | ECON | [address] | | | | | [place] | | | | | [address] | | + + + + + Care Team Providers + +------+ + | Care Floor Trader Name | Role | Phone | + [...] + + | 01/01/ | [facility] | [facility] [place] [facility] | Ilan Roberts PA | JOVANI on CPAP (Primary | | 2014 | Visit | SLEEP DISORDER [address] | [address] | Dx); Organic | | | | [address] | [place] | insomnia, | | | | [place] [address] | [address] | unspecified | | | | [phone] | | | +--------+---------+ + + + [...] Insomnia Severity Index Insomnia Severity Index 24 Center Line Sleepiness Scale Sitting and reading 3 Watching [...] mask obtained from: [facility] in [place] pressure is: 9-15 cm Median: 10.2 cm 95%: 11.7 cm maxium: 13.0 cm CPAP download shows CPAP useage # nights: 344/365 % of nights >4 hours: 94% Average usage (all nights): 8:07 Average usage (nights used): 8:38 AHI: 2.7 "Ashwin" continues to do well with his [...] a difficult time getting to sleep at rust, wakes often during the night and has [...] month, sooner prn. Thirty minutes were spent pixp-up-gntm, wit h the majority of time spent [...] 2019 | Visit | | [address] | | | | | | [place] | | | | | | [address] | | | | | | | | +--------+---------+ + + + | 07/07/ | Office | Nephrology | Eduardo Felder MD | | | 2019 | Visit | | [address] [place] | | | | | | [address] [place] | | | | | | [address] | | | | | | | | +--------+---------+ + + + documented as of this encounter Visit Diagnoses + + | Diagnosis | + + | JOVANI on CPAP - Primary Obstructive sleep apnea (adult) (pediatric) | + + | Organic insomnia, unspecified | + + documented in this encounter
--- OUTSIDE RECORDS SUMMARY | ~2020-04-19 | XMS | Encounter Summary ---
Demographics + + + | Address | [address] | | | [place] [address] | + + + | Home Phone [...] + | Halima Alexander | ECON | [address] | | | | | [place] | | | | | [address] | | + + + + + Care Team Providers + +------+ + | Care Cemetery Warden Name | Role | Phone | + +------+ + | Garima Martin | PCP | | | PA | | | + +------+ + Encounter Details +--------+ + + + + | Date | Type | Department | Care Team | Description | +--------+ + + + + | 01/09/ | Orders Only | [facility] | Eduardo Felder MD | | | 2018 | | NEPRHOLOGY [place] | [address] | | | | | [address] | [address] [place], [place] | | | | | [address] [place], [place] | [address] | | | | | [address] | | | | | | [phone] | | | +--------+ + + + [...] 2019 | Visit | | [address] | | | | | | [place] | | | | | | [address] | | | | | | | | +--------+---------+ + + + | 07/07/ | Office | Nephrology | Eduardo Felder MD | | | 2019 | Visit | | [address] [place] | | | | | | [address] [place] | | | | | | [address] | | | | | | | | +--------+---------+ + + + documented as of this encounter Procedures + +--------+ + + + | Procedure Name | Priori | Date/Time | Associated Diagnosis | Comments | | | ty | | | | + +--------+ + + + | MAGNESIUM | Routin | 01/09/2018 | | Results for this | | | e | 7:19 AM | | procedure are in the | | | | PDT | | results section. | + +--------+ + + + | RENAL FUNCTION PANEL | Routin | 01/09/2018 | | Results for this | | | e | 7:19 AM | | procedure are in the | | | | PDT | | results section. | + +--------+ + + + documented in this encounter Results Magnesium (01/09/2018 7:19 AM PDT) + +-------+ + + + | Component | Value | Ref Range | Performed | Pathologist | | | | | At | Signature | + +-------+ + + + | Magnesium | 2.1 | 1.7 - 2.5 mg/dL | EXTERNAL [...] + +---------+ + + Renal Function Panel (01/09/2018 7:19 AM PDT) + + + + + + | Component | Value | Ref Range | Performed | Pathologist | | | | | At | Signature | + + + + + + | Glucose, | 134 (A) | 70 - 100 mg/dL | EXTERNAL | | | Fasting | | | LAB | | + + + + + + | BUN | 69 (A) | 6 - 23 mg/dL | EXTERNAL | | | | | | LAB | | + + + + + + | Creatinine | 3.07 (A) | 0.7 - 1.11 | EXTERNAL [...] + + + + | CO2 | 21 | 19 - 31 mmol/L | EXTERNAL | | | | | | LAB | | + + + + + + | Anion Gap | 20.2 | 7 - 21 mmol/L | EXTERNAL | | | | | | LAB | | + + + + + + | eGFR, | | | EXTERNAL | | | non- | | | LAB | | | [place] | | | | | + + + + + + | Phosphorus, | 4.9 | 2.5 - 5.0 | EXTERNAL | | | Inorganic | | | LAB | | + + + + + + | BUN/Creatin | 22.5 | 6.0 - 28.6 | EXTERNAL | | | ine Ratio | | | LAB | | + + + + + + | Calcium | 8.5 | 8.4 - 10.2 | EXTERNAL | | | | | mg/dL | LAB | | + + + + + + | Estimated | 20 (A) | 60 mg/dL | EXTERNAL | [...]
--- OUTSIDE RECORDS SUMMARY | ~2020-04-19 | XMS | Encounter Summary ---
Demographics + + + | Address | [address] | | | [place] [address] | + + + | Home Phone [...] + | Halima Alexander | ECON | [address] | | | | | [place] | | | | | [address] | | + + + + + Care Team Providers + +------+ + | Care Beverage Server Name | Role | Phone | + +------+ + | Garima Martin | PCP | | | PA | | | + +------+ + Encounter Details +--------+ + + + + | Date | Type | Department | Care Team | Description | +--------+ + + + + | 02/16/ | Orders Only | [facility] | Eduardo Felder MD | | | 2018 | | NEPHROLOGY [place] | [address] [place] | | | | | [address] [place] | [address] [place], [place] | | | | | [address] [facility] [place] | [address] | | | | | [address] | | | | | | [phone] | | | +--------+ + + + [...] 2019 | Visit | | [address] | | | | | | [place] | | | | | | [address] | | | | | | | | +--------+---------+ + + + | 07/07/ | Office | Nephrology | Eduardo Felder MD | | | 2019 | Visit | | [address] [place] | | | | | | [address] [facility] | | | | | | [address] | | | | | | | [...] | | | LAB | | | Bangladeshi | | | | | + + [...]
--- OUTSIDE RECORDS SUMMARY | ~2020-04-19 | XMS | Encounter Summary ---
Demographics + + + | Address | [address] | | | [place] [address] | + + + | Home Phone | | + + + | Preferred Language | Unknown | + + + | Marital Status | | + + + | Yarsani Affiliation | Unknown | + + + | Race | White | + + + | Ethnic Group | Not or | + + + Author + + + | Author | [facility] | | | and [place] | + + + | Organization | [facility] | | [...] + | Halima Alexander | ECON | [address] | | | | | [place] | | | | | [address] | | + + + + + Care Team Providers + +------+ + | Care Outpatient Phlebotomist Name | Role | Phone | + +------+ + | Garima Martin | PCP | | | PA | | | + +------+ + Encounter Details +--------+ + + + + | Date | Type | Department | Care Team | Description | +--------+ + + + + | 02/14/ | Hospital | [facility] | Stacia Horne | Multiple myeloma not | | 2020 | Encounter | [facility] | J, PharmD [address] | having achieved | | | | [facility]COLOGY CLINIC [address] | [facility] | remission (HCC) | | | | [address] [facility] | [place] [address] | (Primary Dx) | | | | [place] [address] | [phone] | | | | | [phone] | | | +--------+ + + + [...] documented as of this encounter Progress Notes Stacia Horne, PharmD - 02/15/2020 10:20 AM PDTFormatting of this note might be differ ent from the original. Clinical Oncology Pharmacy Services Progress Note Chemotherapy Education Session [facility] Pt. Name/Age/: Tommie Wise 84 y.o. 1935 Med. Record Number: [id number] Identifying Statement: Tommie Wise is a 84 y.o. male from [address] [address] [place] [address] with The encounter diagnosis was Multiple myeloma not having achiev ed remission (HCC). The patient chart and medications were reviewed in detail and the patient was seen and exam ined. Patient was referred to Clinical Oncology Pharmacist for chemotherapy education and side ef fect management. Chemotherapy dose and frequency: CyBorD days 1 and 8 every 21 days. Chemotherapy start date: February 15, 2020. Past Medical and Surgical History, Social History and Problems: Past Medical History: Diagnosis Date Allergic rhinitis Back pain Backache Cervical radiculopathy Cervical spinal stenosis Cervicalgia Chronic bilateral low back pain with right-sided sciatica 09/19/2017 Chronic kidney disease, stage 3 (HCC) Circadian rhythm disorder Constipation DDD (degenerative disc [...] neurogenic claudication 09/19/2017 Spinal stenosis, lumbar Urticaria Past Surgical History: Procedure Laterality Date HERNIA REPAIR Bilateral 1990 ; [place] HERNIA REPAIR PROSTATE SURGERY 1997 ; [place] Cantu; [place] ROTATOR CUFF REPAIR Right 1998 Dr. Tovar; [place] ROTATOR CUFF REPAIR Social History Socioeconomic History Marital status: Spouse name: Halima Alexander Number of children: 3 Years of education: 12 Highest education level: Not on file Occupational History Occupation: [employer] Comment: Retired Social Needs Financial resource strain: Not on file Food insecurity Worry: Not on file Inability: Not on file Transportation needs Medical: Not on file Non-medical: Not on file Tobacco Use Smoking status: Never Smoker Smokeless tobacco: Never Used Substance and Sexual Activity Alcohol use: Yes Comment: Rare Drug use: No Comment: Drug use: No Sexual activity: Never Lifestyle Physical activity Days per week: Not on file Minutes per session: Not on file Stress: Not on file Relationships Social connections Talks on phone: Not on file Gets together: Not on file Attends tenriism service: Not on file Active member of club or organization: Not on file Attends meetings of clubs or organizations: Not on file Relationship status: Not on file Intimate partner violence Fear of current or ex partner: Not on file Emotionally abused: Not on file Physically abused: Not on file Forced sexual activity: Not on file Other Topics Concern Not on file Social History Narrative Not on file Patient Active Problem List Diagnosis OBSTRUCTIVE SLEEP APNEA Chronic bilateral low back pain with right-sided sciatica DDD (degenerative disc disease), lumbar Spinal stenosis of lumbar region with neurogenic claudication DDD (degenerative disc disease), cervical Anemia in neoplastic disease Bilateral leg edema Electrolyte imbalance risk Essential hypertension, benign Hyperkalemia Hyperuricemia Multiple myeloma not having achieved remission CKD (chronic kidney disease) stage 3, GFR 30-59 ml/min Persistent proteinuria Polycystic kidney disease Review of Systems: Constitutional: Denies fever or chills, or weight loss. Eyes: Denies change in visual acuity HEENT: Denies nasal congestion or sore throat Respiratory: Denies cough or shortness of breath Cardiovascular: Denies chest pain or edema GI: Denies abdominal pain, nausea, vomiting, bloody stools or diarrhea : Denies dysuria urgency or frequency. Musculoskeletal: Denies any bone pain Integument: Denies rash, bruising, petechia Neurologic: Denies headache, focal weakness or sensory changes Lymphatic: Denies swollen glands Review of systems as above, otherwise negative Scheduled Medications: Current Outpatient Medications on File Prior to Encounter Medication Sig Dispense Refill acetaminophen (TYLENOL) 650 MG CR tablet Take 650 mg by mouth every 8 hours as needed f or Pain. allopurinol (ZYLOPRIM) 100 mg tablet Take 100 mg by mouth BISACODYL CO by Combination route as needed. ferrous sulfate 324 (65 Fe) MG EC tablet Take 65 mg of iron by mouth daily with breakfa st. Flaxseed, Linseed, (FLAXSEED OIL) 1200 MG CAPS Take 1 capsule by mouth Daily. gabapentin (NEURONTIN) 600 MG tablet Glucosamine HCl (GLUCOSAMINE PO) Take 1,000 mg by mouth Daily. Multiple Vitamins-Minerals (VITRUM 50+ SENIOR MULTI) TABS Take 1 tablet by mouth Daily. torsemide (DEMADEX) 20 mg tablet TAKE 1 TABLET BY MOUTH ONCE DAILY 30 tablet 11 traMADol (ULTRAM) 50 mg tablet Take 50 mg by mouth every 6 hours as needed for Pain. Current Facility-Administered Medications on File Prior to Encounter Medication Dose Route Frequency Provider Last Rate Last Dose bortezomib (VELCADE) injection 2.2 mg 1 mg/m2 (Order-Specific) Subcutaneous Once Joyce Mortensen MD cyclophosphamide (CYTOXAN) 660 mg in sodium chloride 0.9% 217 mL infusion 300 mg/m2 (O rder-Specific) Intravenous Once Rodríguez Mortensen MD ondansetron 8 mg, dexamethasone (DECADRON) 40 mg in sodium chloride 0.9% 50 mL IVPB 8 mg Intravenous Once Rodríguez Mortensen MD Objectives: Wt Readings from Last 3 Encounters: 02/15/20 93.1 kg (205 lb 4 oz) 07/02/19 93 kg (205 lb 1.6 oz) 04/24/19 91.5 kg (201 lb 11.5 oz) Patient Education: Provided teaching on the following, including but not limited to: Pathophysiology of cancer. Brief mechanism of action of anticancer agent(s) and their indications. Supportive medications How to take drug (ie. with or without food, swallow whole, do not crush) Drug/drug and drug/food interactions Lab tests necessary in monitoring the medication for toxicity and efficacy Precautions/warnings Reproductive alterations/precautions and impact on future fertility Side effects and side effect management tips Planned duration of treatment When to call the physician or oncology pharmacist Assesment/Plan: 1. We discussed the high risk nature of the treatment regimen, as well as side effect manag ement. The patient demonstrated understanding and all questions were answered, and wishes to proceed with CyBorD therapy.* 2. Patient information and handouts were given to the patient. 3. Chemotherapy consent form was signed. 4. Please consult clinical oncology pharmacist for any further medication related education . 5. Thank you. Electronically signed by: Stacia Horne PharmD 02/15/2020 10:59 AM PDT documented in this encounter Plan of Treatment +--------+---------+ + + + | Date | Type | Specialty | Care Team | Description | +--------+---------+ + + + | 04/28/ | Office | Sleep Medicine | Ilan Roberts PA | | 2019 | Visit | | [address] | | | | | | [place] | | | | | | [phone] | | | | | | | | +--------+---------+ + + + | 07/07/ | Office | Nephrology | Eduardo Felder MD | | 2019 | Visit | | [address] [place] | | | | | | [address] [place], [place] | | | | | | [address] | | | | | | | | +--------+---------+ + + + documented as of this encounter Visit Diagnoses + + | Diagnosis | + + | 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) - Primary Multiple myeloma, | | without mention of having achieved remission | + + documented in this encounter"
--- OUTSIDE RECORDS SUMMARY | ~2020-04-19 | XMS | Encounter Summary ---
Demographics + + + | Address | [address] | | | [place] [address] | + + + | Home Phone [...] + | Halima Alexander | ECON | [address] | | | | | [place] | | | | | [address] | | + + + + + Care Team Providers + +------+ + | Care Placement Coordinator Name | Role | Phone | [...] | | | [facility] [address] | | | | | [address] | [place] [address] | | | | | [place] [address] | [phone] | | | | | [phone] | | | +--------+ + + + [...] 2019 | Visit | | [address] | | | | | | [place] | | | | | | [address] | | | | | | | | +--------+---------+ + + + | 07/07/ | Office | Nephrology | Eduardo Felder MD | | | 2019 | Visit | | [address] [place] | | | | | | [address] [place] | | | | | | [address] | | | | | | | | +--------+---------+ + + + documented as of this encounter Visit Diagnoses Not on filedocumented in this encounter"
--- OUTSIDE RECORDS SUMMARY | ~2020-04-19 | XMS | Encounter Summary ---
Demographics + + + | Address | [address] | | | [place] [address] | + + + | Home Phone [...] + | Halima Alexander | ECON | [address] | | | | | [place] | | | | | [address] | | + + + + + Care Team Providers + +------+ + | Care Public Relations Specialist Name | Role | Phone | + +------+ + | Garima Martin | PCP | | | PA | | | + +------+ + Encounter Details +--------+---------+ + + + | Date | Type | Department | Care Team | Description | +--------+---------+ + + + | 07/02/ | Office | [facility] | Eduardo Felder MD | CKD (chronic kidney | | 2019 | Visit | NEPHROLOGY [place] | [address] [place] | disease) stage 3, | | | | [address] | [address] [facility] [place] | GFR 30-59 ml/min | | | | [address] [place] [address] | [address] | ([facility]) (Primary Dx); | | | | [place], [place] | | Essential | | | | [address] | | hypertension, | | | | [phone] | | benign; Bilateral | | | [...] RFP, CBC, uric acid, iPTH, Urine total jnusmml-ox-vxuopqfrru ratio before he comes back in 6 [...] his baseline Creatinine is ~2 from 12/16 19. There is no family history of renal [...] RFP, CBC, uric acid, iPTH, Urine total xooqakv-os-japqxphonw ratio before he comes back in 6 months. I spent 15 minutes of this 25-minute visit in education, counseling and answering all of his questions to his satisfaction. Thank you Garima for the opportunity to see this patient in F/U today. Please do not hesi mckeon to call me at any time with questions or concerns. Truly yours, Eduardo Felder MD [facility] documented in this enco unter Plan of Treatment +--------+---------+ + + + | Date | Type | Specialty | Care Team | Description | +--------+---------+ + + + | 04/28/ | Office | Sleep Medicine | Ilan [place] PA | | | 2019 | Visit | | [address] | | | | | | [place] | | | | | | [address] | | | | | | | | +--------+---------+ + + + | 07/07/ | Office | Nephrology | Eduardo Felder MD | | | 2019 | Visit | | [address] [place] | | | | | | [address] [place] | | | | | | [address] | | | | | | | | +--------+---------+ + + + documented as of this encounter Visit Diagnoses + + | Diagnosis | + + | CKD (chronic kidney disease) stage 3, GFR 30-59 ml/min ([facility]) - Primary Chronic kidney | | disease, Stage III (moderate) | + + | Essential hypertension, benign | + + | Bilateral leg edema Edema | + + | Electrolyte imbalance risk Other specified conditions influencing health status | + + | Hyperuricemia Other abnormal blood chemistry | + + documented in this encounter"
--- OUTSIDE RECORDS SUMMARY | ~2020-04-19 | XMS | Encounter Summary ---
Demographics + + + | Address | [address] | | | [place] [address] | + + + | Home Phone [...] + | Halima Alexander | ECON | [address] | | | | | [place] | | | | | [address] | | + + + + + Care Team Providers + +------+ + | Care Asset Management Lead Name | Role | Phone | + +------+ + | Garima Martin | PCP | | | PA | | | + +------+ + Encounter Details +--------+ + + + + | Date | Type | Department | Care Team | Description | +--------+ + + + + | 01/30/ | Orders Only | [facility] | Conversion | | | 2018 | | NEPHROLOGY [place] | Transaction, | | | | | [address] | Provider Unknown | | | | | [address] [facility] | | | | | | [address] | (Fax) | | | | | [phone] | | | +--------+ + + + [...] 2019 | Visit | | [address] | | | | | | [place] | | | | | | [address] | | | | | | | | +--------+---------+ + + + | 07/07/ | Office | Nephrology | Eduardo Felder MD | | | 2019 | Visit | | [address] [place] | | | | | | [address] [place] | | | | | | [address] | | | | | | | [...] + + + + | Non- | 2.88 (A) | 4.3 - 5.7 [...]
[2020-04-19] MEDS ORDERED: CEFDINIR300 MG PO (19:21)
== END 2020-04-19 19:43 | disposition home or self-care (01) ==
LOC: ED 15:34
DX: D61.818 Other pancytopenia (principal); N39.0 Urinary tract infection, site not specified; I12.9 Hypertensive chronic kidney disease with stage 1 through stage 4 chronic kidney disease, or unspecified chronic kidney disease; N18.4 Chronic kidney disease, stage 4 (severe); Z79.899 Other long term (current) drug therapy
CPT/HCPCS: 80053; 81001; 84484; 85025; 87077; 87088; 87186; 96374; 99284-25; G0480; J0696

== ENCOUNTER 2021-05-27 21:21 | Emergency (ER) | payer MEDICARE ==
[~2021-05-27] VITALS: Ht 182.9 cm; Wt 98.4 kg
[~2021-05-27 21:21] MED LIST changes: +BORTEZOMIB IV; +CEFDINIR300 MG PO; +CYCLOPHOSPHAMI500 MG IV; +LAXATIVE5 M1 PO
--- OUTSIDE RECORDS SUMMARY | 2021-05-27 21:24 | XMS ---
PreManage Notification: JINNY MIRANDA Security Card Room Manager Events No recent Security Events currently on file [facility] There are no care providers on record at this time. [place] has no Care Guidelines for this patient. Milagros VISIT COUNT (12 MO.) 1 [facility] [place] TOTAL 1 NOTE: Visits indicate total known visits. ED/UCC VISIT TRACKING (12 MO.) 05/27/2021 21:21 [facility] [place] TYPE: Emergency COMPLAINT: - LT LEG PAIN/NO INJ INPATIENT VISIT TRACKING (12 MO.) No inpatient visits to display in this time frame [email or web address]
[2021-05-27] MEDS ORDERED: ALLOPURINOL300 MG PO (22:18)
== END 2021-05-27 23:48 | disposition home or self-care (01) ==
LOC: ED 21:21
DX: R60.0 Localized edema (principal); I12.9 Hypertensive chronic kidney disease with stage 1 through stage 4 chronic kidney disease, or unspecified chronic kidney disease; N18.4 Chronic kidney disease, stage 4 (severe); Z85.79 Personal history of other malignant neoplasms of lymphoid, hematopoietic and related tissues; Z79.899 Other long term (current) drug therapy
CPT/HCPCS: 93970; 99284-25

== ENCOUNTER 2021-09-19 15:40 | Inpatient (IN) | payer MEDICARE ==
[~2021-09-19] VITALS: Ht 182.9 cm; Wt 98.9 kg
[~2021-09-19 15:40] MED LIST changes: +ALLOPURINOL300 MG PO
--- OUTSIDE RECORDS SUMMARY | 2021-09-19 15:42 | XMS ---
PreManage Notification: JINNY MIRANDA Security Automatic Outsole Cutter Events No recent Security Events currently on file CRITERIA MET - [employer] CARE PROVIDERS ROHAN REYNOLDS Physician Optical Effects Layout Person 05/28/2021-Current PHONE: Unknown [place] has no Care Guidelines for this patient. EKomal VISIT COUNT (12 MO.) 2 [facility] [place] TOTAL 2 NOTE: Visits indicate total known visits. ED/UCC VISIT TRACKING (12 MO.) 09/19/2021 15:41 [facility] [place] TYPE: Emergency COMPLAINT: - L SIDED ABD PAIN 05/27/2021 21:21 [facility] [place] TYPE: Emergency COMPLAINT: - LT LEG PAIN/POSS BLOOD CLOT DIAGNOSES: - Localized edema - Other oysterman (current) drug therapy - Chronic kidney disease, stage 4 (severe) - Hypertensive chronic kidney disease with stage 1 through stage 4 chronic kidney disease, or unspecified chronic kidney disease - Personal history of other malignant neoplasms of lymphoid, hematopoietic and related tissues INPATIENT VISIT TRACKING (12 MO.) No inpatient visits to display in this time frame [email or web address]
[2021-09-19] MEDS ORDERED: TORSEMIDE20 MG PO (15:58)
[2021-09-19] MEDS ORDERED: TRAMADOL HCL50 MG PO (16:00)
[2021-09-21] MEDS ORDERED: 8HR ARTHRITIS650 M1 PO (11:02)
[2021-09-23] MEDS ORDERED: CEPHALEXIN500 MG PO (09:41)
[2021-09-23] MEDS ORDERED: LEVOFLOXACIN500 MG PO (09:46)
== END 2021-09-23 11:10 | disposition home or self-care (01) | DRG 698 ==
LOC: ED 15:40 → MS 21:12
PROVIDERS: ADMIT Internal Medicine; ATTEND Internal Medicine
DX: T83.511A Infection and inflammatory reaction due to indwelling urethral catheter, initial encounter (principal); J15.6 Pneumonia due to other Gram-negative bacteria; C90.00 Multiple myeloma not having achieved remission; N18.4 Chronic kidney disease, stage 4 (severe); N39.0 Urinary tract infection, site not specified; Z79.899 Other long term (current) drug therapy; G89.4 Chronic pain syndrome; N18.9 Chronic kidney disease, unspecified; B96.20 Unspecified Escherichia coli [E. coli] as the cause of diseases classified elsewhere; I12.9 Hypertensive chronic kidney disease with stage 1 through stage 4 chronic kidney disease, or unspecified chronic kidney disease; Z98.890 Other specified postprocedural states; N32.0 Bladder-neck obstruction; Z66 Do not resuscitate; Z20.822 Contact with and (suspected) exposure to COVID-19; E79.0 Hyperuricemia without signs of inflammatory arthritis and tophaceous disease
CPT/HCPCS: 71045; 74176; 80048; 81001; 83605; 85025; 87040; 87070; 87088; 87186; 87205; 93005; 93010; 94667; 94668; 96365; 96368; 97163; 97530; 99285-25; C9803; J0692; J1650; J1956; J7121; U0003